=== PATIENT | male | born 1965 | race Caucasian/White ===

== ENCOUNTER → 2016-02-10 | Outpatient (CLI) | payer OTHER ==
[~2016-02-10] MED LIST: ACET1TAB84 PO; ADVIN50/60 INH; ALBI1INJ SQ; ALBI1INJ2 SQ; ALBINS/ INH; ALOS1TAB15 PO; ASPCH81X PO; ATOR-22 PO; BNT20 PO; CHOL200027 PO; CLB/200 PO; CLB100 PO; CLR10 PO; CYAN10004 PO; DIAZ-165 PO; DICY20TA35 PO; DOXY50CA26 PO; DPH/ PO; FLUT0.15; GABA1CAP5 PO; GLCSR/500 PO; IPRA1AER2 INH; LRS10 PO; MELO15TA3 PO; MELO15TA4 PO; METF1TAB53 PO; MONT1TAB3 PO; MTR600XX PO; MULTTAB58 PO; NVLGI7030 SC; OMEG10007 PO; ONDA4TAB10 SL; OXYC1TAB3 PO; PANT40TA PO; RISP2TAB22 PO; RISP4TAB7 PO; SOLI5TAB2 PO; TAMS0.4C38 PO; TRAZ100T29 PO; TRAZ1TAB52 PO; TRAZ50TA35 PO; VITACAP26 PO; VTMB12100 PO
--- NOTE | 2016-02-10 09:18 | DIAGNOSTIC IMAGING REPORT ---
CHEST 2 VIEWS ROUTINE CLINICAL HISTORY: J45.909 [id number] COMPARISON STUDY: 02/18/2015 FINDINGS: The heart is normal in size. There is mild superior mediastinal prominence, unchanged from the prior study likely secondary to fat deposition. There is no focal pulmonary consolidation. There is no failure. There are no pleural effusions.[ IMPRESSION: No active disease in the chest. Electronically signed by: Trace Price M.D. 02/10/2016 9:16 AM
== END | disposition home or self-care (01) ==
LOC: C.RAD1850 08:39
PROVIDERS: ATTEND Internal Medicine Pulmonary Disease
DX: J45.909 Unspecified asthma, uncomplicated (principal)

== ENCOUNTER → 2016-03-02 | Outpatient (CLI) | payer OTHER ==
[~2016-03-02] VITALS: Ht 180.3 cm; Wt 147.3 kg
[2016-03-02 15:30] VITALS: BP 128/78; PULSE 80; Ht 180.3 cm; Wt 147.3 kg
== END | disposition home or self-care (01) ==
LOC: C.NEUR 12:46
PROVIDERS: ATTEND Internal Medicine Pulmonary Disease
DX: G47.33 Obstructive sleep apnea (adult) (pediatric) (principal); J45.909 Unspecified asthma, uncomplicated

== ENCOUNTER → 2016-03-31 | Outpatient (CLI) | payer OTHER ==
[2016-03-31 09:38] LABS: BLOOD UREA NITROGEN 27 mg/dl (7-18); BUN/CREATININE RATIO 28.8 (10-20); CREATININE 0.93 mg/dl (0.60-1.40)
[2016-03-31 09:42] LABS: PROSTATE SPECIFIC ANTIGEN 0.134 ng/ml (0.000-4.000)
== END | disposition home or self-care (01) ==
LOC: C.LAB 06:29
PROVIDERS: ATTEND Urology
DX: R32 Unspecified urinary incontinence (principal)

== ENCOUNTER 2016-04-05 07:14 | Emergency (ER) | payer OTHER ==
[~2016-04-05] VITALS: Ht 180.3 cm; Wt 143.5 kg
[~2016-04-05 07:14] MED LIST changes: -ACET1TAB84 PO; -ALBI1INJ2 SQ; -ASPCH81X PO; -CLB/200 PO; -CLB100 PO; -DICY20TA35 PO; -DOXY50CA26 PO; -GLCSR/500 PO; -MELO15TA4 PO; -MONT1TAB3 PO; -ONDA4TAB10 SL; -OXYC1TAB3 PO; -TRAZ1TAB52 PO; -TRAZ50TA35 PO; -VITACAP26 PO; -VTMB12100 PO
[2016-04-05 07:20] VITALS: Ht 180.3 cm; Wt 143.5 kg
[2016-04-05] MEDS ORDERED: SODIUM CHLORIDE 0.9% 1000ML 1,000 ML IV STA (07:34)
[2016-04-05 07:58] LABS: BASO % 0.2 %; BASO ABS # 0.02 K/uL (0-0.2); COMPLETE YES; EOS % 0.5 %; HEMATOCRIT 44.4 % (42-52); IG% 0.4 %; LYMPH % 5.1 %; MEAN CELL VOLUME 89.5 fL (80-100); MEAN CORPUSCULAR HEMOGLOBIN 31.9 pg (25-34); MEAN CORPUSCULAR HGB CONC 35.6 g/dl (32-36); MEAN PLATELET VOLUME 9.2 fL (7.4-10.4); MONO % 10.7 %; NEUT % 83.1 %; PLATELET COUNT 213 K/uL (130-400); RED BLOOD COUNT 4.96 M/uL (4.7-6.1); WHITE BLOOD COUNT 9.77 K/uL (4.8-10.8)
[2016-04-05 08:15] LABS: BUN/CREATININE RATIO 28.8 (10-20); CALCIUM 8.4 mg/dl (8.5-10.1); POTASSIUM 3.7 mmol/L (3.5-5.1)
[2016-04-05 08:18] LABS: ALB/GLOB RATIO 0.8 (0.9-2)
[2016-04-05] MEDS ORDERED: VITACAP26 PO (08:19)
[2016-04-05] MEDS ORDERED: ONDA4TAB10 SL (08:19)
[2016-04-05] MEDS ORDERED: DOXY50CA26 PO (08:19)
[2016-04-05] MEDS ORDERED: TRAZ1TAB52 PO (08:19)
[2016-04-05] MEDS ORDERED: MELO15TA4 PO (08:19)
[2016-04-05] MEDS ORDERED: GLCSR/500 PO (08:19)
[2016-04-05] MEDS ORDERED: DICY20TA35 PO (08:19)
[2016-04-05] MEDS ORDERED: ACET1TAB84 PO (08:19)
[2016-04-05] MEDS ORDERED: IPRA1AER2 INH (08:19)
[2016-04-05] MEDS ORDERED: TRAZ50TA35 PO (08:19)
[2016-04-05] MEDS ORDERED: VTMB12100 PO (08:19)
[2016-04-05] MEDS ORDERED: MONT1TAB3 PO (08:19)
[2016-04-05 09:18] VITALS: BP 113/70; PULSE 91; TEMP 37; O2SAT 96
--- NOTE | 2016-04-05 17:23 | EMERGENCY ROOM VISIT NOTE ---
History First contact with patient: 07:23 Chief Complaint: DIARRHEA Stated Complaint: DIARRHEA,BODY ACHES Nursing Triage Summary: "I have body aches. I went to [employer] [facility] on wednesday they told me it was viral. I have diarrhea. I have been getting headaches" History of Present Illness The patient is a 50 year old white male who presents to the Emergency Room with complaints of diarrhea that has been present since . He states there is nausea but denies any vomiting. He denies eating anything unusual. He does have a history of IBS. He has been using Lomotil without improvement. States he did take 6 pills this morning. He admits to bodyaches. He went to [facility] on Wednesday and had a flu swab which was reportedly negative. He was told that his symptoms are likely viral. He is unsure if he is dehydrated. Complains of some mild headaches intermittently. No other treatment. He also states he has had fevers, chills, and sweats. No upper respiratory symptoms. Review of Systems REVIEW OF SYSTEM: HEENT: No dizziness, visual problems, hearing loss, or tinnitus. There is no difficulty swallowing and no oral lesions are present. LYMPH: No adenopathy. PULMONARY: No cough, shortness of breath, sputum production or hemoptysis. CARDIOVASCULAR: No chest pain, palpitations, shortness of breath or peripheral edema. GASTROINTESTINAL: Positive diarrhea, and nausea. No vomiting. GENITOURINARY: No dysuria, frequency, urgency or nocturia. NEUROLOGIC: No weakness, muscle tenderness, epilepsy or history of neurological problems. No history of chronic headaches. MUSCULOSKELETAL: No history of joint tenderness/swelling. No history of arthritis or arthralgias. SKIN: No rashes or lesions. PSYCHIATRIC: Positive history of bipolar disorder. ENDOCRINE: No history of thyroid disorder or abnormal hair growth. Past Medical/Surgical History Medical Problems: (1) Asthma (2) Bipolar disorder (3) BPH (benign prostatic hyperplasia) (4) Chronic back pain (5) Diabetes mellitus (6) Dyslipidemia (7) GERD (gastroesophageal reflux disease) (8) IBS (irritable bowel syndrome) (9) ZORAN treated with BiPAP Surgical Problems: (1) H/O rhinoplasty (2) H/O umbilical hernia repair Family History No pertinent family history Social History Smoking Status: Never Smoker Smokeless Tobacco Use: No Alcohol Use: none Drug Use: none Marital Status: single Housing Status: lives alone Occupation Status: disabled Current/Historical Medications Scheduled Acetaminophen (Tylenol Arthritis Ext Rel), 1,300 MG PO QID Albiglutide (Tanzeum), SQ weekly Albiglutide (Tanzeum), 30 MG SQ weekly Alosetron Hcl (Lotronex), 1 MG PO BID Atorvastatin (Lipitor), 20 MG PO DAILY Baclofen (Baclofen), 10 PO TID Cholecalciferol (Vitamin D-3), 2,000 INTER.UNIT PO DAILY Cyanocobalamin (Vitamin B-12 1000 Mcg), 1,000 MCG PO DAILY Cyanocobalamin (Vitamin B-12), 1 MG PO DAILY Diazepam (Valium), 5 MG PO HS Dicyclomine Hcl (Bentyl), 20 MG PO QID Diphenoxylate W/ Atropine (Lomotil), 2 TAB PO QID PRN Doxycycline (Monohydrate) (Doxycycline), 50 MG PO DAILY Fish Oil ([place]-3), 1,200 MG PO TID Fluticasone Prop/Salmeterol (Advair Diskus 500/50 60 Dose), 1 PUFF INH BID Fluticasone Propionate (Nasal) (Flonase Allergy Relief), 2 SPRAYS NA DAILY Gabapentin (Neurontin), 400 MG PO QID Insulin Aspart 70/30 (Novolog Mix 70/30), 55 UNITS SC BID Ipratropium-Albuterol (Combivent Respimat), 2 PUFFS INH AMPM Meloxicam (Mobic), 15 MG PO DAILY Metformin HCl (Metformin HCl ER), 1,000 MG PO BID Montelukast Sodium (Singulair), 10 MG PO DAILY Multiple Vitamin (Multivitamin), 1 TAB PO DAILY Pantoprazole (Protonix), 40 MG PO DAILY Risperidone (Risperdal), 1.5 TAB PO HS Solifenacin Succinate (Vesicare), 10 MG PO HS Tamsulosin Hcl (Flomax), 2 CAP PO HS Trazodone Hcl (Trazodone), 150 MG PO HS Vitamins C & E (Vitamin C), 1 CAP PO HS Scheduled PRN Albuterol Sulf (Proventil 0.083% 2.5MG/3ML), 2.5 MG INH QID PRN for SOB/Wheezing Ondasetron Odt (Zofran Odt), 4 MG SL Q6H PRN for Nausea or Vomiting Allergies Coded Allergies: Haloperidol (Verified Adverse Reaction, Mild, muscle cramps, eyes roll back in my head, 04/05/16) Physical Exam Vital Signs Date Time Temp Pulse Resp B/P Pulse Ox O2 Delivery O2 Flow Rate FiO2 04/05/16 09:18 37.0 91 20 113/70 96 04/05/16 07:20 36.9 99 18 134/69 93 Room Air Physical Exam Gen.: Well-developed, well-nourished, obese middle-aged white male, in no acute distress. Looks older than his stated age. Laying on a bed. Alert and oriented. Skin:Warm and dry with good turgor. No rashes or lesions. No ecchymosis or erythema. The patient is not diaphoretic. No abrasions. HEENT: Normocephalic atraumatic. Eyes PERRLA, EOMI. No conjunctiva or scleral injection. Ears TMs intact bilaterally with good light reflexes. No erythema or bulging. No hemotympanum. Canals are patent. Nares patent bilaterally without turbinate enlargement. No significant drainage. No epistaxis. Oropharynx without erythema or exudate. Uvula midline, oral mucosa mildly dry. No lesions present. Heart: Heart RRR. No MGR. Peripheral pulses are 2+. Lungs: Lungs are clear to auscultation. No crackles rhonchi or wheezing. Good air movement. The patient is able to take a deep breath. Abdomen: Abdomen was inspected, auscultated, and palpated. Obese. Bowel sounds present x 4. Hyperactive. Soft, diffuse mild tenderness to palpation. No hepato-splenomegaly. No masses noted. No rebound, negative Cali sign. No pain over McBurney's point. Neurologic: Gross sensation is intact across the upper and lower extremities by soft touch. Medical Decision & Procedures Laboratory Results 04/05/16 07:45 Red Blood Count 4.96, Mean Corpuscular Volume 89.5, Mean Corpuscular Hemoglobin 31.9, Mean Corpuscular Hemoglobin Concent 35.6, Mean Platelet Volume 9.2, Neutrophils (%) (Auto) 83.1, Lymphocytes (%) (Auto) 5.1, Monocytes (%) (Auto) 10.7, Eosinophils (%) (Auto) 0.5, Basophils (%) (Auto) 0.2, Neutrophils # (Auto ) 8.11, Lymphocytes # (Auto) 0.50, Monocytes # (Auto) 1.05, Eosinophils # (Auto ) 0.05, Basophils # (Auto) 0.02 04/05/16 07:45 Test 04/05/16 07:45 White Blood Count 9.77 K/uL (4.8-10.8) Red Blood Count 4.96 M/uL (4.7-6.1) Hemoglobin 15.8 g/dL (14.0-18.0) Hematocrit 44.4 % (42-52) Mean Corpuscular Volume 89.5 fL (80-100) Mean Corpuscular Hemoglobin 31.9 pg (25-34) Mean Corpuscular Hemoglobin Concent 35.6 g/dl (32-36) Platelet Count 213 K/uL (130-400) Mean Platelet Volume 9.2 fL (7.4-10.4) Neutrophils (%) (Auto) 83.1 % Lymphocytes (%) (Auto) 5.1 % Monocytes (%) (Auto) 10.7 % Eosinophils (%) (Auto) 0.5 % Basophils (%) (Auto) 0.2 % Neutrophils # (Auto) 8.11 K/uL (1.4-6.5) Lymphocytes # (Auto) 0.50 K/uL (1.2-3.4) Monocytes # (Auto) 1.05 K/uL (0.11-0.59) Eosinophils # (Auto) 0.05 K/uL (0-0.5) Basophils # (Auto) 0.02 K/uL (0-0.2) RDW Standard Deviation 44.7 fL (36.4-46.3) RDW Coefficient of Variation 13.6 % (11.5-14.5) Immature Granulocyte % (Auto) 0.4 % Immature Granulocyte # (Auto) 0.04 K/uL (0.00-0.02) Anion Gap 7.0 mmol/L (3-11) Est Creatinine Clear Calc Drug Dose 129.6 ml/min Estimated GFR () 102.0 Estimated GFR (Non- 88.0 BUN/Creatinine Ratio 28.8 (10-20) Calcium Level 8.4 mg/dl (8.5-10.1) Total Bilirubin 0.5 mg/dl (0.2-1) Aspartate Amino Transf (AST/SGOT) 31 U/L (15-37) Alanine Aminotransferase (ALT/SGPT) 43 U/L (12-78) Alkaline Phosphatase 80 U/L (45-117) Total Protein 7.3 gm/dl (6.4-8.2) Albumin 3.2 gm/dl (3.4-5.0) Globulin 4.1 gm/dl (2.5-4.0) Albumin/Globulin Ratio 0.8 (0.9-2) CBC and chem panel were obtained today. Stool culture and C. difficile toxin were also ordered with a sample of his stool. C. difficile was negative. CBC is unremarkable. Mild elevation in his BUN at 29. Glucose 177. Electrolytes are otherwise unremarkable. Medications Administered Medications (Trade) Dose Ordered Sig/Kari Route Start Time Stop Time Status Last Admin Dose Admin Sodium Chloride (Nss 1000ml) 1,000 ml @ 999 mls/hr Q1H1M STAT IV 04/05/16 07:34 04/05/16 08:34 DC 04/05/16 07:48 999 MLS/HR 1 L normal sterile saline IV bolus ED Course Patient was educated regarding today's findings. Conservative care measures were discussed. IV was established. Labs were obtained. He was hydrated with 1 L normal sterile saline IV bolus. Stool sample was obtained. It was negative for C. difficile. He was reassured that his labs show that he was mildly dry. He should maintain fluid intake. IV hydration here should help. Continue with his Lomotil one pill every 6 hours as needed for loose stool. Follow-up with his PCP. He will be called if the stool cultures show any growth. Return to the ED for any acute changes. He was cautioned against taking too many motility agents as this may create constipation or obstruction for him. Medical Decision Possibility of parasite, C. difficile infection, Shigella infection, obstruction , viral infection, or medication reaction was considered. Impression Primary Impression: Diarrhea in adult patient Departure Information Referrals Magda Dhillon D.O. (PCP) Patient Instructions My [facility]
[2016-07-02] MEDS ORDERED: CLB100 PO (08:10)
[2016-07-02] MEDS ORDERED: CLB/200 PO (08:10)
[2016-10-21] MEDS ORDERED: ASPCH81X PO (13:10)
[2016-10-21] MEDS ORDERED: CLR10 PO (13:10)
[2016-10-21] MEDS ORDERED: TRAZ1TAB52 PO (13:10)
== END 2016-04-05 09:19 | disposition home or self-care (01) ==
LOC: C.EDB 07:15 → C.EDA 09:19
DX: R19.7 Diarrhea, unspecified (principal); J45.909 Unspecified asthma, uncomplicated; F31.9 Bipolar disorder, unspecified; N40.0 Benign prostatic hyperplasia without lower urinary tract symptoms; E11.9 Type 2 diabetes mellitus without complications; E66.9 Obesity, unspecified; E78.5 Hyperlipidemia, unspecified; K21.9 Gastro-esophageal reflux disease without esophagitis; K58.9 Irritable bowel syndrome, unspecified; G47.33 Obstructive sleep apnea (adult) (pediatric); Z79.899 Other long term (current) drug therapy

== ENCOUNTER 2016-05-09 08:22 | Emergency (ER) | payer OTHER ==
[~2016-05-09] VITALS: Ht 180.3 cm; Wt 141.2 kg
[~2016-05-09 08:22] MED LIST changes: +ACET1TAB84 PO; +ALOS1TAB PO; -ALOS1TAB15 PO; -BNT20 PO; -CLR10 PO; +DICY20TA35 PO; +DOXY50CA26 PO; +GLCSR/500 PO; -MELO15TA3 PO; +MELO15TA4 PO; -METF1TAB53 PO; +MONT1TAB3 PO; -MTR600XX PO; +ONDA4TAB10 SL; -RISP2TAB22 PO; -TRAZ100T29 PO; +TRAZ50TA35 PO; +VITACAP26 PO; +VTMB12100 PO
[2016-05-09 08:29] VITALS: TEMP 36.6; Ht 180.3 cm; Wt 141.2 kg
--- NOTE | 2016-05-09 09:04 | EMERGENCY ROOM VISIT NOTE ---
History First contact with patient: 08:37 Chief Complaint: BACK PAIN Stated Complaint: PAIN W/BREATHING, TURNING, BACK PAIN History of Present Illness The patient is a 50 year old male who presents to the Emergency Room via private vehicle with complaints of "pain with breathing, turning, back pain". The patient states for the past month he has had pain in the right mid back. He states this occurred shortly after having an RFA with pain management. He states that it hurts to take a deep breath, and with walking. There is no known injury. He rates the pain as a 6-8/10. He points to the right CVA region into the right flank as the location of the pain. One week ago he was seen by Jorge Maldonado of pain management, prescribed a Medrol Dosepak with minimal relief. His also been taking acetaminophen meloxicam without relief. He is unsure if there is associated shortness of breath. He denies any chest pain, fevers, chills, history of blood clots, history of kidney stones personally, lower extremity weakness, bowel or bladder incontinence, numbness or tingling in the genital region. He denies any blood in the urine. He denies any melena or blood in the stool. He does feel that he is urinating more frequently. Review of Systems A complete 10-point Review of Systems was discussed with the patient, with pertinent positives and negatives listed in the History of Present Illness. All remaining Review of Systems questions can be considered negative unless otherwise specified. Past Medical/Surgical History Medical Problems: (1) Asthma (2) Bipolar disorder (3) BPH (benign prostatic hyperplasia) (4) Chronic back pain (5) Diabetes mellitus (6) Dyslipidemia (7) GERD (gastroesophageal reflux disease) (8) IBS (irritable bowel syndrome) (9) ZORAN treated with BiPAP Surgical Problems: (1) H/O rhinoplasty (2) H/O umbilical hernia repair Family History No pertinent family history Social History Smoking Status: Never Smoker Alcohol Use: none Drug Use: none Marital Status: single Housing Status: lives alone Occupation Status: disabled Current/Historical Medications Scheduled Acetaminophen (Tylenol Arthritis Ext Rel), 1,300 MG PO QID Albiglutide (Tanzeum), 1 DOSE SQ WK Alosetron Hcl (Lotronex), 1 MG PO BID Atorvastatin (Lipitor), 20 MG PO DAILY Baclofen (Baclofen), 10 PO TID Cholecalciferol (Vitamin D-3), 2,000 INTER.UNIT PO DAILY Cyanocobalamin (Vitamin B-12 1000 Mcg), 1,000 MCG PO DAILY Diazepam (Valium), 5 MG PO HS Dicyclomine Hcl (Bentyl), 20 MG PO QID Diphenoxylate W/ Atropine (Lomotil), 2 TAB PO QID PRN Doxycycline (Monohydrate) (Doxycycline), 50 MG PO DAILY Fish Oil ([place]-3), 1,200 MG PO TID Fluticasone Prop/Salmeterol (Advair Diskus 500/50 60 Dose), 1 PUFF INH BID Fluticasone Propionate (Nasal) (Flonase Allergy Relief), 2 SPRAYS NA DAILY Gabapentin (Neurontin), 400 MG PO QID Insulin Aspart 70/30 (Novolog Mix 70/30), 55 UNITS SC BID Ipratropium-Albuterol (Combivent Respimat), 2 PUFFS INH AMPM Meloxicam (Mobic), 15 MG PO DAILY Metformin HCl (Metformin HCl ER), 1,000 MG PO BID Montelukast Sodium (Singulair), 10 MG PO DAILY Multiple Vitamin (Multivitamin), 1 TAB PO DAILY Pantoprazole (Protonix), 40 MG PO DAILY Risperidone (Risperdal), 1 TAB PO HS Solifenacin Succinate (Vesicare), 10 MG PO HS Tamsulosin Hcl (Flomax), 2 CAP PO HS Trazodone Hcl (Trazodone), 150 MG PO HS Vitamins C & E (Vitamin C), 1 CAP PO HS Scheduled PRN Albuterol Sulf (Proventil 0.083% 2.5MG/3ML), 2.5 MG INH QID PRN for SOB/Wheezing Ondasetron Odt (Zofran Odt), 4 MG SL Q6H PRN for Nausea or Vomiting Oxycodone Ir (Roxicodone Ir), 1-2 TAB PO Q4H PRN for Pain Allergies Coded Allergies: Haloperidol (Verified Adverse Reaction, Mild, muscle cramps, eyes roll back in my head, 05/09/16) Physical Exam Vital Signs Date Time Temp Pulse Resp B/P Pulse Ox O2 Delivery O2 Flow Rate FiO2 05/09/16 11:38 72 18 118/78 94 05/09/16 10:42 70 05/09/16 10:19 71 22 118/78 95 Room Air 05/09/16 09:30 94 Room Air 05/09/16 08:29 36.6 68 22 138/71 97 Room Air Physical Exam VITAL SIGNS - Vital signs and nursing notes were reviewed. Afebrile, normotensive, non-tachycardic and is saturating well on room air at 97%. GENERAL -50-year-old male appearing his greater than his stated age who is in no acute distress. Communicates well with provider and answers questions appropriately. SKIN - Without rashes. HEAD - NC/AT. EYES - Sclera anicteric. Palpebral conjunctiva pink and moist with no injection noted. EARS - No deformities of external structures noted on gross examination bilaterally. NOSE - Midline and without cyanosis. No epistaxis or purulent drainage noted. MOUTH/OROPHARYNX - Without perioral cyanosis. NECK - Neck with FROM. LUNGS - Chest wall symmetric without accessory muscle use, intercostals retractions, or central cyanosis. Normal vesicular breath sounds CTA B/L. No wheezes, rales, or rhonchi appreciated. CARDIAC - RRR with S1/S2. No murmur, rubs, or gallops appreciated. ABDOMEN - Abdominal contour without pulsations or visible masses. BS normoactive all four quadrants.There is minimal tenderness in the lower quadrants. No palpable masses, hepatosplenomegaly, or ascites noted. +CVA tenderness on the right. EXTREMITIES - No clubbing or peripheral cyanosis. No pretibial edema present. + 5/5 strength noted in UE/LE bilaterally. NEUROLOGIC - Cranial nerves II through XII grossly intact. Sensory intact to light touch throughout. PSYCH - Pt is very pleasant and interacts well with examiner. Medical Decision & Procedures ER Provider Diagnostic Interpretation: CHEST ONE VIEW PORTABLE CLINICAL HISTORY: Back pain. COMPARISON STUDY: Chest CT February 18, 2015 and chest radiograph February 10, 2016. FINDINGS: Lung volumes are normal. There is no pneumothorax or pleural effusion. There is no evidence of pulmonary edema. The cardiomediastinal silhouette is stable. IMPRESSION: No acute cardiopulmonary findings. Electronically signed by: Delvis Jenkins M.D. 05/09/2016 9:06 AM Dictated Date/Time: 05/09/2016 9:[address] OF THE ABDOMEN AND PELVIS WITHOUT CONTRAST, STONE PROTOCOL CLINICAL HISTORY: Right CVA tenderness and pain COMPARISON STUDY: CT of the abdomen and pelvis July 22, 2011. TECHNIQUE: Helical axial images of the abdomen and pelvis were obtained without IV or oral contrast according to renal stone protocol. FINDINGS: Fatty infiltration of the liver is noted. Small left renal calculi measure up to 3 mm. There are a few punctate right renal calculi. There are no ureteral calculi and there is no hydronephrosis or hydroureter. Evaluation of the remainder of the abdomen and pelvis is suboptimal on this unenhanced exam. Unenhanced images of the spleen, adrenal glands and pancreas are normal. There is no evidence for a bowel obstruction. The appendix is normal. Colonic diverticulosis is noted without evidence for acute diverticulitis. No suspicious skeletal abnormalities are present. IMPRESSION: 1. Bilateral nephrolithiasis. No ureteral calculi or hydronephrosis. 2. Fatty liver. 3. Normal appendix. Electronically signed by: Delvis Jenkins M.D. 05/09/2016 9:43 AM Dictated Date/Time: 05/09/2016 9:39 AM Laboratory Results 05/09/16 09:00 Red Blood Count 4.61, Mean Corpuscular Volume 92.4, Mean Corpuscular Hemoglobin 32.1, Mean Corpuscular Hemoglobin Concent 34.7, Mean Platelet Volume 9.1, Neutrophils (%) (Auto) 69.1, Lymphocytes (%) (Auto) 19.7, Monocytes (%) (Auto) 7.9, Eosinophils (%) (Auto) 1.4, Basophils (%) (Auto) 0.4, Neutrophils # (Auto) 7.67, Lymphocytes # (Auto) 2.18, Monocytes # (Auto) 0.88, Eosinophils # (Auto) 0.15, Basophils # (Auto) 0.04 05/09/16 09:00 Test 05/09/16 09:00 05/09/16 09:13 05/09/16 10:17 White Blood Count 11.09 K/uL (4.8-10.8) Red Blood Count 4.61 M/uL (4.7-6.1) Hemoglobin 14.8 g/dL (14.0-18.0) Hematocrit 42.6 % (42-52) Mean Corpuscular Volume 92.4 fL (80-100) Mean Corpuscular Hemoglobin 32.1 pg (25-34) Mean Corpuscular Hemoglobin Concent 34.7 g/dl (32-36) Platelet Count 242 K/uL (130-400) Mean Platelet Volume 9.1 fL (7.4-10.4) Neutrophils (%) (Auto) 69.1 % Lymphocytes (%) (Auto) 19.7 % Monocytes (%) (Auto) 7.9 % Eosinophils (%) (Auto) 1.4 % Basophils (%) (Auto) 0.4 % Neutrophils # (Auto) 7.67 K/uL (1.4-6.5) Lymphocytes # (Auto) 2.18 K/uL (1.2-3.4) Monocytes # (Auto) 0.88 K/uL (0.11-0.59) Eosinophils # (Auto) 0.15 K/uL (0-0.5) Basophils # (Auto) 0.04 K/uL (0-0.2) RDW Standard Deviation 46.5 fL (36.4-46.3) RDW Coefficient of Variation 13.9 % (11.5-14.5) Immature Granulocyte % (Auto) 1.5 % Immature Granulocyte # (Auto) 0.17 K/uL (0.00-0.02) Anion Gap 7.0 mmol/L (3-11) Est Creatinine Clear Calc Drug Dose 144.3 ml/min Estimated GFR () 116.4 Estimated GFR (Non- 100.4 BUN/Creatinine Ratio 38.8 (10-20) Calcium Level 9.1 mg/dl (8.5-10.1) Total Bilirubin 0.3 mg/dl (0.2-1) Aspartate Amino Transf (AST/SGOT) 18 U/L (15-37) Alanine Aminotransferase (ALT/SGPT) 43 U/L (12-78) Alkaline Phosphatase 70 U/L (45-117) Total Protein 7.8 gm/dl (6.4-8.2) Albumin 3.9 gm/dl (3.4-5.0) Globulin 3.9 gm/dl (2.5-4.0) Albumin/Globulin Ratio 1.0 (0.9-2) Amylase Level 43 U/L (25-115) Lipase 124 U/L (73-393) Bedside D-Dimer 255 ng/mlFEU (0-450) Bedside Troponin I 0.000 ng/ml (0-0.045) Urine Color DK YELLOW Urine Appearance CLEAR (CLEAR) Urine pH 6.5 (4.5-7.5) Urine Specific Lewis 1.033 (1.000-1.030) Urine Protein NEG (NEG) Urine Glucose (UA) NEG (NEG) Urine Ketones NEG (NEG) Urine Occult Blood NEG (NEG) Urine Nitrite NEG (NEG) Urine Bilirubin NEG (NEG) Urine Urobilinogen NEG (NEG) Urine Leukocyte Esterase NEG (NEG) Medical Decision The patient was seen and evaluated as above. After obtaining a thorough history and physical examination the above workup was initiated. The patient presents with what is likely a strain of the mid superior lumbar and inferior thoracic spine. It is reproducible with palpation. Because the patient's underlying comorbidities additional imaging modalities and lab work was obtained. EKG reveals normal sinus rhythm, nonspecific T-wave abnormality which is in comparison to previous EKG, no significant change was found. No concern for recurrent ischemia. Patient states she's already had steroids with minimal relief. He also was concerned about potential kidney stone. CBC revealed slight leukocytosis which is likely secondary to recent Medrol Dosepak usage. Red blood cell count low at 4.61. D-dimer negative. Chloride elevated at 108, BUN at 35. Point care troponin negative 1, I do not believe that a second is repeated as his pain as been constant for one month. Amylase and lipase are within normal limits. Urine specific gravity elevated, otherwise negative. Imaging of the CT abdomen and pelvis reveals no acute process. Imaging of the chest unremarkable. Incidental findings discussed with patient. I believe he is likely experiencing a strain of the muscle. I was given Flexeril however he is already on baclofen. For acute management he'll be prescribed OxyIR. No red flags were identified any drug monitoring system. He was educated upon management, educated on worrisome symptoms which to return, educated upon the importance of follow-up, and was discharged home in good condition. Case was discussed with my attending. In the evaluation treatment this patient the following differential diagnoses were entertained: [place], PE, costochondritis, muscle strain, renal calculi, AAA, among others. [place] Drug Monitoring Program Search Results: patient reviewed within database, no issues identified Impression Primary Impression: Muscle strain of right upper back Additional Impressions: Elevated BUN Diverticulosis Fatty liver Departure Information Dispostion Home / Self-Care Condition GOOD Prescriptions Oxycodone Ir (Roxicodone Ir) 5 Mg Tab 1-2 TAB PO Q4H Y for Pain, #15 TAB For Initial Treatment Prov: Giovanny Coles PA-C 05/09/16 Referrals Magda Dhillon D.O. (PCP) Patient Instructions My [facility] Additional Instructions You have been treated in the Emergency Department for Back Pain. You have been prescribed Oxy IR to be used for pain control. This is a narcotic medication. You cannot drive or consume alcohol while on this medicine. This medicine should only be used for pain that cannot be controlled with over-the- counter pain medicines. Please continue your regular medications . For pain control, you can use the following [id number] medicines (if >12 yo): - Regular strength (325mg/tab) Tylenol (acetaminophen) 2 tabs every 4-6 hours as needed. Do not exceed 12 tablets in a 24 hour period. Avoid taking more than 3 grams (3000 mg) of Tylenol per day. This includes any other sources of acetaminophen you may take on a regular basis. - Regular strength (200 mg/tab) Advil (ibuprofen) 1-2 tabs every 4-6 hours as needed. Do not exceed a dose of 3200 mg per day. If this is an acute injury, ice can be applied to the area of pain for the first 3 days to help decrease pain and inflammation. After the first 3 days, a heating pad can be used over the area for continued soothing relief. You should schedule a follow-up appointment in 2-3 days with your Primary Care Provider for further evaluation and treatment of your back pain. Please discuss with your family doctor the findings of the CAT scan as we discussed as well as potentially having a repeat of your BUN. Your level here was 35. Return to the Emergency Department if your current symptoms worsen despite treatment course outlined above, or if you develop any of the following symptoms : intractable pain despite aforementioned treatment course, loss of control of your bowel or bladder, numbness or tingling in your groin, or development of a fever. Please return to emergency department with any new/concerning symptoms. Problem Qualifiers
--- NOTE | 2016-05-09 09:07 | DIAGNOSTIC IMAGING REPORT ---
CHEST ONE VIEW PORTABLE CLINICAL HISTORY: Back pain. COMPARISON STUDY: Chest CT February 18, 2015 and chest radiograph February 10, 2016. FINDINGS: Lung volumes are normal. There is no pneumothorax or pleural effusion. There is no evidence of pulmonary edema. The cardiomediastinal silhouette is stable. IMPRESSION: No acute cardiopulmonary findings. Electronically signed by: Delvis Jenkins M.D. 05/09/2016 9:06 AM Dictated Date/Time: 05/09/2016 9:05 AM
[2016-05-09 09:16] LABS: BASO % 0.4 %; BASO ABS # 0.04 K/uL (0-0.2); COMPLETE YES; EOS % 1.4 %; HEMATOCRIT 42.6 % (42-52); IG% 1.5 %; LYMPH % 19.7 %; LYMPH ABS # 2.18 K/uL (1.2-3.4); MEAN CELL VOLUME 92.4 fL (80-100); MEAN CORPUSCULAR HEMOGLOBIN 32.1 pg (25-34); MEAN CORPUSCULAR HGB CONC 34.7 g/dl (32-36); MEAN PLATELET VOLUME 9.1 fL (7.4-10.4); MONO % 7.9 %; NEUT % 69.1 %; PLATELET COUNT 242 K/uL (130-400); RED BLOOD COUNT 4.61 M/uL (4.7-6.1); WHITE BLOOD COUNT 11.09 K/uL (4.8-10.8)
[2016-05-09 09:30] VITALS: O2SAT 94
[2016-05-09 09:34] LABS: BUN/CREATININE RATIO 38.8 (10-20); CALCIUM 9.1 mg/dl (8.5-10.1); CREATININE 0.89 mg/dl (0.60-1.40); POTASSIUM 3.9 mmol/L (3.5-5.1)
--- NOTE | 2016-05-09 09:45 | DIAGNOSTIC IMAGING REPORT ---
CT OF THE ABDOMEN AND PELVIS WITHOUT CONTRAST, STONE PROTOCOL CLINICAL HISTORY: Right CVA tenderness and pain COMPARISON STUDY: CT of the abdomen and pelvis July 22, 2011. TECHNIQUE: Helical axial images of the abdomen and pelvis were obtained without IV or oral contrast according to renal stone protocol. FINDINGS: Fatty infiltration of the liver is noted. Small left renal calculi measure up to 3 mm. There are a few punctate right renal calculi. There are no ureteral calculi and there is no hydronephrosis or hydroureter. Evaluation of the remainder of the abdomen and pelvis is suboptimal on this unenhanced exam. Unenhanced images of the spleen, adrenal glands and pancreas are normal. There is no evidence for a bowel obstruction. The appendix is normal. Colonic diverticulosis is noted without evidence for acute diverticulitis. No suspicious skeletal abnormalities are present. IMPRESSION: 1. Bilateral nephrolithiasis. No ureteral calculi or hydronephrosis. 2. Fatty liver. 3. Normal appendix. Electronically signed by: eDlvis Jenkins M.D. 05/09/2016 9:43 AM Dictated Date/Time: 05/09/2016 9:39 AM
[2016-05-09] MEDS ORDERED: ALBI1INJ2 SQ (10:18)
[2016-05-09 10:26] LABS: URINE APPEARANCE CLEAR (CLEAR); URINE BILIRUBIN NEG (NEG); URINE COLOR DK YELLOW; URINE NITRITE NEG (NEG); URINE PH 6.5 (4.5-7.5); URINE SPECIFIC GRAVITY 1.033 (1.000-1.030); UROBILINOGEN NEG (NEG); ZZUR CULT IF INDIC CLEAN CATCH NO
[2016-05-09 10:33] LABS: MANUAL MICROSCOPIC REQUIRED? NO; REVIEW REQ? NO
[2016-05-09] MEDS ORDERED: OXYC1TAB3 PO (11:16)
[2016-05-09 11:38] VITALS: BP 118/78; PULSE 72; O2SAT 94
[2016-07-02] MEDS ORDERED: CLB/200 PO (08:10)
[2016-07-02] MEDS ORDERED: CLB100 PO (08:10)
[2016-10-21] MEDS ORDERED: TRAZ1TAB52 PO (13:10)
[2016-10-21] MEDS ORDERED: CLR10 PO (13:10)
[2016-10-21] MEDS ORDERED: ASPCH81X PO (13:10)
[2017-01-06] MEDS ORDERED: CLB/200 PO (10:22)
== END 2016-05-09 11:38 | disposition home or self-care (01) ==
LOC: C.EDB 08:24
DX: S39.012A Strain of muscle, fascia and tendon of lower back, initial encounter (principal); M54.9 Dorsalgia, unspecified; X58.XXXA Exposure to other specified factors, initial encounter; F31.9 Bipolar disorder, unspecified; K58.9 Irritable bowel syndrome, unspecified; G47.33 Obstructive sleep apnea (adult) (pediatric); E11.9 Type 2 diabetes mellitus without complications; Z79.4 Long term (current) use of insulin; Z79.899 Other long term (current) drug therapy; K76.0 Fatty (change of) liver, not elsewhere classified; N20.0 Calculus of kidney; K57.90 Diverticulosis of intestine, part unspecified, without perforation or abscess without bleeding

== ENCOUNTER → 2016-05-18 | Outpatient (CLI) | payer OTHER ==
[~2016-05-18] MED LIST changes: -ALBI1INJ SQ; +ALBI1INJ2 SQ; +ASPCH81X PO; +CLB/200 PO; +CLB100 PO; +CLR10 PO; +OXYC1TAB3 PO; +TRAZ1TAB52 PO; -VTMB12100 PO
--- NOTE | 2016-05-18 16:19 | DIAGNOSTIC IMAGING REPORT ---
THORACIC SPINE 3 VIEWS HISTORY: THORACIC BACK PAIN COMPARISON: Chest CTA 02/18/2015. FINDINGS: There is no fracture. No subluxation. No change in the mild degenerative disc disease within the thoracic spine. Large anterior osteophytes within the lower thoracic spine are also stable. IMPRESSION: No fracture or subluxation within the thoracic spine. Electronically signed by: Stephen Palacios M.D. 05/18/2016 4:17 PM Dictated Date/Time: 05/18/2016 4:16 PM
== END | disposition home or self-care (01) ==
LOC: C.RADBC 15:39
PROVIDERS: ATTEND Physician Assistant
DX: M54.6 Pain in thoracic spine (principal)

== ENCOUNTER → 2016-10-27 | Day surgery (SDC) | payer OTHER ==
[2016-10-21 13:11] VITALS: Ht 180.3 cm; Wt 135.4 kg
[~2016-10-27] VITALS: Ht 180.3 cm; Wt 135.4 kg
[~2016-10-27] MED LIST changes: -ACET1TAB84 PO; -ALOS1TAB PO; +ALOS1TAB15 PO; -CLB100 PO; +LIDOCAINE HCL 2% 2 ML VIAL (20MG/ML) ONE; -MELO15TA4 PO; -ONDA4TAB10 SL; -OXYC1TAB3 PO; +PROPOFOL IV EMULSION 10 MG/ML 20 ML VIAL IV ONE; +SODIUM CHLORIDE 0.9% 500ML 500 ML IV ONE; -TRAZ50TA35 PO; -VITACAP26 PO
[2016-10-27 08:45] VITALS: TEMP 36.5
--- NOTE | 2016-10-27 09:52 | Endo History and Physical ---
History & Physical Date of Service: Oct 27, 2016. Chief Complaint: Dysphagia Referring Physician: Dr. Magda Dhillon History of Present Illness Dysphagia Past Medical History Diabetes, Male Genitourinary Prob., Sleep Apnea, Depression Past Surgical History Hx Cardiac Surgery: No Hx Internal Defibrillator: No Hx Pacemaker: No Hx Abdominal Surgery: Yes (UMBILICAL HERNIA REPAIR) Hx of Implantable Prosthesis: No Hx Post-Op Nausea and Vomiting: No Hx Cancer Surgery: No Hx Thoracic Surgery: No Hx Orthopedic: Yes (RIGHT RCR) Hx Urinary Tract Surgery: No Family History None Social History Smoking Status: Never Smoker Hx Substance Use: No Hx Alcohol Use: No Allergies Coded Allergies: Haloperidol (Verified Adverse Reaction, Mild, muscle cramps, eyes roll back in my head, 10/21/16) Current Medications Reported Home Medications Medications Dose Route/Sig Max Daily Dose Days Date Category Dose Instructions Claritin (Loratadine) 10 Mg Tab 10 Mg PO QAM 10/21/16 Reported Aspirin Chewable (Aspirin) 81 Mg Chew 81 Mg PO QAM 10/21/16 Reported Desyrel (Trazodone Hcl) 150 Mg Tab 300 Mg PO HS 10/21/16 Reported CeleBREX (Celecoxib) 200 Mg Cap 200 Mg PO BID 07/02/16 Reported Tanzeum (Albiglutide) 50 Mg Inj 1 Dose SQ WK 05/09/16 Reported SUNDAYS AT 2000 Combivent Respimat (Ipratropium-Albuterol) 1 Aer Aer 2 Puffs INH AMPM 04/05/16 Reported Doxycycline (Doxycycline (Monohydrate)) 50 Mg Cap 50 Mg PO QAM 04/05/16 Reported Singulair (Montelukast Sodium) 10 Mg Tab 10 Mg PO QAM 04/05/16 Reported Metformin HCl ER (Metformin HCl) 500 Mg Tabcr 1,000 Mg PO BID 04/05/16 Reported Bentyl (Dicyclomine Hcl) 20 Mg Tab 20 Mg PO QID 04/05/16 Reported Flonase Allergy Relief (Fluticasone Propionate (Nasal)) 50 Mcg/Act Spr 2 Sprays NA DAILY 03/05/16 Reported Baclofen 10 Mg Tab 10 PO TID 05/17/15 Reported Proventil 0.083% 2.5MG/3ML (Albuterol Sulf) 2.5 Mg/3 Ml Nebu 2.5 Mg INH QID PRN 02/18/15 Reported Valium (Diazepam) 5 Mg Tab 5 Mg PO HS 02/18/15 Reported Flomax (Tamsulosin Hcl) 0.4 Mg Cap 2 Cap PO HS 30 02/18/15 Reported Lipitor (Atorvastatin Calcium) 20 Mg Tab 20 Mg PO HS 05/29/14 Reported Novolog Mix 70/30 (Insulin Aspart Prota 70%/Aspart 30%) Susp 55 Units SC BID 04/29/14 Reported pt has instruction to increase or decrease as per sliding scale per md. Vitamin D-3 (Cholecalciferol) 2,000 Unit Tab 2,000 Inter.unit PO QAM 11/09/12 Reported Advair Diskus 500/50 60 Dose (Fluticasone Prop/Salmeterol) 1 Ea Aerp 1 Puff INH BID 07/15/12 Reported Vitamin B-12 1000 Mcg (Cyanocobalamin) 1,000 Mcg Tab 1,000 Mcg PO QAM 04/26/12 Reported Lotronex (Alosetron Hcl) 1 Mg Tab 1 Mg PO BID 04/26/12 Reported Lomotil (Diphenoxylate W/ Atropine) 1 Tab Tab 2 Tab PO QID PRN 07/22/11 Reported PRN LOOSE STOOLS Multivitamin (Multiple Vitamin) 1 Tab Tab 1 Tab PO QAM 07/22/11 Reported Vesicare (Solifenacin Succinate) 5 Mg Tab 10 Mg PO HS 05/21/11 Reported Muscoda-3 (Fish Oil) 1 Ea Cap 1,200 Mg PO TID 01/21/11 Reported Protonix (Pantoprazole Sodium) 40 Mg Tab 40 Mg PO QAM 01/21/11 Reported Neurontin (Gabapentin) 400 Mg Cap 400 Mg PO QID 11/26/10 Reported Risperdal (Risperidone) 4 Mg Tab 1.5 Tab PO HS 04/12/09 Reported 2tab@1100 4tab HS Vital Signs Weight (Kilograms): 135.45 Height (Feet): 5 Height (Inches): 11 Date Time Temp Pulse Resp B/P (MAP) Pulse Ox O2 Delivery O2 Flow Rate FiO2 10/27/16 08:45 36.5 68 20 111/73 (86) 96 Room Air Physical Exam General Appearance: WD/WN, no apparent distress Respiratory/Chest: Auscultation: breath sounds normal, no wheezing Cardiovascular: Heart Auscultation: RRR, no murmurs Assessment and Plan Discharge.
--- NOTE | 2016-10-27 10:28 | GI REPORT ---
Procedure Date: 10/27/2016 9:03 AM Procedure: Upper GI endoscopy Indications: Dysphagia Medicines: Propofol per Anesthesia Complications: No immediate complications. Estimated blood loss: None. Estimated Blood Loss: Estimated blood loss: none. Procedure: Pre-Anesthesia Assessment: - Prior to the procedure, a History and Physical was performed, and patient medications, allergies and sensitivities were reviewed. The patient's tolerance of previous anesthesia was reviewed. - ASA Grade Assessment: III - A patient with severe systemic disease. After obtaining informed consent, the endoscope was passed under direct vision. Throughout the procedure, the patient's blood pressure, pulse, and oxygen saturations were monitored continuously. The scope was introduced through the mouth, and advanced to the third part of duodenum. The upper GI endoscopy was accomplished with ease. The patient tolerated the procedure well. Findings: No endoscopic abnormality was evident in the esophagus to explain the patient's complaint of dysphagia. It was decided, however, to proceed with dilation of the entire esophagus. A guidewire was placed and the scope was withdrawn. Dilation was performed with an Italian dilator with no resistance at 48 Fr and 54 Fr. The Z-line was irregular and was found 40 cm from the incisors. Biopsies were taken with a cold forceps for histology. A small sliding hiatus hernia was present. Diffuse moderate inflammation characterized by adherent blood and erythema was found in the entire examined stomach. Biopsies were taken with a cold forceps for Helicobacter pylori testing. The examined duodenum was normal. Verification of patient identification for the specimens was done by the physician and nurse using the patient's name, date and medical record number. Impression: - No endoscopic esophageal abnormality to explain patient's dysphagia. Esophagus dilated. Dilated. - Z-line irregular, 40 cm from the incisors. Biopsied. - Small sliding hiatus hernia. - Gastritis. Biopsied. - Normal examined duodenum. Recommendation: - No aspirin, ibuprofen, naproxen, or other non-steroidal anti-inflammatory drugs. - Discharge patient to home (with escort). Juan Diego Jung M.D. Juan Diego Jung MD 10/27/2016 10:27:28 AM This report has been signed electronically. Note Initiated On: 10/27/2016 9:03 AM I attest to the content of the Intraoperative Record and orders documented therein, exceptions below
--- NOTE | 2016-10-27 10:31 | Discharge Instructions ---
Endoscopy Patient Instructions Date / Procedure(s) Performed Oct 27, 2016. EGD Allergy Information Coded Allergies: Haloperidol (Verified Adverse Reaction, Mild, muscle cramps, eyes roll back in my head, 10/21/16) Discharge Date / Findings Oct 27, 2016. Dysphagia, dilation performed. Gastritis. Medication Instructions Stopped Medication(s): Patient was told to not take his insulin or his metformin. Restart Stopped Medication(s): Restart medications. Stop aspirin. Provider Instructions Activity Restrictions - No exercising or heavy lifting for 24 hours. - Do not drink alcohol the day of the procedure. - Do not drive a car or operate machinery until the day after the procedure. - Do not make any important decisions or sign important papers in 24 hours after the procedure. Following Day: - Return to full activity which may include returning to work/school. Diet Start your diet with liquids and light foods (jello, soup, juice, toast). Then eat your usual diet if not nauseated. Treatment For Common After Affects For mild abdominal pain, bloating, or excessive gas: - Rest - Eat lightly - Lie on right side Follow-Up Information Follow-up with Dr. Magda Dhillon as scheduled Anesthesia Information What You Should Know You have had a procedure that required some medicine to reduce anxiety and discomfort. This treatment is called moderate sedation. After receiving the treatment, you may be sleepy, but you will be able to breathe on your own. The effects of the treatment may last for several hours. Follow these instructions along with Activity/Diet recommendations noted above: * Do NOT do anything where dizziness or clumsiness would be dangerous. * Rest quietly at home today, then you can be up and about tomorrow. * Have a responsible person stay with you the rest of today. * You may have had an I.V. today. If so, you may take the dressing off later today. Recommendations Call your doctor if: * Trouble breathing * Continuous vomiting for more than 24 hours * Temperature above 101 degrees * Severe abdominal pain or bloating * Pain not relieved by pain medicine ordered * There is increased drainage or redness from any incision * A large amount of rectal bleeding greater than 2-3 tablespoons. (If you had a polyp/s removed or have hemorrhoids, a small amount of blood - from the rectum is to be expected.) * You have any unanswered questions or concerns. IN THE EVENT OF A SERIOUS EMERGENCY, GO TO THE NEAREST EMERGENCY ROOM Your discharge instructions were prepared by provider Juan Diego Jung. Patient Instructions Signature Page William Schofield Patient (or Guardian) Signature/Date: I have read and understand the instructions given to me by my caregivers. Caregiver/RN/Doctor Signature/Date: The above-named patient and/or guardian has received patient instructions on this date. + Original Patient Signature Page (only) stays with chart. Please make copy for patient.
--- NOTE | 2016-10-27 10:35 | Anesthesiology Progress Note ---
Anesthesia Post Op Note Date & Time Oct 27, 2016 at 10:35 Vital Signs Pain Intensity: 0 Vital Signs Past 12 Hours Date Time Temp Pulse Resp B/P (MAP) Pulse Ox O2 Delivery O2 Flow Rate FiO2 10/27/16 10:19 69 20 138/82 (100) 97 Room Air 10/27/16 08:45 36.5 68 20 111/73 (86) 96 Room Air Notes Mental Status: alert / awake / arousable, participated in evaluation Pt Amnestic to Procedure: Yes Nausea / Vomiting: adequately controlled Pain: adequately controlled Airway Patency, RR, SpO2: stable & adequate BP & HR: stable & adequate Hydration State: stable & adequate Anesthetic Complications: no major complications apparent
[2016-10-27 10:50] VITALS: BP 132/86; PULSE 68; O2SAT 95
== END | disposition home or self-care (01) ==
LOC: C.GI 08:19
PROVIDERS: ATTEND Internal Medicine Gastroenterology
DX: R13.10 Dysphagia, unspecified (principal); K29.50 Unspecified chronic gastritis without bleeding; K21.9 Gastro-esophageal reflux disease without esophagitis; E11.9 Type 2 diabetes mellitus without complications; J45.909 Unspecified asthma, uncomplicated; G47.33 Obstructive sleep apnea (adult) (pediatric); Z79.82 Long term (current) use of aspirin

== ENCOUNTER → 2017-02-15 | Day surgery (SDC) | payer OTHER ==
[2017-02-11 10:42] VITALS: BMI 40.0
[~2017-02-15] VITALS: Ht 180.3 cm; Wt 131.8 kg
[~2017-02-15] MED LIST changes: +ACET325T96 PO; +ALOS1TAB PO; -ALOS1TAB15 PO; -ASPCH81X PO
[2017-02-15 08:11] VITALS: Ht 180.3 cm; Wt 131.8 kg
--- NOTE | 2017-02-15 08:43 | Endo History and Physical ---
History & Physical Date of Service: Feb 15, 2017. Chief Complaint: DYSPHAGIA 3 MONTH FOLOW UP Referring Physician: FRITZ MONGE History of Present Illness History of esophagitis with atypical cells. Past Medical History Diabetes, Male Genitourinary Prob., Sleep Apnea, Depression Past Surgical History Hx Cardiac Surgery: No Hx Internal Defibrillator: No Hx Pacemaker: No Hx Abdominal Surgery: Yes (UMBILICAL HERNIA REPAIR) Hx of Implantable Prosthesis: No Hx Post-Op Nausea and Vomiting: No Hx Cancer Surgery: No Hx Thoracic Surgery: No Hx Orthopedic: Yes (RIGHT RCR) Hx Urinary Tract Surgery: No Family History Colon CA Social History Smoking Status: Never Smoker Hx Substance Use: No Hx Alcohol Use: No Allergies Coded Allergies: Haloperidol (Verified Adverse Reaction, Mild, muscle cramps, eyes roll back in my head, 02/15/17) Current Medications Reported Home Medications Medications Dose Route/Sig Max Daily Dose Days Date Category Dose Instructions Tylenol (Acetaminophen) 325 Mg Tab 650 Mg PO QID PRN 02/11/17 Reported CeleBREX (Celecoxib) 200 Mg Cap 200 Mg PO BID 01/06/17 Reported Claritin (Loratadine) 10 Mg Tab 10 Mg PO QAM 10/21/16 Reported Desyrel (Trazodone Hcl) 150 Mg Tab 300 Mg PO HS 10/21/16 Reported Tanzeum (Albiglutide) 50 Mg Inj 1 Dose SQ WK 05/09/16 Reported SUNDAYS AT 2000 Combivent Respimat (Ipratropium-Albuterol) 1 Aer Aer 2 Puffs INH AMPM 04/05/16 Reported Doxycycline (Doxycycline (Monohydrate)) 50 Mg Cap 50 Mg PO QAM 04/05/16 Reported Singulair (Montelukast Sodium) 10 Mg Tab 10 Mg PO QAM 04/05/16 Reported Metformin HCl ER (Metformin HCl) 500 Mg Tabcr 1,000 Mg PO QAM 04/05/16 Reported Bentyl (Dicyclomine Hcl) 20 Mg Tab 20 Mg PO QID 04/05/16 Reported Flonase Allergy Relief (Fluticasone Propionate (Nasal)) 50 Mcg/Act Spr 2 Sprays NA DAILY 03/05/16 Reported Baclofen 10 Mg Tab 10 PO TID 05/17/15 Reported Proventil 0.083% 2.5MG/3ML (Albuterol Sulf) 2.5 Mg/3 Ml Nebu 2.5 Mg INH QID PRN 02/18/15 Reported Valium (Diazepam) 5 Mg Tab 5 Mg PO HS 02/18/15 Reported Flomax (Tamsulosin Hcl) 0.4 Mg Cap 2 Cap PO HS 30 02/18/15 Reported Lipitor (Atorvastatin Calcium) 20 Mg Tab 20 Mg PO HS 05/29/14 Reported Novolog Mix 70/30 (Insulin Aspart Prota 70%/Aspart 30%) Susp 55 Units SC BID 04/29/14 Reported pt has instruction to increase or decrease as per sliding scale per md. Vitamin D-3 (Cholecalciferol) 2,000 Unit Tab 2,000 Inter.unit PO QAM 11/09/12 Reported Advair Diskus 500/50 60 Dose (Fluticasone Prop/Salmeterol) 1 Ea Aerp 1 Puff INH BID 07/15/12 Reported Vitamin B-12 1000 Mcg (Cyanocobalamin) 1,000 Mcg Tab 1,000 Mcg PO QAM 04/26/12 Reported Lotronex (Alosetron Hcl) 1 Mg Tab 1 Mg PO BID 04/26/12 Reported Lomotil (Diphenoxylate W/ Atropine) 1 Tab Tab 2 Tab PO QID PRN 07/22/11 Reported PRN LOOSE STOOLS Multivitamin (Multiple Vitamin) 1 Tab Tab 1 Tab PO QAM 07/22/11 Reported Vesicare (Solifenacin Succinate) 5 Mg Tab 10 Mg PO HS 05/21/11 Reported Gilbert-3 (Fish Oil) 1 Ea Cap 1,200 Mg PO TID 01/21/11 Reported Protonix (Pantoprazole Sodium) 40 Mg Tab 40 Mg PO QAM 01/21/11 Reported Neurontin (Gabapentin) 400 Mg Cap 400 Mg PO QID 11/26/10 Reported Risperdal (Risperidone) 4 Mg Tab 6 Mg PO HS 04/12/09 Reported Vital Signs Weight (Kilograms): 131.82 Height (Feet): 5 Height (Inches): 11 Date Time Temp Pulse Resp B/P (MAP) Pulse Ox O2 Delivery O2 Flow Rate FiO2 02/15/17 08:12 36.6 63 18 125/78 (94) 93 Room Air Physical Exam General Appearance: WD/WN, no apparent distress Respiratory/Chest: Auscultation: breath sounds normal, no wheezing Cardiovascular: Heart Auscultation: RRR, no murmurs Assessment and Plan Cleared for EGD.
--- NOTE | 2017-02-15 09:10 | Discharge Instructions ---
Endoscopy Patient Instructions Date / Procedure(s) Performed Feb 15, 2017. EGD Allergy Information Coded Allergies: Haloperidol (Verified Adverse Reaction, Mild, muscle cramps, eyes roll back in my head, 02/15/17) Discharge Date / Findings Feb 15, 2017. Candid esophagitis; dysphagia (dilated to 54 Fr) Medication Instructions Stopped Medication(s): Restart all medications today. Start 3 week course of diflucan. Provider Instructions Activity Restrictions - No exercising or heavy lifting for 24 hours. - Do not drink alcohol the day of the procedure. - Do not drive a car or operate machinery until the day after the procedure. - Do not make any important decisions or sign important papers in 24 hours after the procedure. Following Day: - Return to full activity which may include returning to work/school. Diet Start your diet with liquids and light foods (jello, soup, juice, toast). Then eat your usual diet if not nauseated. Treatment For Common After Affects For mild abdominal pain, bloating, or excessive gas: - Rest - Eat lightly - Lie on right side Follow-Up Information Follow-up with FRITZ MONGE as scheduled Anesthesia Information What You Should Know You have had a procedure that required some medicine to reduce anxiety and discomfort. This treatment is called moderate sedation. After receiving the treatment, you may be sleepy, but you will be able to breathe on your own. The effects of the treatment may last for several hours. Follow these instructions along with Activity/Diet recommendations noted above: * Do NOT do anything where dizziness or clumsiness would be dangerous. * Rest quietly at home today, then you can be up and about tomorrow. * Have a responsible person stay with you the rest of today. * You may have had an I.V. today. If so, you may take the dressing off later today. Recommendations Call your doctor if: * Trouble breathing * Continuous vomiting for more than 24 hours * Temperature above 101 degrees * Severe abdominal pain or bloating * Pain not relieved by pain medicine ordered * There is increased drainage or redness from any incision * A large amount of rectal bleeding greater than 2-3 tablespoons. (If you had a polyp/s removed or have hemorrhoids, a small amount of blood - from the rectum is to be expected.) * You have any unanswered questions or concerns. IN THE EVENT OF A SERIOUS EMERGENCY, GO TO THE NEAREST EMERGENCY ROOM Your discharge instructions were prepared by provider Juan Diego Jung. Patient Instructions Signature Page William Schofield Patient (or Guardian) Signature/Date: I have read and understand the instructions given to me by my caregivers. Caregiver/RN/Doctor Signature/Date: The above-named patient and/or guardian has received patient instructions on this date. + Original Patient Signature Page (only) stays with chart. Please make copy for patient.
--- NOTE | 2017-02-15 09:17 | GI REPORT ---
Procedure Date: 02/15/2017 8:53 AM Procedure: Upper GI endoscopy Indications: Dysphagia, Follow-up of reflux esophagitis Medicines: Monitored Anesthesia Care Complications: No immediate complications. Estimated blood loss: None. Estimated Blood Loss: Estimated blood loss: none. Procedure: Pre-Anesthesia Assessment: - Prior to the procedure, a History and Physical was performed, and patient medications, allergies and sensitivities were reviewed. The patient's tolerance of previous anesthesia was reviewed. - ASA Grade Assessment: III - A patient with severe systemic disease. After obtaining informed consent, the endoscope was passed under direct vision. Throughout the procedure, the patient's blood pressure, pulse, and oxygen saturations were monitored continuously. The Scope was introduced through the mouth, and advanced to the third part of duodenum. The upper GI endoscopy was accomplished with ease. The patient tolerated the procedure well. Findings: Localized candidiasis was found in the upper and middle third of the esophagus. Biopsies were taken with a cold forceps for histology. No endoscopic abnormality was evident in the esophagus to explain the patient's complaint of dysphagia. It was decided, however, to proceed with dilation of the entire esophagus. A guidewire was placed and the scope was withdrawn. Dilation was performed with a Savary dilator with no resistance at 16 mm and 18 mm. The Z-line was regular and was found 41 cm from the incisors. Biopsies were taken with a cold forceps for histology. A small amount of food (residue) was found in the gastric body. Normal mucosa was found in the entire examined stomach. Biopsies were taken with a cold forceps for Helicobacter pylori testing. The examined duodenum was normal. Verification of patient identification for the specimens was done by the physician and nurse using the patient's name, date and medical record number. Impression: - Monilial esophagitis. Biopsied. - No endoscopic esophageal abnormality to explain patient's dysphagia. Esophagus dilated. Dilated. - Z-line regular, 41 cm from the incisors. Biopsied. - A small amount of food (residue) in the stomach. - Normal mucosa was found in the entire stomach. Biopsied. - Normal examined duodenum. Recommendation: - Observe patient's clinical course. - Diflucan (fluconazole) 100 mg PO daily for 2 weeks. Juan Diego Jung M.D. Juan Diego Jung MD 02/15/2017 9:17:23 AM This report has been signed electronically. Note Initiated On: 02/15/2017 8:53 AM I attest to the content of the Intraoperative Record and orders documented therein, exceptions below
--- NOTE | 2017-02-15 09:32 | Anesthesiology Progress Note ---
Anesthesia Post Op Note Date & Time Feb 15, 2017 at 09:32 Vital Signs Pain Intensity: 0 Vital Signs Past 12 Hours Date Time Temp Pulse Resp B/P (MAP) Pulse Ox O2 Delivery O2 Flow Rate FiO2 02/15/17 08:12 36.6 63 18 125/78 (94) 93 Room Air Notes Mental Status: alert / awake / arousable, participated in evaluation Pt Amnestic to Procedure: Yes Nausea / Vomiting: adequately controlled Pain: adequately controlled Airway Patency, RR, SpO2: stable & adequate BP & HR: stable & adequate Hydration State: stable & adequate Anesthetic Complications: no major complications apparent
[2017-02-15 09:45] VITALS: BP 136/85; PULSE 68; O2SAT 95
== END | disposition home or self-care (01) ==
LOC: C.GI 07:42
PROVIDERS: ATTEND Internal Medicine Gastroenterology
DX: R13.10 Dysphagia, unspecified (principal); B37.81 Candidal esophagitis; J45.909 Unspecified asthma, uncomplicated; G47.33 Obstructive sleep apnea (adult) (pediatric); K21.9 Gastro-esophageal reflux disease without esophagitis; E11.9 Type 2 diabetes mellitus without complications; F32.9 Major depressive disorder, single episode, unspecified; Z80.0 Family history of malignant neoplasm of digestive organs

== ENCOUNTER → 2017-03-23 | Outpatient (CLI) | payer OTHER ==
[~2017-03-23] MED LIST changes: +ACET-1693 PO; -ACET325T96 PO; +GABA-1220 PO; -GABA1CAP5 PO; -LIDOCAINE HCL 2% 2 ML VIAL (20MG/ML) ONE; -PROPOFOL IV EMULSION 10 MG/ML 20 ML VIAL IV ONE; -SODIUM CHLORIDE 0.9% 500ML 500 ML IV ONE
[2017-03-23 09:45] LABS: BLOOD UREA NITROGEN 22 mg/dl (7-18); CREATININE 0.94 mg/dl (0.60-1.40)
== END | disposition home or self-care (01) ==
LOC: C.LAB 06:13
PROVIDERS: ATTEND Urology
DX: R32 Unspecified urinary incontinence (principal)

== ENCOUNTER 2020-01-20 14:58 | Inpatient (IN) ==
--- NOTE | 2020-01-20 15:49 | Emergency Department Note ---
History of Present Illness General Chief complaint: Shortness of Breath/Dyspnea Stated complaint: COVID +,SOB,BODY ACHES Time Seen by Provider: 01/20/20 15:27 Source: patient Mode of arrival: ambulatory Limitations: no limitations History of Present Illness Maximum Pain Intensity: 10 This patient comes in after being called today and told he had Covid. He said the test was done at [facility] on Wednesday or Wednesday. I asked when his symptoms starts and he is not sure because he says he is felt sick for quite some time he was hospitalized in [place] with a spinal infection since he has been home he is been feeling sick he has been here for spine pain about 2 weeks ago had negative CT of his chest he has been on Xarelto as well for history of DVT. He has had a cough and some shortness of breath he has back pain but no new numbness or weakness of his legs no change in bowel or bladder function. No trauma or injury. He has been having trouble sleeping. He denies suicidal or homicidal ideations. No dysuria or hematuria. Home Medications Medication Instructions Recorded Confirmed Type atorvastatin 20 mg tablet 20 mg PO QAM 11/22/17 01/03/20 History cholecalciferol (vitamin D3) 50 2,000 units PO DAILY 11/22/17 01/03/20 History mcg (2,000 unit) capsule cyanocobalamin (vitamin B-12) 1,000 mcg PO DAILY 11/22/17 01/03/20 History 1,000 mcg tablet,extended release dicyclomine 20 mg tablet 20 mg PO QID 11/22/17 01/03/20 History diphenoxylate-atropine 2.5 1 tab PO QID PRN tab 11/22/17 01/03/20 History mg-0.025 mg tablet fluticasone 500 mcg-salmeterol 50 1 inha INH BID 11/22/17 01/03/20 History mcg/dose blistr powdr for inhalation fluticasone propionate 50 2 sprays INTNAS HS 11/22/17 01/03/20 History mcg/actuation nasal spray,suspension gabapentin 400 mg capsule 400 mg PO QID 11/22/17 01/03/20 History ipratropium 20 mcg-albuterol 100 2 puffs INH BID 11/22/17 01/03/20 History mcg/actuation mist for inhalation montelukast 10 mg tablet 10 mg PO QAM 11/22/17 01/03/20 History multivitamin 1 tab PO QAM 11/22/17 01/03/20 History pantoprazole 40 mg tablet,delayed 40 mg PO QAM 11/22/17 01/03/20 History release [place] 3-6-9 1,200 cap PO TID 08/03/18 01/03/20 History levothyroxine 50 mcg PO DAILYBB 12/09/18 01/03/20 History tamsulosin 0.4 mg capsule 0.4 mg PO HS #90 cap 09/05/19 01/03/20 Rx baclofen 20 mg tablet 20 mg PO BID 09/19/19 01/03/20 History simethicone 80 mg PO Q6H PRN 10/03/19 01/03/20 History benzoyl peroxide 1 applic TOPICAL 2XWK 11/05/19 01/03/20 History trazodone 75 mg PO HS 11/05/19 01/03/20 History cephalexin 100 mg PO BID 12/26/19 01/03/20 History ciprofloxacin HCl [Cipro] 500 mg PO Q12H 12/26/19 01/03/20 History divalproex 750 mg PO BID 12/26/19 01/03/20 History haloperidol 10 mg PO BID 12/26/19 01/03/20 History insulin glargine [Lantus U-100 105 unit SUBCUT HS 12/26/19 01/03/20 History Insulin] lidocaine 1 patch TOPICAL DAILY 12/26/19 01/03/20 History loratadine [Claritin Liqui-Gel] 10 mg PO DAILY 12/26/19 01/03/20 History metronidazole 500 mg PO TID 12/26/19 01/03/20 History sulfamethoxazole-trimethoprim 1 tab PO BID 12/26/19 01/03/20 History ziprasidone HCl 40 mg PO QPM 12/26/19 01/03/20 History ziprasidone HCl 60 mg PO QAM 12/26/19 01/03/20 History albuterol sulfate 2 puff INHALATION Q4 PRN 12/29/19 01/03/20 History azelastine 1 spray INTRANASAL DAILY 12/29/19 01/03/20 History diclofenac sodium 2 g TOPICAL BID 12/29/19 01/03/20 History duloxetine 60 mg PO DAILY 12/29/19 01/03/20 History testosterone cypionate 200 mg/mL 200 mg IM .COMPLEX #1 ea 12/29/19 01/03/20 Rx intramuscular kit furosemide [Lasix] 20 mg PO DAILY PRN #10 tab 01/03/20 Rx Allergies Allergy/AdvReac Type Severity Reaction Status Date / Time haloperidol AdvReac Intermediate muscle Verified 01/03/20 06:06 cramps, eyes roll back in my head Past Med/Surg History Medical History (Updated 01/20/20 @ 18:21 by Manuel Reyes MD) Anxiety Asthma uses PRN inh BID on average Bipolar disorder BPH (benign prostatic hyperplasia) Chronic back pain Degenerative disc disease Depression Difficult airway for intubation "small airway" Diverticular disease DM type 2 (diabetes mellitus, type 2) IDDM Dyslipidemia Fatty liver GERD (gastroesophageal reflux disease) History of esophageal dilatation Hypogonadism in male Hypothyroidism IBS (irritable bowel syndrome) Lumbago Lumbar facet joint syndrome Lumbar spondylosis Obesity ZORAN treated with BiPAP Osteoarthritis Sacroiliitis Schizoaffective disorder Surgical History H/O rhinoplasty H/O umbilical hernia repair History of colonoscopy History of esophagogastroduodenoscopy (EGD) History of tonsillectomy and adenoidectomy S/P UPPP (uvulopalatopharyngoplasty) Status post rotator cuff repair Bilateral Family History Grandmother Colon cancer Diabetes Father Diabetes Other No family history of adverse response to anesthesia Social History Smoking Status: Never smoker Second Hand Exposure: Yes (mom and dad smoked); Hx Alcohol Use: No Hx Substance Use: No Preferred Language: Lao Communication Ability: Effective 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 Beliefs That Will Affect Care: None marital status: Single Current Living Situation: Alone current occupational status: unemployed Feels Safe at Home: Yes Assistive Devices: BiPap and Glasses Review of Systems A total of 10 systems reviewed and were otherwise negative Physical Exam Vital Signs Vital Signs - 24 hr 01/20/20 15:00 01/20/20 16:02 01/20/20 16:09 Temperature 36.5 C Temperature Source Oral Pulse Rate 74 74 69 Pulse Rate from SpO2 Sensor 70 Pulse Rhythm Regular Respiratory Rate 16 16 22 Respiratory Effort / Characteristics Blood Pressure 136/82 132/87 Blood Pressure Mean 100 93 Pulse Oximetry 98 98 96 Oxygen Delivery Method Room Air Sepsis Recent Fever Within 48 Hours Yes Sepsis New/Unexplained Change in Mental Status No Sepsis Action Taken by Nursing No Action Required 01/20/20 16:23 01/20/20 16:30 01/20/20 17:00 Temperature Temperature Source Pulse Rate 71 73 Pulse Rate from SpO2 Sensor 71 72 Pulse Rhythm Respiratory Rate 21 18 Respiratory Effort / Characteristics Non-Labored Spontaneous Blood Pressure 133/106 H 154/98 H Blood Pressure Mean 114 105 Pulse Oximetry 98 96 95 Oxygen Delivery Method Room Air Sepsis Recent Fever Within 48 Hours Sepsis New/Unexplained Change in Mental Status Sepsis Action Taken by Nursing General: Well developed well nourished not ill-appearing middle-age male who appears in no acute distress, breathing comfortably on room air. Normal speech HEENT: Normal cephalic atraumatic. Pupils are equal round and reactive to light. Sclera anicteric extraocular movements are intact. Oropharynx is pink with moist mucous membranes. No swelling of the mouth lips or tongue. Neck: Supple with a midline trachea. No meningeal signs or stiffness, no JVD or bruits. No Stridor. Chest: Clear to auscultation bilaterally. No wheezes or rhonchi. No increased work of breathing. Heart: Regular rate and rhythm without murmurs or gallops. Abdomen: Soft nontender, nondistended without rebound guarding or rigidity. Extremities: No cyanosis clubbing or edema. No calf tenderness or assymetry Spine/Back. Non tender to palpation. No CVA tenderness Skin: Good turgor without rashes. Neurologic exam: Cranial nerves two through 12 are intact. Motor and sensation are intact and symmetrical throughout. Course Administered Medications Discontinued Medications Ioversol (Optiray 320 125ml) 120 ml IV ONCE ONE Stop: 01/20/20 17:32 Last Admin: 01/20/20 17:32 Dose: 120 ml Documented by: [id number] Medical Decision Making Differential Diagnosis Covid, infection, electrolyte or metabolic abnormality, acute exacerbation chronic back pain, spinal infection, PE/DVT, cardiac disease, electrolyte or metabolic abnormality Medical Records Attestation: I reviewed the patient's medical records. Home Medications Current Medication List: was personally reviewed by me Laboratory Data Attestation: I reviewed the patient's lab results. Result diagrams: 01/20/20 16:23 01/20/20 16:23 Lab Results 01/20/20 01/20/20 01/20/20 Range/Units 16:23 16:23 16:23 WBC 4.22 L (4.8-10.8) K/uL RBC 4.30 L (4.7-6.1) M/uL Hgb 13.8 L (14.0-18.0) g/dL Hct 41.0 L (42-52) % MCV 95.3 (80-100) fL MCH 32.1 (25-34) pg MCHC 33.7 (32-36) g/dL RDW Std Deviation 50.9 H (36.4-46.3) fL RDW Coeff of Herbert 14.5 (11.5-14.5) % Plt Count 235 (130-400) K/uL MPV 9.0 (7.4-10.4) fL Immature Gran % (Auto) 4.3 % Neut % (Auto) 54.9 % Lymph % (Auto) 23.0 % Knox % (Auto) 16.4 % Eos % (Auto) 0.9 % Baso % (Auto) 0.5 % Neut # (Auto) 2.32 (1.4-6.5) K/uL Lymph # (Auto) 0.97 L (1.2-3.4) K/uL Knox # (Auto) 0.69 H (0.11-0.59) K/uL Eos # (Auto) 0.04 (0-0.5) K/uL Baso # (Auto) 0.02 (0-0.2) K/uL Immature Gran # (Auto) 0.18 H (0.00-0.02) K/uL ESR (0-14) mm/hr PT 11.1 (9.0-12.0) Seconds INR 1.1 (0.9-1.1) APTT 33.0 H (21.0-31.0) Seconds PTT Ratio 1.2 Sodium 142 (136-145) mmol/L Potassium 4.1 (3.5-5.1) mmol/L Chloride 107 (98-107) mmol/L Carbon Dioxide 30 (21-32) mmol/L Anion Gap 4.0 (3-11) BUN 20 H (7-18) mg/dl Creatinine 0.65 (0.6-1.4) mg/dl Est Cr Clr Drug Dosing 169.5 ml/min Est GFR ( Amer) 128.7 Est GFR (Non-Af Amer) 111.1 BUN/Creatinine Ratio 31.2 H (10-20) Glucose 99 (70-99) mg/dl Lactate (0.4-2.0) mmol/L Calcium 8.8 (8.5-10.1) mg/dl Total Bilirubin 0.4 (0.2-1) mg/dl AST 51 H (15-37) U/L ALT 57 (12-78) U/L Alkaline Phosphatase 85 (45-117) U/L Troponin I < 0.015 (0-0.045) ng/ml C-Reactive Protein 7.29 H (0-0.29) mg/dl Total Protein 7.8 (6.4-8.2) gm/dl Albumin 2.9 L (3.4-5.0) gm/dl Globulin 4.9 H (2.5-4.0) gm/dl Albumin/Globulin Ratio 0.6 L (0.9-2) Lipase 78 (73-393) U/L 01/20/20 01/20/20 Range/Units 16:23 16:23 WBC (4.8-10.8) K/uL RBC (4.7-6.1) M/uL Hgb (14.0-18.0) g/dL Hct (42-52) % MCV (80-100) fL MCH (25-34) pg MCHC (32-36) g/dL RDW Std Deviation (36.4-46.3) fL RDW Coeff of Herbert (11.5-14.5) % Plt Count (130-400) K/uL MPV (7.4-10.4) fL Immature Gran % (Auto) % Neut % (Auto) % Lymph % (Auto) % Knox % (Auto) % Eos % (Auto) % Baso % (Auto) % Neut # (Auto) (1.4-6.5) K/uL Lymph # (Auto) (1.2-3.4) K/uL Knox # (Auto) (0.11-0.59) K/uL Eos # (Auto) (0-0.5) K/uL Baso # (Auto) (0-0.2) K/uL Immature Gran # (Auto) (0.00-0.02) K/uL ESR 55 H (0-14) mm/hr PT (9.0-12.0) Seconds INR (0.9-1.1) APTT (21.0-31.0) Seconds PTT Ratio Sodium (136-145) mmol/L Potassium (3.5-5.1) mmol/L Chloride (98-107) mmol/L Carbon Dioxide (21-32) mmol/L Anion Gap (3-11) BUN (7-18) mg/dl Creatinine (0.6-1.4) mg/dl Est Cr Clr Drug Dosing ml/min Est GFR ( Amer) Est GFR (Non-Af Amer) BUN/Creatinine Ratio (10-20) Glucose (70-99) mg/dl Lactate 1.1 (0.4-2.0) mmol/L Calcium (8.5-10.1) mg/dl Total Bilirubin (0.2-1) mg/dl AST (15-37) U/L ALT (12-78) U/L Alkaline Phosphatase (45-117) U/L Troponin I (0-0.045) ng/ml C-Reactive Protein (0-0.29) mg/dl Total Protein (6.4-8.2) gm/dl Albumin (3.4-5.0) gm/dl Globulin (2.5-4.0) gm/dl Albumin/Globulin Ratio (0.9-2) Lipase (73-393) U/L Imaging Data Attestation: I personally reviewed and interpreted this imaging study as follows: Radiologist's Impression: SINGLE VIEW CHEST CLINICAL HISTORY: Atypical chest pain. Dyspnea. FINDINGS: An AP, portable, upright chest radiograph is compared to chest x-ray and chest CT dated 12/26/2019. The heart is enlarged. There is pulmonary vascular congestion. Hazy interstitial airspace opacities are seen bilaterally. No large pleural effusion or pneumothorax is seen. The bony thorax is grossly intact. IMPRESSION: 1. Cardiomegaly with pulmonary vascular congestion. 2. There are hazy bilateral interstitial airspace opacities. This could represent mild pulmonary edema versus and/or an infectious/inflammatory pneumonitis. Clinical correlation will be required. CT ANGIOGRAM OF THE CHEST; CT SCAN OF THE ABDOMEN AND PELVIS WITH IV CONTRAST CLINICAL HISTORY: Fever. Dyspnea. Possible hernia. COMPARISON STUDY: Chest CT scans dated 12/26/2019 and 02/18/2015. Abdominal CT dated 11/05/2019. MRI of the thoracic spine dated 11/05/2019. TECHNIQUE: Following the IV administration of 120 of Optiray 320, CT angiogram of the chest is performed from the upper abdomen to the thoracic inlet utilizing the pulmonary embolus protocol. Images are reviewed in the axial, sagittal, coronal planes. 3-D MIPS images are created and assessed. Subsequently, CT scan of the abdomen and pelvis was performed from the lung bases to the proximal femora. Images are reviewed in the axial, sagittal, and coronal planes. IV contrast was administered without complication. A dose lowering technique was utilized adhering to the principles of ALARA. CT DOSE: 1560.62 mGycm FINDINGS: CHEST: Thyroid: Imaged portions of the thyroid gland are normal in size and attenuation. Thoracic aorta: The thoracic aorta is normal in caliber and demonstrates standard 3-vessel arch anatomy. No dissection is seen. Pulmonary vasculature: The pulmonary trunk is normal in caliber. There are no filling defects identified in main, lobar, or proximal segmental pulmonary branches to suggest pulmonary embolus. Evaluation of the peripheral branches is degraded by motion artifact. Heart: The heart is top normal in size and without pericardial effusion. Lungs and pleural spaces: Evaluation of the lung parenchyma is modestly degraded by motion artifact. There is extensive groundglass consolidation seen throughout both lungs. No pleural effusion is identified. The trachea and central airways are clear. Mediastinum: Numerous subcentimeter mediastinal lymph nodes are likely on a monty ctive basis. Marilee: Clear. Axillae: There is no axillary lymphadenopathy. Skeletal structures: There is advanced sclerotic change seen involving T11, T12, and the partially visualized body of L1. There is loss of height at T11 with extensive endplate erosion at T11-T12. Milder endplate erosion is seen at T12- L1. Paravertebral edema is again seen at these levels. ABDOMEN AND PELVIS: Liver: The contrast-enhanced liver is enlarged, measuring 24 cm in length. The liver is otherwise normal in contour and attenuation. There is no intrahepatic or ductal dilatation. The hepatic veins and portal veins are patent. Gallbladder: Unremarkable. Spleen: The spleen is mildly enlarged measuring 14 cm in length. Pancreas: Unremarkable. Adrenal glands: Unremarkable. Kidneys: The contrast enhanced kidneys are normal in size and without hydronephrosis. Renal enhancement is slightly heterogeneous. There are least 2 nonobstructing left renal calculi which measure up to 8 mm. A punctate nonobstructing calculus is seen in the lower pole of the right kidney. A 1.4 cm cyst is noted in the upper pole of the left kidney. Additional subcentimeter cortical hypodensities also likely represent cysts but are too small for definitive characterization. Abdominal vasculature: The abdominal aorta is normal in course and caliber. Stomach and bowel: There is a small hiatal hernia. There is no bowel obstru ction. Mild fecal retention is noted in the colon. The appendix is well- visualized and normal. Peritoneum: There is no intraperitoneal free air or abdominal ascites. Lymphadenopathy: None. Pelvic viscera: The bladder is distended but otherwise normal in appearance. The prostate and seminal vesicles are normal as imaged. Skeletal structures: No lytic or blastic lesions are seen. IMPRESSION: 1. There is no evidence of pulmonary embolus in the main, lobar, or segmental pulmonary arteries. 2. Extensive groundglass consolidation is seen throughout both lungs and is typical for an infectious/inflammatory pneumonitis. Clinical correlation will be required. 3. No pleural effusion is identified. 4. Destructive endplate change is again seen at T11-T12 and T12-L1 with associated paravertebral edema. The appearance remains typical for discitis/osteomyelitis. Paravertebral edema has modestly improved from previously. 5. Bilateral nephrolithiasis. There is no ureteral stone or hydronephrosis. 6. Hepatosplenomegaly. 7. Renal enhancement is slightly heterogeneous bilaterally. Correlation with clinical findings and urinalysis will be required. 8. Additional findings as above. ECG Data Attestation: I personally reviewed and interpreted this ECG as follows: Indication: + SOB/dyspnea Rate (beats per minute): 69 Rhythm: + normal sinus ECG Intervals/blocks: + Normal QRS, + Normal QT and + Normal [place] ECG [place]: + Normal ECG ST segments: + Normal ST segments ECG Findings: no PACs and no PVCs Comparison ECG Date: from (12/29/19) Change: no significant change MDM Narrative This patient comes in as described above. He has a very complex medical history but was just diagnosed with Covid and has Covid-like symptoms. He is well- appearing and has no fever here. He is not hypoxemic and has stable vital signs. I reviewed his records he did have negative CT of his chest done on December 25. Given his recent infections, I did order blood work as well as EKG and chest x-ray for extensive work-up. Chest x-ray shows some mild increased interstitial markings which could be fluid or infectious given the fact that he is Covid positive is likely related to Covid. EKG was unremarkable and does not suggest acute coronary syndrome or arrhythmia. Troponin is negative. His white count is mildly low and he has no fever here to suggest infection. His se d rate and CRP are moderately elevated. He has nothing to suggest acute diabetic emergency electrolyte or metabolic abnormality. I did do a CTA of his chest as well as his abdomen/pelvis. He does have a history of a DVT that was diagnosed on December 19 and it was in his popliteal vein and one on the left posterior tibial veins. He has not been taking his Xarelto. It also sounds like he supposed to be on antibiotics although he tells me he is finished. I did review some records from [facility] and he did indeed have a positive Covid test that was from 01-16-20. I did also review his last note with Dr. Heard. This was dated from 01-13-2000. He says in his chart (ID seems to have signed o ff on his osteomyelitis but I am not convinced enough to send him to the chiropractor or for injections. Check MRI to see if this is truly "cleared". The patient does have schedule MRI of the thoracic and lumbar spine coming up. His imaging does not show any evidence of PE. He has some findings consistent with the osteomyelitis that look that the paravertebral swelling has modestly improved. He he does have ground glass appearance likely from Covid. I am concerned about him going home he is not been taking his blood thinner for his DVT, I am not sure he took his antibiotics correctly and he continues to have back pain to the point where his doctors or MRI he is worried about osteomyeli tis still. I do think he needs to be admitted/observed and may need MRI and further evaluation for possible ongoing osteomyelitis as well in the hospital and further treatment and evaluation. I have consulte the [facility] hospitalist to see him in the ED for these measures. Impression & Plan COVID-19, SOB (shortness of breath), Back pain, Diabetes mellitus, Bipolar disorder Discharge Plan Visit Data Chief Complaint: Shortness of Breath/Dyspnea Stated Complaint: COVID +,SOB,BODY ACHES ED Provider: Manuel Reyes Discharge Problem: COVID-19, SOB (shortness of breath), Back pain, Diabetes mellitus, Bipolar disorder Forms Stand Alone Forms: My [facility] Location Labs Prescriptions Prescriptions: No Action multivitamin tablet 1 tab PO QAM RF: 0 cyanocobalamin (vitamin B-12) [Vitamin B-12] 1,000 mcg tablet extended release 1,000 mcg PO DAILY RF: 0 atorvastatin [Lipitor] 20 mg tablet 20 mg PO QAM RF: 0 gabapentin 400 mg capsule 400 mg PO QID RF: 0 diphenoxylate-atropine [Lomotil] 2.5-0.025 mg tablet 1 tab PO QID PRN (Reason: Diarrhea) RF: 0 dicyclomine 20 mg tablet 20 mg PO QID RF: 0 pantoprazole [Protonix] 40 mg tablet,delayed release (DR/EC) 40 mg PO QAM RF: 0 fluticasone propion-salmeterol [Advair Diskus] 500-50 mcg/dose blister with device 1 inha INH BID RF: 0 montelukast [Singulair] 10 mg tablet 10 mg PO QAM RF: 0 fluticasone propionate 50 mcg/actuation spray,suspension 2 sprays INTNAS HS RF: 0 cholecalciferol (vitamin D3) 2,000 unit capsule 2,000 units PO DAILY RF: 0 ipratropium-albuterol [Combivent Respimat] 20-100 mcg/actuation mist 2 puffs INH BID RF: 0 baclofen 20 mg tablet 20 mg PO BID RF: 0 testosterone cypionate 200 mg/mL kit 200 mg IM .COMPLEX Qty: 1 RF: 1 tamsulosin [Flomax] 0.4 mg capsule 0.4 mg PO HS Qty: 90 RF: 3 [place] 3-6-9 1,200 mg Capsule 1,200 cap PO TID RF: 0 levothyroxine 50 mcg Tablet 50 mcg PO DAILYBB RF: 0 benzoyl peroxide 10 % Cleanser 1 applic TOPICAL 2XWK RF: 0 trazodone 150 mg Tablet 75 mg PO HS RF: 0 sulfamethoxazole-trimethoprim 800-160 mg tablet 1 tab PO BID RF: 0 cephalexin 500 mg capsule 100 mg PO BID RF: 0 ziprasidone HCl 40 mg capsule 40 mg PO QPM RF: 0 ziprasidone HCl 60 mg capsule 60 mg PO QAM RF: 0 Lantus U-100 Insulin 100 unit/mL Solution 105 unit SUBCUT HS RF: 0 lidocaine 4 % Adhesive Patch,Medicated 1 patch TOPICAL DAILY RF: 0 divalproex 250 mg Tablet,Delayed Release (Dr/Ec) 750 mg PO BID RF: 0 metronidazole 500 mg Tablet 500 mg PO TID RF: 0 haloperidol 10 mg Tablet 10 mg PO BID RF: 0 ciprofloxacin HCl [Cipro] 500 mg Tablet 500 mg PO Q12H RF: 0 loratadine [Claritin Liqui-Gel] 10 mg Capsule 10 mg PO DAILY RF: 0 azelastine 137 mcg (0.1 %) aerosol,spray 1 spray INTRANASAL DAILY RF: 0 albuterol sulfate 90 mcg/actuation HFA aerosol inhaler 2 puff INHALATION Q4 PRN (Reason: cough,sob,wheeze) RF: 0 duloxetine 60 mg capsule,delayed release(DR/EC) 60 mg PO DAILY RF: 0 diclofenac sodium 1 % gel 2 g TOPICAL BID RF: 0 simethicone 80 mg Tablet,Chewable 80 mg PO Q6H PRN (Reason: GAS/BLOATING) RF: 0 furosemide [Lasix] 20 mg tablet 20 mg PO DAILY PRN (Reason: edema) Qty: 10 RF: 0 Discharge Problem: Back pain Qualifiers: Back pain location: low back pain Chronicity: chronic Back pain laterality: midline Sciatica presence: without sciatica Qualified Code(s): M54.5 - Low back pain Diabetes mellitus Qualifiers: Diabetes mellitus type: type 2 Diabetes mellitus detention insulin use: 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
[2020-01-20 16:35] LABS: Basophils # (auto) 0.02 K/uL (0-0.2); Basophils % (auto) 0.5 %; Eosinophils # (auto) 0.04 K/uL (0-0.5); Eosinophils % (auto) 0.9 %; Hemoglobin 13.8 g/dL (14.0-18.0); Immature Granulocytes # (auto) 0.18 K/uL (0.00-0.02); Immature Granulocytes % (auto) 4.3 %; Lymphocytes # (auto) 0.97 K/uL (1.2-3.4); Mean Corpuscular Hemoglobin 32.1 pg (25-34); Mean Corpuscular Hgb Conc 33.7 g/dL (32-36); Mean Corpuscular Volume 95.3 fL (80-100); Monocytes # (auto) 0.69 K/uL (0.11-0.59); Monocytes % (auto) 16.4 %; Neutrophils # (auto) 2.32 K/uL (1.4-6.5); Neutrophils % (auto) 54.9 %; Platelet Count 235 K/uL (130-400); RDW Coefficient of Variation 14.5 % (11.5-14.5); RDW Standard Deviation 50.9 fL (36.4-46.3); White Blood Count 4.22 K/uL (4.8-10.8)
--- NOTE | 2020-01-20 16:43 | XRay Report ---
SINGLE VIEW CHEST CLINICAL HISTORY: Atypical chest pain. Dyspnea. FINDINGS: An AP, portable, upright chest radiograph is compared to chest x-ray and chest CT dated . The heart is enlarged. There is pulmonary vascular congestion. Hazy interstitial airspace op acities are seen bilaterally. No large pleural effusion or pneumothorax is seen. The bony thorax is g rossly intact. IMPRESSION: 1. Cardiomegaly with pulmonary vascular congestion. 2. There are hazy bilateral interstitial airspace opacities. This could represent mild pulmonary nikia a versus and/or an infectious/inflammatory pneumonitis. Clinical correlation will be required. ACT 112: Negative or not required by law. Electronically signed by: Tayo Carrasco M.D. 01/20/2020 4:42 PM
[2020-01-20 16:51] LABS: Alanine Aminotransferase 57 U/L (12-78); Albumin Level 2.9 gm/dl (3.4-5.0); Aspartate Aminotransferase 51 U/L (15-37); BUN Creatinine Ratio 31.2 (10-20); Blood Urea Nitrogen 20 mg/dl (7-18); C Reactive Protein 7.29 mg/dl (0-0.29); Calcium 8.8 mg/dl (8.5-10.1); Carbon Dioxide 30 mmol/L (21-32); Chloride 107 mmol/L (98-107); Creatinine Clr Calc Pharmacy 169.5 ml/min; Est GFR (African American) 128.7; Est GFR (Non-African American) 111.1; Glucose 99 mg/dl (70-99); Lipase 78 U/L (73-393); Potassium 4.1 mmol/L (3.5-5.1); Sodium 142 mmol/L (136-145)
[2020-01-20 16:52] LABS: INR 1.1 (0.9-1.1); Partial Thromboplastin Ratio 1.2; Prothrombin Time 11.1 Seconds (9.0-12.0)
[2020-01-20 16:56] LABS: Albumin Globulin Ratio 0.6 (0.9-2); Alkaline Phosphatase 85 U/L (45-117); Bilirubin,Total 0.4 mg/dl (0.2-1); Globulin 4.9 gm/dl (2.5-4.0); Total Protein 7.8 gm/dl (6.4-8.2); Troponin I < 0.015 ng/ml (0-0.045)
[2020-01-20] MEDS ORDERED: OPTIRAY 320 125ml IV ONE (17:31)
--- NOTE | 2020-01-20 17:55 | CT Scan Report ---
CT ANGIOGRAM OF THE CHEST; CT SCAN OF THE ABDOMEN AND PELVIS WITH IV CONTRAST CLINICAL HISTORY: Fever. Dyspnea. Possible hernia. COMPARISON STUDY: Chest CT scans dated 12/26/2019 and 02/18/2015. Abdominal CT dated 11/05/2019. MRI o f the thoracic spine dated 11/05/2019. TECHNIQUE: Following the IV administration of 120 of Optiray 320, CT angiogram of the chest is perfor med from the upper abdomen to the thoracic inlet utilizing the pulmonary embolus protocol. Images are reviewed in the axial, sagittal, coronal planes. 3-D MIPS images are created and assessed. Subsequen tly, CT scan of the abdomen and pelvis was performed from the lung bases to the proximal femora. Imag es are reviewed in the axial, sagittal, and coronal planes. IV contrast was administered without comp lication. A dose lowering technique was utilized adhering to the principles of ALARA. CT DOSE: 1560.62 mGycm FINDINGS: CHEST: Thyroid: Imaged portions of the thyroid gland are normal in size and attenuation. Thoracic aorta: The thoracic aorta is normal in caliber and demonstrates standard 3-vessel arch anato my. No dissection is seen. Pulmonary vasculature: The pulmonary trunk is normal in caliber. There are no filling defects identif ied in main, lobar, or proximal segmental pulmonary branches to suggest pulmonary embolus. Evaluation of the peripheral branches is degraded by motion artifact. Heart: The heart is top normal in size and without pericardial effusion. Lungs and pleural spaces: Evaluation of the lung parenchyma is modestly degraded by motion artifact. There is extensive groundglass consolidation seen throughout both lungs. No pleural effusion is ident ified. The trachea and central airways are clear. Mediastinum: Numerous subcentimeter mediastinal lymph nodes are likely on a reactive basis. Marilee: Clear. Axillae: There is no axillary lymphadenopathy. Skeletal structures: There is advanced sclerotic change seen involving T11, T12, and the partially vi sualized body of L1. There is loss of height at T11 with extensive endplate erosion at T11-T12. Milde r endplate erosion is seen at T12-L1. Paravertebral edema is again seen at these levels. ABDOMEN AND PELVIS: Liver: The contrast-enhanced liver is enlarged, measuring 24 cm in length. The liver is otherwise nor mal in contour and attenuation. There is no intrahepatic or ductal dilatation. The hepatic veins and portal veins are patent. Gallbladder: Unremarkable. Spleen: The spleen is mildly enlarged measuring 14 cm in length. Pancreas: Unremarkable. Adrenal glands: Unremarkable. Kidneys: The contrast enhanced kidneys are normal in size and without hydronephrosis. Renal enhanceme nt is slightly heterogeneous. There are least 2 nonobstructing left renal calculi which measure up to 8 mm. A punctate nonobstructing calculus is seen in the lower pole of the right kidney. A 1.4 cm cys t is noted in the upper pole of the left kidney. Additional subcentimeter cortical hypodensities also likely represent cysts but are too small for definitive characterization. Abdominal vasculature: The abdominal aorta is normal in course and caliber. Stomach and bowel: There is a small hiatal hernia. There is no bowel obstruction. Mild fecal retentio n is noted in the colon. The appendix is well-visualized and normal. Peritoneum: There is no intraperitoneal free air or abdominal ascites. Lymphadenopathy: None. Pelvic viscera: The bladder is distended but otherwise normal in appearance. The prostate and seminal vesicles are normal as imaged. Skeletal structures: No lytic or blastic lesions are seen. IMPRESSION: 1. There is no evidence of pulmonary embolus in the main, lobar, or segmental pulmonary arteries. 2. Extensive groundglass consolidation is seen throughout both lungs and is typical for an infectious /inflammatory pneumonitis. Clinical correlation will be required. 3. No pleural effusion is identified. 4. Destructive endplate change is again seen at T11-T12 and T12-L1 with associated paravertebral nikia a. The appearance remains typical for discitis/osteomyelitis. Paravertebral edema has modestly improv ed from previously. 5. Bilateral nephrolithiasis. There is no ureteral stone or hydronephrosis. 6. Hepatosplenomegaly. 7. Renal enhancement is slightly heterogeneous bilaterally. Correlation with clinical findings and ur inalysis will be required. 8. Additional findings as above. ACT 112: Negative or not required by law. Electronically signed by: Tayo Carrasco M.D. 01/20/2020 5:54 PM
[2020-01-20] MEDS ORDERED: DIPHENOXYLATE/ATROPINE 2.5/0.025MG TAB PO ONE (18:18)
--- NOTE | 2020-01-20 19:30 | History & Physical Report ---
Date of Service January 20, 2020 Assessment & Plan (1) COVID-19: (2) SOB (shortness of breath): (3) Back pain: (4) Diabetes mellitus: (5) Myofascial pain: (6) Enlarged prostate with lower urinary tract symptoms (LUTS): (7) Schizoaffective disorder: (8) Lumbar spondylosis: (9) Obesity: (10) Sacroiliitis: (11) Anxiety: (12) Depression: (13) Bipolar disorder: (14) Asthma: (15) GERD (gastroesophageal reflux disease): (16) ZORAN treated with BiPAP: (17) Dyslipidemia: (18) BPH (benign prostatic hyperplasia): (19) IBS (irritable bowel syndrome): (20) Chronic back pain: We will give oral dexamethasone, will reinitiate Xarelto, we will not give him SCDs, will order the MRI of his thoracic and lumbar spine, CTA of his chest showed extensive opacities and ground glass consistent with pneumonitis, will put him on oxygen, and avoid BiPAP secondary to Covid, sliding scale insulin, carb consistent diet. Pain control. History of Present Illness 54-year-old male with a past medical history of chronic back pain, diabetes, myofascial pain, urinary incontinence, urinary frequency, impotence, prostatic enlargement, schizoaffective disorder, hypogonadism, lumbar spondylosis, lumbago, obesity, sacral sacroiliitis, anxiety, depression, bipolar disorder, asthma, GERD, obstructive sleep apnea, dyslipidemia, BPH, IBS, chronic back pain, and osteomyelitis of the spine who presents today with Covid symptoms. He notes that he had a thoracic and lumbar osteomyelitis was in [place] for 3 months, never had surgery for his back. He is scheduled for MRIs on his back and is waiting for referrals from his primary. He has a blood clot in his left leg and he was on Xarelto but he has been taking it. Comes in today with Covid symptoms to include fevers, chills, mild diarrhea, headache, and his symptoms started about a week ago and he was tested on Wednesday or Wednesday at [facility] and was positive for Covid.. Primary Care Provider: Baltazar Little DO Allergies Allergy/AdvReac Type Severity Reaction Status Date / Time haloperidol AdvReac Intermediate muscle Verified 01/03/20 06:06 cramps, eyes roll back in my head Home Medications Medication Instructions Recorded Confirmed Type atorvastatin 20 mg tablet 20 mg PO QAM 11/22/17 01/03/20 History cholecalciferol (vitamin D3) 50 2,000 units PO DAILY 11/22/17 01/03/20 History mcg (2,000 unit) capsule cyanocobalamin (vitamin B-12) 1,000 mcg PO DAILY 11/22/17 01/03/20 History 1,000 mcg tablet,extended release dicyclomine 20 mg tablet 20 mg PO QID 11/22/17 01/03/20 History diphenoxylate-atropine 2.5 1 tab PO QID PRN tab 11/22/17 01/03/20 History mg-0.025 mg tablet fluticasone 500 mcg-salmeterol 50 1 inha INH BID 11/22/17 01/03/20 History mcg/dose blistr powdr for inhalation fluticasone propionate 50 2 sprays INTNAS HS 11/22/17 01/03/20 History mcg/actuation nasal spray,suspension gabapentin 400 mg capsule 400 mg PO QID 11/22/17 01/03/20 History ipratropium 20 mcg-albuterol 100 2 puffs INH BID 11/22/17 01/03/20 History mcg/actuation mist for inhalation montelukast 10 mg tablet 10 mg PO QAM 11/22/17 01/03/20 History multivitamin 1 tab PO QAM 11/22/17 01/03/20 History pantoprazole 40 mg tablet,delayed 40 mg PO QAM 11/22/17 01/03/20 History release [place] 3-6-9 1,200 cap PO TID 08/03/18 01/03/20 History levothyroxine 50 mcg PO DAILYBB 12/09/18 01/03/20 History tamsulosin 0.4 mg capsule 0.4 mg PO HS #90 cap 09/05/19 01/03/20 Rx baclofen 20 mg tablet 20 mg PO BID 09/19/19 01/03/20 History simethicone 80 mg PO Q6H PRN 10/03/19 01/03/20 History benzoyl peroxide 1 applic TOPICAL 2XWK 11/05/19 01/03/20 History trazodone 75 mg PO HS 11/05/19 01/03/20 History cephalexin 100 mg PO BID 12/26/19 01/03/20 History ciprofloxacin HCl [Cipro] 500 mg PO Q12H 12/26/19 01/03/20 History divalproex 750 mg PO BID 12/26/19 01/03/20 History haloperidol 10 mg PO BID 12/26/19 01/03/20 History insulin glargine [Lantus U-100 105 unit SUBCUT HS 12/26/19 01/03/20 History Insulin] lidocaine 1 patch TOPICAL DAILY 12/26/19 01/03/20 History loratadine [Claritin Liqui-Gel] 10 mg PO DAILY 12/26/19 01/03/20 History metronidazole 500 mg PO TID 12/26/19 01/03/20 History sulfamethoxazole-trimethoprim 1 tab PO BID 12/26/19 01/03/20 History ziprasidone HCl 40 mg PO QPM 12/26/19 01/03/20 History ziprasidone HCl 60 mg PO QAM 12/26/19 01/03/20 History albuterol sulfate 2 puff INHALATION Q4 PRN 12/29/19 01/03/20 History azelastine 1 spray INTRANASAL DAILY 12/29/19 01/03/20 History diclofenac sodium 2 g TOPICAL BID 12/29/19 01/03/20 History duloxetine 60 mg PO DAILY 12/29/19 01/03/20 History testosterone cypionate 200 mg/mL 200 mg IM .COMPLEX #1 ea 12/29/19 01/03/20 Rx intramuscular kit furosemide [Lasix] 20 mg PO DAILY PRN #10 tab 01/03/20 Rx Past Med/Surg History Medical History Anxiety Asthma uses PRN inh BID on average Bipolar disorder BPH (benign prostatic hyperplasia) Chronic back pain Degenerative disc disease Depression Difficult airway for intubation "small airway" Diverticular disease DM type 2 (diabetes mellitus, type 2) IDDM Dyslipidemia Fatty liver GERD (gastroesophageal reflux disease) History of esophageal dilatation Hypogonadism in male Hypothyroidism IBS (irritable bowel syndrome) Lumbago Lumbar facet joint syndrome Lumbar spondylosis Obesity ZORAN treated with BiPAP Osteoarthritis Sacroiliitis Schizoaffective disorder Surgical History H/O rhinoplasty H/O umbilical hernia repair History of colonoscopy History of esophagogastroduodenoscopy (EGD) History of tonsillectomy and adenoidectomy S/P UPPP (uvulopalatopharyngoplasty) Status post rotator cuff repair Bilateral Family History Grandmother Colon cancer Diabetes Father Diabetes Other No family history of adverse response to anesthesia Social History Smoking Status: Never smoker Second Hand Exposure: Yes (mom and dad smoked); Hx Alcohol Use: No Hx Substance Use: No Preferred Language: Singaporean Communication Ability: Effective Clinical Secretary Required: No Beliefs That Will Affect Care: None marital status: Single Current Living Situation: Alone current occupational status: unemployed Feels Safe at Home: Yes Assistive Devices: BiPap and Glasses Physical Exam Physical Exam: ROS-positive headache, No Visual Changes, positive nausea, No Vomiting, positive fever, positive chills, No Neck Pain or Stiffness, No Chest Pain, No Palpitations, positive SOB, positive FORTUNE, positive cough, No Sputum, No Wheezing, No Abdominal Pain, positive diarrhea, No Hematemesis, No Hemoptysis, No Unexpected Weight Loss, No Flank pain, No Melena, No Hematochezia, No Frequency, No Urgency, No Burning, No Hematuria, No Rashes, No Diaphoresis. Appetite is Normal, positive body aches Physical Exam Gen-AAO x 3, NAD, Afebrile, walking around the room without difficulty, obese Head-NCAT, EOMI, PERRLA, Anicteric Sclera, No Posterior Pharyngeal Erythema Neck-Supple, No JVD, No Thyromegaly, No Masses, No LAD, No Bruits Lungs-Clear to Auscultation Bilaterally, No Rales, No Rhonchi, No Wheezing, No Crepitus Chest-No S4, +S1, +S2, No S3, No Murmurs, No Rubs, No Gallops, No Ectopy Abdomen-Soft, Bowel Sounds Present, Non Tender, Non Distended, No Hepatomegaly, No Splenomegaly, No Palpable Masses, No Rebound, No Rigidity, No Guarding Musculoskeletal-Full Range of Motion Bilaterally, No CVAT Extremities-No Cyanosis, No Clubbing, No Edema Nuero-Cranial Nerves II-XII grossly intact, Motor WNL, DTRs WNL, Strength WNL, Non Focal Psych-odd affect Results & Data Results & Data ([facility]) Vital Signs (Past 12 Hours) Vital Signs Temp Pulse Resp BP Pulse Ox 01/20/20 17:00 73 18 154/98 H 95 01/20/20 16:30 71 21 133/106 H 96 01/20/20 16:23 98 01/20/20 16:09 69 22 132/87 96 01/20/20 16:02 74 16 98 01/20/20 15:00 36.5 C 74 16 136/82 98 Allergies haloperidol Adverse Reaction (Intermediate, Verified 01/03/20 06:06) muscle cramps, eyes roll back in my head Height/Weight/Isolation Height 5 ft 11 in Weight 115 kg Chemistry 01/20/20 16:23 Sodium 142 Potassium 4.1 Chloride 107 Carbon Dioxide 30 Anion Gap 4.0 BUN 20 H Creatinine 0.65 Glucose 99 (1) Back pain Back pain laterality: midline Back pain location: low back pain Chronicity: chronic Sciatica presence: without sciatica Qualified Code(s): M54.5 - Low back pain; G89.29 - Other chronic pain (2) Diabetes mellitus Diabetes mellitus complication status: without complication 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
[2020-01-20] MEDS ORDERED: BACLOFEN 20 MG TAB PO SCH (21:00)
[2020-01-20] MEDS ORDERED: GABAPENTIN 400 MG CAP PO SCH (21:00)
[2020-01-20] MEDS ORDERED: GLUCOSE 10 TABS/TUBE PO PRN (21:55)
[2020-01-20] MEDS ORDERED: GLUCAGON FOR INJ 1 MG VIAL SQ PRN (21:55)
[2020-01-20] MEDS ORDERED: MoRPHine SULFATE 4 MG/ML 1 ML CARP\\VIAL IV PRN (21:55)
[2020-01-20] MEDS ORDERED: ALBUT/IPRATROP 3MG/0.5MG NEB 3 ML VIAL NEB PRN (21:55)
[2020-01-20] MEDS ORDERED: GLUCOSE 40% GEL 15 GM TUBE PO PRN (21:55)
[2020-01-20] MEDS ORDERED: FLUTICASONE PROPIONATE NA SPR 16 GM BTL SCH (21:55)
[2020-01-20] MEDS ORDERED: INSULIN GLARGINE SOLOSTAR 100 UNITS/ML 3 ML PEN SQ SCH (21:55)
[2020-01-20] MEDS ORDERED: FUROSEMIDE 20 MG TAB PO PRN (21:55)
[2020-01-20] MEDS ORDERED: SIMETHICONE 80 MG CHEW PO PRN (21:55)
[2020-01-20] MEDS ORDERED: DEXTROSE 50% 50 ML SYRINGE IV PRN (21:55)
[2020-01-20] MEDS ORDERED: CARBOHYDRATES FOR HYPOGLYCEMIA PO PRN (21:55)
[2020-01-20] MEDS ORDERED: PHARMACY GLYCEMIC MGMT CONSULT PRN (22:16)
[2020-01-21] MEDS: OMEGA-3 (PURIFIED FISH OIL) 1 GM CAP PO SCH ×5 (00:05→17:36)
[2020-01-21] MEDS: GABAPENTIN 400 MG CAP PO SCH ×5 (00:05→21:10)
[2020-01-21] MEDS: traZODone HCL 50 MG TAB PO SCH ×2 (00:06→21:11)
[2020-01-21] MEDS: TAMSULOSIN HCL 0.4 MG CAP PO SCH ×2 (00:07→21:12)
[2020-01-21] MEDS: haloperidoL 5 MG TAB PO SCH ×3 (00:08→17:40)
[2020-01-21] MEDS: DIVALPROEX DELAY RELEASE 250 MG TABEC PO SCH ×3 (00:10→21:10)
[2020-01-21] MEDS: dexAMETHasone 4 MG TAB PO SCH ×2 (00:10→09:45)
[2020-01-21] MEDS: BACLOFEN 20 MG TAB PO SCH ×3 (00:11→21:10)
[2020-01-21] MEDS: DICYCLOMINE HCL 20 MG TAB PO SCH ×5 (00:11→21:12)
[2020-01-21] MEDS ORDERED: INSULIN GLARGINE SOLOSTAR 100 UNITS/ML 3 ML PEN SQ ONE (00:30)
[2020-01-21] MEDS: INSULIN ASPART 100 UNITS/ML 3 ML PEN SC SCH ×5 (00:39→21:16)
[2020-01-21] MEDS: RIVAROXABAN 15 MG TAB PO SCH ×3 (00:44→21:10)
[2020-01-21] MEDS: DICLOFENAC SOD 1% GEL 100 GM TUBE EXT SCH ×3 (00:44→21:12)
[2020-01-21] MEDS ORDERED: INSULIN ASPART 100 UNITS/ML 3 ML PEN SC SCH ×2 (02:00→04:00)
[2020-01-21] MEDS: LEVOTHYROXINE SODIUM 50 MCG TABLET PO SCH (06:20)
[2020-01-21 07:04] LABS: Hematocrit (blood only) 44.7 % (42-52); Hemoglobin 15.2 g/dL (14.0-18.0); Mean Corpuscular Volume 94.1 fL (80-100); Mean Platelet Volume 9.4 fL (7.4-10.4); Platelet Count 301 K/uL (130-400); RDW Coefficient of Variation 14.3 % (11.5-14.5); RDW Standard Deviation 49.4 fL (36.4-46.3); Red Blood Count 4.75 M/uL (4.7-6.1); White Blood Count 4.18 K/uL (4.8-10.8)
[2020-01-21 07:45] LABS: BUN Creatinine Ratio 16.7 (10-20); Calcium 9.6 mg/dl (8.5-10.1); Creatinine Clr Calc Pharmacy 144.8 ml/min; Est GFR (African American) 120.7; Est GFR (Non-African American) 104.2; Potassium 4.2 mmol/L (3.5-5.1)
[2020-01-21] MEDS: FLUTICASONE/VILANTEROL 200/25MCG 14 PUFFS/INHALER INH SCH (09:43)
[2020-01-21] MEDS: LORATADINE 10 MG TAB PO SCH (09:44)
[2020-01-21] MEDS: DULoxetine HCL 60 MG CAP PO SCH (09:45)
[2020-01-21] MEDS: LIDOCAINE 5% 1 PATCH TD SCH (09:47)
[2020-01-21] MEDS: ATORVASTATIN 20 MG TAB PO SCH (09:52)
[2020-01-21] MEDS: MULTIVITAMIN TAB PO SCH (09:52)
[2020-01-21] MEDS: PANTOprazole 40 MG TAB PO SCH (09:53)
[2020-01-21] MEDS: MONTELUKAST SODIUM 10 MG TABLET PO SCH (09:54)
[2020-01-21] MEDS: CHOLECALCIFEROL 1,000 UNITS 25 MCG TAB PO SCH (14:32)
[2020-01-21] MEDS: CYANOCOBALAMIN 500 MCG TABLET (VITAMIN B-12) PO SCH (14:32)
--- NOTE | 2020-01-21 15:21 | Pharmacy Report ---
Glycemic Control Consultation - Date of Service January 21, 2020 - Scope Scope: Glycemic Pharmacist consulted for glycemic control and to write orders per [facility] inpatient glycemic control protocol. - Objective Weight: 114.7 kg Accuchecks BSG (last 24hrs): 01/20/20 01/20/20 01/20/20 16:23 22:39 23:51 Glucose 99 POC Glucose 88 100 H 01/21/20 01/21/20 01/21/20 04:17 06:34 08:16 Glucose 132 H POC Glucose 105 H 124 H 01/21/20 12:02 Glucose POC Glucose 129 H Laboratory Data (last 24hrs): 01/20/20 01/21/20 16:23 06:34 Potassium 4.1 4.2 Carbon Dioxide 30 27 Anion Gap 4.0 5.0 Creatinine 0.65 0.76 Est Cr Clr Drug Dosing 169.5 144.8 - Recent Pertinent Medications Outpatient Anti-diabetic Regimen: * Novolog mix 70/30 40 units BID with meals. * Trulicity 0.75 mg SQ weekly * A1c = __ % ordered for 01/22/20 Risk Factors for Insulin Resistance: * Steroids: Dexamethasone 6 mg PO x 1 dose last night, then 6 mg PO QAM ongoing * Infection: no antibiotics * IVF: none * Diet: T2DM - Assessment & Plan Assessment & Plan: ASSESSMENT: * 54 y/o M with multiple co-morbidities currently admitted for Covid-19. Patient with history of Type 2 diabetes managed at home on Novolog 70/30 mix insulin and Trulicity SQ weekly. * Patient is being treated with oral Dexamethasone 6 mg QAM. He also received a dose last night on admission. He was therefore given a dose of Lantus based on wt and stress of 2 to off-set the effects of steroid induced hyperglycemia. * Fasting BSG today was 124 mg/dl. Lantus HS dose based on BSG scale ordered for tonight. * Pre-lunch BSG was also at goal. Will continue current Novolog parameters. PLAN FOR INPATIENT GLYCEMIC CONTROL: * Basal insulin * Lantus between 5-15 units SQ HS based on BSG scale. * Bolus insulin: continued * NovoLog per scale ACHS or Q6hrs while NPO * Goal Range: Low 110 mg/dL - High 140 mg/dL * Correction Factor: 25 mg/dL/unit * Nutritional / Prandial insulin per carb ratio of 1 unit per 8 grams CHO consumed * Please note that the plan above was derived based on current level of insulin resistance and hospital stress. These recommendations are appropriate for inpatient admission only. Plan of care upon discharge will need to be reassessed to avoid potential outpatient hypo/hyperglycemia. Thank you.
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
[2020-01-21] MEDS ORDERED: GADOBUTROL 65ML VIAL IV ONE (16:14)
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
--- NOTE | 2020-01-21 16:47 | Magnetic Resonance Report ---
THORACIC SPINE MRI WITH AND WITHOUT CONTRAST, LUMBAR SPINE MRI WITH AND WITHOUT CONTRAST HISTORY: back pain TECHNIQUE: Multiplanar multisequence MRI of the thoracic and lumbar spine was performed both before a nd after the intravenous administration of contrast. COMPARISON: Thoracic spine MRI 11/05/2019. Lumbar spine MRI 08/28/2019. FINDINGS: Paraspinal edema and enhancement from the T10-L1 levels has progressed. There is also mild epidural e nhancement posterior to the vertebral bodies at these levels. This is similar to the prior study. No definite epidural abscess identified. Paravertebral soft tissue tissue thickening/phlegmon centered a t the T11-T12 disc space level with small paraspinal abscesses suspected at this location. There is p rogressive endplate destructive change and a moderate anterior wedge-shaped compression deformity at T11 consistent with a subacute compression fracture. This is new from the prior study. No associated retropulsion. Endplate enhancement and disc edema at T12-L1 has progressed and is consistent with an additional site of discitis/osteomyelitis. Overall, the discitis/osteomyelitis at the T10-11, T11-T12 and T12-L1 levels have progressed. Persistent broad-based posterior disc bulge at T12-L1 resulting i n moderate central canal narrowing. This remains unchanged. The upper to mid thoracic spine appears i ntact. No evidence for discitis/osteomyelitis within the mid to distal lumbar spine. Mild disc space narrowing at L3-L4 and L4-L5. L5 is demonstrated to be a transitional vertebra. The conus terminates at the L1 level. Small left paracentral focal disc protrusion at L2-L3 without significant central ca nal narrowing. There is mild central canal narrowing at L3-L4 due to a small broad-based posterior di sc bulge. IMPRESSION: 1. Progressive discitis/osteomyelitis at the T10-11, T11-T12, T12-L1 levels as described above. There is mild epidural enhancement posterior to the vertebral bodies at this level. No definite epidural a bscess. 2. Soft tissue thickening/phlegmon at these levels with probable small paraspinal abscesses centered at the T11-T12 level. 3. Interval development of a moderate anterior wedge-shaped compression deformity at T11 consistent w ith a subacute compression fracture. 4. Additional findings as described above. ACT 112: Negative or not required by law. Electronically signed by: Stephen Palacios M.D. 01/21/2020 4:46 PM
[2020-01-21] MEDS ORDERED: Nursing to Pharmacy Communication SCH (19:15)
--- NOTE | 2020-01-21 19:17 | Communication Note ---
Date of Service: January 21, 2020 MRI of thoracic spine : IMPRESSION: 1. Progressive discitis/osteomyelitis at the T10-11, T11-T12, T12-L1 levels as described above. There is mild epidural enhancement posterior to the vertebral bodies at this level. No definite epidural abscess. 2. Soft tissue thickening/phlegmon at these levels with probable small paraspinal abscesses centered at the T11-T12 level. 3. Interval development of a moderate anterior wedge-shaped compression deformity at T11 consistent with a subacute compression fracture. ordered PO Keflex and Bactrim for paraspinal abscess at thoracic spine [facility] consult requested will hold spinal ortho eval /orthotics eval -to limit infection /COVID 19 positive , pt mentions he already has a brace at home -does not use it -as it is too constricting . cont pain management , PT/OT Ruth Forrest MD
[2020-01-21] MEDS ORDERED: INSULIN GLARGINE SOLOSTAR 100 UNITS/ML 3 ML PEN SQ SCH (21:00)
[2020-01-21] MEDS: SULFAMETHOXAZOLE/TRIMETHOPRIM DS 800/160MG TAB PO SCH (21:10)
[2020-01-21] MEDS: cephALEXin 500 MG CAP PO SCH (21:10)
[2020-01-21] MEDS: FLUTICASONE PROPIONATE NA SPR 16 GM BTL SCH (21:12)
[2020-01-22] MEDS: LEVOTHYROXINE SODIUM 50 MCG TABLET PO SCH (05:22)
--- NOTE | 2020-01-22 06:30 | Electrocardiogram Report ---
Test Reason : Blood Pressure : / mmHG Vent. Rate : 069 BPM Atrial Rate : 069 BPM P-R Int : 198 ms QRS Dur : 098 ms QT Int : 410 ms P-R-T Axes : 033 007 035 degrees QTc Int : 439 ms Normal sinus rhythm Cannot rule out Anterior infarct (cited on or before 26-DEC-2019) Abnormal ECG When compared with ECG of 29-DEC-2019 05:59, No significant change was found Confirmed by Brandan Mendoza ([id number]) on 01/22/2020 6:30:32 AM Referred By: REFERRED SELF Confirmed By:Brandan Mendoza
[2020-01-22 08:10] LABS: Estimated Average Glucose 111 mg/dl; Hemoglobin A1C 5.5 % (4.5-5.6)
[2020-01-22] MEDS: INSULIN ASPART 100 UNITS/ML 3 ML PEN SC SCH ×4 (08:42→21:31)
[2020-01-22] MEDS: PANTOprazole 40 MG TAB PO SCH (08:43)
[2020-01-22] MEDS: OMEGA-3 (PURIFIED FISH OIL) 1 GM CAP PO SCH ×3 (08:44→17:58)
[2020-01-22] MEDS: CYANOCOBALAMIN 500 MCG TABLET (VITAMIN B-12) PO SCH (08:44)
[2020-01-22] MEDS: LORATADINE 10 MG TAB PO SCH (08:45)
[2020-01-22] MEDS: MULTIVITAMIN TAB PO SCH (08:55)
[2020-01-22] MEDS: dexAMETHasone 4 MG TAB PO SCH (08:56)
[2020-01-22] MEDS: MONTELUKAST SODIUM 10 MG TABLET PO SCH (08:56)
[2020-01-22] MEDS: haloperidoL 5 MG TAB PO SCH (08:57)
[2020-01-22] MEDS: BACLOFEN 20 MG TAB PO SCH ×2 (08:58→21:27)
[2020-01-22] MEDS: DICYCLOMINE HCL 20 MG TAB PO SCH ×4 (08:58→21:30)
[2020-01-22] MEDS: DIVALPROEX DELAY RELEASE 250 MG TABEC PO SCH (08:58)
[2020-01-22] MEDS: CHOLECALCIFEROL 1,000 UNITS 25 MCG TAB PO SCH (08:59)
[2020-01-22] MEDS: GABAPENTIN 400 MG CAP PO SCH ×4 (08:59→21:27)
[2020-01-22] MEDS: ATORVASTATIN 20 MG TAB PO SCH (09:00)
[2020-01-22] MEDS ORDERED: INSULIN GLARGINE SOLOSTAR 100 UNITS/ML 3 ML PEN SQ SCH (09:00)
[2020-01-22] MEDS ORDERED: diazePAM 5 MG TABLET PO SCH (09:00)
[2020-01-22] MEDS: DULoxetine HCL 60 MG CAP PO SCH (09:01)
[2020-01-22] MEDS: SULFAMETHOXAZOLE/TRIMETHOPRIM DS 800/160MG TAB PO SCH ×2 (09:02→21:26)
[2020-01-22] MEDS: cephALEXin 500 MG CAP PO SCH ×2 (09:03→21:26)
[2020-01-22] MEDS: FLUTICASONE PROPIONATE NA SPR 16 GM BTL SCH ×2 (09:03→21:27)
[2020-01-22] MEDS: FLUTICASONE/VILANTEROL 200/25MCG 14 PUFFS/INHALER INH SCH (09:04)
[2020-01-22] MEDS: RIVAROXABAN 15 MG TAB PO SCH ×2 (09:05→21:25)
[2020-01-22] MEDS: DICLOFENAC SOD 1% GEL 100 GM TUBE EXT SCH ×2 (09:06→21:29)
[2020-01-22] MEDS: HYDROCODONE/ACETAMOPHEN 5/325MG TAB PO PRN ×3 (09:20→21:41)
--- NOTE | 2020-01-22 09:35 | Pharmacy Report ---
Pharmacy Glycemic Short Note 2 - Date of Service January 22, 2020 - Glycemic Short BSG Results (Last 24 hours): 01/21/20 01/21/20 01/21/20 12:02 17:06 20:54 POC Glucose 129 H 138 H 122 H 01/22/20 08:36 POC Glucose 119 H OUTPATIENT ANTIDIABETIC REGIMEN: * Novolog mix 70/30 40 units BID with meals * Per nurses educator note, patient often deviates from this based on BSG * Patient would prefer to be transitioned to Lantus upon discharge * Trulicity 0.75 mg SQ weekly * HbA1c: 5.5% (01/22/20) ASSESSMENT: 01/21: * BSGs very well controlled yesterday, 124, 129, 138, and 122 mg/dL * Patient received 38 units of insulin (25 units of basal and 13 units of prandial/correctional) * Fasting BSG this morning of 119 mg/dL with pre-lunch BSG of 94 mg/dL * Continues on dexamethasone 6 mg PO daily - continue Lantus 20 units to be given with dexamethasone * Insulin needs significantly lower while inpatient - will follow closely 01/20: * 54 y/o M with multiple co-morbidities currently admitted for Covid-19. Patient with history of Type 2 diabetes managed at home on Novolog 70/30 mix insulin and Trulicity SQ weekly. * Patient is being treated with oral Dexamethasone 6 mg QAM. He also received a dose last night on admission. He was therefore given a dose of Lantus based on wt and stress of 2 to off-set the effects of steroid induced hyperglycemia. * Fasting BSG today was 124 mg/dl. Lantus HS dose based on BSG scale ordered for tonight. * Pre-lunch BSG was also at goal. Will continue current Novolog parameters. PLAN FOR INPATIENT GLYCEMIC CONTROL: * Hold outpatient oral diabetes medications * Basal insulin * Lantus 20 units SQ qAM with dexamethasone * Bolus insulin - continue * NovoLog per scale ACHS or Q6hrs while NPO * Goal Range: Low 110 mg/dL - High 140 mg/dL * Correction Factor: 25 mg/dL/unit * Nutritional / Prandial insulin per carb ratio of 1 unit per 8 grams CHO consumed PLAN FOR DISCHARGE: * Per nurses educator note, patient reports trouble managing BSGs with current regimen and endorses recent increased frequency of hypoglycemia * This is not surprising given significant difference in inpatient/outpatient insulin needs thus far * Patient also reports desire to be switched from his current Novolog 70/30 to Lantus upon discharge * Will follow inpatient insulin needs while inpatient and make recommendations accordingly * At this point it seems reasonable that patient could be discharged with once daily Lantus and Trulicity
--- NOTE | 2020-01-22 09:46 | Pain Management Consultation ---
Date of Consultation January 22, 2020 Assessment & Plan (1) COVID-19: (2) Discitis of thoracolumbar region: 1. I agree with hospitalist plans for [facility] consult given MRI findings. Would defer antibiotic regimen to infectious disease/hospitalist. 2. In regards to pain management, recommend continuation of gabapentin 400 mg p.o. 4 times daily, baclofen 20 mg p.o. twice daily and addition of [place] 5/325 mg 1 p.o. every 4 as needed pain. Orders are written for [place]. Patient was advised on the risk, benefits, side effects and acknowledges that he will need to ask for the medication as it is not scheduled. 3. No interventional pain management is planned at this time. 4. Thank you for this consultation. Please call should you have any questions. (3) Schizoaffective disorder: (4) Diabetes mellitus: Diabetes mellitus complication status: without complication Diabetes mellitus oysterman insulin use: with oysterman use Diabetes mellitus type: type 2 Qualified Code(s): E11.9 - Type 2 diabetes mellitus without compli cations; Z79.4 - assisted (current) use of insulin (5) Lumbar facet joint syndrome: (6) Lumbago: (7) Bipolar disorder: Active/Remission status: remission status unspecified Qualified Code(s): F31.9 - Bipolar disorder, unspecified (8) Depression: (9) Anxiety: (10) Obesity: (11) Sacroiliitis: History of Present Illness Attending Physician: Ruth Forrest MD History of Present Illness Visit performed via telehealth today due to COVID-19 positive status. 54-year-old male well-known to the [facility] pain management office with a history of lumbar facet syndrome and sacroiliitis who had previously done well with radiofrequency ablation of these sites. He had been c anceled multiple times in the past due to folliculitis over his thoracolumbar spine. He had utilized focal steroid injections, antibiotics and Hibiclens to minimize infection with his folliculitis under the care of dermatology. His most recent radiofrequency ablations were in August 2019. He states that in approximately October he started having increasing thoracolumbar spine pain and sought a second opinion at the [facility] pain management office. He states that they told him weight loss reduction would minimize his pain and had nothing additional to offer. He states that he was admitted at [facility] for treatment of T11-T12 osteomyelitis and discitis as well as on the psychiatry unit for med titration. He reports being discharged home and admits to intermittent compliance with medication regimen. He states that he is now ready to " do a better job taking care of himself" and has a desire to get back to work and do something to help others. He reports that his predominant back pain is over approximately T10-12 with low back pain being his typical chronic previous pain. Pain ranges between 6-8 out of 10 focal deep achy intermittently sharp. He denies any difficulty with ambulation, bowel or bladder incontinence, motor weakness, footdrop, falls. He denies any distal radicular pain. Pain Assessment Full Body Front + Back: 1. 2. Allergies Allergy/AdvReac Type Severity Reaction Status Date / Time haloperidol AdvReac Intermediate muscle Verified 01/03/20 06:06 cramps, eyes roll back in my head Home Medications Medication Instructions Recorded Confirmed Type atorvastatin 20 mg tablet 20 mg PO QAM 11/22/17 01/20/20 History cyanocobalamin (vitamin B-12) 1,000 mcg PO DAILY 11/22/17 01/20/20 History 1,000 mcg tablet,extended release dicyclomine 20 mg tablet 20 mg PO QID 11/22/17 01/20/20 History diphenoxylate-atropine 2.5 1 tab PO QID PRN tab 11/22/17 01/20/20 History mg-0.025 mg tablet fluticasone 500 mcg-salmeterol 50 1 inha INH BID 11/22/17 01/20/20 History mcg/dose blistr powdr for inhalation gabapentin 400 mg capsule 400 mg PO QID 11/22/17 01/20/20 History montelukast 10 mg tablet 10 mg PO QAM 11/22/17 01/20/20 History multivitamin 1 tab PO QAM 11/22/17 01/20/20 History pantoprazole 40 mg tablet,delayed 40 mg PO QAM 11/22/17 01/20/20 History release Morley 3-6-9 1,200 cap PO TID 08/03/18 01/20/20 History levothyroxine 50 mcg PO DAILYBB 12/09/18 01/20/20 History tamsulosin 0.4 mg capsule 0.4 mg PO HS #90 cap 09/05/19 01/20/20 Rx baclofen 20 mg tablet 20 mg PO BID 09/19/19 01/20/20 History simethicone 80 mg PO Q6H PRN 10/03/19 01/20/20 History benzoyl peroxide 1 applic TOPICAL 2XWK 11/05/19 01/20/20 History trazodone 75 mg PO HS 11/05/19 01/20/20 History divalproex 750 mg PO BID 12/26/19 01/20/20 History lidocaine 1 patch TOPICAL DAILY 12/26/19 01/20/20 History loratadine [Claritin Liqui-Gel] 10 mg PO DAILY 12/26/19 01/20/20 History ziprasidone HCl 40 mg PO QPM 12/26/19 01/20/20 History ziprasidone HCl 60 mg PO QAM 12/26/19 01/20/20 History albuterol sulfate 2 puff INHALATION Q4 PRN 12/29/19 01/20/20 History azelastine 1 spray INTRANASAL DAILY 12/29/19 01/20/20 History diclofenac sodium 2 g TOPICAL BID 12/29/19 01/20/20 History duloxetine 60 mg PO DAILY 12/29/19 01/20/20 History testosterone cypionate 200 mg/mL 200 mg IM .COMPLEX #1 ea 12/29/19 01/20/20 Rx intramuscular kit furosemide [Lasix] 20 mg PO DAILY PRN #10 tab 01/03/20 01/20/20 Rx alosetron 1 mg PO BID 01/20/20 01/20/20 History diazepam 5 mg PO DAILY 01/20/20 01/20/20 History fluticasone propionate 1 spray INTRANASAL BID 01/20/20 01/20/20 History ipratropium-albuterol [Combivent 2 puff INHALATION BID 01/20/20 01/20/20 History Respimat] nabumetone 500 mg PO QID 01/20/20 01/20/20 History rivaroxaban [Xarelto] 15 mg PO BID 01/20/20 01/20/20 History Patient History Medical History (Updated 01/22/20 @ 09:49 by Ignacia High DO) Anxiety Asthma uses PRN inh BID on average Bipolar disorder BPH (benign prostatic hyperplasia) Chronic back pain Degenerative disc disease Depression Difficult airway for intubation "small airway" Discitis of thoracolumbar region Diverticular disease DM type 2 (diabetes mellitus, type 2) IDDM Dyslipidemia Fatty liver GERD (gastroesophageal reflux disease) History of esophageal dilatation Hypogonadism in male Hypothyroidism IBS (irritable bowel syndrome) Lumbago Lumbar facet joint syndrome Lumbar spondylosis Obesity ZORAN treated with BiPAP Osteoarthritis Sacroiliitis Schizoaffective disorder Surgical History (Updated 01/22/20 @ 09:48 by Ignacia High DO) H/O rhinoplasty H/O umbilical hernia repair History of colonoscopy History of esophagogastroduodenoscopy (EGD) History of tonsillectomy and adenoidectomy S/P UPPP (uvulopalatopharyngoplasty) Status post rotator cuff repair Bilateral Family History Grandmother Colon cancer Diabetes Father Diabetes Other No family history of adverse response to anesthesia Social History Smoking Status: Never smoker Second Hand Exposure: Yes (mom and dad smoked); Do You Dip or Chew Tobacco: No; Hx Alcohol Use: No Hx Substance Use: No Preferred Language: Bengali Communication Ability: Effective Clinical Manager Required: No Beliefs That Will Affect Care: None marital status: Single Current Living Situation: Alone current occupational status: unemployed Feels Safe at Home: Yes Assistive Devices: None Physical Exam Physical Exam: No physical exam was performed secondary to telehealth visit due to COVID-19 positive status. Patient appears awake alert and oriented x3 on telephone exam. He has short- term memory recall within normal limits is able to communicate effectively. Results (Pain Clinic) Diagnostic Review MRI: enhanced, non enhanced, reports reviewed, images reviewed and findings discussed with patient MRI Findings: 01/20/20 THORACIC SPINE MRI WITH AND WITHOUT CONTRAST, LUMBAR SPINE MRI WITH AND WITHOUT CONTRAST HISTORY: back pain TECHNIQUE: Multiplanar multisequence MRI of the thoracic and lumbar spine was performed both before and after the intravenous administration of contrast. COMPARISON: Thoracic spine MRI 11/05/2019. Lumbar spine MRI 08/28/2019. FINDINGS: Paraspinal edema and enhancement from the T10-L1 levels has progressed. There is also mild epidural enhancement posterior to the vertebral bodies at these levels. This is similar to the prior study. No definite epidural abscess identified. Paravertebral soft tissue tissue thickening/phlegmon centered at the T11-T12 disc space level with small paraspinal abscesses suspected at this loc ation. There is progressive endplate destructive change and a moderate anterior wedge-shaped compression deformity at T11 consistent with a subacute compression fracture. This is new from the prior study. No associated retropulsion. Endplate enhancement and disc edema at T12-L1 has progressed and is consistent with an additional site of discitis/osteomyelitis. Overall, the discitis/osteomyelitis at the T10-11, T11-T12 and T12-L1 levels have progressed. Persistent broad-based posterior disc bulge at T12-L1 resulting in moderate central canal narrowing. This remains unchanged. The upper to mid thoracic spine appears intact. No evidence for discitis/osteomyelitis within the mid to distal lumbar spine. Mild disc space narrowing at L3-L4 and L4-L5. L5 is demonstrated to be a transitional vertebra. The conus terminates at the L1 level. Small left paracentral focal disc protrusion at L2-L3 without significant central canal narrowing. There is mild central canal narrowing at L3-L4 due to a small broad- based posterior disc bulge. IMPRESSION: 1. Progressive discitis/osteomyelitis at the T10-11, T11-T12, T12-L1 levels as described above. There is mild epidural enhancement posterior to the vertebral bodies at this level. No definite epidural abscess. 2. Soft tissue thickening/phlegmon at these levels with probable small paraspinal abscesses centered at the T11-T12 level. 3. Interval development of a moderate anterior wedge-shaped compression deformity at T11 consistent with a subacute compression fracture. 4. Additional findings as described above.
[2020-01-22] MEDS: LIDOCAINE 5% 1 PATCH TD SCH (11:17)
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
[2020-01-22] MEDS ORDERED: LOPERAMIDE HCL 2 MG CAP PO PRN (15:42)
[2020-01-22] MEDS ORDERED: hydrOXYzine HCl 10 MG TAB PO PRN (15:44)
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
[2020-01-22] MEDS: LACTOBACILLUS ACIDOPHILUS 1 GM PACK PO SCH (17:59)
[2020-01-22] MEDS ORDERED: traZODone HCL 100 MG TAB PO SCH (21:00)
[2020-01-22] MEDS ORDERED: DIVALPROEX EXTENDED RELEASE 500 MG TAB PO SCH (21:00)
[2020-01-22] MEDS ORDERED: carBAMazepine 200 MG TABLET PO SCH (21:00)
[2020-01-22] MEDS: TAMSULOSIN HCL 0.4 MG CAP PO SCH (21:25)
[2020-01-23] MEDS: LEVOTHYROXINE SODIUM 50 MCG TABLET PO SCH (05:38)
[2020-01-23] MEDS: LORATADINE 10 MG TAB PO SCH (08:40)
[2020-01-23] MEDS: CYANOCOBALAMIN 500 MCG TABLET (VITAMIN B-12) PO SCH (08:40)
[2020-01-23] MEDS: MONTELUKAST SODIUM 10 MG TABLET PO SCH (08:40)
[2020-01-23] MEDS: OMEGA-3 (PURIFIED FISH OIL) 1 GM CAP PO SCH ×2 (08:41→13:01)
[2020-01-23] MEDS: MULTIVITAMIN TAB PO SCH (08:42)
[2020-01-23] MEDS: PANTOprazole 40 MG TAB PO SCH (08:42)
[2020-01-23] MEDS: CHOLECALCIFEROL 1,000 UNITS 25 MCG TAB PO SCH (08:42)
[2020-01-23] MEDS: ATORVASTATIN 20 MG TAB PO SCH (08:43)
[2020-01-23] MEDS: DULoxetine HCL 60 MG CAP PO SCH (08:44)
[2020-01-23] MEDS: GABAPENTIN 400 MG CAP PO SCH ×2 (08:44→13:01)
[2020-01-23] MEDS: dexAMETHasone 4 MG TAB PO SCH (08:45)
[2020-01-23] MEDS: DICYCLOMINE HCL 20 MG TAB PO SCH ×2 (08:45→13:02)
[2020-01-23] MEDS: BACLOFEN 20 MG TAB PO SCH (08:48)
[2020-01-23] MEDS: LACTOBACILLUS ACIDOPHILUS 1 GM PACK PO SCH ×2 (08:49→13:02)
[2020-01-23] MEDS: SULFAMETHOXAZOLE/TRIMETHOPRIM DS 800/160MG TAB PO SCH (08:51)
[2020-01-23] MEDS: cephALEXin 500 MG CAP PO SCH (08:51)
[2020-01-23] MEDS: FLUTICASONE PROPIONATE NA SPR 16 GM BTL SCH (08:51)
[2020-01-23] MEDS: FLUTICASONE/VILANTEROL 200/25MCG 14 PUFFS/INHALER INH SCH (08:52)
[2020-01-23] MEDS: DICLOFENAC SOD 1% GEL 100 GM TUBE EXT SCH (08:53)
[2020-01-23] MEDS: RIVAROXABAN 15 MG TAB PO SCH (08:55)
[2020-01-23] MEDS: INSULIN ASPART 100 UNITS/ML 3 ML PEN SC SCH ×2 (08:58→13:04)
[2020-01-23] MEDS ORDERED: INSULIN GLARGINE SOLOSTAR 100 UNITS/ML 3 ML PEN SQ SCH (09:00)
[2020-01-23] MEDS ORDERED: risperiDONE 2 MG TABLET PO SCH (09:00)
[2020-01-23] MEDS: LIDOCAINE 5% 1 PATCH TD SCH (09:40)
--- NOTE | 2020-01-23 14:43 | Discharge Summary ---
Date of Service January 23, 2020 Admission HPI Per Admitting Provider History of Present Illness 54-year-old male with a past medical history of chronic back pain, diabetes, myofascial pain, urinary incontinence, urinary frequency, impotence, prostatic enlargement, schizoaffective disorder, hypogonadism, lumbar spondylosis, lumbago, obesity, sacral sacroiliitis, anxiety, depression, bipolar disorder, asthma, GERD, obstructive sleep apnea, dyslipidemia, BPH, IBS, chronic back pain, and osteomyelitis of the spine who presents today with Covid symptoms. He notes that he had a thoracic and lumbar osteomyelitis was in [place] for 3 months, never had surgery for his back. He is scheduled for MRIs on his back and is waiting for referrals from his primary. He has a blood clot in his left leg and he was on Xarelto but he has been taking it. Comes in today with Covid symptoms to include fevers, chills, mild diarrhea, headache, and his symptoms started about a week ago and he was tested on Wednesday or Wednesday at [facility] and was positive for Covid.. Primary Care Provider: Baltazar Little DO Principal Diagnosis COVID 19 PNEUMONITIS CHRONIC BACK PAIN THORACIC SPINE OSTEOMYELITIS Discharge Exam Constitutional WD/WN, vitals as above Eyes PERRL, conjunctivae normal, anicteric sclerae ENMT external ear and nose normal, oropharynx normal Neck trachea midline, no thyromegaly Respiratory no respiratory distress Auscultation: no crackles and no wheezes Cardiovascular RRR, no murmur, no edema Gastrointestinal (Abdomen) normal bowel sounds, soft, nontender, no hepatosplenomegaly Musculoskeletal no cyanosis or clubbing, extremities motor strength 5/5 Skin no rashes, warm and dry Neurologic PERRL, EOMI, accommodation nl, no face palsy, no dysarthria Psychiatric Orientation: alert Speech: + pressured speech Thought Process: + tangential thought process Thought Content: + preoccupation and + paranoid Discharge Data Allergies Allergy/AdvReac Type Severity Reaction Status Date / Time haloperidol AdvReac Intermediate muscle Verified 01/03/20 06:06 cramps, eyes roll back in my head Consultations 01/20/20 18:24 ED Decision to Admit Stat 01/21/20 11:48 Consult Pain Management Routine 01/21/20 16:21 Consult Psychiatry Routine Ordered Studies 01/20/20 17:06 CT abd pelvis IV con only Stat CT angio chest PE protocol Stat 01/20/20 21:55 MR lumbar spine wo/w con Routine MR thoracic spine wo/w con Routine Hospital Course (1) COVID-19: admitted with COVID 19 + ve SOB , no hypoxia , has non productive cough Cxray shows bilateral interstitial airspace opacities mild pulm vascular congestion in room air , no hypoxia respiratory status , vitals stable on Dexamethasone, does not meet criteria for Remdesivir will be discharged home with 7 more days of PO Dexamethasone to complete the course CHRONIC BACK PAIN /LUMBER /THORACIC SPINE OSTEOMYELITIS : no fever , no leukocytosis MRI of lumber and thoracic spine : IMPRESSION: 1. Progressive discitis/osteomyelitis at the T10-11, T11-T12, T12-L1 levels as described above. There is mild epidural enhancement posterior to the vertebral bodies at this level. No definite epidural abscess. 2. Soft tissue thickening/phlegmon at these levels with probable small paraspinal abscesses centered at the T11-T12 level. 3. Interval development of a moderate anterior wedge-shaped compression deformity at T11 consistent with a subacute compression fracture. pt completed 6 weeks of IV ABx followed by PO Abx during [place] [facility] follow up with family physician and out patient ID referral . Chronic back pain : due to above follows with Pain management Dr Flores pt requesting multiple pain medications and nutritional supplements pain management team consulted -appreciate input Hx of Bipolar disorder /Schizoaffective disorder : appears to have very tangential thought with rapid change of topics pressured speech follows with Psychiatrist , does not recall his name medication lists includes : Depakote, Geodon , Gabapentin , Haldol , Trazodone -says he has stopped taking few of his meds as it made his tongue heavy and he could not speak Psych eval requested -appreciate input pt will continue to follow up with psychiatry as out patient FULL CODE DISPOSITION : pt remains medically stable with no respiratory distress /no hypoxia or SOB pt is discharged home today with PO steroid will need repeat CT chest in few weeks to assess resolution of bilateral infiltrate infectious disease follow up out pt (2) Schizoaffective disorder: Total Time Total Time Spent Total Time Spent (In Minutes): 30 mins Total Time Includes: Discharge Planning and Medication Reconciliation Discharge Plan Discharge Items Patient Disposition: Home - Self-Care Reason For Visit: COVID, BACK PAIN Discharge Diagnosis: COVID 19 PNEUMONITIS CHRONIC BACK PAIN THORACIC SPINE OSTEOMYELITIS Activity: As commented below Activity Comment: TOLERATED Non-emergency contact: Primary Care Provider Call non-emergency contact if: you have any medication questions Follow-up/Referrals: Baltazar Little DO [Primary Care Provider] - 01/29/20 11:00 am (Date & Time 01/29/2020 11:00 AM Provider Baltazar Little DO [facility] PLEASE NOTE THAT THIS IS A TELEVIDEO APPOINTMENT. PLEASE FOLLOW THE INSTRUCTIONS PROVIDED IN AN EMAIL YOU WILL RECEIVE. IF YOU HAVE ANY QUESTIONS, PLEASE CALL .) Diet: Heart Healthy Addtl Attending Provider Instructions: Home Isolation COVID-19 Instructions The following information about Home Isolation is from the CDC Website: https://www.cdc.gov/coronavirus/2019-ncov/hcp/lthfajoz-wopityo-mamnez.html Stay home except to get medical care People who are mildly ill with COVID-19 are able to isolate at home during their illness. You should restrict activities outside your home, except for getting medical care. Do not go to work, school, or public areas. Avoid using public transportation, ride-sharing, or taxis. Separate yourself from other people and animals in your home People: As much as possible, you should stay in a specific room and away from other people in your home. Also, you should use a separate bathroom, if available. Animals: You should restrict contact with pets and other animals while you are sick with COVID-19, just like you would around other people. Although there have not been reports of pets or other animals becoming sick with COVID-19, it is still recommended that people sick with COVID-19 limit contact with animals until more information is known about the virus. When possible, have another member of your household care for your animals while you are sick. If you are sick with COVID-19, avoid contact with your pet, including petting, snuggling, being kissed or licked, and sharing food. If you must care for your pet or be around animals while you are sick, wash your hands before and after you interact with pets and wear a face mask. Call ahead before visiting your doctor If you have a medical appointment, call the healthcare provider and tell them that you have or may have COVID-19. This will help the healthcare providers office take steps to keep other people from getting infected or exposed. Wear a face mask You should wear a face mask when you are around other people (e.g., sharing a room or vehicle) or pets and before you enter a healthcare providers office. If you are not able to wear a face mask (for example, because it causes trouble breathing), then people who live with you should not stay in the same room with you, or they should wear a face mask if they enter your room. Cover your coughs and sneezes Cover your mouth and nose with a tissue when you cough or sneeze. Throw used tissues in a lined trash can. Immediately wash your hands with soap and water for at least 20 seconds or, if soap and water are not available, clean your hands with an alcohol-based hand cable tool driller that contains at least 60% alcohol. Clean your hands often Wash your hands often with soap and water for at least 20 seconds, especially after blowing your nose, coughing, or sneezing; going to the bathroom; and before eating or preparing food. If soap and water are not readily available, use an alcohol-based hand cable tool driller with at least 60% alcohol, covering all surfaces of your hands and rubbing them together until they feel dry. Soap and water are the best option if hands are visibly dirty. Avoid touching your eyes, nose, and mouth with unwashed hands. Avoid sharing personal household items You should not share dishes, drinking glasses, cups, eating utensils, towels, or bedding with other people or pets in your home. After using these items, they should be washed thoroughly with soap and water. Clean all high-touch surfaces everyday High touch surfaces include counters, tabletops, doorknobs, bathroom fixtures, toilets, phones, keyboards, tablets, and bedside tables. Also, clean any surfaces that may have blood, stool, or body fluids on them. Use a household cleaning spray or wipe, according to the label instructions. Labels contain instructions for safe and effective use of the cleaning product including precautions you should take when applying the product, such as wearing gloves and making sure you have good ventilation during use of the product. Monitor your symptoms Seek prompt medical attention if your illness is worsening (e.g., difficulty breathing).Beforeseeking care, call your healthcare provider and tell them that you have, or are being evaluated for, COVID-19. Put on a face mask before you enter the facility. These steps will help the healthcare providers office to keep other people in the office or waiting room from getting infected or exposed. Ask your healthcare provider to call the local or [facility] health department. Persons who are placed under active monitoring or facilitated self- monitoring should follow instructions provided by their local health department or occupational health professionals, as appropriate. When working with your local health department check their available hours. If you have a medical emergency and need to call 911, notify the dispatch personnel that you have, or are being evaluated for COVID-19. If possible, put on a face mask before emergency medical services arrive. Discontinuing home isolation Discontinue home isolation /quarantine 10 days after onset of symptoms Pending Studies at Discharge: Yes Studies:: repeat CT chest in 4-6 weeks to assess resolution of bilateral infiltrate Stand-Alone Forms: My [facility], Smoking Cessation Medications and DC Order Prescriptions: New dexamethasone 6 mg tablet 6 mg PO DAILY 7 Days Qty: 7 RF: 0 Continued multivitamin tablet 1 tab PO QAM RF: 0 cyanocobalamin (vitamin B-12) [Vitamin B-12] 1,000 mcg tablet extended release 1,000 mcg PO DAILY RF: 0 atorvastatin [Lipitor] 20 mg tablet 20 mg PO QAM RF: 0 gabapentin 400 mg capsule 400 mg PO QID RF: 0 diphenoxylate-atropine [Lomotil] 2.5-0.025 mg tablet 1 tab PO QID PRN (Reason: Diarrhea) RF: 0 dicyclomine 20 mg tablet 20 mg PO QID RF: 0 pantoprazole [Protonix] 40 mg tablet,delayed release (DR/EC) 40 mg PO QAM RF: 0 fluticasone propion-salmeterol [Advair Diskus] 500-50 mcg/dose blister with device 1 inha INH BID RF: 0 montelukast [Singulair] 10 mg tablet 10 mg PO QAM RF: 0 baclofen 20 mg tablet 20 mg PO BID RF: 0 testosterone cypionate 200 mg/mL kit 200 mg IM .COMPLEX Qty: 1 RF: 1 tamsulosin [Flomax] 0.4 mg capsule 0.4 mg PO HS Qty: 90 RF: 3 Rudyard 3-6-9 1,200 mg Capsule 1,200 cap PO TID RF: 0 levothyroxine 50 mcg Tablet 50 mcg PO DAILYBB RF: 0 benzoyl peroxide 10 % Cleanser 1 applic TOPICAL DAILY RF: 0 trazodone 150 mg Tablet 300 mg PO HS RF: 0 lidocaine 4 % Adhesive Patch,Medicated 1 patch TOPICAL DAILY RF: 0 divalproex 250 mg Tablet,Delayed Release (Dr/Ec) 750 mg PO BID RF: 0 loratadine [Claritin Liqui-Gel] 10 mg Capsule 10 mg PO DAILY RF: 0 azelastine 137 mcg (0.1 %) aerosol,spray 1 spray INTRANASAL DAILY RF: 0 albuterol sulfate 90 mcg/actuation HFA aerosol inhaler 2 puff INHALATION Q4 PRN (Reason: cough,sob,wheeze) RF: 0 duloxetine 60 mg capsule,delayed release(DR/EC) 60 mg PO DAILY RF: 0 diclofenac sodium 1 % gel 2 g TOPICAL BID RF: 0 simethicone 80 mg Tablet,Chewable 80 mg PO Q6H PRN (Reason: GAS/BLOATING) RF: 0 furosemide [Lasix] 20 mg tablet 20 mg PO DAILY PRN (Reason: edema) Qty: 10 RF: 0 Xarelto 15 mg tablet 15 mg PO BID RF: 0 Combivent Respimat 20-100 mcg/actuation mist 1 puff INHALATION QID RF: 0 diazepam 5 mg tablet 5 mg PO HS RF: 0 alosetron 1 mg tablet 1 mg PO BID RF: 0 fluticasone propionate 50 mcg/actuation spray,suspension 1 spray INTRANASAL HS RF: 0 nabumetone 500 mg tablet 500 mg PO QID RF: 0 risperidone 2 mg Tablet 2 mg PO HS RF: 0 ziprasidone HCl 80 mg Capsule 100 mg PO 1700 RF: 0 magnesium oxide 400 mg magnesium Tablet 400 mg PO BID RF: 0 dulaglutide 0.75 mg/0.5 mL Pen Injector SUBCUT WK RF: 0 melatonin 10 mg Tablet 10 mg PO HS RF: 0 carbamazepine 200 mg Tablet 250 mg PO BID RF: 0 insulin asp prt-insulin aspart [Novolog Mix 70-30 U-100 Insuln] 100 unit/mL (70-30) Solution 40 unit SUBCUT BID RF: 0 clindamycin phosphate 1 % Solution 1 applic TOPICAL DAILY PRN (Reason: Pimples) RF: 0 Discharge Orders: Discharge Order (Routine); Ordered 01/23/20 Ordered By: Ruth Forrest Admission Data Admit Date/Time: 01/20/20 19:45 Attending Provider: Ruth Forrest Admit Provider: Beto Allen Primary Care Provider: Baltazar Little Other Providers: Beto Allen ; Malcom Flores ; Taylor Lopez Other Interventions: PSY Interdisciplinary Discharge Planning Last Done: 01/23/20 14:42
[2020-01-23] MEDS: HYDROCODONE/ACETAMOPHEN 5/325MG TAB PO PRN (16:41)
[2020-01-23] MEDS ORDERED: diazePAM 5 MG TABLET PO SCH (21:00)
== END 2020-01-23 17:02 | disposition home or self-care (01) | DRG 177 ==
LOC: ED 14:58 → SUATTDRO 19:45 → 3E 19:45

== ENCOUNTER 2020-02-22 18:53 | Inpatient (IN) ==
[2020-02-22 19:40] LABS: Appearance Urine Clear (Clear); Bilirubin Urine Negative (Negative); Blood Urine Negative (Negative); Color Urine Yellow; Glucose Urine UA Negative (Negative); Ketones Urine Negative (Negative); Leukocyte Esterase Urine Negative (Negative); Nitrite Urine Negative (Negative); Protein Urine Negative (Negative); Specific Gravity Urine 1.012 (1.000-1.030); Urobilinogen Urine Negative (Negative); pH Urine 7.5 (4.5-7.5)
[2020-02-22 19:59] LABS: Amphetamines+Metham, Urine Neg (Neg); Barbiturates, Urine Neg (Neg); Benzodiazepine, Urine Neg (Neg); Cocaine, Urine Neg (Neg); MDMA (Ecstacy), Urine Neg (Neg); Methadone, Urine Neg (Neg); Opiate, Urine Neg (Neg); Phencyclidine, Urine Neg (Neg)
--- NOTE | 2020-02-22 20:18 | Emergency Department Note ---
Impression & Plan Bipolar disorder ED Provider Note NAME: MANDI BOSS AGE: 54 SEX: M ARRIVES VIA: Ambulance INFORMANT: Patient, ED PROVIDER(S): David Tatum MD CHIEF COMPLAINT: Kylee PLAN: Disposition: Inpatient psychiatric placement pending MEDICAL DECISION MAKING: The patient is a 54-year-old gentleman with a past medical history of bipolar disorder who presents emergency department referred [facility] for worsening kylee, disorganization and psychosis after he attempted to go there voluntarily for admission. Of note, this occurs in setting of recent ED visits for similar concerns for worsening bipolar disorder but he did not exactly meet criteria for emergent admission and despite attempts to place involuntarily on his last visit was not accepted due to lack of acuity. He was however counseled and instructed to not drive due to concern for safety and a form was filed to the [employer]. However the patient has been driving and did so today in an unsafe manner per his manager of case's report and does appear to be worsening in terms of his kylee and ability to self-care and demonstrates risk of harm to others given his lack of insight. He still remains interested in voluntary admission as he acknowledges that he is not doing well. He denies any recent illness, fevers, chills, cough congestion, nausea, vomit, diarrhea, urinary symptoms. He reports he did fall again but does not know the details and hit his head he has a small scratch. His laceration of his right eyebrow is well healed following removal of sutures which was an injury suffered during his last ED visit due to performing "calisthenics" in his room. Of note over the course of approximately 30 minutes from 1 the patient had been initially evaluated where he was somewhat coherent and redirectable patient became more manic and incoherent continue with pressured speech, flight of ideas I was incoherent and perseverations where he did require chemical sedation with IM Zyprexa and Ativan. Given the patient clearly has worsening kylee and psychosis and unsafe behaviors where he is continued to drive despite being clearly told that this was not allowed and now with complete loss of insight and ability to function reasonable to proceed with 302 at this time. WBC and platelets within normal limits. H/H 13.6/40, similar to prior values. Chemistry without metabolic acidosis. AST and ALT 56 and 90, respectively similar to prior values. TSH within normal limits. UA without evidence of infection. Drug screen was unremarkable. Rapid Covid antigen test was negative. He had negative for acute process. Medical evaluation was otherwise unremarkable and the patient was medically cleared. At the time of signout the patient was awaiting clinical sobriety following his chemical sedation to read him his rights for his 302 and to begin bed search. Patient signed out to Dr. Garcia at change of shift. Triage Nursing notes reviewed and agree them. Additional history obtained from patient's mental health manager of case and the [facility] petitioning statement. Prior medical records reviewed Vital Signs: reviewed and remarkable for no significant abnormalities Differential diagnosis: Mood disorder, infection, hypoglycemia, electrolyte abnormalities, cardiac sources, intracerebral event, toxicologic, trauma, neurologic, as well as other pathologies. ER treatment provided: See below. Laboratory studies: See below Imaging studies: CT OF THE HEAD WITHOUT CONTRAST CLINICAL HISTORY: fall, headstrike COMPARISON STUDY: Head CT February 16, 2020. CT DOSE: 884.08 mGy.cm TECHNIQUE: Helical axial images of the head were obtained without IV contrast. Automated exposure control was utilized for the study. A dose lowering technique was utilized adhering to the principles of ALARA. FINDINGS: No acute intracranial hemorrhage, midline shift or mass effect is present. The ventricular system is unremarkable. The basal cisterns are patent. No extra-axial collections are present. There are no findings to suggest acute dural sinus thrombosis or acute territorial infarct. No significant calvarial abnormalities are present. Minimal ethmoid sinus mucosal thickening is present.. Suspected postoperative findings within the sinuses are noted. IMPRESSION: 1. No acute intracranial findings. 2. No calvarial fracture. HPI: The patient is a 54-year-old gentleman with a past medical history of bipolar disorder who presents emergency department referred [facility] for worsening kylee, disorganization and psychosis after he attempted to go there voluntarily for admission. Of note, this occurs in setting of recent ED visits for similar concerns for worsening bipolar disorder but he did not exactly meet criteria for emergent admission and despite attempts to place involuntarily on his last visit was not accepted due to lack of acuity. He was however counseled and instructed to not drive due to concern for safety and a form was filed to the DM[employer]. However the patient has been driving and did so today in an unsafe manner per his manager of case's report and does appear to be worsening in terms of his kylee and ability to self-care and demonstrates risk of harm to others given his lack of insight. He still remains interested in voluntary admission as he acknowledges that he is not doing well. He denies any recent illness, fevers, chills, cough congestion, nausea, vomit, diarrhea, urinary symptoms. He reports he did fall again but does not know the details and hit his head he has a small scratch. His laceration of his right eyebrow is well healed following removal of sutures which was an injury suffered during his last ED visit due to performing "calisthenics" in his room. ROS: See above HPI for pertinent positives & negatives. A total of 10 systems reviewed and were otherwise negative. PAST MEDICAL HISTORY:See Below PAST SURGICAL HISTORY:See Below FAMILY HISTORY:See Below SOCIAL HISTORY:See Below HOME MEDICATIONS:See Below ALLERGIES:See Below VITALS:See Below PHYSICAL EXAMINATION: GENERAL: Awake, alert, well-appearing, in no distress HENT: Normocephalic. Skin linear abrasion to the forehead without laceration. Resolving contusion of the right eyebrow/eyelid with well-healed laceration.. Oropharynx unremarkable. EYES: Normal conjunctiva. Sclera non-icteric. NECK: Supple. No nuchal rigidity. FROM. No JVD. RESPIRATORY: Clear to auscultation. CARDIAC: Regular rate, normal rhythm. Extremities warm and well perfused. Pulses equal. ABDOMEN: Soft, non-distended. No tenderness to palpation. No rebound or guarding. No masses. RECTAL: Deferred. MUSCULOSKELETAL: Chest examination reveals no tenderness. The back is symmetrical on inspection without obvious abnormality. There is no CVA tenderness to palpation. No joint edema. LOWER EXTREMITIES: Calves are equal size bilaterally and non-tender. No edema. No discoloration. NEURO: Normal sensorium. No sensory or motor deficits noted. SKIN: No rash or jaundice noted. PSYCH: Flight of ideas, pressured speech, difficult to redirect. Admits to auditory hallucinations but denies any command loose Nations. Denies SI/HI. D oes admit he is too disorganized to function. On reevaluation patient has complete loss of insight unable to be redirected with worsening flight of ideas, pressured speech, and perseverations. David Tatum MD Past Med/Surg History Medical History Anxiety Asthma uses PRN inh BID on average Bipolar disorder BPH (benign prostatic hyperplasia) Chronic back pain Degenerative disc disease Depression Difficult airway for intubation "small airway" Discitis of thoracolumbar region Diverticular disease DM type 2 (diabetes mellitus, type 2) IDDM Dyslipidemia Fatty liver GERD (gastroesophageal reflux disease) History of esophageal dilatation Hypogonadism in male Hypothyroidism IBS (irritable bowel syndrome) Lumbago Lumbar facet joint syndrome Lumbar spondylosis Obesity ZORAN treated with BiPAP Osteoarthritis Sacroiliitis Schizoaffective disorder Surgical History H/O rhinoplasty H/O umbilical hernia repair History of colonoscopy History of esophagogastroduodenoscopy (EGD) History of tonsillectomy and adenoidectomy S/P UPPP (uvulopalatopharyngoplasty) Status post rotator cuff repair Bilateral Family History Grandmother Colon cancer Diabetes Father Diabetes Other No family history of adverse response to anesthesia Social History Smoking Status: Unknown if ever smoked Second Hand Exposure: Yes (mom and dad smoked); Hx Alcohol Use: No Hx Substance Use: No Preferred Language: Bahamian Communication Ability: Effective Childcare Center Director Required: No Beliefs That Will Affect Care: None marital status: Single Current Living Situation: Alone current occupational status: unemployed Feels Safe at Home: Yes Assistive Devices: None Allergies Allergies Allergy/AdvReac Type Severity Reaction Status Date / Time haloperidol AdvReac Intermediate muscle Verified 01/03/20 06:06 cramps, eyes roll back in my head Home Meds Home Medications Medication Instructions Recorded Confirmed atorvastatin 20 mg tablet 20 mg PO QAM 11/22/17 02/22/20 cyanocobalamin (vitamin B-12) 1,000 mcg PO DAILY 11/22/17 02/22/20 1,000 mcg tablet,extended release gabapentin 400 mg capsule 400 mg PO QID 11/22/17 02/22/20 montelukast 10 mg tablet 10 mg PO QAM 11/22/17 02/22/20 multivitamin 1 tab PO QAM 11/22/17 02/22/20 [place] 3-6-9 1,200 cap PO TID 08/03/18 02/22/20 levothyroxine 50 mcg PO DAILYBB 12/09/18 02/22/20 baclofen 20 mg tablet 20 mg PO BID 09/19/19 02/22/20 trazodone 300 mg PO HS 11/05/19 02/22/20 loratadine [Claritin Liqui-Gel] 10 mg PO DAILY 12/26/19 02/22/20 diclofenac sodium 2 g TOPICAL BID 12/29/19 02/22/20 duloxetine 60 mg PO DAILY 12/29/19 02/22/20 diazepam 5 mg PO HS 01/20/20 02/22/20 nabumetone 500 mg PO QID 01/20/20 02/22/20 clindamycin phosphate 1 applic TOPICAL DAILY PRN 01/22/20 02/22/20 dulaglutide 0.75 mg SUBCUT WK 01/22/20 02/22/20 insulin asp prt-insulin aspart 40 unit SUBCUT BID 01/22/20 02/22/20 [Novolog Mix 70-30 U-100 Insuln] magnesium oxide 400 mg PO BID 01/22/20 02/22/20 risperidone 2 mg PO HS 01/22/20 02/22/20 Previous Rx's Medication Instructions Recorded furosemide [Lasix] 20 mg PO DAILY PRN #10 tab 01/03/20 Results & Data (ED) Vital Signs Vital Signs - 24 hr 02/22/20 19:02 02/23/20 00:52 Temperature 36.9 C Temperature Source Oral Pulse Rate 97 H Pulse Rate [Left Finger] 87 Pulse Rhythm [Left Finger] Regular Pulse Strength [Left Finger] Normal Respiratory Rate 17 14 Respiratory Effort / Characteristics Non-Labored Spontaneous Respiratory Depth Normal Respiratory Pattern Regular Blood Pressure 178/118 H Blood Pressure [Left Arm] 133/87 Blood Pressure Mean 138 Blood Pressure Mean [Left Arm] 102 Blood Pressure Position [Left Arm] Sitting Pulse Oximetry 98 99 Oxygen Delivery Method Room Air Room Air Sepsis Recent Fever Within 48 Hours No Sepsis New/Unexplained Change in Mental Status N/A Sepsis Action Taken by Nursing No Action Required Laboratory Data Attestation: I reviewed the patient's lab results. Result diagrams: 02/22/20 19:46 02/22/20 19:45 Lab Results 02/22/20 02/22/20 02/22/20 Range/Units 18:55 18:55 19:45 WBC (4.8-10.8) K/uL RBC (4.7-6.1) M/uL Hgb (14.0-18.0) g/dL Hct (42-52) % MCV (80-100) fL MCH (25-34) pg MCHC (32-36) g/dL RDW Std Deviation (36.4-46.3) fL RDW Coeff of Herbert (11.5-14.5) % Plt Count (130-400) K/uL MPV (7.4-10.4) fL Immature Gran % (Auto) % Neut % (Auto) % Lymph % (Auto) % [place] % (Auto) % Eos % (Auto) % Baso % (Auto) % Neut # (Auto) (1.4-6.5) K/uL Lymph # (Auto) (1.2-3.4) K/uL [place] # (Auto) (0.11-0.59) K/uL Eos # (Auto) (0-0.5) K/uL Baso # (Auto) (0-0.2) K/uL Immature Gran # (Auto) (0.00-0.02) K/uL Sodium 142 (136-145) mmol/L Potassium 3.8 (3.5-5.1) mmol/L Chloride 105 (98-107) mmol/L Carbon Dioxide 31 (21-32) mmol/L Anion Gap 6.0 (3-11) BUN 16 (7-18) mg/dl Creatinine 0.74 (0.6-1.4) mg/dl Est Cr Clr Drug Dosing 145.2 ml/min Est GFR ( Amer) 122.1 Est GFR (Non-Af Amer) 105.3 BUN/Creatinine Ratio 22.2 H (10-20) Glucose 91 (70-99) mg/dl POC Glucose (70-99) mg/dl Calcium 9.8 (8.5-10.1) mg/dl Total Bilirubin 0.4 (0.2-1) mg/dl AST 56 H (15-37) U/L ALT 90 H (12-78) U/L Alkaline Phosphatase 75 (45-117) U/L Total Protein 7.4 (6.4-8.2) gm/dl Albumin 3.6 (3.4-5.0) gm/dl Globulin 3.8 (2.5-4.0) gm/dl Albumin/Globulin Ratio 1.0 (0.9-2) TSH 1.670 (0.300-4.500) uIu/ml Urine Color Yellow Urine Appearance Clear (Clear) Urine pH 7.5 (4.5-7.5) Ur Specific [place] 1.012 (1.000-1.030) Urine Protein Negative (Negative) Urine Glucose (UA) Negative (Negative) Urine Ketones Negative (Negative) Urine Blood Negative (Negative) Urine Nitrite Negative (Negative) Urine Bilirubin Negative (Negative) Urine Urobilinogen Negative (Negative) Ur Leukocyte Esterase Negative (Negative) Salicylates (2.8-20) mg/dl Urine Opiates Screen Neg (Neg) Ur Methadone, Qual Neg (Neg) Acetaminophen (10-30) ug/ml Urine Barbiturates Neg (Neg) Ur Phencyclidine (PCP) Neg (Neg) U Amphetamin/Meth Scrn Neg (Neg) MDMA (Ecstasy) Screen Neg (Neg) U Benzodiazepines Scrn Neg (Neg) Ur Cocaine Metabolite Neg (Neg) U Marijuana (THC) Screen Neg (Neg) Ethyl Alcohol mg/dL (0-3) mg/dl SARS-CoV-2 Ag (Rapid) (Negative) 02/22/20 02/22/20 02/22/20 Range/Units 19:45 19:46 19:46 WBC 6.56 (4.8-10.8) K/uL RBC 4.20 L (4.7-6.1) M/uL Hgb 13.6 L (14.0-18.0) g/dL Hct 40.1 L (42-52) % MCV 95.5 (80-100) fL MCH 32.4 (25-34) pg MCHC 33.9 (32-36) g/dL RDW Std Deviation 50.8 H (36.4-46.3) fL RDW Coeff of Herbert 14.6 H (11.5-14.5) % Plt Count 277 (130-400) K/uL MPV 9.2 (7.4-10.4) fL Immature Gran % (Auto) 0.3 % Neut % (Auto) 59.6 % Lymph % (Auto) 26.1 % [place] % (Auto) 11.0 % Eos % (Auto) 2.4 % Baso % (Auto) 0.6 % Neut # (Auto) 3.91 (1.4-6.5) K/uL Lymph # (Auto) 1.71 (1.2-3.4) K/uL [place] # (Auto) 0.72 H (0.11-0.59) K/uL Eos # (Auto) 0.16 (0-0.5) K/uL Baso # (Auto) 0.04 (0-0.2) K/uL Immature Gran # (Auto) 0.02 (0.00-0.02) K/uL Sodium (136-145) mmol/L Potassium (3.5-5.1) mmol/L Chloride (98-107) mmol/L Carbon Dioxide (21-32) mmol/L Anion Gap (3-11) BUN (7-18) mg/dl Creatinine (0.6-1.4) mg/dl Est Cr Clr Drug Dosing ml/min Est GFR ( Amer) Est GFR (Non-Af Amer) BUN/Creatinine Ratio (10-20) Glucose (70-99) mg/dl POC Glucose (70-99) mg/dl Calcium (8.5-10.1) mg/dl Total Bilirubin (0.2-1) mg/dl AST (15-37) U/L ALT (12-78) U/L Alkaline Phosphatase (45-117) U/L Total Protein (6.4-8.2) gm/dl Albumin (3.4-5.0) gm/dl Globulin (2.5-4.0) gm/dl Albumin/Globulin Ratio (0.9-2) TSH (0.300-4.500) uIu/ml Urine Color Urine Appearance (Clear) Urine pH (4.5-7.5) Ur Specific [place] (1.000-1.030) Urine Protein (Negative) Urine Glucose (UA) (Negative) Urine Ketones (Negative) Urine Blood (Negative) Urine Nitrite (Negative) Urine Bilirubin (Negative) Urine Urobilinogen (Negative) Ur Leukocyte Esterase (Negative) Salicylates < 1.7 L (2.8-20) mg/dl Urine Opiates Screen (Neg) Ur Methadone, Qual (Neg) Acetaminophen < 2 L (10-30) ug/ml Urine Barbiturates (Neg) Ur Phencyclidine (PCP) (Neg) U Amphetamin/Meth Scrn (Neg) MDMA (Ecstasy) Screen (Neg) U Benzodiazepines Scrn (Neg) Ur Cocaine Metabolite (Neg) U Marijuana (THC) Screen (Neg) Ethyl Alcohol mg/dL < 3.0 (0-3) mg/dl SARS-CoV-2 Ag (Rapid) (Negative) 02/22/20 02/23/20 Range/Units 23:27 00:48 WBC (4.8-10.8) K/uL RBC (4.7-6.1) M/uL Hgb (14.0-18.0) g/dL Hct (42-52) % MCV (80-100) fL MCH (25-34) pg MCHC (32-36) g/dL RDW Std Deviation (36.4-46.3) fL RDW Coeff of Herbert (11.5-14.5) % Plt Count (130-400) K/uL MPV (7.4-10.4) fL Immature Gran % (Auto) % Neut % (Auto) % Lymph % (Auto) % [place] % (Auto) % Eos % (Auto) % Baso % (Auto) % Neut # (Auto) (1.4-6.5) K/uL Lymph # (Auto) (1.2-3.4) K/uL [place] # (Auto) (0.11-0.59) K/uL Eos # (Auto) (0-0.5) K/uL Baso # (Auto) (0-0.2) K/uL Immature Gran # (Auto) (0.00-0.02) K/uL Sodium (136-145) mmol/L Potassium (3.5-5.1) mmol/L Chloride (98-107) mmol/L Carbon Dioxide (21-32) mmol/L Anion Gap (3-11) BUN (7-18) mg/dl Creatinine (0.6-1.4) mg/dl Est Cr Clr Drug Dosing ml/min Est GFR ( Amer) Est GFR (Non-Af Amer) BUN/Creatinine Ratio (10-20) Glucose (70-99) mg/dl POC Glucose 99 (70-99) mg/dl Calcium (8.5-10.1) mg/dl Total Bilirubin (0.2-1) mg/dl AST (15-37) U/L ALT (12-78) U/L Alkaline Phosphatase (45-117) U/L Total Protein (6.4-8.2) gm/dl Albumin (3.4-5.0) gm/dl Globulin (2.5-4.0) gm/dl Albumin/Globulin Ratio (0.9-2) TSH (0.300-4.500) uIu/ml Urine Color Urine Appearance (Clear) Urine pH (4.5-7.5) Ur Specific [place] (1.000-1.030) Urine Protein (Negative) Urine Glucose (UA) (Negative) Urine Ketones (Negative) Urine Blood (Negative) Urine Nitrite (Negative) Urine Bilirubin (Negative) Urine Urobilinogen (Negative) Ur Leukocyte Esterase (Negative) Salicylates (2.8-20) mg/dl Urine Opiates Screen (Neg) Ur Methadone, Qual (Neg) Acetaminophen (10-30) ug/ml Urine Barbiturates (Neg) Ur Phencyclidine (PCP) (Neg) U Amphetamin/Meth Scrn (Neg) MDMA (Ecstasy) Screen (Neg) U Benzodiazepines Scrn (Neg) Ur Cocaine Metabolite (Neg) U Marijuana (THC) Screen (Neg) Ethyl Alcohol mg/dL (0-3) mg/dl SARS-CoV-2 Ag (Rapid) Negative (Negative) Administered Medications Discontinued Medications Lorazepam (Lorazepam 2 Mg/Ml Vial (Im Use)) 2 mg IM NOW STA Stop: 02/22/20 20:53 Last Admin: 02/22/20 21:02 Dose: 2 mg Documented by: [id number] Lorazepam (Lorazepam 2 Mg/Ml Vial (Im Use)) Confirm Administered Dose 2 mg .ROUTE .STK-MED ONE Stop: 02/23/20 04:12 Last Admin: 02/23/20 04:19 Dose: Not Given Documented by: [id number] Lorazepam (Lorazepam 2 Mg/Ml Vial (Im Use)) 2 mg IM NOW STA Stop: 02/23/20 04:14 Last Admin: 02/23/20 04:19 Dose: 2 mg Documented by: [id number] Olanzapine (Olanzapine 10 Mg/2.1 Ml Sdv) 10 mg IM NOW STA Stop: 02/22/20 20:53 Last Admin: 02/22/20 21:03 Dose: 10 mg Documented by: [id number] Olanzapine (Olanzapine 10 Mg/2.1 Ml Sdv) Confirm Administered Dose 10 mg IM .STK-MED ONE Stop: 02/23/20 04:13 Last Admin: 02/23/20 04:20 Dose: Not Given Documented by: [id number] Olanzapine (Olanzapine 10 Mg/2.1 Ml Sdv) 10 mg IM NOW STA Stop: 02/23/20 04:14 Last Admin: 02/23/20 04:19 Dose: 10 mg Documented by: [id number] Discharge Plan Visit Data Chief Complaint: Mental Health Evaluation Stated Complaint: [facility] ED Provider: Faustina Garcia Discharge Problem: Bipolar disorder Forms Stand Alone Forms: [facility], Suicide Prevention Resources Prescriptions Prescriptions: No Action multivitamin tablet 1 tab PO QAM RF: 0 cyanocobalamin (vitamin B-12) [Vitamin B-12] 1,000 mcg tablet extended release 1,000 mcg PO DAILY RF: 0 atorvastatin [Lipitor] 20 mg tablet 20 mg PO QAM RF: 0 gabapentin 400 mg capsule 400 mg PO QID RF: 0 montelukast [Singulair] 10 mg tablet 10 mg PO QAM RF: 0 baclofen 20 mg tablet 20 mg PO BID RF: 0 [place] 3-6-9 1,200 mg Capsule 1,200 cap PO TID RF: 0 levothyroxine 50 mcg Tablet 50 mcg PO DAILYBB RF: 0 trazodone 150 mg Tablet 300 mg PO HS RF: 0 loratadine [Claritin Liqui-Gel] 10 mg Capsule 10 mg PO DAILY RF: 0 duloxetine 60 mg capsule,delayed release(DR/EC) 60 mg PO DAILY RF: 0 diclofenac sodium 1 % gel 2 g TOPICAL BID RF: 0 furosemide [Lasix] 20 mg tablet 20 mg PO DAILY PRN (Reason: edema) Qty: 10 RF: 0 diazepam 5 mg tablet 5 mg PO HS RF: 0 nabumetone 500 mg tablet 500 mg PO QID RF: 0 risperidone 2 mg Tablet 2 mg PO HS RF: 0 magnesium oxide 400 mg magnesium Tablet 400 mg PO BID RF: 0 dulaglutide 0.75 mg/0.5 mL Pen Injector 0.75 mg SUBCUT WK RF: 0 insulin asp prt-insulin aspart [Novolog Mix 70-30 U-100 Insuln] 100 unit/mL (70-30) Solution 40 unit SUBCUT BID RF: 0 clindamycin phosphate 1 % Solution 1 applic TOPICAL DAILY PRN (Reason: Pimples) RF: 0 Discharge Problem: Bipolar disorder Qualifiers: Active/Remission status: currently active Current bipolar episode type: manic Current episode severity: severe Psychotic features: with psychotic features Qualified Code(s): F31.2 - Bipolar disorder, current episode manic severe with psychotic features
--- NOTE | 2020-02-22 20:38 | CT Scan Report ---
CT OF THE HEAD WITHOUT CONTRAST CLINICAL HISTORY: fall, headstrike COMPARISON STUDY: Head CT February 16, 2020. CT DOSE: 884.08 mGy.cm TECHNIQUE: Helical axial images of the head were obtained without IV contrast. Automated exposure con trol was utilized for the study. A dose lowering technique was utilized adhering to the principles o f ALARA. FINDINGS: No acute intracranial hemorrhage, midline shift or mass effect is present. The ventricular system is unremarkable. The basal cisterns are patent. No extra-axial collections are present. There are no findings to suggest acute dural sinus thrombosis or acute territorial infarct. No significant calvarial abnormalities are present. Minimal ethmoid sinus mucosal thickening is present.. Suspected postoperative findings within the sinuses are noted. IMPRESSION: 1. No acute intracranial findings. 2. No calvarial fracture. ACT 112: Negative or not required by law. Electronically signed by: Delvis Jenkins M.D. 02/22/2020 8:36 PM
[2020-02-22] MEDS ORDERED: LORazepam 2 MG/ML VIAL (IM USE) IM STA (20:52)
[2020-02-22] MEDS ORDERED: OLANZapine 10 MG/2.1 ML SDV IM STA (20:52)
[2020-02-22 21:09] LABS: Basophils # (auto) 0.04 K/uL (0-0.2); Basophils % (auto) 0.6 %; Eosinophils # (auto) 0.16 K/uL (0-0.5); Eosinophils % (auto) 2.4 %; Hematocrit (blood only) 40.1 % (42-52); Hemoglobin 13.6 g/dL (14.0-18.0); Immature Granulocytes # (auto) 0.02 K/uL (0.00-0.02); Immature Granulocytes % (auto) 0.3 %; Lymphocytes # (auto) 1.71 K/uL (1.2-3.4); Lymphocytes % (auto) 26.1 %; Mean Corpuscular Hemoglobin 32.4 pg (25-34); Mean Corpuscular Hgb Conc 33.9 g/dL (32-36); Mean Corpuscular Volume 95.5 fL (80-100); Mean Platelet Volume 9.2 fL (7.4-10.4); Monocytes # (auto) 0.72 K/uL (0.11-0.59); Neutrophils # (auto) 3.91 K/uL (1.4-6.5); Neutrophils % (auto) 59.6 %; Platelet Count 277 K/uL (130-400); RDW Coefficient of Variation 14.6 % (11.5-14.5); RDW Standard Deviation 50.8 fL (36.4-46.3); White Blood Count 6.56 K/uL (4.8-10.8)
[2020-02-22 21:26] LABS: Acetaminophen < 2 ug/ml (10-30); Albumin Level 3.6 gm/dl (3.4-5.0); BUN Creatinine Ratio 22.2 (10-20); Calcium 9.8 mg/dl (8.5-10.1); Creatinine Clr Calc Pharmacy 145.2 ml/min; Est GFR (African American) 122.1; Est GFR (Non-African American) 105.3; Potassium 3.8 mmol/L (3.5-5.1); Salicylate < 1.7 mg/dl (2.8-20)
[2020-02-22 21:37] LABS: Bilirubin,Total 0.4 mg/dl (0.2-1); Globulin 3.8 gm/dl (2.5-4.0); Thyroid Stimulating Hormone 1.67 uIu/ml (0.300-4.500); Total Protein 7.4 gm/dl (6.4-8.2)
[2020-02-23] MEDS ORDERED: FUROSEMIDE 20 MG TAB PO PRN (00:29)
[2020-02-23] MEDS ORDERED: CLINDAMYCIN PHOSPHATE 1% TOP PRN (00:29)
[2020-02-23] MEDS ORDERED: DULAGLUTIDE 0.75 MG/0.5 ML SQ SCH (00:30)
[2020-02-23] MEDS ORDERED: DEXTROSE 50% 50 ML SYRINGE IV PRN (01:00)
[2020-02-23] MEDS ORDERED: CARBOHYDRATES FOR HYPOGLYCEMIA PO PRN (01:00)
[2020-02-23] MEDS ORDERED: GLUCOSE 10 TABS/TUBE PO PRN (01:00)
[2020-02-23] MEDS ORDERED: GLUCAGON FOR INJ 1 MG VIAL IM PRN (01:00)
[2020-02-23] MEDS ORDERED: GLUCOSE 40% GEL 15 GM TUBE PO PRN (01:00)
--- NOTE | 2020-02-23 02:10 | Emergency Department Note ---
ED Visit Note This case was signed out to me at change of shift awaiting bed placement. 0215: The patient remains asleep and hemodynamically stable at this time. 0340: The patient is finally awake and has had something to eat and drink. The ED psychiatric telehealth case manager attempted to read the patient his rights and secure his belongings but the patient was unable to comprehend this. 0405: The patient is becoming more agitated. Nursing staff asked me to evaluate the patient. As I attempted to talk to the patient, he was mumbling walking around the room. He lunged towards me. Security staff was standing next to me and grabbed the patient and sat him on the bed. The patient will be medicated with Zyprexa and Ativan as the bed search continues. 0555: Patient is resting more comfortably at this time. The case will be signed out to Dr. Tripathi at change of shift. . : Bipolar disorder Qualifiers: Active/Remission status: currently active Current bipolar episode type: manic Current episode severity: severe Psychotic features: with psychotic features Qualified Code(s): F31.2 - Bipolar disorder, current episode manic severe with psychotic features
[2020-02-23] MEDS ORDERED: LORazepam 2 MG/ML VIAL (IM USE) ONE (04:11)
[2020-02-23] MEDS ORDERED: OLANZapine 10 MG/2.1 ML SDV IM ONE (04:12)
[2020-02-23] MEDS ORDERED: OLANZapine 10 MG/2.1 ML SDV IM STA ×2 (04:13→11:52)
[2020-02-23] MEDS ORDERED: LORazepam 2 MG/ML VIAL (IM USE) IM STA ×2 (04:13→11:52)
[2020-02-23] MEDS: LEVOTHYROXINE SODIUM 50 MCG TABLET PO SCH (06:29)
--- NOTE | 2020-02-23 07:56 | Emergency Department Note ---
ED Visit Note I received this patient at change of shift signout from Dr. Garcia. Please see her note for overnight care. The patient presented to the emergency department yesterday for mental health evaluation. The patient was a 302 evaluation which was upheld in the emergency department after medical clearance. The patient has been receiving all outpatient medications as well. The patient was evaluated by the mental health pillowcase sewer. At this time bed search is underway. During the patient's time with me in the emergency department he did have some episodes of kylee. I was asked to evaluate the patient and reviewed the patient's previous medications. He was treated with Zyprexa and Ativan in the emergency department. He was much more calm and was cooperative with the nursing staff. The patient was signed out to Dr. Yu at change of shift. Please see his note for continuation of care and further disposition. . : Bipolar disorder Qualifiers: Active/Remission status: currently active Current bipolar episode type: manic Current episode severity: severe Psychotic features: with psychotic features Qualified Code(s): F31.2 - Bipolar disorder, current episode manic severe with psychotic features
[2020-02-23] MEDS ORDERED: LORATADINE 10 MG PO SCH (09:00)
[2020-02-23] MEDS ORDERED: NON-FORMULARY MEDICATION (Magnesium Oxide 400 mg magnesium Tablet) PO SCH (09:00)
[2020-02-23] MEDS ORDERED: NON-FORMULARY MEDICATION (Fish,Bora,Flax Oils-Om3,6,9no1 [Omega 3-6-9] 1,200 mg Capsule) PO SCH (09:00)
[2020-02-23] MEDS: LORATADINE 10 MG TAB PO SCH (09:17)
[2020-02-23] MEDS: DULoxetine HCL 60 MG CAP PO SCH (09:18)
[2020-02-23] MEDS: BACLOFEN 20 MG TAB PO SCH ×2 (09:18→18:53)
[2020-02-23] MEDS: ATORVASTATIN 20 MG TAB PO SCH (09:19)
[2020-02-23] MEDS: MULTIVITAMIN TAB PO SCH (09:20)
[2020-02-23] MEDS: GABAPENTIN 400 MG CAP PO SCH ×4 (09:20→18:48)
[2020-02-23] MEDS: MAGNESIUM OXIDE 400 MG TAB PO SCH ×2 (09:20→18:48)
[2020-02-23] MEDS: NABUMETONE 500 MG TABLET PO SCH ×4 (09:21→18:34)
[2020-02-23] MEDS: MONTELUKAST SODIUM 10 MG TABLET PO SCH (09:21)
[2020-02-23] MEDS: CYANOCOBALAMIN 500 MCG TABLET (VITAMIN B-12) PO SCH (09:22)
[2020-02-23] MEDS: DICLOFENAC SOD 1% GEL 100 GM TUBE EXT SCH ×2 (09:23→21:50)
[2020-02-23] MEDS: INSULIN 70% ASPART PROTAMINE/30% ASPART SQ SCH ×2 (09:37→21:50)
--- NOTE | 2020-02-23 15:22 | Emergency Department Note ---
ED Visit Note Received patient in signout. History and physical verified by me. This is a 54-year-old male who became agitated. Because of the agitation I will note we have hit the max dose of Zyprexa for this patient in 24 hours. For this reason I am going to give him Haldol p.o. Will note he appears to have a dystonic reaction with Haldol therefore he was also given Cogentin as well as Ativan along with it. Because of the dosing of Haldol the patient had a repeat EKG performed at 1901. This shows a normal sinus rhythm incomplete right bundle branch block old anterior infarct. EKG is compared to January 20, 2020 and does not show any significant change. QTC is 426. QT [address] Elam at change of shift. . : Bipolar disorder Qualifiers: Active/Remission status: currently active Current bipolar episode type: manic Current episode severity: severe Psychotic features: with psychotic features Qualified Code(s): F31.2 - Bipolar disorder, current episode manic severe with psychotic features
[2020-02-23] MEDS ORDERED: LORazepam 1 MG TAB SL STA (18:11)
[2020-02-23] MEDS ORDERED: haloperidoL 5 MG TAB PO STA ×2 (18:26→18:34)
[2020-02-23] MEDS ORDERED: BENZTROPINE MESYLATE 1 MG TAB PO STA ×2 (18:26→18:34)
[2020-02-23] MEDS: diazePAM 5 MG TABLET PO SCH (19:11)
[2020-02-23] MEDS: risperiDONE 2 MG TABLET PO SCH (19:11)
[2020-02-23] MEDS ORDERED: traZODone HCL 50 MG TAB PO SCH (21:00)
--- NOTE | 2020-02-23 23:53 | Emergency Department Note ---
ED Visit Note I received this patient in signout at the change of shift from Dr. Yu pending a mental health bed search. The bed search was suspended. Patient slept after a recent dose of Haldol, Cogentin and Ativan prior to signout. Patient is currently awake and singing/pacing with security outside of the room. Dr. Collado of psychiatry has been consulted for further recommendation as the patient has currently been here for 37 hours. The case has been signed out to Dr. Zavala at the change of shift please see her notes for final disposition. . : Bipolar disorder Qualifiers: Active/Remission status: currently active Current bipolar episode type: manic Current episode severity: severe Psychotic features: with psychotic features Qualified Code(s): F31.2 - Bipolar disorder, current episode manic severe with psychotic features
[2020-02-24] MEDS: LEVOTHYROXINE SODIUM 50 MCG TABLET PO SCH (06:28)
[2020-02-24] MEDS: ATORVASTATIN 20 MG TAB PO SCH (08:40)
[2020-02-24] MEDS: DULoxetine HCL 60 MG CAP PO SCH (08:40)
[2020-02-24] MEDS: BACLOFEN 20 MG TAB PO SCH ×2 (08:40→19:59)
[2020-02-24] MEDS: INSULIN 70% ASPART PROTAMINE/30% ASPART SQ SCH ×2 (08:41→23:39)
[2020-02-24] MEDS: MULTIVITAMIN TAB PO SCH (08:41)
[2020-02-24] MEDS: NABUMETONE 500 MG TABLET PO SCH ×4 (08:41→20:00)
[2020-02-24] MEDS: GABAPENTIN 400 MG CAP PO SCH ×4 (08:41→20:00)
[2020-02-24] MEDS: DICLOFENAC SOD 1% GEL 100 GM TUBE EXT SCH ×2 (08:42→19:36)
[2020-02-24] MEDS: LORATADINE 10 MG TAB PO SCH (08:48)
[2020-02-24] MEDS: MONTELUKAST SODIUM 10 MG TABLET PO SCH (08:48)
[2020-02-24] MEDS: MAGNESIUM OXIDE 400 MG TAB PO SCH ×2 (08:48→23:58)
[2020-02-24] MEDS: CYANOCOBALAMIN 500 MCG TABLET (VITAMIN B-12) PO SCH (08:53)
[2020-02-24] MEDS ORDERED: carBAMazepine 100 MG CHEW TAB PO ONE (10:30)
--- NOTE | 2020-02-24 10:35 | Psychiatric Consultation ---
Date of Consultation February 24, 2020 Impression / Recommendations Impression 54 yo male with extended ED stay on 302 pending bed search. He is clearly in a manic phase and exhibiting disorganized behavior. Plan: maintain safety in ED, as far as prns, preference would be for Zyprexa IM as less EPS than Haldol. If requires Haldol please give with Juwan. He is willing to take standing PO Zyprexa at this time, will add for now as generally more sedating than additional Risperdal. liaison coordinated care with Dr Zavala, Case and pharmacist. As patient is being switched to lovenox for conversion to Coumadin may restart Tegretol 250 mg BID today, patient is agreeable. need to hold Cymbalta and probably trazadone as both have antidepressant effects. Insomnia will be difficult to treat given kylee and already taking benzo, failing trazodone 300 mg, other sedating meds. I'd avoid Ambien use during the day. Antipsychotics (Like Zyprexa) tend to be more helpful than sleep aides for manic patients. Risk Factors Assessment Do You Have Access To A Gun?: No Protective Factors Assessment Employed: No Psych History Identifying Data 54 yo male with long history of schizoaff, hx of forensics placements, known to me from consult service 01/21 when hospitalized COVID+. Chief Complaint ongoing insomnia and manic behavior, in ED >36 hrs on 302 commitment History of Present Illness Patient has had a difficult Fall with rx at [facility] for abscess, agitated behavior at that time and signficant DVTs. He was referred to ED for manic concerns--not sleeping and inappropriate behaviors like driving around and taking pictures in people's windows. There were hopes he could be safety planned home but he became disinhibited, singing and dancing in his feces and since has had several doses of Aldol, Ativan, Zyprexa for restlessness. Historically he has done well on Tegretol but it was switched to Depakote last stay due to drug drug interactions with Eloquis, he refused Depakote. He does not tolerate Haldol very well for long, hx of significant dystonia and "doesn't like my tongue feeling thick". Past Psychiatric History Previous Psych History: see 01/21 consult, multiple inpatient stays. Outpatient Services: [facility] and [facility] Do You Have Access To A Gun?: No Describe Attempts in the Past: Unknown Past Medication Trials: extensive--current plus Vaibhavdon, likely others. Allergies Allergy/AdvReac Type Severity Reaction Status Date / Time haloperidol AdvReac Intermediate muscle Verified 01/03/20 06:06 cramps, eyes roll back in my head Home Medications Medication Instructions Recorded Confirmed Type atorvastatin 20 mg tablet 20 mg PO QAM 11/22/17 02/22/20 History cyanocobalamin (vitamin B-12) 1,000 mcg PO DAILY 11/22/17 02/22/20 History 1,000 mcg tablet,extended release gabapentin 400 mg capsule 400 mg PO QID 11/22/17 02/22/20 History montelukast 10 mg tablet 10 mg PO QAM 11/22/17 02/22/20 History multivitamin 1 tab PO QAM 11/22/17 02/22/20 History Harris 3-6-9 1,200 cap PO TID 08/03/18 02/22/20 History levothyroxine 50 mcg PO DAILYBB 12/09/18 02/22/20 History baclofen 20 mg tablet 20 mg PO BID 09/19/19 02/22/20 History trazodone 300 mg PO HS 11/05/19 02/22/20 History loratadine [Claritin Liqui-Gel] 10 mg PO DAILY 12/26/19 02/22/20 History diclofenac sodium 2 g TOPICAL BID 12/29/19 02/22/20 History duloxetine 60 mg PO DAILY 12/29/19 02/22/20 History furosemide [Lasix] 20 mg PO DAILY PRN #10 tab 01/03/20 02/22/20 Rx diazepam 5 mg PO HS 01/20/20 02/22/20 History nabumetone 500 mg PO QID 01/20/20 02/22/20 History clindamycin phosphate 1 applic TOPICAL DAILY PRN 01/22/20 02/22/20 History dulaglutide 0.75 mg SUBCUT WK 01/22/20 02/22/20 History insulin asp prt-insulin aspart 40 unit SUBCUT BID 01/22/20 02/22/20 History [Novolog Mix 70-30 U-100 Insuln] magnesium oxide 400 mg PO BID 01/22/20 02/22/20 History risperidone 2 mg PO HS 01/22/20 02/22/20 History Family History see 01/21 consult Substance Abuse History no current Personal History Living Arrangements: Apartment Born In: [address] Employment Status: Disabled Beliefs That Will Affect Care: None Patient History Medical History Anxiety Asthma uses PRN inh BID on average Bipolar disorder BPH (benign prostatic hyperplasia) Chronic back pain Degenerative disc disease Depression Difficult airway for intubation "small airway" Discitis of thoracolumbar region Diverticular disease DM type 2 (diabetes mellitus, type 2) IDDM Dyslipidemia Fatty liver GERD (gastroesophageal reflux disease) History of esophageal dilatation Hypogonadism in male Hypothyroidism IBS (irritable bowel syndrome) Lumbago Lumbar facet joint syndrome Lumbar spondylosis Obesity ZORAN treated with BiPAP Osteoarthritis Sacroiliitis Schizoaffective disorder Surgical History H/O rhinoplasty H/O umbilical hernia repair History of colonoscopy History of esophagogastroduodenoscopy (EGD) History of tonsillectomy and adenoidectomy S/P UPPP (uvulopalatopharyngoplasty) Status post rotator cuff repair Bilateral Family History Grandmother Colon cancer Diabetes Father Diabetes Other No family history of adverse response to anesthesia Social History Smoking Status: Unknown if ever smoked Second Hand Exposure: Yes (mom and dad smoked); Hx Alcohol Use: No Hx Substance Use: No Preferred Language: Bulgarian Communication Ability: Effective Commercial Pest Control Technician Required: No Beliefs That Will Affect Care: None marital status: Single Current Living Situation: Alone current occupational status: unemployed Feels Safe at Home: Yes Assistive Devices: None Physical Exam Mental Examination: per liaison--patient laughing and signing on floor doing ab exercises. lacks insight. Denies SI. Vital Signs (Past 24 Hours): Last Vital Signs Temp 36.9 C 02/22/20 19:02 Pulse 76 02/24/20 03:10 Resp 18 02/24/20 03:10 BP 122/66 02/24/20 03:10 Pulse Ox 96 02/24/20 03:10 Review of Systems Unobtainable due to cognitive status Results & Data (PSY) Medications Administered Atorvastatin Calcium (Atorvastatin 20 Mg Tab) 20 mg PO QAM TOSIN Stop: 03/24/20 08:59 Last Admin: 02/24/20 08:40 Dose: 20 mg Documented by: [id number] Admin: 02/23/20 09:19 Dose: 20 mg Documented by: [id number] Baclofen (Baclofen 20 Mg Tab) 20 mg PO BID TOSIN Stop: 03/24/20 08:59 Last Admin: 02/24/20 08:40 Dose: 20 mg Documented by: [id number] Admin: 02/23/20 18:53 Dose: 20 mg Documented by: [id number] Admin: 02/23/20 09:18 Dose: 20 mg Documented by: [id number] Cyanocobalamin (Cyanocobalamin 500 Mcg Tablet (Vitamin B-12)) 1,000 mcg PO DAILY TOSIN Stop: 03/24/20 08:59 Last Admin: 02/24/20 08:53 Dose: 1,000 mcg Documented by: [id number] Admin: 02/23/20 09:22 Dose: 1,000 mcg Documented by: [id number] Diazepam (Diazepam 5 Mg Tablet) 5 mg PO HS TOSIN Stop: 03/24/20 20:59 Last Admin: 02/23/20 19:11 Dose: Not Given Documented by: [id number] Diclofenac Sodium (Diclofenac Sod 1% Gel 100 Gm Tube) 2 gm EXT BID TOSIN Stop: 03/24/20 08:59 Last Admin: 02/24/20 08:42 Dose: 2 gm Documented by: [id number] Admin: 02/23/20 21:50 Dose: Not Given Documented by: [id number] Admin: 02/23/20 09:23 Dose: 2 gm Documented by: [id number] Furosemide (Furosemide 20 Mg Tab) 20 mg PO DAILY PRN PRN Reason: edema Stop: 03/24/20 00:28 Last Admin: 02/23/20 09:23 Dose: 20 mg Documented by: [id number] Gabapentin (Gabapentin 400 Mg Cap) 400 mg PO QID TOSIN Stop: 03/24/20 08:59 Last Admin: 02/24/20 08:41 Dose: 400 mg Documented by: [id number] Admin: 02/23/20 18:48 Dose: 400 mg Documented by: [id number] Admin: 02/23/20 17:36 Dose: 400 mg Documented by: [id number] Admin: 02/23/20 15:59 Dose: Not Given Documented by: [id number] Admin: 02/23/20 09:20 Dose: 400 mg Documented by: [id number] Insulin Aspart (Insulin 70% Aspart Protamine/30% Aspart) 40 units SQ BID [facility] Stop: 03/24/20 08:59 Last Admin: 02/24/20 08:41 Dose: Not Given Documented by: [id number] Admin: 02/23/20 21:50 Dose: Not Given Documented by: [id number] Admin: 02/23/20 09:37 Dose: 20 units Documented by: [id number] Cosigned by: [id number] Levothyroxine Sodium (Levothyroxine Sodium 50 Mcg Tablet) 50 mcg PO DAILYBB [facility] Stop: 03/24/20 06:29 Last Admin: 02/24/20 06:28 Dose: 50 mcg Documented by: [id number] Admin: 02/23/20 06:29 Dose: 50 mcg Documented by: [id number] Loratadine (Loratadine 10 Mg Tab) 10 mg PO DAILY TOSIN Stop: 03/24/20 08:59 Last Admin: 02/24/20 08:48 Dose: 10 mg Documented by: [id number] Admin: 02/23/20 09:17 Dose: 10 mg Documented by: [id number] Magnesium Oxide (Magnesium Oxide 400 Mg Tab) 400 mg PO BID [facility] Stop: 03/24/20 08:59 Last Admin: 02/24/20 08:48 Dose: 400 mg Documented by: [id number] Admin: 02/23/20 18:48 Dose: 400 mg Documented by: [id number] Admin: 02/23/20 09:20 Dose: 400 mg Documented by: [id number] Montelukast Sodium (Montelukast Sodium 10 Mg Tablet) 10 mg PO QAM [facility] Stop: 03/24/20 08:59 Last Admin: 02/24/20 08:48 Dose: 10 mg Documented by: [id number] Admin: 02/23/20 09:21 Dose: 10 mg Documented by: [id number] Multivitamins (Multivitamin Tab) 1 tab PO QAM [facility] Stop: 03/24/20 08:59 Last Admin: 02/24/20 08:41 Dose: 1 tab Documented by: [id number] Admin: 02/23/20 09:20 Dose: 1 tab Documented by: [id number] Nabumetone (Nabumetone 500 Mg Tablet) 500 mg PO QID [facility] Stop: 03/24/20 08:59 Last Admin: 02/24/20 08:41 Dose: 500 mg Documented by: [id number] Admin: 02/23/20 18:34 Dose: 500 mg Documented by: [id number] Admin: 02/23/20 17:36 Dose: 500 mg Documented by: [id number] Admin: 02/23/20 15:59 Dose: Not Given Documented by: [id number] Admin: 02/23/20 09:21 Dose: 500 mg Documented by: [id number] Risperidone (Risperidone 2 Mg Tablet) 2 mg PO HS TOSIN Stop: 03/24/20 20:59 Last Admin: 02/23/20 19:11 Dose: Not Given Documented by: [id number] Trazodone HCl (Trazodone Hcl 50 Mg Tab) 300 mg PO HS TOSIN Stop: 03/24/20 20:59 Last Admin: 02/23/20 18:50 Dose: 300 mg Documented by: [id number] Coding Level of Care Code 67563 U Intl Hosp Care Lvl 2
[2020-02-24] MEDS ORDERED: ENOXAPARIN 1.5 MG/KG SC SCH (12:45)
--- NOTE | 2020-02-24 13:18 | Emergency Department Note ---
ED Visit Note Patient signed out to me at change of shift from Dr. Elam. Patient is here as a 302. Patient has already been here greater than 36 hours. At the time of signout, the plan was for Dr. Collado to see the patient in the morning to make additional recommendations as there has been no bed availability for disposition and placement. Dr. Collado did see the patient and made additional recommendations. There was some discussion regarding the patient's need for anticoagulation as he had stopped taking his oral anticoagulation recently and other psychiatric medications had been discontinued due to concern for interaction with the blood thinner. Patient was transitioned to Lovenox injections with the plan for conversion to Coumadin use. I did order the first dose of Lovenox here. Patient did have a DVT found in December and should complete a full 3 months of anticoagulation. Patient signed out to Dr. Yu. Bed search still underway. . : Bipolar disorder Qualifiers: Active/Remission status: currently active Current bipolar episode type: manic Current episode severity: severe Psychotic features: with psychotic features Qualified Code(s): F31.2 - Bipolar disorder, current episode manic severe with psychotic features
[2020-02-24] MEDS: ENOXAPARIN 150 MG/ML SYR SQ SCH (14:13)
--- NOTE | 2020-02-24 15:57 | Emergency Department Note ---
ED Visit Note Received patient in signout. History and physical verified by me. Patient is going to be started on Coumadin this evening as well as Cogentin due to the Haldol he received yesterday. Patient will be signed out to Dr. Elam change of shift. . : Bipolar disorder Qualifiers: Active/Remission status: currently active Current bipolar episode type: manic Current episode severity: severe Psychotic features: with psychotic features Qualified Code(s): F31.2 - Bipolar disorder, current episode manic severe with psychotic features
[2020-02-24] MEDS ORDERED: WARFARIN SOD 5 MG TAB PO ONE (17:45)
[2020-02-24] MEDS ORDERED: BENZTROPINE MESYLATE 1 MG TAB PO ONE (17:45)
[2020-02-24] MEDS: risperiDONE 2 MG TABLET PO SCH (20:00)
[2020-02-24] MEDS: diazePAM 5 MG TABLET PO SCH (20:01)
[2020-02-24] MEDS: carBAMazepine 100 MG CHEW TAB PO SCH (20:03)
--- NOTE | 2020-02-24 21:38 | Electrocardiogram Report ---
Test Reason : Blood Pressure : / mmHG Vent. Rate : 062 BPM Atrial Rate : 062 BPM P-R Int : 188 ms QRS Dur : 104 ms QT Int : 420 ms P-R-T Axes : 026 010 016 degrees QTc Int : 426 ms Normal sinus rhythm Incomplete right bundle branch block Possible Anterior infarct (cited on or before 26-DEC-2019) Abnormal ECG When compared with ECG of 20-JAN-2020 16:02, No significant change was found Confirmed by Gregory Marr ([id number]) on 02/24/2020 9:38:26 PM Referred By: REFERRED SELF Confirmed By:Gregory Marr
[2020-02-24] MEDS ORDERED: traZODone HCL 100 MG TAB PO STA (23:49)
--- NOTE | 2020-02-25 00:50 | Emergency Department Note ---
ED Visit Note I received this patient in signout at the change of shift from Dr. Tan Yu, pending [facility] bed search. Patient was given his second dose of magnesium and trazodone 300 mg. 2 hours later the patient became much more agitated and began pacing in circles around the room. He defecated in the middle of his room for the second time during his stay in the emergency department. He became quite agitated and required sedation. Patient was given Zyprexa mg and Ativan 2 mg IM. He remained awake but calmer. He was able to rest in the bed. He did request Tylenol for back pain and was given 1000 mg p.o. After reviewing previous documentation, psychiatry has advised to stop his Cymbalta and trazodone, therefore no further doses should be administered. Case has been signed out to Dr. Tara Zavala at the change of shift awaiting final disposition. . : Bipolar disorder Qualifiers: Active/Remission status: currently active Current bipolar episode type: manic Current episode severity: severe Psychotic features: with psychotic features Qualified Code(s): F31.2 - Bipolar disorder, current episode manic severe with psychotic features
[2020-02-25] MEDS ORDERED: LORazepam 2 MG/ML VIAL (IM USE) IM STA (01:33)
[2020-02-25] MEDS ORDERED: OLANZapine 10 MG/2.1 ML SDV IM STA (01:33)
[2020-02-25] MEDS ORDERED: ACETAMINOPHEN 500 MG TAB PO STA ×2 (05:18→23:43)
[2020-02-25] MEDS: LEVOTHYROXINE SODIUM 50 MCG TABLET PO SCH (06:00)
--- NOTE | 2020-02-25 08:00 | Emergency Department Note ---
ED Visit Note Patient signed out to me at change of shift from Dr. Elam. Patient here with psychosis, schizoaffective disorder, is a 302. Patient was seen by psychiatry in the department yesterday. Bed search suspended again overnight. Patient signed out to Dr. Yu. . : Bipolar disorder Qualifiers: Active/Remission status: currently active Current bipolar episode type: manic Current episode severity: severe Psychotic features: with psychotic features Qualified Code(s): F31.2 - Bipolar disorder, current episode manic severe with psychotic features
[2020-02-25] MEDS: NABUMETONE 500 MG TABLET PO SCH ×4 (08:18→20:35)
[2020-02-25] MEDS: GABAPENTIN 400 MG CAP PO SCH ×4 (08:20→20:35)
[2020-02-25] MEDS: MULTIVITAMIN TAB PO SCH (08:21)
[2020-02-25] MEDS: ATORVASTATIN 20 MG TAB PO SCH (08:21)
[2020-02-25] MEDS: CYANOCOBALAMIN 500 MCG TABLET (VITAMIN B-12) PO SCH (08:22)
[2020-02-25] MEDS: BACLOFEN 20 MG TAB PO SCH ×2 (08:22→20:34)
[2020-02-25] MEDS: carBAMazepine 100 MG CHEW TAB PO SCH ×2 (08:24→20:36)
[2020-02-25] MEDS: MAGNESIUM OXIDE 400 MG TAB PO SCH ×2 (08:27→20:34)
[2020-02-25] MEDS: LORATADINE 10 MG TAB PO SCH (08:27)
[2020-02-25] MEDS: MONTELUKAST SODIUM 10 MG TABLET PO SCH (08:28)
[2020-02-25] MEDS: DICLOFENAC SOD 1% GEL 100 GM TUBE EXT SCH ×2 (08:30→20:37)
[2020-02-25] MEDS: INSULIN 70% ASPART PROTAMINE/30% ASPART SQ SCH (09:42)
[2020-02-25] MEDS ORDERED: ACETAMINOPHEN 325 MG TAB PO STA (09:54)
--- NOTE | 2020-02-25 12:51 | Psychiatric Progress Note ---
Date of Service February 25, 2020 Impression / Recommendations Impression 54 yo male with extended ED stay on 302 pending bed search. He has paranoid delusions and some disorganized behaviors at baseline but has been exhibiting manic behavior (more restlessness and insomnis). Plan: 02/25--continue current med plan (holding antidepressants, Zyprexa BID & IM on top of Risperdal, restarted Tegretol yesterday), bed search is ongoing, will need to make a decision tomorrow re: petitioning for 303. Dr. Lopez would ultimately provide testimony/serve as second opinion. 02/24--maintain safety in ED, as far as prns, preference would be for Zyprexa IM as less EPS than Haldol. If requires Haldol please give with Juwan. He is willing to take standing PO Zyprexa at this time, will add for now as generally more sedating than additional Risperdal. liaison coordinated care with Dr Zavala, Case and pharmacist. As patient is being switched to lovenox for conversion to Coumadin may restart Tegretol 250 mg BID today, patient is agreeable. need to hold Cymbalta and probably trazadone as both have antidepressant effects. Insomnia will be difficult to treat given kylee and already taking benzo, failing trazodone 300 mg, other sedating meds. I'd avoid Ambien use during the day. Antipsychotics (Like Zyprexa) tend to be more helpful than sleep aides for manic patients. Risk Factors Assessment Do You Have Access To A Gun?: No Protective Factors Assessment Employed: No Interval History Chief Complaint "I have a place to live, I hate being locked in here. I know they are messing with my thermostat at home". Review of Systems Notes unable to obtain due to mental status. Subjective Subjective Patient was seen & assessed and interval progress reviewed with ED team and liaison. William had a period of restless overnight where he seemed to have a paradoxical reaction to trazodone (discontinued) but also defecated on the floor--his brief and shorts are very ill-fitting. Given hx of forensic unit/distrust of institutions at baseline it is possible much of this is deliberate acting out with some disinhibition from kylee. Zyprexa IM and Ativan prns do not seem to cause sleep for very long but certainly have a calming effect. He threw his fruit on his tray. Speech is poorly articulated at times. Physical Exam Psychiatric sedated Apperance: + disheveled Eye Contact: + poor eye contact Motor Behavior: + tremor Speech: + loud speech Affect: + irritable affect Mood: + irritable mood Thought Process: + tangential thought process Thought Content: + delusions (paranoid) Suicidal Thoughts: denies suicidal thoughts Homicidal Thoughts: denies homicidal thoughts (other than if he new who was "taking my stuff I'd show them a thing or two") Hallucinations: no auditory hallucinations and no visual hallucinations Cognition: + attention not intact Insight: + poor insight Judgement: + poor judgement Vital Signs (Past 24 Hours) Last Vital Signs Temp 36.9 C 02/22/20 19:02 Pulse 109 H 02/25/20 01:18 Resp 16 02/25/20 01:18 BP 121/69 02/25/20 01:18 Pulse Ox 96 02/25/20 01:18 Results & Data ([facility]) Laboratory Results Laboratory Results - last 24 hr 02/24/20 02/24/20 02/25/20 14:55 23:25 07:47 POC Glucose 82 97 96 02/25/20 09:36 POC Glucose 104 H Current Inpatient Medications Current Inpatient Medications: Current Inpatient Medications Atorvastatin Calcium (Atorvastatin 20 Mg Tab) 20 mg PO QAM TOSIN Stop: 03/24/20 08:59 Last Admin: 02/25/20 08:21 Dose: 20 mg Documented by: Baclofen (Baclofen 20 Mg Tab) 20 mg PO BID [facility]OS[facility] Stop: 03/24/20 08:59 Last Admin: 02/25/20 08:22 Dose: 20 mg Documented by: Carbamazepine (Carbamazepine 100 Mg Chew Tab) 250 mg PO BID TOSIN Stop: 03/25/20 20:59 Last Admin: 02/25/20 08:24 Dose: 250 mg Documented by: Cyanocobalamin (Cyanocobalamin 500 Mcg Tablet (Vitamin B-12)) 1,000 mcg PO DAILY TOSIN Stop: 03/24/20 08:59 Last Admin: 02/25/20 08:22 Dose: 1,000 mcg Documented by: Dextrose (Dextrose 50% 50 Ml Syringe) 25 - 50 ml IV UD PRN; Protocol PRN Reason: Hypoglycemia Protocol Stop: 03/24/20 00:59 Diazepam (Diazepam 5 Mg Tablet) 5 mg PO HS [facility] Stop: 03/24/20 20:59 Last Admin: 02/24/20 20:01 Dose: 5 mg Documented by: Diclofenac Sodium (Diclofenac Sod 1% Gel 100 Gm Tube) 2 gm EXT BID [facility] Stop: 03/24/20 08:59 Last Admin: 02/25/20 08:30 Dose: 2 gm Documented by: Enoxaparin Sodium (Enoxaparin 150 Mg/Ml Syr) 150 mg SQ Q24H [facility] Stop: 03/25/20 12:44 Last Admin: 02/24/20 14:13 Dose: 150 mg Documented by: Furosemide (Furosemide 20 Mg Tab) 20 mg PO DAILY PRN PRN Reason: edema Stop: 03/24/20 00:28 Last Admin: 02/23/20 09:23 Dose: 20 mg Documented by: Gabapentin (Gabapentin 400 Mg Cap) 400 mg PO QID [facility] Stop: 03/24/20 08:59 Last Admin: 02/25/20 08:20 Dose: 400 mg Documented by: Glucagon (Glucagon For Inj 1 Mg Vial) 1 mg IM UD PRN; Protocol PRN Reason: Hypoglycemia Protocol Stop: 03/24/20 00:59 Glucose (Glucose 40% Gel 15 Gm Tube) 15 - 30 gm PO UD PRN; Protocol PRN Reason: Hypoglycemia Protocol Stop: 03/24/20 00:59 Glucose (Glucose 10 Tabs/Tube) 4 - 8 tabs PO UD PRN; Protocol PRN Reason: Hypoglycemia Protocol Stop: 03/24/20 00:59 Insulin Aspart (Insulin 70% Aspart Protamine/30% Aspart) 40 units SQ BIDM [facility] Stop: 03/25/20 16:59 Last Admin: 02/25/20 09:42 Dose: Not Given Documented by: Levothyroxine Sodium (Levothyroxine Sodium 50 Mcg Tablet) 50 mcg PO DAILYBB [facility] Stop: 03/24/20 06:29 Last Admin: 02/25/20 06:00 Dose: 50 mcg Documented by: Loratadine (Loratadine 10 Mg Tab) 10 mg PO DAILY [facility] Stop: 03/24/20 08:59 Last Admin: 02/25/20 08:27 Dose: 10 mg Documented by: Magnesium Oxide (Magnesium Oxide 400 Mg Tab) 400 mg PO BID [facility] Stop: 03/24/20 08:59 Last Admin: 02/25/20 08:27 Dose: 400 mg Documented by: Miscellaneous (Carbohydrates For Hypoglycemia ) 15 - 30 gm PO UD PRN PRN Reason: Hypoglycemia Treatment Stop: 03/24/20 00:59 Montelukast Sodium (Montelukast Sodium 10 Mg Tablet) 10 mg PO QAM [facility] Stop: 03/24/20 08:59 Last Admin: 02/25/20 08:28 Dose: 10 mg Documented by: Multivitamins (Multivitamin Tab) 1 tab PO QAM [facility] Stop: 03/24/20 08:59 Last Admin: 02/25/20 08:21 Dose: 1 tab Documented by: Nabumetone (Nabumetone 500 Mg Tablet) 500 mg PO QID [facility] Stop: 03/24/20 08:59 Last Admin: 02/25/20 08:18 Dose: 500 mg Documented by: Olanzapine (Olanzapine Zydis 10 Mg Orally Dis. Tab) 10 mg PO BID [facility] Stop: 03/25/20 20:59 Last Admin: 02/25/20 08:19 Dose: 10 mg Documented by: Risperidone (Risperidone 2 Mg Tablet) 2 mg PO HS [facility] Stop: 03/24/20 20:59 Last Admin: 02/24/20 20:00 Dose: 2 mg Documented by: Mental Health & Subst Abuse Tx Therapist Name of Therapist: None Transport Analyst Name of Transport Analyst: KAVITHA Oscar
--- NOTE | 2020-02-25 14:27 | Emergency Department Note ---
ED Visit Note Received patient in signout. History and physical verified by me. Ensured that patient will continue to receive Coumadin nightly. Patient has not had a coagulation panel drawn therefore I will added to his a.m. labs in the morning. We will repeat a renal profile as well as a CBC as the patient has been here 72 hours tomorrow morning. Pt signed out to DR Guthrie at change of shift . : Bipolar disorder Qualifiers: Active/Remission status: currently active Current bipolar episode type: manic Current episode severity: severe Psychotic features: with psychotic features Qualified Code(s): F31.2 - Bipolar disorder, current episode manic severe with psychotic features
[2020-02-25] MEDS: ENOXAPARIN 150 MG/ML SYR SQ SCH (17:10)
[2020-02-25] MEDS: risperiDONE 2 MG TABLET PO SCH (20:35)
[2020-02-25] MEDS: diazePAM 5 MG TABLET PO SCH (20:36)
[2020-02-25] MEDS ORDERED: WARFARIN SOD 5 MG TAB PO SCH (21:00)
--- NOTE | 2020-02-25 22:37 | Emergency Department Note ---
ED Visit Note ED Physician Sign Out Note: 54 yr old male with history of mental health issues along with extensive past medical history arrived 72+ hours ago as 302. Acute psychosis, non-compliance with schizoaffective disorder requiring multiple rounds of sedation while here. He has been seen by Psychiatry (Dr Collado) in ED who feels he continues to require inpatient management. Patient signed out to me by Dr Gardner at 10:30pm on 02/25/20. Patient was walking around the halls around 12:15am at which time 2 mg PO Ativan ordered. This helped calm him down some but still periodically walking around the halls. Signed out to Dr Garcia pending further attempts at placement. Keegan Guthrie MD : Bipolar disorder Qualifiers: Active/Remission status: currently active Current bipolar episode type: manic Current episode severity: severe Psychotic features: with psychotic features Qualified Code(s): F31.2 - Bipolar disorder, current episode manic severe with psychotic features
[2020-02-26] MEDS ORDERED: LORazepam 1 MG TAB PO STA (00:14)
[2020-02-26 05:39] LABS: Basophils # (auto) 0.03 K/uL (0-0.2); Basophils % (auto) 0.5 %; Eosinophils # (auto) 0.14 K/uL (0-0.5); Eosinophils % (auto) 2.5 %; Hematocrit (blood only) 39.3 % (42-52); Hemoglobin 13.7 g/dL (14.0-18.0); Immature Granulocytes # (auto) 0.02 K/uL (0.00-0.02); Immature Granulocytes % (auto) 0.4 %; Lymphocytes # (auto) 1.55 K/uL (1.2-3.4); Lymphocytes % (auto) 27.9 %; Mean Corpuscular Hemoglobin 32.7 pg (25-34); Mean Corpuscular Hgb Conc 34.9 g/dL (32-36); Mean Corpuscular Volume 93.8 fL (80-100); Mean Platelet Volume 8.8 fL (7.4-10.4); Monocytes % (auto) 12.6 %; Neutrophils # (auto) 3.11 K/uL (1.4-6.5); Neutrophils % (auto) 56.1 %; Platelet Count 270 K/uL (130-400); RDW Coefficient of Variation 14.1 % (11.5-14.5); RDW Standard Deviation 48.2 fL (36.4-46.3); Red Blood Count 4.19 M/uL (4.7-6.1); White Blood Count 5.55 K/uL (4.8-10.8)
[2020-02-26 05:50] LABS: INR 1.1 (0.9-1.1); Partial Thromboplastin Ratio 1.1; Partial Thromboplastin Time 31.9 Seconds (21.0-31.0); Prothrombin Time 11.5 Seconds (9.0-12.0)
[2020-02-26 05:53] LABS: Potassium 4.2 mmol/L (3.5-5.1)
[2020-02-26 06:10] LABS: BUN Creatinine Ratio 20.8 (10-20); Calcium 9.1 mg/dl (8.5-10.1); Est GFR (African American) 111.1; Est GFR (Non-African American) 95.9
--- NOTE | 2020-02-26 07:38 | Emergency Department Note ---
ED Visit Note 1936: Signout from Dr. Guthrie. 34-year-old male with past medical history of schizoaffective disorder who is noncompliant. Patient is 302. Psychiatry Dr. Potter has been following the patient states he needs to be admitted. Patient has been agitated has needed multiple sedations over the weekend. Follow-up psychiatric placement. 1212: Patient admitted to 3 S. . : Bipolar disorder Qualifiers: Active/Remission status: currently active Current bipolar episode type: manic Current episode severity: severe Psychotic features: with psychotic features Qualified Code(s): F31.2 - Bipolar disorder, current episode manic severe with psychotic features
[2020-02-26] MEDS: LEVOTHYROXINE SODIUM 50 MCG TABLET PO SCH (08:33)
[2020-02-26] MEDS: LORATADINE 10 MG TAB PO SCH (09:09)
[2020-02-26] MEDS: MULTIVITAMIN TAB PO SCH (09:10)
[2020-02-26] MEDS: NABUMETONE 500 MG TABLET PO SCH ×5 (09:10→21:22)
[2020-02-26] MEDS: GABAPENTIN 400 MG CAP PO SCH ×5 (09:10→21:22)
[2020-02-26] MEDS: ATORVASTATIN 20 MG TAB PO SCH (09:10)
[2020-02-26] MEDS: BACLOFEN 20 MG TAB PO SCH ×2 (09:10→21:23)
[2020-02-26] MEDS: MAGNESIUM OXIDE 400 MG TAB PO SCH ×2 (09:10→21:22)
[2020-02-26] MEDS: MONTELUKAST SODIUM 10 MG TABLET PO SCH (09:11)
[2020-02-26] MEDS: carBAMazepine 100 MG CHEW TAB PO SCH ×3 (09:11→23:15)
[2020-02-26] MEDS: CYANOCOBALAMIN 500 MCG TABLET (VITAMIN B-12) PO SCH (09:11)
[2020-02-26] MEDS: DICLOFENAC SOD 1% GEL 100 GM TUBE EXT SCH ×2 (09:11→21:29)
[2020-02-26] MEDS ORDERED: SODIUM CHLORIDE 0.65% NA SOLN 45 ML (OCEAN) PRN (12:02)
[2020-02-26] MEDS ORDERED: MAGNESIUM HYDROXIDE SUSP 30 ML UDC PO PRN (12:02)
[2020-02-26] MEDS ORDERED: BISMUTH SUBSALICYLATE LIQD 236 ML PO PRN (12:02)
[2020-02-26] MEDS ORDERED: ALUMINUM/MAGNESIUM SUSP 30 ML UDC PO PRN (12:02)
[2020-02-26] MEDS: ENOXAPARIN 150 MG/ML SYR SQ SCH (12:05)
[2020-02-26] MEDS ORDERED: ZOLPIDEM TARTRATE 10 MG TAB PO PRN (12:19)
[2020-02-26] MEDS ORDERED: ENOXAPARIN 150 MG/ML SYR SQ SCH (12:30)
[2020-02-26] MEDS ORDERED: OLANZapine 10 MG/2.1 ML SDV IM PRN (12:40)
[2020-02-26] MEDS ORDERED: PHARMACY GLYCEMIC MGMT CONSULT PRN (13:04)
[2020-02-26] MEDS: ACETAMINOPHEN 325 MG TAB PO PRN (13:05)
[2020-02-26] MEDS ORDERED: INSULIN GLARGINE SOLOSTAR 100 UNITS/ML 3 ML PEN SC ONE (13:30)
--- NOTE | 2020-02-26 13:41 | History & Physical ---
Date of Service February 26, 2020 Impression / Recommendations Impression 54 yo male with extended ED stay on 302. He has paranoid delusions and some disorganized behaviors at baseline but has been exhibiting manic behavior (more restlessness and insomnia). Zyprexa was used judiciously in the ED for management of agitation and appears improved today yet still not able to care for basic needs outside of the hospital. (1) Schizoaffective disorder: The patient was admitted to the [facility] ([facility]) on q15 min checks (behavioral with suicide precautions) for safety. The patient will participate in group, recreational, and milieu therapies and will be offered additional individual and family sessions as clinically appropriate. He clearly meets criteria for extended involuntary commitment and a 303 was filed, Dr. Lopez updated as will be testifying psychiatrist. Regarding meds, trazodone and Cymbalta were held in ED due to paradoxical reaction and kylee. Zyprexa was given standing order there, as calmer will change to prn here. His Tegretol was also restarted there at low dose as longstanding previously effective med. May impact his anticoagulation. Schizoaffective disorder type: unspecified Qualified Code(s): F25.9 - Schizoaffective disorder, unspecified (2) Deep venous thrombosis: Patient non-compliant with Eloquis and was transitioned to Coumadin in the ED with Lovenox bridge. The combo should be continued for at least 2 more days and an INR >2. Pharmacist recommends daily PT/INR if he'll allow (every other acceptable if issue) and taking 10 mg Coumadin for the next 2 nights. 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 It should be noted that he initially presented on 02/21 and has been in the ED awaiting bed placement for >3 days. Chief Complaint "I don't understand why I'm still here, I have a place.". History of Present Illness Patient has had a difficult Fall with rx at [facility] for abscess, agitated behavior at that time requiring multiple prns and was ultimately found to have signficant DVTs. He was referred to ED a few times for decompensation but did not seem to meet full inpatient criteria. This visit he was clearly more manic and likely not taking care of his diabetes and anticoagulation--not sleeping and there was some report that he continued to drive and taking pictures in people's windows. There were hopes he could be safety planned home on 02/21/19 but he became disinhibited, singing and dancing in his feces and 302 was completed. Early in the course of his ED stay had several doses of Haldol, Ativan, Zyprexa for restlessness. Historically he has done well on Tegretol but it was switched to Depakote last inpatient medical stay due to drug-drug interactions with Eloquis,he refused Depakote. He does not tolerate Haldol very well for long, hx of significant dystonia and "doesn't like my tongue feeling thick". Haldol was d/c in favor of standing Zyprexa, Zyprexa as preferred IM. He continued to not sleep well and had a second episode of incontience, yelling, swearing. He also reported to me delusional beliefs about people breaking into his apartment and stealing his things and messing with the thermostat and "I'm going to mess them up". He has become a bit more cooperative with medications in ED but is not yet at baseline or able to care for himself outside of the hospital. Past Psychiatric History Current Psychiatric Diagnosis: schizoaffective disorder Outpatient Services: [facility] Previous Psych Admissions: multiple--last ?2006 [facility] and prior to that placements at [facility]. Do You Have Access To A Gun?: No Describe Attempts in the Past: Unknown Past Medication Trials: Demian maria last inpatient medical stay. dystonia to Haldol. See [facility] MAR dated 01/27. Allergies Allergy/AdvReac Type Severity Reaction Status Date / Time haloperidol AdvReac Intermediate muscle Verified 01/03/20 06:06 cramps, eyes roll back in my head Home Medications Medication Instructions Recorded Confirmed Type atorvastatin 20 mg tablet 20 mg PO QAM 11/22/17 02/22/20 History cyanocobalamin (vitamin B-12) 1,000 mcg PO DAILY 11/22/17 02/22/20 History 1,000 mcg tablet,extended release gabapentin 400 mg capsule 400 mg PO QID 11/22/17 02/22/20 History montelukast 10 mg tablet 10 mg PO QAM 11/22/17 02/22/20 History multivitamin 1 tab PO QAM 11/22/17 02/22/20 History [place] 3-6-9 1,200 cap PO TID 08/03/18 02/22/20 History levothyroxine 50 mcg PO DAILYBB 12/09/18 02/22/20 History baclofen 20 mg tablet 20 mg PO BID 09/19/19 02/22/20 History trazodone 300 mg PO HS 11/05/19 02/22/20 History loratadine [Claritin Liqui-Gel] 10 mg PO DAILY 12/26/19 02/22/20 History diclofenac sodium 2 g TOPICAL BID 12/29/19 02/22/20 History duloxetine 60 mg PO DAILY 12/29/19 02/22/20 History furosemide [Lasix] 20 mg PO DAILY PRN #10 tab 01/03/20 02/22/20 Rx diazepam 5 mg PO HS 01/20/20 02/22/20 History nabumetone 500 mg PO QID 01/20/20 02/22/20 History clindamycin phosphate 1 applic TOPICAL DAILY PRN 01/22/20 02/22/20 History dulaglutide 0.75 mg SUBCUT WK 01/22/20 02/22/20 History insulin asp prt-insulin aspart 40 unit SUBCUT BID 01/22/20 02/22/20 History [Novolog Mix 70-30 U-100 Insuln] magnesium oxide 400 mg PO BID 01/22/20 02/22/20 History risperidone 2 mg PO HS 01/22/20 02/22/20 History Family History Family History of: Other-List under Comment Family Mental Health History Comment: unknown Alcohol History Hx of Alcohol Use Over the Past 12 Months: No Smoking Use Smoking Status: Unknown if ever smoked Substance History Hx of Prescription Med Misuse Over the Past 12 Months: No Hx of Over the Counter Med Misuse Over the Past 12 Months: No Hx of Inhalent Misuse Over the Past 12 Months: No Hx of Organic Substance Use Over the Past 12 Months: No Hx of Illegal Substances/Street Drug Use Over Past 12 Months: No Problems as a Result of Past Substance Use: None Identified Personal History Living Arrangements: Apartment Born In: [place] Employment Status: Disabled Beliefs That Will Affect Care: None Patient History Medical History Anxiety Asthma uses PRN inh BID on average Bipolar disorder BPH (benign prostatic hyperplasia) Chronic back pain Degenerative disc disease Depression Difficult airway for intubation "small airway" Discitis of thoracolumbar region Diverticular disease DM type 2 (diabetes mellitus, type 2) IDDM Dyslipidemia Fatty liver GERD (gastroesophageal reflux disease) History of esophageal dilatation Hypogonadism in male Hypothyroidism IBS (irritable bowel syndrome) Lumbago Lumbar facet joint syndrome Lumbar spondylosis Obesity ZORAN treated with BiPAP Osteoarthritis Sacroiliitis Schizoaffective disorder Surgical History H/O rhinoplasty H/O umbilical hernia repair History of colonoscopy History of esophagogastroduodenoscopy (EGD) History of tonsillectomy and adenoidectomy S/P UPPP (uvulopalatopharyngoplasty) Status post rotator cuff repair Bilateral Family History Grandmother Colon cancer Diabetes Father Diabetes Other No family history of adverse response to anesthesia Social History Smoking Status: Unknown if ever smoked Second Hand Exposure: Yes (mom and dad smoked); Hx Alcohol Use: No Hx Substance Use: No Preferred Language: Swedish Communication Ability: Effective Down Filler Required: No Beliefs That Will Affect Care: None marital status: Single Current Living Situation: Alone current occupational status: unemployed Feels Safe at Home: Yes Assistive Devices: None Review of Systems Review of Systems: All systems reviewed & are unremarkable except as noted in HPI & below Physical Exam Psychiatric: Apperance: + disheveled Eye Contact: + poor eye contact Motor Behavior: + tremor Speech: + loud speech Affect: + irritable affect Mood: + irritable mood Thought Process: + tangential thought process Thought Content: + delusions (paranoid) Suicidal Thoughts: denies suicidal thoughts Homicidal Thoughts: denies homicidal thoughts (other than if he new who was "taking my stuff I'd show them a thing or two") Hallucinations: no auditory hallucinations and no visual hallucinations Cognition: + attention not intact Insight: + poor insight Judgement: + poor judgement Vital Signs (Past 24 Hours): Last Vital Signs Temp 36.5 C 02/26/20 05:50 Pulse 79 02/26/20 12:12 Resp 19 02/26/20 12:12 BP 129/85 02/26/20 12:12 Pulse Ox 98 02/26/20 12:12 Exam Statement: A physical exam was performed in the ED by Dr. Tatum on 02/22/20 for the purposes of medical clearance. I accept that physical as correct and adequate for the purposes of the inpatient physical exam as Dr. Garcia also confirmed patient remains medically cleared. Patient was examined by me on 2 occasions in ED prior to accepting to the unit. Results & Data ([facility]) Laboratory Results Laboratory Results - last 24 hr 02/26/20 02/26/20 02/26/20 05:31 05:31 05:31 WBC 5.55 RBC 4.19 L Hgb 13.7 L Hct 39.3 L MCV 93.8 MCH 32.7 MCHC 34.9 RDW Std Deviation 48.2 H RDW Coeff of Herbert 14.1 Plt Count 270 MPV 8.8 Immature Gran % (Auto) 0.4 Neut % (Auto) 56.1 Lymph % (Auto) 27.9 [place] % (Auto) 12.6 Eos % (Auto) 2.5 Baso % (Auto) 0.5 Neut # (Auto) 3.11 Lymph # (Auto) 1.55 [place] # (Auto) 0.70 H Eos # (Auto) 0.14 Baso # (Auto) 0.03 Immature Gran # (Auto) 0.02 PT 11.5 INR 1.1 APTT 31.9 H PTT Ratio 1.1 Sodium 143 Potassium 4.2 Chloride 106 Carbon Dioxide 31 Anion Gap 5.0 BUN 19 H Creatinine 0.91 Est Cr Clr Drug Dosing 118.0 Est GFR ( Amer) 111.1 Est GFR (Non-Af Amer) 95.9 BUN/Creatinine Ratio 20.8 H Glucose 126 H Calcium 9.1 Current Inpatient Medications Current Inpatient Medications: Current Inpatient Medications Acetaminophen (Acetaminophen 325 Mg Tab) 650 mg PO Q4H PRN PRN Reason: Headache or Minor Fever Stop: 03/27/20 12:01 Al Hydrox/Mg Hydrox/Simethicone (Aluminum/Magnesium Susp 30 Ml Udc) 30 ml PO Q4H PRN PRN Reason: GI Upset Stop: 03/27/20 12:01 Atorvastatin Calcium (Atorvastatin 20 Mg Tab) 20 mg PO QAM TOSIN Stop: 03/28/20 08:59 Baclofen (Baclofen 20 Mg Tab) 20 mg PO BID TOSIN Stop: 03/27/20 20:59 Bismuth Subsalicylate (Bismuth Subsalicylate Liqd 236 Ml) 15 ml PO PRN PRN PRN Reason: Loose Stool Stop: 03/27/20 12:01 Carbamazepine (Carbamazepine 100 Mg Chew Tab) 250 mg PO BID TOSIN Stop: 03/25/20 20:59 Last Admin: 02/26/20 09:11 Dose: 250 mg Documented by: Cyanocobalamin (Cyanocobalamin 500 Mcg Tablet (Vitamin B-12)) 1,000 mcg PO DAILY TOSIN Stop: 03/24/20 08:59 Last Admin: 02/26/20 09:11 Dose: 1,000 mcg Documented by: Dextrose (Dextrose 50% 50 Ml Syringe) 25 - 50 ml IV UD PRN; Protocol PRN Reason: Hypoglycemia Protocol Stop: 03/24/20 00:59 Diazepam (Diazepam 5 Mg Tablet) 5 mg PO HS TOSIN Stop: 03/27/20 20:59 Diclofenac Sodium (Diclofenac Sod 1% Gel 100 Gm Tube) 2 gm EXT BID TOSIN Stop: 03/27/20 20:59 Enoxaparin Sodium (Enoxaparin 150 Mg/Ml Syr) 150 mg SQ Q24H TOSIN Stop: 03/25/20 12:44 Last Admin: 02/26/20 12:05 Dose: 150 mg Documented by: Furosemide (Furosemide 20 Mg Tab) 20 mg PO QAM PRN PRN Reason: swelling Stop: 03/28/20 08:59 Gabapentin (Gabapentin 400 Mg Cap) 400 mg PO QID TOSIN Stop: 03/27/20 12:59 Glucagon (Glucagon For Inj 1 Mg Vial) 1 mg IM UD PRN; Protocol PRN Reason: Hypoglycemia Protocol Stop: 03/24/20 00:59 Glucose (Glucose 40% Gel 15 Gm Tube) 15 - 30 gm PO UD PRN; Protocol PRN Reason: Hypoglycemia Protocol Stop: 03/24/20 00:59 Glucose (Glucose 10 Tabs/Tube) 4 - 8 tabs PO UD PRN; Protocol PRN Reason: Hypoglycemia Protocol Stop: 03/24/20 00:59 Insulin Aspart (Insulin Aspart 100 Units/Ml 3 Ml Pen) 0 units SC ACHS [facility]; Protocol Stop: 03/27/20 17:14 Insulin Glargine (Insulin Glargine Solostar 100 Units/Ml 3 Ml Pen) 10 units SC ONE ONE; Protocol Stop: 02/26/20 13:31 Levothyroxine Sodium (Levothyroxine Sodium 50 Mcg Tablet) 50 mcg PO DAILYBB [facility] Stop: 03/28/20 06:29 Loratadine (Loratadine 10 Mg Tab) 10 mg PO QAM [facility] Stop: 03/28/20 08:59 Lorazepam (Lorazepam 2 Mg/Ml Vial (Im Use)) 2 mg IM Q6 PRN PRN Reason: Agitation Stop: 03/27/20 12:39 Magnesium Hydroxide (Magnesium Hydroxide Susp 30 Ml Udc) 30 ml PO DAILY PRN PRN Reason: Constipation Stop: 03/27/20 12:01 Magnesium Oxide (Magnesium Oxide 400 Mg Tab) 400 mg PO BID [facility] Stop: 03/27/20 20:59 Miscellaneous (Carbohydrates For Hypoglycemia ) 15 - 30 gm PO UD PRN PRN Reason: Hypoglycemia Treatment Stop: 03/24/20 00:59 Miscellaneous Information (Pharmacy Glycemic Mgmt Consult) 1 ea N/A UD PRN PRN Reason: Consult Stop: 03/27/20 13:03 Montelukast Sodium (Montelukast Sodium 10 Mg Tablet) 10 mg PO DAILY [facility] Stop: 03/28/20 08:59 Multivitamins (Multivitamin Tab) 1 tab PO QAM [facility] Stop: 03/24/20 08:59 Last Admin: 02/26/20 09:10 Dose: 1 tab Documented by: Nabumetone (Nabumetone 500 Mg Tablet) 500 mg PO QID [facility] Stop: 03/27/20 12:59 Olanzapine (Olanzapine Zydis 10 Mg Orally Dis. Tab) 10 mg PO BID [facility] Stop: 03/25/20 20:59 Last Admin: 02/26/20 09:12 Dose: 10 mg Documented by: Olanzapine (Olanzapine Zydis 10 Mg Orally Dis. Tab) 10 mg PO BID PRN PRN Reason: Anxiety/Agitation Stop: 03/27/20 20:59 Olanzapine (Olanzapine 10 Mg Tab) 10 mg PO HS TOSIN Stop: 03/27/20 21:59 Olanzapine (Olanzapine 10 Mg/2.1 Ml Sdv) 10 mg IM Q6 PRN PRN Reason: Agitation Stop: 03/27/20 12:39 Risperidone (Risperidone 2 Mg Tablet) 2 mg PO HS TOSIN Stop: 03/27/20 20:59 Sodium Chloride (Sodium Chloride 0.65% Na Soln 45 Ml (Trigg)) 1 - 2 sprays NA PRN PRN PRN Reason: Nasal Dryness/Congestion Stop: 03/27/20 12:01 Warfarin Sodium (Warfarin Sod 5 Mg Tab) 5 mg PO HS TOSIN Stop: 03/26/20 20:59 Last Admin: 02/25/20 20:34 Dose: 5 mg Documented by: Zolpidem Tartrate (Zolpidem Tartrate 10 Mg Tab) 10 mg PO HS PRN PRN Reason: Sleep Stop: 03/27/20 12:18
--- NOTE | 2020-02-26 14:22 | Pharmacy Report ---
Pharmacy Glycemic Short Note 2 - Date of Service February 26, 2020 - Glycemic Short BSG Results (Last 24 hours): 02/26/20 02/26/20 05:31 13:54 Glucose 126 H POC Glucose 104 H OUTPATIENT ANTIDIABETIC REGIMEN: * Novolog 70/30 insulin - 40 units SC BIDM * Trulicity 0.75 mg SC weekly * A1c = 5.5% (01/22/2020) ASSESSMENT: * 54 yo M who has been in the emergency department since 02/22/20. He does have a history of insulin-dependent T2DM. However, patient last received 20 units of Novolog 70/30 insulin on the morning of 02/23/20. Per medication reconciliation, patient has not taken any of his medications in several weeks. Given compliance issues, will order a HbA1c for tomorrow AM. * His fasting BSG was 126 mg/dL this AM. * Given patient's history of non-compliance and most recent A1c, I am suspicious as to whether this patient really requires any insulin at all. * He was previously admitted in January with COVID-19 and required ~ 45 units of insulin per day, but he was on IV dexamethasone at that time. * It is unclear to me how much he has been eating since coming to the ED. * Plan to be very conservative with patient. Will give him a one time Lantus dose of 10 units now (wgt/stress 1) as well as start Novolog based on a wgt/stress of 1-2. PLAN FOR INPATIENT GLYCEMIC CONTROL: * Basal insulin * Lantus 10 units SQ x 1 * Bolus insulin * NovoLog per scale ACHS or Q6hrs while NPO * Goal Range: Low 110 mg/dL - High 140 mg/dL * Correction Factor: 25 mg/dL/unit * Nutritional / Prandial insulin per carb ratio of 1 unit per 8 grams CHO consumed PLAN FOR DISCHARGE: * Most recent HbA1c = 5.5%. This demonstrates excellent outpatient control of T2DM as patient's goal HbA1c would be < 7% based on his age and comorbidities. There is some concern regarding compliance as an outpatient so I will repeat a HbA1c tomorrow AM. * More recommendations to follow when HbA1c results.
[2020-02-26] MEDS: INSULIN ASPART 100 UNITS/ML 3 ML PEN SC SCH ×2 (18:14→21:21)
[2020-02-26] MEDS ORDERED: carBAMazepine 200 MG TABLET PO SCH (21:00)
[2020-02-26] MEDS: risperiDONE 2 MG TABLET PO SCH ×2 (21:23→22:32)
[2020-02-26] MEDS: diazePAM 5 MG TABLET PO SCH ×2 (21:27→22:32)
[2020-02-26] MEDS: OLANZapine 10 MG TAB PO SCH ×2 (21:39→23:16)
[2020-02-26] MEDS: WARFARIN SOD 10 MG TAB PO SCH ×2 (21:41→23:15)
[2020-02-27] MEDS: ACETAMINOPHEN 325 MG TAB PO PRN ×2 (02:57→19:18)
[2020-02-27] MEDS: LEVOTHYROXINE SODIUM 50 MCG TABLET PO SCH ×2 (06:37→08:04)
[2020-02-27 07:59] LABS: INR 1.2 (0.9-1.1); Prothrombin Time 12.7 Seconds (9.0-12.0)
[2020-02-27 08:13] LABS: Estimated Average Glucose 111 mg/dl; Hemoglobin A1C 5.5 % (4.5-5.6)
--- NOTE | 2020-02-27 08:39 | Psychiatric Progress Note ---
Date of Service February 27, 2020 Impression / Recommendations Impression 54 yo male with extended ED stay on 302; on a 303 as of 02/27/2020. Chronic and persistent mental illness, diagnosed with schizoaffective disorder bipolar type, presented with manic and psychotic symptoms in the context of medication noncompliance. He was agitated and uncooperative in the ED, remains poorly compliant and unable to care for basic needs outside of the hospital. (1) Schizoaffective disorder: 02/25 - The patient was admitted to the [facility]) on q15 min checks (behavioral with suicide precautions) for safety. The patient will participate in group, recreational, and milieu therapies and will be offered additional individual and family sessions as clinically appropriate. He clearly meets criteria for extended involuntary commitment and a 303 was filed, Dr. Lopez updated as will be testifying psychiatrist. Regarding meds, trazodone and Cymbalta were held in ED due to paradoxical reaction and kylee. Zyprexa was given standing order there, as calmer will change to prn here. His Tegretol was also restarted there at low dose as longstanding previously effective med. May impact his anticoagulation. 02/26 -303 hearing held and commitment granted. Contact Su MORATAYA at [place] to coordinate care - left message. -Continue olanzapine 10 mg at bedtime, risperidone 2 mg at bedtime (contact outpatient clinician regarding previous response to these medications and preferred plan moving forward), carbamazepine 250 mg twice daily, and diazepam 5 mg at bedtime. Zolpidem 10 mg at bedtime as needed has been added, and although he received a dose last night, he still slept only 1 hour. Consider trial of atypical antipsychotic with sedating properties, such as chlorpromazine, in place of one of his atypicals if sleep does not improve. -Monitoring on an atypical antipsychotic: Hgb A1C 5.5%, est ave glucose 111 on 02/27/20, FLP ordered for tomorrow. -Per records, patient has assault charges. Attempt to clarify with his outpatient pillowcase turner. (2) Deep venous thrombosis: 02/25 - Patient non-compliant with Eliquis and was transitioned to Coumadin in the ED with Lovenox bridge. The combo should be continued for at least 2 more days and an INR >2. Pharmacist recommends daily PT/INR if he'll allow (every other acceptable if issue) and taking 10 mg Coumadin for the next 2 nights. 02/26 -INR 1.2 today. Continue Lovenox until Coumadin is therapeutic, with daily INR. (3) Diabetes mellitus: 02/25 - diabetic pharmacy consult 02/26 -patient getting insulin here, glucose well controlled. Risk Factors Assessment Male: Yes : Yes Do You Have Access To A Gun?: No Health Problems: Yes Mental Health Diagnoses: Yes Substance Use Disorders: No Family History of Suicide: Yes Previous Psychiatric Hospitalization: Yes Protective Factors Assessment : No Responsible for Young Children: No Employed: No Stable Relationships: No Interval History Identifying Information MANDI BOSS is a 54-year-old M who currently lives in alone in [place], has a history of schizoaffective disorder, and was admitted on 02/26/20 12:02 on a 302 involuntary commitment for disorganized psychosis. It should be noted that he initially presented on 02/21 and has been in the ED awaiting bed placement for >3 days. Chief Complaint "Terrible, I'm forgettin' things, slurrin' my speech". Review of Systems Sleep Information Total Hours of Sleep: 1 Meal Information Percent Meal Consumed - Dinner: 100 Subjective Subjective Patient was seen & assessed and interval progress reviewed with nursing and social work. Staff report he was agitated and inappropriate yesterday on the unit, taking his pants off, throwing things, and security had to be called. He refused his medication, but later took it, and required frequent redirection from staff. He is religiously focused, and thinks a female peer is Mother Natali. He slept only one hour overnight. On my assessment, he reports he cannot focus or concentrate, which he attributes to "medicine, something to do with my medicine, gotta figure that out." He admits he has not been sleeping, then says he feels "rested and relaxed." He cannot say if he is experiencing racing thoughts, "maybe." He says he has multiple stressors, including a recent move within his building and [place], stating he does not like living there, does not like the town, and wants to live in the country. He is upset because people have been coming in his apartment, stealing things, "messing with my stuff," including "messing with" his medications. He says that because of this, he stopped taking his medications, flushed his insulin and Lovenox down the toilet, and took the rest of his medications back to the pharmacy. He says he does not need to be here, knows what medications he needs to take, and wants to attend his 303 hearing so he can tell everyone this. He says he "makes my own decisions, last time I was in the hospital was 2005, [facility], I do not need to be here.". He then starts talking about medical marijuana, "I got the wrong stuff, "and his PCP getting "thyroid results, and I need testosterone to." He denies SI and HI. He answers with unrelated information when asked about hallucinations. He says that he initially came to the hospital with his BCM after [facility], sent him in for admission, and that he went to [place] initially, but then got upset because "I don't like being jacked around, this sucks, this whole thing, make 1 move and be done with it, get , have kids, cest la vie." Attempted to review the medication changes that have been made in his INR as of today, but he responded with unrelated information, and does not appear able to process this. Although he said he wanted to testify at his commitment hearing, when given a chance, he declined to say anything. Physical Exam Psychiatric Orientation: alert and cooperative (Partially, often answers with unrelated information) Apperance: appropriately dressed; + did not appear stated age Overweight white male appearing older than his stated age, balding, white flynn, wearing glasses. Dressed in scrub pants and a longsleeved T-shirt. Adequate hygiene and grooming. Eye Contact: + poor eye contact Motor Behavior: steady gait and station and + psychomotor agitation (Restless) Hyperverbal, pressured, slurred and mumbling, very difficult to understand. Affect: + irritable affect and + constricted affect "Terrible." Thought Process: + tangential thought process, + looseness of associations and + incoherent thought process Thought Content: + paranoid, + delusions and + persecution Suicidal Thoughts: denies suicidal thoughts Homicidal Thoughts: denies homicidal thoughts Answers with unrelated information Cognition: + recent memory not intact, + attention not intact and + language not intact Insight: + impaired insight Judgement: + impaired judgement Vital Signs (Past 24 Hours) Last Vital Signs Temp 36.3 C L 02/27/20 06:35 Pulse 82 02/27/20 06:35 Resp 16 02/27/20 06:35 BP 126/75 02/27/20 06:35 Pulse Ox 98 02/26/20 12:12 Results & Data ([facility]) Laboratory Results Laboratory Results - last 24 hr 02/26/20 02/26/20 02/26/20 13:54 17:26 21:18 PT INR POC Glucose 104 H 81 97 Estimat Average Glucose Hemoglobin A1c 02/27/20 02/27/20 02/27/20 07:23 07:23 07:53 PT 12.7 H INR 1.2 H POC Glucose 96 Estimat Average Glucose 111 Hemoglobin A1c 5.5 Current Inpatient Medications Current Inpatient Medications: Current Inpatient Medications Acetaminophen (Acetaminophen 325 Mg Tab) 650 mg PO Q4H PRN PRN Reason: Headache or Minor Fever Stop: 03/27/20 12:01 Last Admin: 02/27/20 02:57 Dose: 650 mg Documented by: Al Hydrox/Mg Hydrox/Simethicone (Aluminum/Magnesium Susp 30 Ml Udc) 30 ml PO Q4H PRN PRN Reason: GI Upset Stop: 03/27/20 12:01 Atorvastatin Calcium (Atorvastatin 20 Mg Tab) 20 mg PO QAM [facility] Stop: 03/28/20 08:59 Baclofen (Baclofen 20 Mg Tab) 20 mg PO BID [facility] Stop: 03/27/20 20:59 Last Admin: 02/26/20 21:23 Dose: 20 mg Documented by: Bismuth Subsalicylate (Bismuth Subsalicylate Liqd 236 Ml) 15 ml PO PRN PRN PRN Reason: Loose Stool Stop: 03/27/20 12:01 Carbamazepine (Carbamazepine 100 Mg Chew Tab) 250 mg PO BID [facility] Stop: 03/25/20 20:59 Last Admin: 02/26/20 23:15 Dose: 250 mg Documented by: Cyanocobalamin (Cyanocobalamin 500 Mcg Tablet (Vitamin B-12)) 1,000 mcg PO DAILY [facility] Stop: 03/24/20 08:59 Last Admin: 02/26/20 09:11 Dose: 1,000 mcg Documented by: Dextrose (Dextrose 50% 50 Ml Syringe) 25 - 50 ml IV UD PRN; Protocol PRN Reason: Hypoglycemia Protocol Stop: 03/24/20 00:59 Diazepam (Diazepam 5 Mg Tablet) 5 mg PO HS [facility] Stop: 03/27/20 20:59 Last Admin: 02/26/20 22:32 Dose: Not Given Documented by: Diclofenac Sodium (Diclofenac Sod 1% Gel 100 Gm Tube) 2 gm EXT BID [facility] Stop: 03/27/20 20:59 Last Admin: 02/26/20 21:29 Dose: 2 gm Documented by: Enoxaparin Sodium (Enoxaparin 150 Mg/Ml Syr) 150 mg SQ Q24H [facility] Stop: 03/25/20 12:44 Last Admin: 02/26/20 12:05 Dose: 150 mg Documented by: Furosemide (Furosemide 20 Mg Tab) 20 mg PO QAM PRN PRN Reason: swelling Stop: 03/28/20 08:59 Gabapentin (Gabapentin 400 Mg Cap) 400 mg PO QID [facility] Stop: 03/27/20 12:59 Last Admin: 02/26/20 21:22 Dose: 400 mg Documented by: Glucagon (Glucagon For Inj 1 Mg Vial) 1 mg IM UD PRN; Protocol PRN Reason: Hypoglycemia Protocol Stop: 03/24/20 00:59 Glucose (Glucose 40% Gel 15 Gm Tube) 15 - 30 gm PO UD PRN; Protocol PRN Reason: Hypoglycemia Protocol Stop: 03/24/20 00:59 Glucose (Glucose 10 Tabs/Tube) 4 - 8 tabs PO UD PRN; Protocol PRN Reason: Hypoglycemia Protocol Stop: 03/24/20 00:59 Insulin Aspart (Insulin Aspart 100 Units/Ml 3 Ml Pen) 0 units SC [facility]; Protocol Stop: 03/27/20 17:14 Last Admin: 02/26/20 21:21 Dose: Not Given Documented by: Levothyroxine Sodium (Levothyroxine Sodium 50 Mcg Tablet) 50 mcg PO DAILYBB [facility] Stop: 03/28/20 06:29 Last Admin: 02/27/20 08:04 Dose: Not Given Documented by: Loratadine (Loratadine 10 Mg Tab) 10 mg PO QAM [facility] Stop: 03/28/20 08:59 Lorazepam (Lorazepam 2 Mg/Ml Vial (Im Use)) 2 mg IM Q6 PRN PRN Reason: Agitation Stop: 03/27/20 12:39 Magnesium Hydroxide (Magnesium Hydroxide Susp 30 Ml Udc) 30 ml PO DAILY PRN PRN Reason: Constipation Stop: 03/27/20 12:01 Magnesium Oxide (Magnesium Oxide 400 Mg Tab) 400 mg PO BID [facility] Stop: 03/27/20 20:59 Last Admin: 02/26/20 21:22 Dose: 400 mg Documented by: Miscellaneous (Carbohydrates For Hypoglycemia ) 15 - 30 gm PO UD PRN PRN Reason: Hypoglycemia Treatment Stop: 03/24/20 00:59 Miscellaneous Information (Pharmacy Glycemic Mgmt Consult) 1 ea N/A UD PRN PRN Reason: Consult Stop: 03/27/20 13:03 Montelukast Sodium (Montelukast Sodium 10 Mg Tablet) 10 mg PO DAILY [facility] Stop: 03/28/20 08:59 Multivitamins (Multivitamin Tab) 1 tab PO QAM [facility] Stop: 03/24/20 08:59 Last Admin: 02/26/20 09:10 Dose: 1 tab Documented by: Nabumetone (Nabumetone 500 Mg Tablet) 500 mg PO QID [facility] Stop: 03/27/20 12:59 Last Admin: 02/26/20 21:22 Dose: 500 mg Documented by: Olanzapine (Olanzapine Zydis 10 Mg Orally Dis. Tab) 10 mg PO BID PRN PRN Reason: Anxiety/Agitation Stop: 03/27/20 20:59 Olanzapine (Olanzapine 10 Mg Tab) 10 mg PO HS [facility]OS[facility] Stop: 03/27/20 21:59 Last Admin: 02/26/20 23:16 Dose: Not Given Documented by: Olanzapine (Olanzapine 10 Mg/2.1 Ml Sdv) 10 mg IM Q6 PRN PRN Reason: Agitation Stop: 03/27/20 12:39 Risperidone (Risperidone 2 Mg Tablet) 2 mg PO HS TSOIN Stop: 03/27/20 20:59 Last Admin: 02/26/20 22:32 Dose: Not Given Documented by: Sodium Chloride (Sodium Chloride 0.65% Na Soln 45 Ml ([place])) 1 - 2 sprays NA PRN PRN PRN Reason: Nasal Dryness/Congestion Stop: 03/27/20 12:01 Warfarin Sodium (Warfarin Sod 10 Mg Tab) 10 mg PO HS TOSIN Stop: 03/27/20 21:59 Last Admin: 02/26/20 23:15 Dose: 10 mg Documented by: Zolpidem Tartrate (Zolpidem Tartrate 10 Mg Tab) 10 mg PO HS PRN PRN Reason: Sleep Stop: 03/27/20 12:18 Last Admin: 02/26/20 23:00 Dose: 10 mg Documented by: Mental Health & Subst Abuse Tx Therapist Name of Therapist: Luis Fernando eli/Norman Rn Teacher Name of Rn Teacher: Mack Post Discharge Appointments Primary Care Physician Name Of Family Doctor: Dr. Baltazar Little (1) Diabetes mellitus Diabetes mellitus complication status: without complication Diabetes mellitus exterminator helper insulin use: with exterminator helper use Diabetes mellitus type: type 2 Qualified Code(s): E11.9 - Type 2 diabetes mellitus without complications; Z79.4 - intermediate (current) use of insulin (2) Schizoaffective disorder Schizoaffective disorder type: bipolar Qualified Code(s): F25.0 - Schizoaffective disorder, bipolar type
[2020-02-27] MEDS: LORATADINE 10 MG TAB PO SCH (08:42)
[2020-02-27] MEDS: ATORVASTATIN 20 MG TAB PO SCH (08:42)
[2020-02-27] MEDS: BACLOFEN 20 MG TAB PO SCH ×2 (08:42→20:02)
[2020-02-27] MEDS: MULTIVITAMIN TAB PO SCH (08:43)
[2020-02-27] MEDS: NABUMETONE 500 MG TABLET PO SCH ×4 (08:43→20:02)
[2020-02-27] MEDS: MAGNESIUM OXIDE 400 MG TAB PO SCH ×2 (08:43→20:02)
[2020-02-27] MEDS: GABAPENTIN 400 MG CAP PO SCH ×4 (08:43→20:02)
[2020-02-27] MEDS: MONTELUKAST SODIUM 10 MG TABLET PO SCH (08:43)
[2020-02-27] MEDS: carBAMazepine 100 MG CHEW TAB PO SCH ×2 (08:44→20:02)
[2020-02-27] MEDS: DICLOFENAC SOD 1% GEL 100 GM TUBE EXT SCH ×2 (08:45→21:13)
[2020-02-27] MEDS: CYANOCOBALAMIN 500 MCG TABLET (VITAMIN B-12) PO SCH (08:45)
[2020-02-27] MEDS: INSULIN ASPART 100 UNITS/ML 3 ML PEN SC SCH ×4 (08:55→21:29)
[2020-02-27] MEDS ORDERED: PHARMACY GLYCEMIC MGMT CONSULT STA (10:23)
[2020-02-27] MEDS ORDERED: TRULICITY 0.75 MG SQ SCH (11:45)
[2020-02-27] MEDS: ENOXAPARIN 150 MG/ML SYR SQ SCH (12:58)
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
[2020-02-27] MEDS: diazePAM 5 MG TABLET PO SCH (20:03)
[2020-02-27] MEDS: OLANZapine 10 MG TAB PO SCH (20:03)
[2020-02-27] MEDS: risperiDONE 2 MG TABLET PO SCH (20:03)
[2020-02-27] MEDS: WARFARIN SOD 10 MG TAB PO SCH (20:04)
[2020-02-27] MEDS ORDERED: ACETAMINOPHEN 500 MG TAB PO ONE (23:21)
[2020-02-28 07:05] LABS: Chol HDL Ratio 3; Cholesterol 140 mg/dl (0-200); HDL Cholesterol 43 mg/dl; LDL Cholesterol Calculated 56 mg/dl; Triglycerides 205 mg/dl (0-150); VLDL Cholesterol 41 mg/dl
[2020-02-28] MEDS: LEVOTHYROXINE SODIUM 50 MCG TABLET PO SCH (08:08)
--- NOTE | 2020-02-28 08:33 | Pharmacy Report ---
Pharmacy Glycemic Sign Off Nt - Date of Service February 28, 2020 - Assessment & Plan ASSESSMENT: * Pharmacy was consulted by Dr. Collado on 02/25 for glycemic control and to write orders per [facility] inpatient glycemic control protocol. * Major changes made by pharmacy to antidiabetic regimen include: * Starting Novolog insulin as patient previously was not receiving any insulin while in the emergency department * Patient has been receiving/requiring 16 units of insulin per day (all basal) for adequate glycemic control * BSGs ranging 88 - 111 mg/dl * Regimen has only required minor adjustments over the past 48hrs to achieve this level of control * Do not anticipate further changes in patient status that would quickly deteriorate glycemic control (i.e. patient to be NPO for upcoming procedure, steroids tapering, starting tube feedings, etc). * Please see recommendations for outpatient antidiabetic regimen below. PLAN FOR INPATIENT GLYCEMIC CONTROL: No changes needed to current regimen. * No basal insulin required * Continue NovoLog per scale ACHS/Q6hrs while NPO * Goal range = 110 - 140 mg/dl * CF = 30 mg/dl/unit * CR = 1 unit for ever 10 g CHO consumed * Pharmacy is signing off of glycemic consult and will no longer be making adjustments to inpatient regimen. Please feel free to re-consult if needed. Thank you. DISCHARGE RECOMMENDATIONS: * A1c 5.5% on 02/27/20 * This demonstrates excellent control of T2DM as an outpatient. * Patient reports not taking insulin for several weeks prior to admission. In the emergency department patient received 20 units of Novolog 70/30 on 02/22 and blood sugars remained in goal ranged throughout stay. * Given patient's current HbA1c and lack of insulin use inpatient, I recommend discontinuing Novolog 70/30 insulin altogether. Patient may remain on Trulicity as an outpatient, but I also believe that his T2DM could be controlled by diet alone.
[2020-02-28] MEDS: PANTOprazole 40 MG TAB PO SCH (08:41)
[2020-02-28] MEDS: BACLOFEN 20 MG TAB PO SCH ×2 (08:41→20:55)
[2020-02-28] MEDS: LORATADINE 10 MG TAB PO SCH (08:41)
[2020-02-28] MEDS: GABAPENTIN 400 MG CAP PO SCH ×4 (08:41→21:00)
[2020-02-28] MEDS: NABUMETONE 500 MG TABLET PO SCH ×4 (08:41→21:01)
[2020-02-28] MEDS: ATORVASTATIN 20 MG TAB PO SCH (08:41)
[2020-02-28] MEDS: MAGNESIUM OXIDE 400 MG TAB PO SCH ×2 (08:41→20:55)
[2020-02-28] MEDS: CALCIUM 600MG + VIT D 400 IU TAB PO SCH (08:41)
[2020-02-28] MEDS: carBAMazepine 100 MG CHEW TAB PO SCH ×2 (08:42→21:00)
[2020-02-28] MEDS: DICLOFENAC SOD 1% GEL 100 GM TUBE EXT SCH ×2 (08:43→21:17)
[2020-02-28] MEDS: MONTELUKAST SODIUM 10 MG TABLET PO SCH (08:43)
[2020-02-28] MEDS: INSULIN ASPART 100 UNITS/ML 3 ML PEN SC SCH ×4 (09:04→21:26)
--- NOTE | 2020-02-28 09:56 | Psychiatric Progress Note ---
Date of Service February 28, 2020 Impression / Recommendations Impression 54 yo male with extended ED stay on 302; on a 303 as of 02/27/2020. Chronic and persistent mental illness, diagnosed with schizoaffective disorder bipolar type, presented with manic and psychotic symptoms in the context of medication noncompliance. He was agitated and uncooperative in the ED, remains poorly compliant and unable to care for basic needs outside of the hospital. (1) Schizoaffective disorder: 02/25 - The patient was admitted to the [facility] ([facility]) on q15 min checks (behavioral with suicide precautions) for safety. The patient will participate in group, recreational, and milieu therapies and will be offered additional individual and family sessions as clinically appropriate. He clearly meets criteria for extended involuntary commitment and a 303 was filed, Dr. Lopez updated as will be testifying psychiatrist. Regarding meds, trazodone and Cymbalta were held in ED due to paradoxical reaction and kylee. Zyprexa was given standing order there, as calmer will change to prn here. His Tegretol was also restarted there at low dose as longstanding previously effective med. May impact his anticoagulation. 02/26 -303 hearing held and commitment granted. Contact Su MORATAYA at [facility] to coordinate care - left message. -Continue olanzapine 10 mg at bedtime, risperidone 2 mg at bedtime (contact outpatient clinician regarding previous response to these medications and preferred plan moving forward), carbamazepine 250 mg twice daily, and diazepam 5 mg at bedtime. Zolpidem 10 mg at bedtime as needed has been added, and although he received a dose last night, he still slept only 1 hour. Consider trial of atypical antipsychotic with sedating properties, such as chlorpromazine, in place of one of his atypicals if sleep does not improve. -Monitoring on an atypical antipsychotic: Hgb A1C 5.5%, est ave glucose 111 on 02/27/20, FLP ordered for tomorrow. -Per records, patient has assault charges. Attempt to clarify with his outpatient caseworker protective services. 02/27 - Medication adjustments suggested this morning after treatment team and review of collateral obtained from patient's outpatient psychiatric prescriber. - Titrating risperidone to 1mg qAM and 2mg qHS - further titration as tolerated (previous dosing of 8mg daily total). - Diazepam titrated to 10mg qHS to promote sleep, as this continues to be a problem. Scheduled HS olanzapine was discontinued, but remains a prn option for sleep/agitation if necessary. - Consider chlorpromazine for mood stabilization/sleep if sleep continues to be an issue. (2) Deep venous thrombosis: 02/25 - Patient non-compliant with Eliquis and was transitioned to Coumadin in the ED with Lovenox bridge. The combo should be continued for at least 2 more days and an INR >2. Pharmacist recommends daily PT/INR if he'll allow (every other acceptable if issue) and taking 10 mg Coumadin for the next 2 nights. 02/26 -INR 1.2 today. Continue Lovenox until Coumadin is therapeutic, with daily INR. 02/27 - INR 2.0 today - will discontinue Lovenox - patient thus far has been compliant with daily PT/INR. (3) Diabetes mellitus: 02/25 - diabetic pharmacy consult 02/26 -patient getting insulin here, glucose well controlled. Risk Factors Assessment Male: Yes : Yes Do You Have Access To A Gun?: No Health Problems: Yes Mental Health Diagnoses: Yes Substance Use Disorders: No Family History of Suicide: Yes Previous Psychiatric Hospitalization: Yes Protective Factors Assessment : No Responsible for Young Children: No Employed: No Stable Relationships: No Interval History Identifying Information MANDI BOSS is a 54-year-old M who currently lives in alone in [place], has a history of schizoaffective disorder, and was admitted on 02/26/20 12:02 on a 302 involuntary commitment for disorganized psychosis. It should be noted that he initially presented on 02/21 and has been in the ED awaiting bed placement for >3 days. Chief Complaint "I already talked to someone today. What do I need to talk to you for?" Review of Systems Notes Limited participation in interview due to irritability and disorganized thoughts. Pt does report back pain, but otherwise does not verbalize any physical complaints. Sleep Information Total Hours of Sleep: 0.5 Sleep Comments: pt on q-15 minute checks Meal Information Percent Meal Consumed - Breakfast: 100 Percent Meal Consumed - Lunch: 100 Percent Meal Consumed - Dinner: 100 Subjective Subjective Patient was seen & assessed and interval progress reviewed with treatment team. Staff report the patient had continued to be rather irritable yesterday. He had several anger outbursts throughout the day yesterday, primarily related to his cell phone being locked and him being unable to get assistance through service provider customer support. Pt did take his medications last evening, but with much encouragement. Pt reportedly only appeared to be sleeping for half an hour last evening. Pt was seen today to assess progress since admission. The patient stated "I already talked to someone today. What do I need to talk to you for?" This provider introduced herself and explained desire to touch base about medications and patient's perceived progress. Pt mumbled consistently throughout visit, but repeatedly stated "I don't need to talk to you." This provider attempted to review medication recommendations, however, patient consistently interrupted. He continues to be tangential and responding with either unintelligible or off-topic remarks. Pt perceives himself to be "perfectly organized". This provider also expressed concern about the patient's lack of sleep. Pt requested "if I had Vicodin for my back, it would all be fine." He then proceeded to this this provider that "I don't want to get hooked on nothing" when informed that we were recommending diazepam to help with sleep. Pt was informed about plan to discontinue Lovenox injections, and he states "good, cause I'm not taking an injectables anyway. There are meds out there that don't kill you, but not what you're putting me on." This provider attempted again to review with the patient that recommended medications are familiar to him from past treatment. He was unable/unwilling to participate in much deeper conversation. He was encouraged to reach out to staff with any additional questions or concerns. Physical Exam Psychiatric Orientation: alert and + guarded (irritable, uncooperative ) Apperance: appropriately dressed, appropriately groomed and appeared stated age Eye Contact: + poor eye contact (avoiding direct eye contact, pacing around room) Motor Behavior: steady gait and station and + psychomotor agitation (pacing room, restless) Speech: + abnormal rate/rhythm/volume of speech (speech is often unintelligible, mumbling ) Affect: + irritable affect and + constricted affect Mood: + angry mood (but reports "I'm fine") Thought Process: + tangential thought process and + looseness of associations Thought Content: + paranoid, + delusions and + persecution Cognition: + recent memory not intact, + attention not intact and + language not intact Insight: + severely impaired insight Judgement: + severely impaired judgement Vital Signs (Past 24 Hours) Last Vital Signs Temp 36.7 C 02/28/20 06:32 Pulse 98 H 02/28/20 06:33 Resp 16 02/28/20 06:32 BP 104/70 02/28/20 06:33 Pulse Ox 98 02/26/20 12:12 Results & Data ([facility]) Laboratory Results Laboratory Results - last 24 hr 02/27/20 02/27/20 02/27/20 12:21 17:08 21:18 PT INR POC Glucose 88 88 111 H Triglycerides Cholesterol LDL Cholesterol, Calc VLDL Cholesterol, Calc HDL Cholesterol Cholesterol/HDL Ratio 02/28/20 02/28/20 02/28/20 06:30 06:30 08:06 PT 20.0 H INR 2.0 H POC Glucose 111 H Triglycerides 205 H Cholesterol 140 LDL Cholesterol, Calc 56 VLDL Cholesterol, Calc 41 HDL Cholesterol 43 Cholesterol/HDL Ratio 3 Current Inpatient Medications Current Inpatient Medications: Current Inpatient Medications Acetaminophen (Acetaminophen 325 Mg Tab) 650 mg PO Q4H PRN PRN Reason: Headache or Minor Fever Stop: 03/27/20 12:01 Last Admin: 02/27/20 19:18 Dose: 650 mg Documented by: Al Hydrox/Mg Hydrox/Simethicone (Aluminum/Magnesium Susp 30 Ml Udc) 30 ml PO Q4H PRN PRN Reason: GI Upset Stop: 03/27/20 12:01 Atorvastatin Calcium (Atorvastatin 20 Mg Tab) 20 mg PO QAM [facility] Stop: 03/28/20 08:59 Last Admin: 02/28/20 08:41 Dose: 20 mg Documented by: Baclofen (Baclofen 20 Mg Tab) 20 mg PO BID [facility] Stop: 03/27/20 20:59 Last Admin: 02/28/20 08:41 Dose: 20 mg Documented by: Bismuth Subsalicylate (Bismuth Subsalicylate Liqd 236 Ml) 15 ml PO PRN PRN PRN Reason: Loose Stool Stop: 03/27/20 12:01 Carbamazepine (Carbamazepine 100 Mg Chew Tab) 250 mg PO BID [facility] Stop: 03/25/20 20:59 Last Admin: 02/28/20 08:42 Dose: 250 mg Documented by: Diazepam (Diazepam 5 Mg Tablet) 10 mg PO HS [facility] Stop: 03/29/20 21:59 Diclofenac Sodium (Diclofenac Sod 1% Gel 100 Gm Tube) 2 gm EXT BID [facility] Stop: 03/27/20 20:59 Last Admin: 02/28/20 08:43 Dose: 2 gm Documented by: Enoxaparin Sodium (Enoxaparin 150 Mg/Ml Syr) 150 mg SQ Q24H TOSIN Stop: 03/25/20 12:44 Last Admin: 02/27/20 12:58 Dose: 150 mg Documented by: Furosemide (Furosemide 20 Mg Tab) 20 mg PO QAM PRN PRN Reason: swelling Stop: 03/28/20 08:59 Gabapentin (Gabapentin 400 Mg Cap) 400 mg PO QID [facility] Stop: 03/27/20 12:59 Last Admin: 02/28/20 08:41 Dose: 400 mg Documented by: Insulin Aspart (Insulin Aspart 100 Units/Ml 3 Ml Pen) 0 units SC [facility]; Protocol Stop: 03/27/20 17:14 Last Admin: 02/28/20 09:04 Dose: 7 units Documented by: Levothyroxine Sodium (Levothyroxine Sodium 50 Mcg Tablet) 50 mcg PO DAILYBB [facility] Stop: 03/28/20 06:29 Last Admin: 02/28/20 08:08 Dose: 50 mcg Documented by: Loratadine (Loratadine 10 Mg Tab) 10 mg PO QAM [facility] Stop: 03/28/20 08:59 Last Admin: 02/28/20 08:41 Dose: 10 mg Documented by: Lorazepam (Lorazepam 2 Mg/Ml Vial (Im Use)) 2 mg IM Q6 PRN PRN Reason: Agitation Stop: 03/27/20 12:39 Magnesium Hydroxide (Magnesium Hydroxide Susp 30 Ml Udc) 30 ml PO DAILY PRN PRN Reason: Constipation Stop: 03/27/20 12:01 Magnesium Oxide (Magnesium Oxide 400 Mg Tab) 400 mg PO BID [facility] Stop: 03/27/20 20:59 Last Admin: 02/28/20 08:41 Dose: 400 mg Documented by: Montelukast Sodium (Montelukast Sodium 10 Mg Tablet) 10 mg PO DAILY [facility] Stop: 03/28/20 08:59 Last Admin: 02/28/20 08:43 Dose: 10 mg Documented by: Multivitamins/Minerals (Calcium 600mg + Vit D 400 Iu Tab) 1 tab PO DAILY TOSIN Stop: 03/29/20 08:59 Last Admin: 02/28/20 08:41 Dose: 1 tab Documented by: Nabumetone (Nabumetone 500 Mg Tablet) 500 mg PO QID TOSIN Stop: 03/27/20 12:59 Last Admin: 02/28/20 08:41 Dose: 500 mg Documented by: Olanzapine (Olanzapine Zydis 10 Mg Orally Dis. Tab) 10 mg PO BID PRN PRN Reason: Anxiety/Agitation Stop: 03/27/20 20:59 Last Admin: 02/27/20 12:18 Dose: 10 mg Documented by: Olanzapine (Olanzapine 10 Mg/2.1 Ml Sdv) 10 mg IM Q6 PRN PRN Reason: Agitation Stop: 03/27/20 12:39 Pantoprazole Sodium (Pantoprazole 40 Mg Tab) 40 mg PO DAILY TOSIN Stop: 03/29/20 08:59 Last Admin: 02/28/20 08:41 Dose: 40 mg Documented by: Risperidone (Risperidone 2 Mg Tablet) 2 mg PO HS TOSIN Stop: 03/27/20 20:59 Last Admin: 02/27/20 20:03 Dose: 2 mg Documented by: Risperidone (Risperidone 1 Mg Tablet) 1 mg PO QAM TOSIN Stop: 03/29/20 08:59 Sodium Chloride (Sodium Chloride 0.65% Na Soln 45 Ml ([place])) 1 - 2 sprays NA PRN PRN PRN Reason: Nasal Dryness/Congestion Stop: 03/27/20 12:01 Warfarin Sodium (Warfarin Sod 10 Mg Tab) 10 mg PO HS TOSIN Stop: 03/27/20 21:59 Last Admin: 02/27/20 20:04 Dose: 10 mg Documented by: Mental Health & Subst Abuse Tx Psychiatrist [facility] Date of Appointment with Psychiatrist: 03/18/20 Time of Appointment with Psychiatrist: 1:15pm Therapist Name of Therapist: Luis Fernando eli/Norman Tour Escort Name of Tour Escort: Kvng Phone Number for Tour Escort: [phone] Post Discharge Appointments Primary Care Physician Name Of Family Doctor: Dr. Baltazar Little [facility] Contact Information Discharge Discharge Address: [address] [place] [address], [address] [facility], [place] [address] (1) Diabetes mellitus Diabetes mellitus complication status: without complication Diabetes mellitus chcf insulin use: with extermination inspector use Diabetes mellitus type: type 2 Qualified Code(s): E11.9 - Type 2 diabetes mellitus without complications; Z79.4 - roasterman (current) use of insulin (2) Schizoaffective disorder Schizoaffective disorder type: bipolar Qualified Code(s): F25.0 - Schizoaffective disorder, bipolar type
[2020-02-28] MEDS: risperiDONE 1 MG TABLET PO SCH ×2 (10:26→21:02)
[2020-02-28] MEDS: ACETAMINOPHEN 325 MG TAB PO PRN (11:41)
[2020-02-28] MEDS: FUROSEMIDE 20 MG TAB PO PRN (14:17)
[2020-02-28] MEDS: WARFARIN SOD 10 MG TAB PO SCH (20:58)
[2020-02-28] MEDS: risperiDONE 2 MG TABLET PO SCH (21:01)
[2020-02-28] MEDS: diazePAM 5 MG TABLET PO SCH (21:03)
[2020-02-29] MEDS: ACETAMINOPHEN 325 MG TAB PO PRN (03:14)
[2020-02-29] MEDS: CALCIUM 600MG + VIT D 400 IU TAB PO SCH (08:22)
[2020-02-29] MEDS: LEVOTHYROXINE SODIUM 50 MCG TABLET PO SCH (08:22)
[2020-02-29] MEDS: LORATADINE 10 MG TAB PO SCH (08:22)
[2020-02-29] MEDS: BACLOFEN 20 MG TAB PO SCH ×2 (08:24→20:57)
[2020-02-29] MEDS: ATORVASTATIN 20 MG TAB PO SCH (08:25)
[2020-02-29] MEDS: MAGNESIUM OXIDE 400 MG TAB PO SCH ×2 (08:25→20:57)
[2020-02-29] MEDS: NABUMETONE 500 MG TABLET PO SCH ×4 (08:26→20:57)
[2020-02-29] MEDS: carBAMazepine 100 MG CHEW TAB PO SCH ×2 (08:26→20:58)
[2020-02-29] MEDS: GABAPENTIN 400 MG CAP PO SCH ×4 (08:26→20:57)
[2020-02-29] MEDS: risperiDONE 1 MG TABLET PO SCH ×3 (08:26→21:00)
[2020-02-29] MEDS: PANTOprazole 40 MG TAB PO SCH (08:26)
[2020-02-29] MEDS: MONTELUKAST SODIUM 10 MG TABLET PO SCH (08:26)
[2020-02-29 08:27] LABS: Prothrombin Time 20.8 Seconds (9.0-12.0)
[2020-02-29] MEDS: DICLOFENAC SOD 1% GEL 100 GM TUBE EXT SCH ×2 (08:27→21:09)
[2020-02-29] MEDS: INSULIN ASPART 100 UNITS/ML 3 ML PEN SC SCH ×4 (09:02→21:06)
--- NOTE | 2020-02-29 09:45 | Psychiatric Progress Note ---
Date of Service February 29, 2020 Impression / Recommendations Impression 54 yo male with extended ED stay on 302; on a 303 as of 02/27/2020. Chronic and persistent mental illness, diagnosed with schizoaffective disorder bipolar type, presented with manic and psychotic symptoms in the context of medication noncompliance. He was agitated and uncooperative in the ED, remains poorly compliant and unable to care for basic needs outside of the hospital. Symptoms of kylee are persisting including very poor sleep, hyperverbal language, and tangential/disorganized thought process. He also continues to have episodes of significant irritability, and continues to be at acute risk of harm to self or others if discharged prematurely. (1) Schizoaffective disorder: 02/25 - The patient was admitted to the [facility]) on q15 min checks (behavioral with suicide precautions) for safety. The patient will participate in group, recreational, and milieu therapies and will be offered additional individual and family sessions as clinically appropriate. He clearly meets criteria for extended involuntary commitment and a 303 was filed, Dr. Lopez updated as will be testifying psychiatrist. Regarding meds, trazodone and Cymbalta were held in ED due to paradoxical reaction and kylee. Zyprexa was given standing order there, as calmer will change to prn here. His Tegretol was also restarted there at low dose as lo ngstanding previously effective med. May impact his anticoagulation. 02/26 -303 hearing held and commitment granted. Contact Su MORATAYA at [place] to coordinate care - left message. -Continue olanzapine 10 mg at bedtime, risperidone 2 mg at bedtime (contact outpatient clinician regarding previous response to these medications and preferred plan moving forward), carbamazepine 250 mg twice daily, and diazepam 5 mg at bedtime. Zolpidem 10 mg at bedtime as needed has been added, and although he received a dose last night, he still slept only 1 hour. Consider trial of atypical antipsychotic with sedating properties, such as chlorpromazine, in place of one of his atypicals if sleep does not improve. -Monitoring on an atypical antipsychotic: Hgb A1C 5.5%, est ave glucose 111 on 02/27/20, FLP ordered for tomorrow. -Per records, patient has assault charges. Attempt to clarify with his outpatient dependency case manager. 02/27 - Medication adjustments suggested this morning after treatment team and review of collateral obtained from patient's outpatient psychiatric prescriber. - Titrating risperidone to 1mg qAM and 2mg qHS - further titration as tolerated (previous dosing of 8mg daily total). - Diazepam titrated to 10mg qHS to promote sleep, as this continues to be a problem. Scheduled HS olanzapine was discontinued, but remains a prn option for sleep/agitation if necessary. - Consider chlorpromazine for mood stabilization/sleep if sleep continues to be an issue. 02/28 - Continue medication adjustments as previously discussed - pt received 3mg total of risperidone yesterday, scheduled to receive 4mg total today. Continue titration as tolerated - Pt continues to sleep poorly, though has been taking brief and intermittent naps during the day which is a small improvement. Continue diazepam at this time. (2) Deep venous thrombosis: 02/25 - Patient non-compliant with Eliquis and was transitioned to Coumadin in the ED with Lovenox bridge. The combo should be continued for at least 2 more days and an INR >2. Pharmacist recommends daily PT/INR if he'll allow (every other acceptable if issue) and taking 10 mg Coumadin for the next 2 nights. 02/26 -INR 1.2 today. Continue Lovenox until Coumadin is therapeutic, with daily INR. 02/27 - INR 2.0 today - will discontinue Lovenox - patient thus far has been compliant with daily PT/INR. 02/28 - INR continues to be at 2.0 today with discontinuation of Lovenox (3) Diabetes mellitus: 02/25 - diabetic pharmacy consult 02/26 -patient getting insulin here, glucose well controlled. Risk Factors Assessment Male: Yes : Yes Do You Have Access To A Gun?: No Health Problems: Yes Mental Health Diagnoses: Yes Substance Use Disorders: No Family History of Suicide: Yes Previous Psychiatric Hospitalization: Yes Protective Factors Assessment : No Responsible for Young Children: No Employed: No Stable Relationships: No Interval History Identifying Information MANDI BOSS is a 54-year-old M who currently lives in alone in [place], has a history of schizoaffective disorder, and was admitted on 02/26/20 12:02 on a 302 involuntary commitment for disorganized psychosis. It should be noted that he initially presented on 02/21 and has been in the ED awaiting bed placement for >3 days. Chief Complaint "Um, I'm doing fine. What's up today?" Review of Systems Notes Constitutional: admits to limited sleep, but states he is not fatigued Cardiovascular: denied Respiratory: denied Gastrointestinal: denied Neurological: denied Psychiatric: denies symptoms other than stated above Total of at least 10 systems reviewed, pertinent positives as above and in HPI. Sleep Information Total Hours of Sleep: 0.75 Sleep Comments: pt on q-15 minute checks Meal Information Percent Meal Consumed - Breakfast: 100 Percent Meal Consumed - Lunch: 100 Percent Meal Consumed - Dinner: 100 Subjective Subjective Patient was seen & assessed and interval progress reviewed with nursing and social work. Staff report the patient continues to be somewhat labile. He is irritable at times, and last evening it was reported patient required security presence on the unit due to him barging into the nurses' station and threatening staff. Pt sleep for only 3/4 hours last night. Pt was seen today to assess progress since admission. The patient continues to be tangential and disorganized, but was more pleasant during our conversation today. He reports "I'm doing fine. What's up today?" The patient denied any physical concerns at this time. 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 He states "cause I'd like to get a girlfriend, but I need to make sure I'm not related to them first. I think I'll start with a girlfriend, then get engaged, then get - I think that's how most people are doing it these days. Pt does state that he had been calling the school crossing guard supervisor of his dependency case manager, a female whom he had previously demonstrated poor boundaries with. Pt states he only did this because he could not get in contact with his dependency case manager, but he is aware he was told to not call this female anymore. Pt was reminded that it is still early in the morning, and encouraged to try his assigned dependency case manager later in the day if desire. Pt states he was thinking about "alphabetizing the book case, but I can't do that by myself." When asked why he wished to take on this task, he stated "eh, just seemed like a good project." Pt continued with a somewhat disorganized conversation about the various medical specialists he sees and needing follow-up appointments with podiatry for toenail clipping, orthopedics for "knee injections for cushion", and his urologist. Pt then make an off-color comment about prostate exams, followed by a laugh. Medications recommendations were outlined during our conversation, and patient admitted to willingness to continue with them. He does admit he feels "like I'm walking around drunk." Pt states this has been "since they switched around my medications back at [place]." Pt denied other needs at this time. Physical Exam Psychiatric Orientation: alert and + guarded (superficially cooperative today) Apperance: appropriately dressed, appropriately groomed and appeared stated age Eye Contact: + fair eye contact (pacing room) Motor Behavior: steady gait and station and + psychomotor agitation (pacing, restless) Speech: + abnormal rate/rhythm/volume of speech pt continues to primarily mumble, he is hyperverbal and occasionally incoherent Affect: + constricted affect Thought Process: + tangential thought process (disorganized), + flight of ideas and + looseness of associations Thought Content: + paranoid, + delusions and + persecution Cognition: + recent memory not intact and + attention not intact Insight: + impaired insight Judgement: + impaired judgement Vital Signs (Past 24 Hours) Last Vital Signs Temp 36.3 C L 02/29/20 06:35 Pulse 78 02/29/20 06:36 Resp 16 02/29/20 06:35 BP 131/73 02/29/20 06:36 Pulse Ox 98 02/26/20 12:12 Results & Data ([facility]) Laboratory Results Laboratory Results - last 24 hr 02/28/20 02/28/20 02/29/20 12:43 17:09 07:36 PT 20.8 H INR 2.0 H POC Glucose 98 93 02/29/20 07:55 PT INR POC Glucose 104 H Current Inpatient Medications Current Inpatient Medications: Current Inpatient Medications Acetaminophen (Acetaminophen 325 Mg Tab) 650 mg PO Q4H PRN PRN Reason: Headache or Minor Fever Stop: 03/27/20 12:01 Last Admin: 02/29/20 03:14 Dose: 650 mg Documented by: Al Hydrox/Mg Hydrox/Simethicone (Aluminum/Magnesium Susp 30 Ml Udc) 30 ml PO Q4H PRN PRN Reason: GI Upset Stop: 03/27/20 12:01 Atorvastatin Calcium (Atorvastatin 20 Mg Tab) 20 mg PO QAM [facility] Stop: 03/28/20 08:59 Last Admin: 02/29/20 08:25 Dose: 20 mg Documented by: Baclofen (Baclofen 20 Mg Tab) 20 mg PO BID [facility] Stop: 03/27/20 20:59 Last Admin: 02/29/20 08:24 Dose: 20 mg Documented by: Bismuth Subsalicylate (Bismuth Subsalicylate Liqd 236 Ml) 15 ml PO PRN PRN PRN Reason: Loose Stool Stop: 03/27/20 12:01 Carbamazepine (Carbamazepine 100 Mg Chew Tab) 250 mg PO BID [facility] Stop: 03/25/20 20:59 Last Admin: 02/29/20 08:26 Dose: 250 mg Documented by: Diazepam (Diazepam 5 Mg Tablet) 10 mg PO HS [facility] Stop: 03/29/20 21:59 Last Admin: 02/28/20 21:03 Dose: 10 mg Documented by: Diclofenac Sodium (Diclofenac Sod 1% Gel 100 Gm Tube) 2 gm EXT BID [facility] Stop: 03/27/20 20:59 Last Admin: 02/29/20 08:27 Dose: 2 gm Documented by: Furosemide (Furosemide 20 Mg Tab) 20 mg PO QAM PRN PRN Reason: swelling Stop: 03/28/20 08:59 Last Admin: 02/28/20 14:17 Dose: 20 mg Documented by: Gabapentin (Gabapentin 400 Mg Cap) 400 mg PO QID [facility] Stop: 03/27/20 12:59 Last Admin: 02/29/20 08:26 Dose: 400 mg Documented by: Insulin Aspart (Insulin Aspart 100 Units/Ml 3 Ml Pen) 0 units SC [facility]; Protocol Stop: 03/27/20 17:14 Last Admin: 02/29/20 09:02 Dose: 8 units Documented by: Levothyroxine Sodium (Levothyroxine Sodium 50 Mcg Tablet) 50 mcg PO DAILYBB [facility] Stop: 03/28/20 06:29 Last Admin: 02/29/20 08:22 Dose: 50 mcg Documented by: Loratadine (Loratadine 10 Mg Tab) 10 mg PO QAM [facility] Stop: 03/28/20 08:59 Last Admin: 02/29/20 08:22 Dose: 10 mg Documented by: Lorazepam (Lorazepam 2 Mg/Ml Vial (Im Use)) 2 mg IM Q6 PRN PRN Reason: Agitation Stop: 03/27/20 12:39 Magnesium Hydroxide (Magnesium Hydroxide Susp 30 Ml Udc) 30 ml PO DAILY PRN PRN Reason: Constipation Stop: 03/27/20 12:01 Magnesium Oxide (Magnesium Oxide 400 Mg Tab) 400 mg PO BID [facility] Stop: 03/27/20 20:59 Last Admin: 02/29/20 08:25 Dose: 400 mg Documented by: Montelukast Sodium (Montelukast Sodium 10 Mg Tablet) 10 mg PO DAILY [facility] Stop: 03/28/20 08:59 Last Admin: 02/29/20 08:26 Dose: 10 mg Documented by: Multivitamins/Minerals (Calcium 600mg + Vit D 400 Iu Tab) 1 tab PO DAILY [facility] Stop: 03/29/20 08:59 Last Admin: 02/29/20 08:22 Dose: 1 tab Documented by: Nabumetone (Nabumetone 500 Mg Tablet) 500 mg PO QID [facility] Stop: 03/27/20 12:59 Last Admin: 02/29/20 08:26 Dose: 500 mg Documented by: Olanzapine (Olanzapine Zydis 10 Mg Orally Dis. Tab) 10 mg PO BID PRN PRN Reason: Anxiety/Agitation Stop: 03/27/20 20:59 Last Admin: 02/27/20 12:18 Dose: 10 mg Documented by: Olanzapine (Olanzapine 10 Mg/2.1 Ml Sdv) 10 mg IM Q6 PRN PRN Reason: Agitation Stop: 03/27/20 12:39 Pantoprazole Sodium (Pantoprazole 40 Mg Tab) 40 mg PO DAILY [facility]OSIN Stop: 03/29/20 08:59 Last Admin: 02/29/20 08:26 Dose: 40 mg Documented by: Risperidone (Risperidone 2 Mg Tablet) 2 mg PO HS [facility] Stop: 03/27/20 20:59 Last Admin: 02/28/20 21:01 Dose: 2 mg Documented by: Risperidone (Risperidone 1 Mg Tablet) 1 mg PO QAM [facility] Stop: 02/19/21 08:59 Last Admin: 02/29/20 08:26 Dose: 1 mg Documented by: Risperidone (Risperidone 1 Mg Tablet) 1 mg PO HS [facility] Stop: 03/29/20 21:59 Last Admin: 02/28/20 21:02 Dose: 1 mg Documented by: Sodium Chloride (Sodium Chloride 0.65% Na Soln 45 Ml ([place])) 1 - 2 sprays NA PRN PRN PRN Reason: Nasal Dryness/Congestion Stop: 03/27/20 12:01 Warfarin Sodium (Warfarin Sod 10 Mg Tab) 10 mg PO HS [facility] Stop: 03/27/20 21:59 Last Admin: 02/28/20 20:58 Dose: 10 mg Documented by: Mental Health & Subst Abuse Tx Psychiatrist [facility] Date of Appointment with Psychiatrist: 03/18/20 Time of Appointment with Psychiatrist: 1:15pm Therapist Name of Therapist: Luis Fernando eli/[place] Utility Technician Name of Utility Technician: Kvng Phone Number for Utility Technician: [phone] Post Discharge Appointments Primary Care Physician Name Of Family Doctor: Dr. Baltazar [facility] Contact Information Discharge Discharge [address] [address] [place] [address], [address] [address] (1) Diabetes mellitus Diabetes mellitus complication status: without complication Diabetes mellitus intermediate manager insulin use: with intermediate manager use Diabetes mellitus type: type 2 Qualified Code(s): E11.9 - Type 2 diabetes mellitus without complications; Z79.4 - salvage determiner (current) use of insulin (2) Schizoaffective disorder Schizoaffective disorder type: bipolar Qualified Code(s): F25.0 - Schizoaffective disorder, bipolar type
[2020-02-29] MEDS: WARFARIN SOD 10 MG TAB PO SCH (20:59)
[2020-02-29] MEDS: risperiDONE 2 MG TABLET PO SCH (21:00)
[2020-02-29] MEDS: diazePAM 5 MG TABLET PO SCH (21:01)
[2020-03-01 07:45] LABS: INR 2.1 (0.9-1.1); Prothrombin Time 21.6 Seconds (9.0-12.0)
[2020-03-01] MEDS: DICLOFENAC SOD 1% GEL 100 GM TUBE EXT SCH ×2 (08:58→21:20)
[2020-03-01] MEDS: LEVOTHYROXINE SODIUM 50 MCG TABLET PO SCH ×2 (08:59→11:49)
[2020-03-01] MEDS: CALCIUM 600MG + VIT D 400 IU TAB PO SCH (08:59)
[2020-03-01] MEDS: LORATADINE 10 MG TAB PO SCH (08:59)
[2020-03-01] MEDS: BACLOFEN 20 MG TAB PO SCH ×2 (09:00→21:18)
[2020-03-01] MEDS: MAGNESIUM OXIDE 400 MG TAB PO SCH ×2 (09:00→21:18)
[2020-03-01] MEDS: ATORVASTATIN 20 MG TAB PO SCH (09:00)
[2020-03-01] MEDS: NABUMETONE 500 MG TABLET PO SCH ×4 (09:01→21:18)
[2020-03-01] MEDS: PANTOprazole 40 MG TAB PO SCH (09:01)
[2020-03-01] MEDS: MONTELUKAST SODIUM 10 MG TABLET PO SCH ×2 (09:01→10:04)
[2020-03-01] MEDS: GABAPENTIN 400 MG CAP PO SCH ×4 (09:01→21:18)
[2020-03-01] MEDS: carBAMazepine 100 MG CHEW TAB PO SCH ×2 (09:02→21:19)
[2020-03-01] MEDS: INSULIN ASPART 100 UNITS/ML 3 ML PEN SC SCH ×4 (09:04→21:23)
[2020-03-01] MEDS: risperiDONE 1 MG TABLET PO SCH (09:24)
--- NOTE | 2020-03-01 09:40 | Psychiatric Progress Note ---
Date of Service March 01, 2020 Impression / Recommendations Impression 54 yo male with extended ED stay on 302; on a 303 as of 02/27/2020. Chronic and persistent mental illness, diagnosed with schizoaffective disorder bipolar type, presented with manic and psychotic symptoms in the context of medication noncompliance. He was agitated and uncooperative in the ED, remains poorly compliant and unable to care for basic needs outside of the hospital. Symptoms of kylee are persisting including very poor sleep, hyperverbal language, and tangential/disorganized thought process. He also continues to have episodes of significant irritability, and continues to be at acute risk of harm to self or others if discharged prematurely. (1) Schizoaffective disorder: 02/25 - The patient was [facility] to [facility] on q15 min checks (behavioral with suicide precautions) for safety. The patient will participate in group, recreational, and milieu therapies and will be offered additional individual and family sessions as clinically appropriate. He clearly meets criteria for extended involuntary commitment and a 303 was filed, Dr. Lopez updated as will be testifying psychiatrist. Regarding meds, trazodone and Cymbalta were held in ED due to paradoxical reaction and kylee. Zyprexa was given standing order there, as calmer will change to prn here. His Tegretol was also restarted there at low dose as lo ngstanding previously effective med. May impact his anticoagulation. 02/26 -303 hearing held and commitment granted. Contact Su MORATAYA at [facility] to coordinate care - left message. -Continue olanzapine 10 mg at bedtime, risperidone 2 mg at bedtime (contact outpatient clinician regarding previous response to these medications and preferred plan moving forward), carbamazepine 250 mg twice daily, and diazepam 5 mg at bedtime. Zolpidem 10 mg at bedtime as needed has been added, and although he received a dose last night, he still slept only 1 hour. Consider trial of atypical antipsychotic with sedating properties, such as chlorpromazine, in place of one of his atypicals if sleep does not improve. -Monitoring on an atypical antipsychotic: Hgb A1C 5.5%, est ave glucose 111 on 02/27/20, FLP ordered for tomorrow. -Per records, patient has assault charges. Attempt to clarify with his outpatient case fitter. 02/27 - Medication adjustments suggested this morning after treatment team and review of collateral obtained from patient's outpatient psychiatric prescriber. - Titrating risperidone to 1mg qAM and 2mg qHS - further titration as tolerated (previous dosing of 8mg daily total). - Diazepam titrated to 10mg qHS to promote sleep, as this continues to be a problem. Scheduled HS olanzapine was discontinued, but remains a prn option for sleep/agitation if necessary. - Consider chlorpromazine for mood stabilization/sleep if sleep continues to be an issue. 02/28 - Continue medication adjustments as previously discussed - pt received 3mg total of risperidone yesterday, scheduled to receive 4mg total today. Continue titration as tolerated - Pt continues to sleep poorly, though has been taking brief and intermittent naps during the day which is a small improvement. Continue diazepam at this time. 03/01 - Risperidone being titrated to 4mg this evening (total of 5mg today), and AM dose being titrated to 2mg tomorrow (will get total of 6mg). Continue risperidone titration as indicated/tolerated. - Pt was counseled on the fact that medications used to stabilize his symptoms can eventually be cross-tapered to medications that may be more ideal for long- term use. Pt has continued to take risperidone as scheduled, but does verbalize concerns about long-term side effects he has experienced in the past. He did seem to understand that risperidone is being used for acute stabilization, but that other options can be explored on an outpatient basis once his symptoms are improved. - Pt did have improved sleep last evening - continue to monitor, adjust medication regimen as needed to target sleep (2) Deep venous thrombosis: 02/25 - Patient non-compliant with Eliquis and was transitioned to Coumadin in the ED with Lovenox bridge. The combo should be continued for at least 2 more days and an INR >2. Pharmacist recommends daily PT/INR if he'll allow (every other acceptable if issue) and taking 10 mg Coumadin for the next 2 nights. 02/26 -INR 1.2 today. Continue Lovenox until Coumadin is therapeutic, with daily INR. 02/27 - INR 2.0 today - will discontinue Lovenox - patient thus far has been compliant with daily PT/INR. 02/28 - INR continues to be at 2.0 today with discontinuation of Lovenox 03/01--INR = 2.1 (3) Diabetes mellitus: 02/25 - diabetic pharmacy consult 02/26 -patient getting insulin here, glucose well controlled. Risk Factors Assessment Male: Yes : Yes Do You Have Access To A Gun?: No Health Problems: Yes Mental Health Diagnoses: Yes Substance Use Disorders: No Family History of Suicide: Yes Previous Psychiatric Hospitalization: Yes Protective Factors Assessment : No Responsible for Young Children: No Employed: No Stable Relationships: No Interval History Identifying Information MANDI BOSS is a 54-year-old M who currently lives in alone in [place], has a history of schizoaffective disorder, and was admitted on 02/26/20 12:02 on a 302 involuntary commitment for disorganized psychosis. It should be noted that he initially presented on 02/21 and has been in the ED awaiting bed placement for >3 days. Chief Complaint "Oh, I'm doing fine. I think I need to get the cable in my apartment fixed. This table is nice, I found a few nice pieces at the [facility]." Review of Systems Notes Constitutional: reports improved sleep last evening Cardiovascular: denied Respiratory: denied Gastrointestinal: denied Neurological: reports improvement in previous reports of "walking around like I'm drunk" Musculoskeletal: report chronic back pain Psychiatric: denies symptoms other than stated above Total of at least 10 systems reviewed, pertinent positives as above and in HPI. Sleep Information Total Hours of Sleep: 4 Sleep Comments: pt on q-15 minute checks Meal Information Percent Meal Consumed - Breakfast: 90 Percent Meal Consumed - Lunch: 100 Percent Meal Consumed - Dinner: 100 Subjective Subjective Patient was seen & assessed and interval progress reviewed with treatment team. Staff report the patient has been in better behavioral control, but thoughts continue to be disorganized. Last evening, he was reported to be very fixated on marriage and the idea of finding a . Pt did sleep better last evening, reportedly getting 4 hours. Pt was seen today to assess progress since admission. Pt was pleasant for duration of conversation, but continues to be very tangential and hyperverbal. 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 Attempts were often made to redirect the conversation back to patient's treatment goals, but these topics were not sustained for long. Pt did at least acknowledge understanding of this provider's explanation of the use of risperidone. He continues to report concern for development of "man boobs" and weight gain. We discussed that there are two stages to his treatment, the medications being used for acute stabilization, and the medications that can be discussed for long-term maintenance of his symptoms. Pt did seem to understand this idea and he is agreeable to risperidone in the short term. Reviewed plans to continue titration. He indicated that he is hoping to be discharged soon as he has many things to do. 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 Pt was encouraged to take his treatment one step at a time for now. He denied any physical concerns today. He denied other needs at this time. Physical Exam Psychiatric Orientation: alert and cooperative (superficially) Apperance: appropriately dressed, appropriately groomed and appeared stated age Eye Contact: + fair eye contact Motor Behavior: + psychomotor agitation (restless, often pacing or walking laps) Speech: + abnormal rate/rhythm/volume of speech hyperverbal, soft tone - often mumbling, making speech incoherent at times Affect: + blunted affect and + constricted affect Mood: no depressed mood Thought Process: + tangential thought process, + flight of ideas and + looseness of associations Thought Content: + delusions; no hopelessness and no worthlessness Suicidal Thoughts: denies suicidal thoughts Homicidal Thoughts: denies homicidal thoughts Cognition: + recent memory not intact and + attention not intact Insight: + impaired insight Judgement: + impaired judgement Vital Signs (Past 24 Hours) Last Vital Signs Temp 36.4 C L 03/01/20 06:37 Pulse 76 03/01/20 06:37 Resp 16 03/01/20 06:37 BP 128/84 03/01/20 06:38 Pulse Ox 98 02/26/20 12:12 Results & Data ([facility]) Laboratory Results Laboratory Results - last 24 hr 02/29/20 02/29/20 02/29/20 12:30 17:12 20:33 PT INR POC Glucose 121 H 109 H 112 H 03/01/20 07:17 PT 21.6 H INR 2.1 H POC Glucose Current Inpatient Medications Current Inpatient Medications: Current Inpatient Medications Acetaminophen (Acetaminophen 325 Mg Tab) 650 mg PO Q4H PRN PRN Reason: Headache or Minor Fever Stop: 03/27/20 12:01 Last Admin: 02/29/20 03:14 Dose: 650 mg Documented by: Al Hydrox/Mg Hydrox/Simethicone (Aluminum/Magnesium Susp 30 Ml Udc) 30 ml PO Q4H PRN PRN Reason: GI Upset Stop: 03/27/20 12:01 Atorvastatin Calcium (Atorvastatin 20 Mg Tab) 20 mg PO QAM TOSIN Stop: 03/28/20 08:59 Last Admin: 03/01/20 09:00 Dose: 20 mg Documented by: Baclofen (Baclofen 20 Mg Tab) 20 mg PO BID TOSIN Stop: 03/27/20 20:59 Last Admin: 03/01/20 09:00 Dose: 20 mg Documented by: Bismuth Subsalicylate (Bismuth Subsalicylate Liqd 236 Ml) 15 ml PO PRN PRN PRN Reason: Loose Stool Stop: 03/27/20 12:01 Carbamazepine (Carbamazepine 100 Mg Chew Tab) 250 mg PO BID [facility] Stop: 03/25/20 20:59 Last Admin: 03/01/20 09:02 Dose: 250 mg Documented by: Diazepam (Diazepam 5 Mg Tablet) 10 mg PO HS [facility] Stop: 03/29/20 21:59 Last Admin: 02/29/20 21:01 Dose: 10 mg Documented by: Diclofenac Sodium (Diclofenac Sod 1% Gel 100 Gm Tube) 2 gm EXT BID [facility] Stop: 03/27/20 20:59 Last Admin: 03/01/20 08:58 Dose: 2 gm Documented by: Furosemide (Furosemide 20 Mg Tab) 20 mg PO QAM PRN PRN Reason: swelling Stop: 03/28/20 08:59 Last Admin: 02/28/20 14:17 Dose: 20 mg Documented by: Gabapentin (Gabapentin 400 Mg Cap) 400 mg PO QID [facility] Stop: 03/27/20 12:59 Last Admin: 03/01/20 09:01 Dose: 400 mg Documented by: Insulin Aspart (Insulin Aspart 100 Units/Ml 3 Ml Pen) 0 units SC ACHS [facility] Stop: 03/27/20 17:14 Last Admin: 03/01/20 09:04 Dose: 5 units Documented by: Levothyroxine Sodium (Levothyroxine Sodium 50 Mcg Tablet) 50 mcg PO DAILYBB [facility] Stop: 03/28/20 06:29 Last Admin: 03/01/20 08:59 Dose: 50 mcg Documented by: Loratadine (Loratadine 10 Mg Tab) 10 mg PO QAM [facility] Stop: 03/28/20 08:59 Last Admin: 03/01/20 08:59 Dose: 10 mg Documented by: Lorazepam (Lorazepam 2 Mg/Ml Vial (Im Use)) 2 mg IM Q6 PRN PRN Reason: Agitation Stop: 03/27/20 12:39 Magnesium Hydroxide (Magnesium Hydroxide Susp 30 Ml Udc) 30 ml PO DAILY PRN PRN Reason: Constipation Stop: 03/27/20 12:01 Magnesium Oxide (Magnesium Oxide 400 Mg Tab) 400 mg PO BID [facility] Stop: 03/27/20 20:59 Last Admin: 03/01/20 09:00 Dose: 400 mg Documented by: Montelukast Sodium (Montelukast Sodium 10 Mg Tablet) 10 mg PO DAILY [facility] Stop: 03/28/20 08:59 Last Admin: 02/29/20 08:26 Dose: 10 mg Documented by: Multivitamins/Minerals (Calcium 600mg + Vit D 400 Iu Tab) 1 tab PO DAILY [facility] Stop: 03/29/20 08:59 Last Admin: 03/01/20 08:59 Dose: 1 tab Documented by: Nabumetone (Nabumetone 500 Mg Tablet) 500 mg PO QID [facility] Stop: 03/27/20 12:59 Last Admin: 03/01/20 09:01 Dose: 500 mg Documented by: Trulicity 0.75 Mg- Non-Formulary Patient's Own Med 1 ea AK Garcia@0800 [facility] Stop: 04/02/20 07:59 Olanzapine (Olanzapine Zydis 10 Mg Orally Dis. Tab) 10 mg PO BID PRN PRN Reason: Anxiety/Agitation Stop: 03/27/20 20:59 Last Admin: 02/27/20 12:18 Dose: 10 mg Documented by: Olanzapine (Olanzapine 10 Mg/2.1 Ml Sdv) 10 mg IM Q6 PRN PRN Reason: Agitation Stop: 03/27/20 12:39 Pantoprazole Sodium (Pantoprazole 40 Mg Tab) 40 mg PO DAILY [facility] Stop: 03/29/20 08:59 Last Admin: 03/01/20 09:01 Dose: 40 mg Documented by: Risperidone (Risperidone 2 Mg Tablet) 2 mg PO HS [facility] Stop: 03/27/20 20:59 Last Admin: 02/29/20 21:00 Dose: 2 mg Documented by: Risperidone (Risperidone 1 Mg Tablet) 1 mg PO QAM TOSIN Stop: 03/29/20 08:59 Last Admin: 03/01/20 09:24 Dose: 1 mg Documented by: Risperidone (Risperidone 1 Mg Tablet) 1 mg PO HS TOSIN Stop: 03/29/20 21:59 Last Admin: 02/29/20 21:00 Dose: 1 mg Documented by: Sodium Chloride (Sodium Chloride 0.65% Na Soln 45 Ml ([place])) 1 - 2 sprays NA PRN PRN PRN Reason: Nasal Dryness/Congestion Stop: 03/27/20 12:01 Warfarin Sodium (Warfarin Sod 10 Mg Tab) 10 mg PO HS TOSIN Stop: 03/27/20 21:59 Last Admin: 02/29/20 20:59 Dose: 10 mg Documented by: Mental Health & Subst Abuse Tx Psychiatrist Name of Psychiatrist: Eric Osuna [facility] Psychiatrist's Date of Appointment with Psychiatrist: 03/18/20 Time of Appointment with Psychiatrist: 1:15pm Therapist Name of Therapist: Luis Fernando eli/[employer] Name of [employer]: [employer] Phone Number for [employer]: [phone] Post Discharge Appointments Primary Care Physician Name Of Family Doctor: Dr. Baltazar [facility] Contact Information Discharge Discharge Address: [address] [place] [address], [place] [address] (1) Diabetes mellitus Diabetes mellitus complication status: without complication Diabetes mellitus care home insulin use: with termite treater helper use Diabetes mellitus type: type 2 Qualified Code(s): E11.9 - Type 2 diabetes mellitus without complications; Z79.4 - USP (current) use of insulin (2) Schizoaffective disorder Schizoaffective disorder type: bipolar Qualified Code(s): F25.0 - Schizoaffective disorder, bipolar type
[2020-03-01] MEDS: WARFARIN SOD 10 MG TAB PO SCH (21:21)
[2020-03-01] MEDS: risperiDONE 2 MG TABLET PO SCH (21:22)
[2020-03-01] MEDS: diazePAM 5 MG TABLET PO SCH (21:28)
[2020-03-01] MEDS: ACETAMINOPHEN 325 MG TAB PO PRN (22:41)
[2020-03-02] MEDS: LEVOTHYROXINE SODIUM 50 MCG TABLET PO SCH (05:22)
[2020-03-02 06:56] LABS: INR 1.9 (0.9-1.1); Prothrombin Time 19.5 Seconds (9.0-12.0)
[2020-03-02] MEDS: CALCIUM 600MG + VIT D 400 IU TAB PO SCH (08:21)
[2020-03-02] MEDS: LORATADINE 10 MG TAB PO SCH (08:21)
[2020-03-02] MEDS: BACLOFEN 20 MG TAB PO SCH ×2 (08:21→21:15)
[2020-03-02] MEDS: GABAPENTIN 400 MG CAP PO SCH ×4 (08:22→21:16)
[2020-03-02] MEDS: MAGNESIUM OXIDE 400 MG TAB PO SCH ×2 (08:22→21:16)
[2020-03-02] MEDS: ATORVASTATIN 20 MG TAB PO SCH (08:22)
[2020-03-02] MEDS: PANTOprazole 40 MG TAB PO SCH (08:22)
[2020-03-02] MEDS: NABUMETONE 500 MG TABLET PO SCH ×4 (08:22→21:16)
[2020-03-02] MEDS: MONTELUKAST SODIUM 10 MG TABLET PO SCH (08:23)
[2020-03-02] MEDS: carBAMazepine 100 MG CHEW TAB PO SCH ×2 (08:23→21:17)
[2020-03-02] MEDS: INSULIN ASPART 100 UNITS/ML 3 ML PEN SC SCH ×4 (08:56→21:44)
[2020-03-02] MEDS ORDERED: risperiDONE 2 MG TABLET PO SCH (09:00)
[2020-03-02] MEDS: DICLOFENAC SOD 1% GEL 100 GM TUBE EXT SCH ×2 (09:28→21:19)
--- NOTE | 2020-03-02 11:18 | Psychiatric Progress Note ---
Date of Service March 02, 2020 Impression / Recommendations Impression 54 yo male with extended ED stay on 302; on a 303 as of 02/27/2020. Chronic and persistent mental illness, diagnosed with schizoaffective disorder bipolar type, presented with manic and psychotic symptoms in the context of medication noncompliance. He was agitated and uncooperative in the ED, remains poorly compliant and unable to care for basic needs outside of the hospital. Symptoms of kylee are persisting including very poor sleep, hyperverbal language, and tangential/disorganized thought process. He also continues to have episodes of significant irritability, and continues to be at acute risk of harm to self or others if discharged prematurely. (1) Schizoaffective disorder: 02/25 - The patient was admitted to the [facility] ([facility] mental [facility] unit) on q15 min checks (behavioral with suicide precautions) for safety. The patient will participate in group, recreational, and milieu therapies and will be offered additional individual and family sessions as clinically appropriate. He clearly meets criteria for extended involuntary commitment and a 303 was filed, Dr. Lopez updated as will be testifying psychiatrist. Regarding meds, trazodone and Cymbalta were held in ED due to paradoxical reaction and kylee. Zyprexa was given standing order there, as calmer will change to prn here. His Tegretol was also restarted there at low dose as lo ngstanding previously effective med. May impact his anticoagulation. 02/26 -303 hearing held and commitment granted. Contact Su MORATAYA at [facility] to coordinate care - left message. -Continue olanzapine 10 mg at bedtime, risperidone 2 mg at bedtime (contact outpatient clinician regarding previous response to these medications and preferred plan moving forward), carbamazepine 250 mg twice daily, and diazepam 5 mg at bedtime. Zolpidem 10 mg at bedtime as needed has been added, and although he received a dose last night, he still slept only 1 hour. Consider trial of atypical antipsychotic with sedating properties, such as chlorpromazine, in place of one of his atypicals if sleep does not improve. -Monitoring on an atypical antipsychotic: Hgb A1C 5.5%, est ave glucose 111 on 02/27/20, FLP ordered for tomorrow. -Per records, patient has assault charges. Attempt to clarify with his outpatient rn case manager hospice. 02/27 - Medication adjustments suggested this morning after treatment team and review of collateral obtained from patient's outpatient psychiatric prescriber. - Titrating risperidone to 1mg qAM and 2mg qHS - further titration as tolerated (previous dosing of 8mg daily total). - Diazepam titrated to 10mg qHS to promote sleep, as this continues to be a problem. Scheduled HS olanzapine was discontinued, but remains a prn option for sleep/agitation if necessary. - Consider chlorpromazine for mood stabilization/sleep if sleep continues to be an issue. 02/28 - Continue medication adjustments as previously discussed - pt received 3mg total of risperidone yesterday, scheduled to receive 4mg total today. Continue titration as tolerated - Pt continues to sleep poorly, though has been taking brief and intermittent naps during the day which is a small improvement. Continue diazepam at this time. 03/01 - Risperidone being titrated to 4mg this evening (total of 5mg today), and AM dose being titrated to 2mg tomorrow (will get total of 6mg). Continue risperidone titration as indicated/tolerated. - Pt was counseled on the fact that medications used to stabilize his symptoms can eventually be cross-tapered to medications that may be more ideal for long- term use. Pt has continued to take risperidone as scheduled, but does verbalize concerns about long-term side effects he has experienced in the past. He did seem to understand that risperidone is being used for acute stabilization, but that other options can be explored on an outpatient basis once his symptoms are improved. - Pt did have improved sleep last evening - continue to monitor, adjust medication regimen as needed to target sleep 03/02 total of 6mg rispderal today (2mgAM and 4mg at hs), wlll move to 7mg tomorrow 03/03 with goal for 8mg on Saturday 03/04 if tolerated; for now monitor the "drunken feeling" as I beleive that is the cumulative poor sleep and increasing risperdal culminating on patinet, but could be a SE of tegretol. He is not showing s/sx of fall risk or dysequilibrium (2) Deep venous thrombosis: 02/25 - Patient non-compliant with Eliquis and was transitioned to Coumadin in the ED with Lovenox bridge. The combo should be continued for at least 2 more days and an INR >2. Pharmacist recommends daily PT/INR if he'll allow (every other acceptable if issue) and taking 10 mg Coumadin for the next 2 nights. 02/26 -INR 1.2 today. Continue Lovenox until Coumadin is therapeutic, with daily INR. 02/27 - INR 2.0 today - will discontinue Lovenox - patient thus far has been compliant with daily PT/INR. 02/28 - INR continues to be at 2.0 today with discontinuation of Lovenox 03/01--INR = 2.1 03/02 - INR 1.9 which is slightly below goal will continue 10mg with daily PT/INR. Request pharmacy input (3) Diabetes mellitus: 02/25 - diabetic pharmacy consult 02/26 -patient getting insulin here, glucose well controlled. Risk Factors Assessment Male: Yes : Yes Do You Have Access To A Gun?: No Health Problems: Yes Mental Health Diagnoses: Yes Substance Use Disorders: No Family History of Suicide: Yes Previous Psychiatric Hospitalization: Yes Protective Factors Assessment : No Responsible for Young Children: No Employed: No Stable Relationships: No Interval History Identifying Information MANDI BOSS is a 54-year-old M who currently lives in alone in [place], has a history of schizoaffective disorder, and was admitted on 02/26/20 12:02 on a 302 involuntary commitment for disorganized psychosis. It should be noted that he initially presented on 02/21 and has been in the ED awaiting bed placement for >3 days. Chief Complaint "There are a lot of things I need to take care of". Review of Systems Sleep Information Total Hours of Sleep: 1.5 Sleep Comments: pt on q-15 minute checks Meal Information Percent Meal Consumed - Breakfast: 100 Percent Meal Consumed - Lunch: 100 Percent Meal Consumed - Dinner: 100 Nutrition Comment: per meal record Subjective Subjective Patient was seen & assessed and interval progress reviewed wit nursing and social work. Per staff franny remains hyperverbal and not sleeping slept 4 hours overnight 02/28, and only 1 hour last night. As of 03/01 he received 5mg risperdal divided and is expected to get total of 6mg today. He is less agitated than when he came in but still at times has needed show of force/security and staff when escalating this past week. Met with patient today, he is pleasant but hyperverbal talks nearly non-stop in a low monotone. He states he has many things to take care of getting back on his omega 's, his probiotic getting his shoulder and hip back in place, wondering if his hernia in his belly button is returning, needs diabetic foot care, wondering about his thyroid results, and needing compression stockings. He has the lattermost at home and states he does have a friend whom he may be able to get the leslie to to bring them. He also reports he had a bipap that he threw away because it dried his mouth out, required a lot of cleaning, and he had to take it off to have some water and did not want to deal with it. He states this happened a month ago. He feels "a little tired when I get n the warmth" He notes "like a drunk feeling, but then I feel fine when I am in the cooler spots." DIscussed how this tiredness may be combination of prolonged kylee and not sleeping, untreated ZORAN and medications. He is now on tegretol since admission but denies feeling dizzy or cloudy. He states he is eating fine, and bowels are moving regularly, pain in his hip and shoulder but not otherwise.Asks for medication for his anxiety "that football pill, it worked really well and instantly." He is feeling "a little tired with the medications" but o/w denies current SE, he does comment "I don't want man boobs but I guess if I exercise I can prevent that." Physical Exam Psychiatric Orientation: alert and oriented x 3 Apperance: appropriately dressed Eye Contact: good eye contact Motor Behavior: steady gait and station; no psychomotor retardation, n EPS and n akathisia Speech: + pressured speech (low continious tone, will answer provider's qustions inserted) Affect: + blunted affect "coming down from a schiz, from a kylee" stating "I feel good" Thought Process: + tangential thought process moving between tangential to goal directed at various points in the interview today, can be goal directed answering quesitons but quickly returns to tangential stream Thought Content: + preoccupation (with physical aspects of his care) Suicidal Thoughts: denies suicidal thoughts Homicidal Thoughts: denies homicidal thoughts Hallucinations: no auditory hallucinations and no visual hallucinations limited recall to what he was taking prior to admission regarding medications, with focus on supplements rather than medications Estimated Intelligence: average estimated intelligence Insight: + impaired insight Judgement: + impaired judgement Vital Signs (Past 24 Hours) Last Vital Signs Temp 36.6 C 03/02/20 06:37 Pulse 90 03/02/20 06:37 Resp 17 03/02/20 06:37 BP 140/96 03/02/20 06:37 Pulse Ox 98 02/26/20 12:12 Results & Data ([facility]) Laboratory Results Laboratory Results - last 24 hr 03/02/20 06:16 PT 19.5 H INR 1.9 H Current Inpatient Medications Current Inpatient Medications: Current Inpatient Medications Acetaminophen (Acetaminophen 325 Mg Tab) 650 mg PO Q4H PRN PRN Reason: Headache or Minor Fever Stop: 03/27/20 12:01 Last Admin: 03/01/20 22:41 Dose: 650 mg Documented by: Al Hydrox/Mg Hydrox/Simethicone (Aluminum/Magnesium Susp 30 Ml Udc) 30 ml PO Q4H PRN PRN Reason: GI Upset Stop: 03/27/20 12:01 Atorvastatin Calcium (Atorvastatin 20 Mg Tab) 20 mg PO QAM TOSIN Stop: 03/28/20 08:59 Last Admin: 03/02/20 08:22 Dose: 20 mg Documented by: Baclofen (Baclofen 20 Mg Tab) 20 mg PO BID TOSIN Stop: 03/27/20 20:59 Last Admin: 03/02/20 08:21 Dose: 20 mg Documented by: Bismuth Subsalicylate (Bismuth Subsalicylate Liqd 236 Ml) 15 ml PO PRN PRN PRN Reason: Loose Stool Stop: 03/27/20 12:01 Carbamazepine (Carbamazepine 100 Mg Chew Tab) 250 mg PO BID TOSIN Stop: 03/25/20 20:59 Last Admin: 03/02/20 08:23 Dose: 250 mg Documented by: Diazepam (Diazepam 5 Mg Tablet) 10 mg PO HS TOSIN Stop: 03/29/20 21:59 Last Admin: 03/01/20 21:28 Dose: 10 mg Documented by: Diclofenac Sodium (Diclofenac Sod 1% Gel 100 Gm Tube) 2 gm EXT BID TOSIN Stop: 03/27/20 20:59 Last Admin: 03/02/20 09:28 Dose: 2 gm Documented by: Furosemide (Furosemide 20 Mg Tab) 20 mg PO QAM PRN PRN Reason: swelling Stop: 03/28/20 08:59 Last Admin: 02/28/20 14:17 Dose: 20 mg Documented by: Gabapentin (Gabapentin 400 Mg Cap) 400 mg PO QID [facility] Stop: 03/27/20 12:59 Last Admin: 03/02/20 08:22 Dose: 400 mg Documented by: Insulin Aspart (Insulin Aspart 100 Units/Ml 3 Ml Pen) 0 units SC ACHS [facility] Stop: 03/27/20 17:14 Last Admin: 03/02/20 08:56 Dose: 8 units Documented by: Levothyroxine Sodium (Levothyroxine Sodium 50 Mcg Tablet) 50 mcg PO 0700 [facility] Stop: 04/01/20 06:59 Last Admin: 03/02/20 05:22 Dose: 50 mcg Documented by: Loratadine (Loratadine 10 Mg Tab) 10 mg PO QAM [facility] Stop: 03/28/20 08:59 Last Admin: 03/02/20 08:21 Dose: 10 mg Documented by: Lorazepam (Lorazepam 2 Mg/Ml Vial (Im Use)) 2 mg IM Q6 PRN PRN Reason: Agitation Stop: 03/27/20 12:39 Magnesium Hydroxide (Magnesium Hydroxide Susp 30 Ml Udc) 30 ml PO DAILY PRN PRN Reason: Constipation Stop: 03/27/20 12:01 Magnesium Oxide (Magnesium Oxide 400 Mg Tab) 400 mg PO BID [facility] Stop: 03/27/20 20:59 Last Admin: 03/02/20 08:22 Dose: 400 mg Documented by: Montelukast Sodium (Montelukast Sodium 10 Mg Tablet) 10 mg PO DAILY [facility] Stop: 03/28/20 08:59 Last Admin: 03/02/20 08:23 Dose: 10 mg Documented by: Multivitamins/Minerals (Calcium 600mg + Vit D 400 Iu Tab) 1 tab PO DAILY [facility] Stop: 03/29/20 08:59 Last Admin: 03/02/20 08:21 Dose: 1 tab Documented by: Nabumetone (Nabumetone 500 Mg Tablet) 500 mg PO QID [facility] Stop: 03/27/20 12:59 Last Admin: 03/02/20 08:22 Dose: 500 mg Documented by: Trulicity 0.75 Mg- Non-Formulary Patient's Own Med 1 ea SC Garcia@[email or web address] [facility] Stop: 04/02/20 07:59 Olanzapine (Olanzapine Zydis 10 Mg Orally Dis. Tab) 10 mg PO BID PRN PRN Reason: Anxiety/Agitation Stop: 03/27/20 20:59 Last Admin: 03/01/20 22:45 Dose: 10 mg Documented by: Olanzapine (Olanzapine 10 Mg/2.1 Ml Sdv) 10 mg IM Q6 PRN PRN Reason: Agitation Stop: 03/27/20 12:39 Pantoprazole Sodium (Pantoprazole 40 Mg Tab) 40 mg PO DAILY TOSIN Stop: 03/29/20 08:59 Last Admin: 03/02/20 08:22 Dose: 40 mg Documented by: Risperidone (Risperidone 2 Mg Tablet) 4 mg PO HS TOSIN Stop: 03/31/20 21:59 Last Admin: 03/01/20 21:22 Dose: 4 mg Documented by: Risperidone (Risperidone 2 Mg Tablet) 2 mg PO QAM TOSIN Stop: 04/01/20 08:59 Last Admin: 03/02/20 08:23 Dose: 2 mg Documented by: Sodium Chloride (Sodium Chloride 0.65% Na Soln 45 Ml ([place])) 1 - 2 sprays NA PRN PRN PRN Reason: Nasal Dryness/Congestion Stop: 03/27/20 12:01 Warfarin Sodium (Warfarin Sod 10 Mg Tab) 10 mg PO HS TOSIN Stop: 03/27/20 21:59 Last Admin: 03/01/20 21:21 Dose: 10 mg Documented by: Mental Health & Subst Abuse Tx Psychiatrist [facility] Date of Appointment with Psychiatrist: 03/18/20 Time of Appointment with Psychiatrist: 1:15pm Therapist Name of Therapist: Luis Fernando eli/[place] Hip Hop Dance Instructor Name of Hip Hop Dance Instructor: Kvng Phone Number for Hip Hop Dance Instructor: [phone] Post Discharge Appointments Primary Care Physician Name Of Family Doctor: Dr. Baltazar [facility] Contact Information Discharge Discharge [address] [address] [place] [address], [address] [address] (1) Schizoaffective disorder Schizoaffective disorder type: bipolar Qualified Code(s): F25.0 - Schizoaffective disorder, bipolar type (2) Diabetes mellitus Diabetes mellitus complication status: without complication Diabetes mellitus intermediate insulin use: with roasterman use Diabetes mellitus type: type 2 Qualified Code(s): E11.9 - Type 2 diabetes mellitus without complications; Z79.4 - detention (current) use of insulin
[2020-03-02] MEDS ORDERED: risperiDONE ODT 0.5 MG SOLTAB PO PRN (11:19)
[2020-03-02] MEDS: FUROSEMIDE 20 MG TAB PO PRN (13:05)
[2020-03-02] MEDS: ACETAMINOPHEN 325 MG TAB PO PRN (15:29)
[2020-03-02] MEDS: risperiDONE 2 MG TABLET PO SCH (21:18)
[2020-03-02] MEDS: WARFARIN SOD 10 MG TAB PO SCH (21:18)
[2020-03-02] MEDS: diazePAM 5 MG TABLET PO SCH (21:20)
[2020-03-03] MEDS: ACETAMINOPHEN 325 MG TAB PO PRN (00:14)
[2020-03-03] MEDS: LEVOTHYROXINE SODIUM 50 MCG TABLET PO SCH (05:00)
[2020-03-03] MEDS: TRULICITY 0.75 MG SC SCH (07:57)
[2020-03-03] MEDS: CALCIUM 600MG + VIT D 400 IU TAB PO SCH (07:59)
[2020-03-03] MEDS: LORATADINE 10 MG TAB PO SCH (07:59)
[2020-03-03] MEDS: GABAPENTIN 400 MG CAP PO SCH ×4 (07:59→21:18)
[2020-03-03] MEDS: MAGNESIUM OXIDE 400 MG TAB PO SCH ×2 (07:59→21:18)
[2020-03-03] MEDS: BACLOFEN 20 MG TAB PO SCH ×2 (07:59→21:18)
[2020-03-03] MEDS: ATORVASTATIN 20 MG TAB PO SCH (07:59)
[2020-03-03] MEDS ORDERED: Nursing to Pharmacy Communication SCH (08:00)
[2020-03-03] MEDS: PANTOprazole 40 MG TAB PO SCH (08:00)
[2020-03-03] MEDS: NABUMETONE 500 MG TABLET PO SCH ×4 (08:00→21:19)
[2020-03-03] MEDS: MONTELUKAST SODIUM 10 MG TABLET PO SCH (08:01)
[2020-03-03] MEDS: carBAMazepine 100 MG CHEW TAB PO SCH (08:01)
[2020-03-03] MEDS: FUROSEMIDE 20 MG TAB PO PRN (08:04)
[2020-03-03] MEDS ORDERED: risperiDONE 3 MG TABLET PO SCH (09:00)
[2020-03-03] MEDS: INSULIN ASPART 100 UNITS/ML 3 ML PEN SC SCH ×4 (09:03→21:31)
[2020-03-03] MEDS: DICLOFENAC SOD 1% GEL 100 GM TUBE EXT SCH ×2 (09:06→21:19)
--- NOTE | 2020-03-03 10:26 | Psychiatric Progress Note ---
Date of Service March 03, 2020 Impression / Recommendations Impression 54 yo male with extended ED stay on 302; on a 303 as of 02/27/2020. Chronic and persistent mental illness, diagnosed with schizoaffective disorder bipolar type, presented with manic and psychotic symptoms in the context of medication noncompliance. He was agitated and uncooperative in the ED, remains poorly compliant and unable to care for basic needs outside of the hospital. Symptoms of kylee are persisting including very poor sleep, hyperverbal language, and tangential/disorganized thought process. He also continues to have episodes of significant irritability, and continues to be at acute risk of harm to self or others if discharged prematurely. (1) Schizoaffective disorder: 02/25 - The patient was admitted to the [facility] on q15 min checks (behavioral with suicide precautions) for safety. The patient will participate in group, recreational, and milieu therapies and will be offered additional individual and family sessions as clinically appropriate. He clearly meets criteria for extended involuntary commitment and a 303 was filed, Dr. Lopez updated as will be testifying psychiatrist. Regarding meds, trazodone and Cymbalta were held in ED due to paradoxical reaction and kylee. Zyprexa was given standing order there, as calmer will change to prn here. His Tegretol was also restarted there at low dose as lo ngstanding previously effective med. May impact his anticoagulation. 02/26 -303 hearing held and commitment granted. Contact Su MORATAYA at [facility] to coordinate care - left message. -Continue olanzapine 10 mg at bedtime, risperidone 2 mg at bedtime (contact outpatient clinician regarding previous response to these medications and preferred plan moving forward), carbamazepine 250 mg twice daily, and diazepam 5 mg at bedtime. Zolpidem 10 mg at bedtime as needed has been added, and although he received a dose last night, he still slept only 1 hour. Consider trial of atypical antipsychotic with sedating properties, such as chlorpromazine, in place of one of his atypicals if sleep does not improve. -Monitoring on an atypical antipsychotic: Hgb A1C 5.5%, est ave glucose 111 on 02/27/20, FLP ordered for tomorrow. -Per records, patient has assault charges. Attempt to clarify with his outpatient human services case manager. 02/27 - Medication adjustments suggested this morning after treatment team and review of collateral obtained from patient's outpatient psychiatric prescriber. - Titrating risperidone to 1mg qAM and 2mg qHS - further titration as tolerated (previous dosing of 8mg daily total). - Diazepam titrated to 10mg qHS to promote sleep, as this continues to be a problem. Scheduled HS olanzapine was discontinued, but remains a prn option for sleep/agitation if necessary. - Consider chlorpromazine for mood stabilization/sleep if sleep continues to be an issue. 02/28 - Continue medication adjustments as previously discussed - pt received 3mg total of risperidone yesterday, scheduled to receive 4mg total today. Continue titration as tolerated - Pt continues to sleep poorly, though has been taking brief and intermittent naps during the day which is a small improvement. Continue diazepam at this time. 03/01 - Risperidone being titrated to 4mg this evening (total of 5mg today), and AM dose being titrated to 2mg tomorrow (will get total of 6mg). Continue risperidone titration as indicated/tolerated. - Pt was counseled on the fact that medications used to stabilize his symptoms can eventually be cross-tapered to medications that may be more ideal for long- term use. Pt has continued to take risperidone as scheduled, but does verbalize concerns about long-term side effects he has experienced in the past. He did seem to understand that risperidone is being used for acute stabilization, but that other options can be explored on an outpatient basis once his symptoms are improved. - Pt did have improved sleep last evening - continue to monitor, adjust medication regimen as needed to target sleep 03/02 total of 6mg rispderal today (2mgAM and 4mg at hs), wlll move to 7mg tomorrow 03/03 with goal for 8mg on Saturday 03/04 if tolerated; for now monitor the "drunken feeling" as I beleive that is the cumulative poor sleep and increasing risperdal culminating on patinet, but could be a SE of tegretol. He is not showing s/sx of fall risk or dysequilibrium 03/03 - I am concerned that tegretol may be causing the "drunken feeling" as patient notes this is new. He is still manic with poor sleep and hyperverbal, more likely to be intrusive/inappropriate/irritable at night. Will stop the tegretol and continue to advance the risperdal 03/03 will get 7mg, and 03/04 8mg divided 4mg bid (he would like to consider 8mg/hs once up to full dosing as that is how he took it outpatient). He declines change from valium to klonpin [facility] provider contemplating increased dose to facilitate sleep. TO increase valium I marquesve could risk daytime somnolence and impairment in cognition and coordination given how long acting it is. ALthough provocative I will return patient to his trazodone 150mg/hs tonight watching for orthostasis alongside of risperdal and 300mg 03/04/20. Pt agrees to slow positional changes but will ask staff to monitor for instability given he is at risk for bleeding on blood thinners if he falls. With goal to show collaboration will inquire about nail clipping and compression stockings for aptient as these are reasonable requests as staffing /supplies are available. (2) Deep venous thrombosis: 02/25 - Patient non-compliant with Eliquis and was transitioned to Coumadin in the ED with Lovenox bridge. The combo should be continued for at least 2 more days and an INR >2. Pharmacist recommends daily PT/INR if he'll allow (every other acceptable if issue) and taking 10 mg Coumadin for the next 2 nights. 02/26 -INR 1.2 today. Continue Lovenox until Coumadin is therapeutic, with daily INR. 02/27 - INR 2.0 today - will discontinue Lovenox - patient thus far has been compliant with daily PT/INR. 02/28 - INR continues to be at 2.0 today with discontinuation of Lovenox 03/01--INR = 2.1 03/02 and 03/03 - 03/02 INR 1.9 which is slightly below goal will continue 10mg with daily PT/INR. Request pharmacy input with next PT/INR on 03/04/20 if that remains <2 (3) Diabetes mellitus: 02/25 - diabetic pharmacy consult 02/26 -patient getting insulin here, glucose well controlled. Risk Factors Assessment Male: Yes : Yes Do You Have Access To A Gun?: No Health Problems: Yes Mental Health Diagnoses: Yes Substance Use Disorders: No Family History of Suicide: Yes Previous Psychiatric Hospitalization: Yes Protective Factors Assessment : No Responsible for Young Children: No Employed: No Stable Relationships: No Interval History Identifying Information MANDI BOSS is a 54-year-old M who currently lives in alone in [place], has a history of schizoaffective disorder, and was admitted on 02/26/20 12:02 on a 302 involuntary commitment for disorganized psychosis. It should be noted that he initially presented on 02/21 and has been in the ED awaiting bed placement for >3 days. Chief Complaint "I need my relafan, my lasix, my magnesium, my compression stockings, my feet are cold, I don't want to take blood thinners anymore....". Review of Systems Sleep Information Total Hours of Sleep: 1 Sleep Comments: pt on q-15 minute checks Meal Information Percent Meal Consumed - Breakfast: 90 Percent Meal Consumed - Lunch: 100 Percent Meal Consumed - Dinner: 100 Nutrition Comment: per meal record Subjective Subjective Patient was seen & assessed and interval progress reviewed with nursing and social work. Patient slept <1 hour overnight and minimal rest in the day yesterday. He continues to be hyperverbal and last evening was intrusive going to the [facility] area to check on another patient inappropriately, going into a different patient's room, making in apporpriate sexual comments to staff yesterday and again making comments about the [employer] Shelley (has delusion that he is going to her and live with she and her children). Apparently social work Wednesday contacted Shelley to alert her of this delusional fixation and Shelley is aware. Patient this AM showed paranoia about his synthroid wanting to check the packaging noting "you never know they could put anything in there." He is on risperdal total of 6mg yesterday (2mg/AM and 4mg/hs) and today will get total of 7mg (3mg/AM and 4mg/hs) Met with franny he continues to report a drunken feeling that he had not previously had on his medications. He refuses to take tegretol any more, "I think it is causing that problem...and the blood thinners make my hands and feet cold, I don't want to take those anymore" He then goes into a flight of ideas about his lasix, magnesium, compression stockings, relafan noting how he takes them at home and how they should be given here. He is not irritable but he is intent of communicating his point. Provider does have to talk over him at times and set more firm boundaries on what I am able and willing to do. He declines change from valium to klonpin, and declines "no more antipsychotics" other than risperdal. He is adamant "put me back on my prior medications....I need trazodone that helps me sleep." He wants diabetic foot care to include clipping of his toe nails. He states he feels tired when he is near heat. FOcal exam of feet and hands reveals toe nails are long, no blue spots, no cyanosis, pink skin with brisk cap refill no lesions. Legs have 2+ pitting nikia a on left leg to mid- calf, and 1 + edema on right leg also to mid-calf, non- tender, one small pencil eraser size scabbed wound with pink border on left gorman o/w no gross deformity or lesions, skin is warm, dry and supple o/w, no pallor and feet and legs are appropriately warm and not cool to touch. Physical Exam Psychiatric Orientation: alert and oriented x 3 Apperance: appropriately dressed Eye Contact: good eye contact Motor Behavior: steady gait and station and no abnormal motor movements Speech: + pressured speech (talks in a low continuious manner today focussed on medications ) he is even and not irritable or labile with this provider, staff notes he was intrusive, persistant and irritable overnight "I guess I am still coming out of my schiz episode, still manic" Thought Process: + tangential thought process and + flight of ideas there are threads of coherent information strung together in a tangential and at times flight of ideas manner, he is not loose today but his thought content is not always accurate, e.g. he wants his relafin 4 times a day and it is prescribed as such Suicidal Thoughts: denies suicidal thoughts Homicidal Thoughts: denies homicidal thoughts denies IOR, AVH, but clearly has grandiosity of seeing his role to direct his treatment and demand what he needs, but is redirectable to compromise has impaired memory, attention is limited as his thoughts seem to carry him forward having a hard time staying on one topic Estimated Intelligence: average estimated intelligence Insight: + poor insight Judgement: + poor judgement Vital Signs (Past 24 Hours) Last Vital Signs Temp 36.6 C 03/03/20 06:32 Pulse 87 03/03/20 06:32 Resp 18 03/03/20 06:32 BP 132/82 03/03/20 06:32 Pulse Ox 98 02/26/20 12:12 Results & Data ([facility]) Current Inpatient Medications Current Inpatient Medications: Current Inpatient Medications Acetaminophen (Acetaminophen 325 Mg Tab) 650 mg PO Q4H PRN PRN Reason: Headache or Minor Fever Stop: 03/27/20 12:01 Last Admin: 03/03/20 00:14 Dose: 650 mg Documented by: Al Hydrox/Mg Hydrox/Simethicone (Aluminum/Magnesium Susp 30 Ml Udc) 30 ml PO Q4H PRN PRN Reason: GI Upset Stop: 03/27/20 12:01 Atorvastatin Calcium (Atorvastatin 20 Mg Tab) 20 mg PO QAM REPLACED BY [facility] Stop: 03/28/20 08:59 Last Admin: 03/03/20 07:59 Dose: 20 mg Documented by: Baclofen (Baclofen 20 Mg Tab) 20 mg PO BID TOSIN Stop: 03/27/20 20:59 Last Admin: 03/03/20 07:59 Dose: 20 mg Documented by: Bismuth Subsalicylate (Bismuth Subsalicylate Liqd 236 Ml) 15 ml PO PRN PRN PRN Reason: Loose Stool Stop: 03/27/20 12:01 Diazepam (Diazepam 5 Mg Tablet) 10 mg PO HS REPLACED BY [facility] Stop: 03/29/20 21:59 Last Admin: 03/02/20 21:20 Dose: 10 mg Documented by: Diclofenac Sodium (Diclofenac Sod 1% Gel 100 Gm Tube) 2 gm EXT BID REPLACED BY [facility] Stop: 03/27/20 20:59 Last Admin: 03/03/20 09:06 Dose: 2 gm Documented by: Furosemide (Furosemide 20 Mg Tab) 20 mg PO QAM PRN PRN Reason: swelling Stop: 03/28/20 08:59 Last Admin: 03/03/20 08:04 Dose: 20 mg Documented by: Gabapentin (Gabapentin 400 Mg Cap) 400 mg PO QID REPLACED BY [facility] Stop: 03/27/20 12:59 Last Admin: 03/03/20 07:59 Dose: 400 mg Documented by: Insulin Aspart (Insulin Aspart 100 Units/Ml 3 Ml Pen) 0 units SC ACHS REPLACED BY [facility] Stop: 03/27/20 17:14 Last Admin: 03/03/20 09:03 Dose: 7 units Documented by: Levothyroxine Sodium (Levothyroxine Sodium 50 Mcg Tablet) 50 mcg PO 0700 TOSIN Stop: 04/01/20 06:59 Last Admin: 03/03/20 05:00 Dose: 50 mcg Documented by: Loratadine (Loratadine 10 Mg Tab) 10 mg PO QAM TOSIN Stop: 03/28/20 08:59 Last Admin: 03/03/20 07:59 Dose: 10 mg Documented by: Lorazepam (Lorazepam 2 Mg/Ml Vial (Im Use)) 2 mg IM Q6 PRN PRN Reason: Agitation Stop: 03/27/20 12:39 Magnesium Hydroxide (Magnesium Hydroxide Susp 30 Ml Udc) 30 ml PO DAILY PRN PRN Reason: Constipation Stop: 03/27/20 12:01 Magnesium Oxide (Magnesium Oxide 400 Mg Tab) 400 mg PO BID REPLACED BY [facility] Stop: 03/27/20 20:59 Last Admin: 03/03/20 07:59 Dose: 400 mg Documented by: Montelukast Sodium (Montelukast Sodium 10 Mg Tablet) 10 mg PO DAILY REPLACED BY [facility] Stop: 03/28/20 08:59 Last Admin: 03/03/20 08:01 Dose: 10 mg Documented by: Multivitamins/Minerals (Calcium 600mg + Vit D 400 Iu Tab) 1 tab PO DAILY REPLACED BY [facility] Stop: 03/29/20 08:59 Last Admin: 03/03/20 07:59 Dose: 1 tab Documented by: Nabumetone (Nabumetone 500 Mg Tablet) 500 mg PO QID REPLACED BY [facility] Stop: 03/27/20 12:59 Last Admin: 03/03/20 08:00 Dose: 500 mg Documented by: Trulicity 0.75 Mg- Non-Formulary Patient's Own Med 1 ea SC Garcia@0800 REPLACED BY [facility] Stop: 04/02/20 07:59 Last Admin: 03/03/20 07:57 Dose: 1 ea Documented by: Pantoprazole Sodium (Pantoprazole 40 Mg Tab) 40 mg PO DAILY REPLACED BY [facility] Stop: 03/29/20 08:59 Last Admin: 03/03/20 08:00 Dose: 40 mg Documented by: Risperidone (Risperidone 2 Mg Tablet) 4 mg PO HS REPLACED BY [facility] Stop: 03/31/20 21:59 Last Admin: 03/02/20 21:18 Dose: 4 mg Documented by: Risperidone (Risperidone Odt 0.5 Mg Soltab) 0.5 mg PO BID PRN PRN Reason: Agitation Stop: 04/01/20 11:18 Risperidone (Risperidone 2 Mg Tablet) 4 mg PO QAM TOSIN Stop: 04/03/20 08:59 Sodium Chloride (Sodium Chloride 0.65% Na Soln 45 Ml ([place])) 1 - 2 sprays NA PRN PRN PRN Reason: Nasal Dryness/Congestion Stop: 03/27/20 12:01 Trazodone HCl (Trazodone Hcl 100 Mg Tab) 0 mg PO HS TOSIN; Taper Stop: 04/02/20 21:59 Warfarin Sodium (Warfarin Sod 10 Mg Tab) 10 mg PO HS TOSIN Stop: 03/27/20 21:59 Last Admin: 03/02/20 21:18 Dose: 10 mg Documented by: Mental Health & Subst Abuse Tx Psychiatrist [facility] Date of Appointment with Psychiatrist: 03/18/20 Time of Appointment with Psychiatrist: 1:15pm Therapist Name of Therapist: Luis Fernando eli/[facility] Removal[facility]ing Name of Snow Removal/Plowing: Kvng Phone Number for Snow Removal/Plowing: [phone] Post Discharge Appointments Primary Care Physician Name Of Family Doctor: Dr. Baltazar [facility] Contact Information Discharge Discharge Address: [address] [place] [address], [place] [address] (1) Schizoaffective disorder Schizoaffective disorder type: bipolar Qualified Code(s): F25.0 - Schizoaffective disorder, bipolar type (2) Diabetes mellitus Diabetes mellitus complication status: without complication Diabetes mellitus longterm insulin use: with longterm use Diabetes mellitus type: type 2 Qualified Code(s): E11.9 - Type 2 diabetes mellitus without complications; Z79.4 - intermodal customer service (current) use of insulin
[2020-03-03] MEDS: WARFARIN SOD 10 MG TAB PO SCH (21:19)
[2020-03-03] MEDS: risperiDONE 2 MG TABLET PO SCH (21:21)
[2020-03-03] MEDS: traZODone HCL 100 MG TAB PO SCH (21:22)
[2020-03-03] MEDS: diazePAM 5 MG TABLET PO SCH (21:25)
[2020-03-04] MEDS: LEVOTHYROXINE SODIUM 50 MCG TABLET PO SCH (06:19)
[2020-03-04] MEDS: FUROSEMIDE 20 MG TAB PO PRN (06:31)
[2020-03-04 07:47] LABS: Prothrombin Time 20.6 Seconds (9.0-12.0)
[2020-03-04] MEDS: CALCIUM 600MG + VIT D 400 IU TAB PO SCH (08:29)
[2020-03-04] MEDS: LORATADINE 10 MG TAB PO SCH (08:30)
[2020-03-04] MEDS: MONTELUKAST SODIUM 10 MG TABLET PO SCH (08:30)
[2020-03-04] MEDS: BACLOFEN 20 MG TAB PO SCH ×2 (08:30→21:51)
[2020-03-04] MEDS: ATORVASTATIN 20 MG TAB PO SCH (08:30)
[2020-03-04] MEDS: GABAPENTIN 400 MG CAP PO SCH ×4 (08:30→21:51)
[2020-03-04] MEDS: risperiDONE 2 MG TABLET PO SCH ×2 (08:30→21:52)
[2020-03-04] MEDS: MAGNESIUM OXIDE 400 MG TAB PO SCH ×2 (08:30→21:52)
[2020-03-04] MEDS: PANTOprazole 40 MG TAB PO SCH (08:30)
[2020-03-04] MEDS: NABUMETONE 500 MG TABLET PO SCH ×4 (08:30→21:51)
[2020-03-04] MEDS: DICLOFENAC SOD 1% GEL 100 GM TUBE EXT SCH ×2 (08:31→21:53)
[2020-03-04] MEDS: INSULIN ASPART 100 UNITS/ML 3 ML PEN SC SCH ×4 (08:59→21:16)
--- NOTE | 2020-03-04 08:59 | Psychiatric Progress Note ---
Date of Service March 04, 2020 Impression / Recommendations Impression 54 yo male with extended ED stay on 302; on a 303 as of 02/27/2020. Chronic and persistent mental illness, diagnosed with schizoaffective disorder bipolar type, presented with manic and psychotic symptoms in the context of medication noncompliance. He was agitated and uncooperative in the ED, remains poorly compliant and unable to care for basic needs outside of the hospital. Symptoms of kylee are persisting including very poor sleep, hyperverbal language, and tangential/disorganized thought process. He also continues to have episodes of significant irritability, and continues to be at acute risk of harm to self or others if discharged prematurely. (1) Schizoaffective disorder: 02/25 - The patient was admitted to the [facility] ([facility] mental health unit) on q15 min checks (behavioral with suicide precautions) for safety. The patient will participate in group, recreational, and milieu therapies and will be offered additional individual and family sessions as clinically appropriate. He clearly meets criteria for extended involuntary commitment and a 303 was filed, Dr. Lopez updated as will be testifying psychiatrist. Regarding meds, trazodone and Cymbalta were held in ED due to paradoxical reaction and kylee. Zyprexa was given standing order there, as calmer will change to prn here. His Tegretol was also restarted there at low dose as lo ngstanding previously effective med. May impact his anticoagulation. 02/26 -303 hearing held and commitment granted. Contact Su MORATAYA at [place] to coordinate care - left message. -Continue olanzapine 10 mg at bedtime, risperidone 2 mg at bedtime (contact outpatient clinician regarding previous response to these medications and preferred plan moving forward), carbamazepine 250 mg twice daily, and diazepam 5 mg at bedtime. Zolpidem 10 mg at bedtime as needed has been added, and although he received a dose last night, he still slept only 1 hour. Consider trial of atypical antipsychotic with sedating properties, such as chlorpromazine, in place of one of his atypicals if sleep does not improve. -Monitoring on an atypical antipsychotic: Hgb A1C 5.5%, est ave glucose 111 on 02/27/20, FLP ordered for tomorrow. -Per records, patient has assault charges. Attempt to clarify with his outpatient case investigator. 02/27 - Medication adjustments suggested this morning after treatment team and review of collateral obtained from patient's outpatient psychiatric prescriber. - Titrating risperidone to 1mg qAM and 2mg qHS - further titration as tolerated (previous dosing of 8mg daily total). - Diazepam titrated to 10mg qHS to promote sleep, as this continues to be a problem. Scheduled HS olanzapine was discontinued, but remains a prn option for sleep/agitation if necessary. - Consider chlorpromazine for mood stabilization/sleep if sleep continues to be an issue. 02/28 - Continue medication adjustments as previously discussed - pt received 3mg total of risperidone yesterday, scheduled to receive 4mg total today. Continue titration as tolerated - Pt continues to sleep poorly, though has been taking brief and intermittent naps during the day which is a small improvement. Continue diazepam at this time. 03/01 - Risperidone being titrated to 4mg this evening (total of 5mg today), and AM dose being titrated to 2mg tomorrow (will get total of 6mg). Continue risperidone titration as indicated/tolerated. - Pt was counseled on the fact that medications used to stabilize his symptoms can eventually be cross-tapered to medications that may be more ideal for long- term use. Pt has continued to take risperidone as scheduled, but does verbalize concerns about long-term side effects he has experienced in the past. He did seem to understand that risperidone is being used for acute stabilization, but that other options can be explored on an outpatient basis once his symptoms are improved. - Pt did have improved sleep last evening - continue to monitor, adjust medication regimen as needed to target sleep 03/02 total of 6mg rispderal today (2mgAM and 4mg at hs), wlll move to 7mg tomorrow 03/03 with goal for 8mg on Saturday 03/04 if tolerated; for now monitor the "drunken feeling" as I beleive that is the cumulative poor sleep and increasing risperdal culminating on patinet, but could be a SE of tegretol. He is not showing s/sx of fall risk or dysequilibrium 03/03 - I am concerned that tegretol may be causing the "drunken feeling" as patient notes this is new. He is still manic with poor sleep and hyperverbal, more likely to be intrusive/inappropriate/irritable at night. Will stop the tegretol and continue to advance the risperdal 03/03 will get 7mg, and 03/04 8mg divided 4mg bid (he would like to consider 8mg/hs once up to full dosing as that is how he took it outpatient). He declines change from valium to [facility] provider contemplating increased dose to facilitate sleep. TO increase valium I gabyeive could risk daytime somnolence and impairment in cognition and coordination given how long acting it is. ALthough provocative I will return patient to his trazodone 150mg/hs tonight watching for orthostasis alongside of risperdal and 300mg 03/04/20. Pt agrees to slow positional changes but will ask staff to monitor for instability given he is at risk for bleeding on blood thinners if he falls. With goal to show collaboration will inquire about nail clipping and compression stockings for aptient as these are reasonable requests as staffing /supplies are available. 03/04 - Continue current medication regimen - patient continues to be manic with tangential thoughts and flight of idea. He remains inappropriately fixated on a peripheral member of his outpatient treatment team. - Pt continues to refuse valproic acid due to concern for weight gain - attem pted to discuss alternative agents, however, patient's ability to participate in this conversation remains limited - Trazodone will increase to 300mg tonight per ordered titration - continue to monitor sleep. - Will defer toe nail clipping at this time, as patient is an insulin-dependent diabetic who follows with a ssis developer on an outpatient basis for routine diabetic foot care. Toenails inspected today and are long, but not debilitating. If indicated, will consider podiatry consultation to address. (2) Deep venous thrombosis: 02/25 - Patient non-compliant with Eliquis and was transitioned to Coumadin in the ED with Lovenox bridge. The combo should be continued for at least 2 more days and an INR >2. Pharmacist recommends daily PT/INR if he'll allow (every other acceptable if issue) and taking 10 mg Coumadin for the next 2 nights. 02/26 -INR 1.2 today. Continue Lovenox until Coumadin is therapeutic, with daily INR. 02/27 - INR 2.0 today - will discontinue Lovenox - patient thus far has been compliant with daily PT/INR. 02/28 - INR continues to be at 2.0 today with discontinuation of Lovenox 03/01--INR = 2.1 03/02 and 03/03 - 03/02 INR 1.9 which is slightly below goal will continue 10mg with daily PT/INR. Request pharmacy input with next PT/INR on 03/04/20 if that remains <2 03/04- INR returned to 2.0 today - continue serial PT/INR - physical examination of upper and lower extremities. Fingers are a bit cold to the touch, no obvious discoloration, sensation intact in all digits. Lower extremities visualized, no discoloration, warm to touch, no overt pitting edema so far this morning. No ulcers/wounds observed on feet, though skin is dry and calloused in places. Pedal pulses 3+ bilaterally, sensation intact in all digit s. Pt reports "tingling" from toes to metatarsal area bilaterally. (3) Diabetes mellitus: 02/25 - diabetic pharmacy consult 02/26 -patient getting insulin here, glucose well controlled. Risk Factors Assessment Male: Yes : Yes Do You Have Access To A Gun?: No Health Problems: Yes Mental Health Diagnoses: Yes Substance Use Disorders: No Family History of Suicide: Yes Previous Psychiatric Hospitalization: Yes Protective Factors Assessment : No Responsible for Young Children: No Employed: No Stable Relationships: No Interval History Identifying Information MANDI BOSS is a 54-year-old M who currently lives in alone in [place], has a history of schizoaffective disorder, and was admitted on 02/26/20 12:02 on a 302 involuntary commitment for disorganized psychosis. It should be noted that he initially presented on 02/21 and has been in the ED awaiting bed placement for >3 days. Chief Complaint "How am I? I'm great, I'm getting ." Review of Systems Notes Constitutional: admits to poor sleep Cardiovascular: denied Respiratory: denied Gastrointestinal: denied Neurological: tingling in toes bilaterally Musculoskeletal: reports chronic back and shoulder pain Psychiatric: denies symptoms other than stated above Total of at least 10 systems reviewed, pertinent positives as above and in HPI. Sleep Information Total Hours of Sleep: 3.25 Sleep Comments: pt on q-15 minute checks Meal Information Percent Meal Consumed - Breakfast: 90 Percent Meal Consumed - Lunch: 100 Percent Meal Consumed - Dinner: 100 Nutrition Comment: per meal record Subjective Subjective Patient was seen & assessed and interval progress reviewed with treatment team. Staff report the patient has continued to be hyperverbal, tangential, and continues to have poor sleep. Pt is attending group, though thoughts continue to be disorganized at times. Pt was seen today to assess progress since admission. This morning, as this provider arrived on the unit, the patient had stated "you're not welcome here. You don't have red hair, you gotta get out of here." He then continued to sing and whistle while walking laps in the hallway. By mid-morning, patient was singing Cristian Jose impressions rather loudly. 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 I'm great, I'm getting ." This provider asked for additional details. Pt seems to believe that he is marrying the female he has been preoccupied with since admission. During this conversation, the patient suddenly became irritable and states "I'm not liking this conversation anymore. You do seem to match my enthusiasm." This provider did explain that she was concerned about these thoughts, as they do show poor boundaries. Pt is convinced that their arrangement is true and they have professed their love to one another. The patient continues to make inappropriate statements such as "She has red hair and I have red hair. We'll make beautiful red hair children, don't you think." He stated he has already picked out 4 pieces of jewelry for this individual at a local jewelry store. Several attempts were made to redirect conversation back to the patient's treatment, but most were unsuccessful. This provider ended our conversation by asking if the patient had any additional needs. Pt inquired that I reach out to this female to see if she needed any help with wedding dress shopping and fitting. Physical Exam Psychiatric Orientation: alert Apperance: appropriately dressed, appropriately groomed and appeared stated age Eye Contact: + fair eye contact Motor Behavior: no abnormal motor movements and + psychomotor agitation (pacing, restless) Speech: + abnormal rate/rhythm/volume of speech Hyperverbal, mumbling, often speaking at a low volume Affect: + constricted affect affect continues to be somewhat labile, episodes of irritability contrasted with expansive or elated affect. Mood: no depressed mood ("I'm great, I'm getting ") Thought Process: + tangential thought process, + flight of ideas and + perseveration Thought Content: + preoccupation and + delusions Cognition: + attention not intact Insight: + impaired insight Judgement: + impaired judgement Vital Signs (Past 24 Hours) Last Vital Signs Temp 36.4 C L 03/04/20 06:34 Pulse 89 03/04/20 06:35 Resp 16 03/04/20 06:34 BP 127/82 03/04/20 06:35 Pulse Ox 98 02/26/20 12:12 Results & Data ([facility]) Laboratory Results Laboratory Results - last 24 hr 03/04/20 06:57 PT 20.6 H INR 2.0 H Current Inpatient Medications Current Inpatient Medications: Current Inpatient Medications Acetaminophen (Acetaminophen 325 Mg Tab) 650 mg PO Q4H PRN PRN Reason: Headache or Minor Fever Stop: 03/27/20 12:01 Last Admin: 03/03/20 00:14 Dose: 650 mg Documented by: Al Hydrox/Mg Hydrox/Simethicone (Aluminum/Magnesium Susp 30 Ml Udc) 30 ml PO Q4H PRN PRN Reason: GI Upset Stop: 03/27/20 12:01 Atorvastatin Calcium (Atorvastatin 20 Mg Tab) 20 mg PO QAM [facility] Stop: 03/28/20 08:59 Last Admin: 03/04/20 08:30 Dose: 20 mg Documented by: Baclofen (Baclofen 20 Mg Tab) 20 mg PO BID TOSIN Stop: 03/27/20 20:59 Last Admin: 03/04/20 08:30 Dose: 20 mg Documented by: Bismuth Subsalicylate (Bismuth Subsalicylate Liqd 236 Ml) 15 ml PO PRN PRN PRN Reason: Loose Stool Stop: 03/27/20 12:01 Diazepam (Diazepam 5 Mg Tablet) 10 mg PO HS [facility] Stop: 03/29/20 21:59 Last Admin: 03/03/20 21:25 Dose: 10 mg Documented by: Diclofenac Sodium (Diclofenac Sod 1% Gel 100 Gm Tube) 2 gm EXT BID TOSIN Stop: 03/27/20 20:59 Last Admin: 03/04/20 08:31 Dose: 2 gm Documented by: Furosemide (Furosemide 20 Mg Tab) 20 mg PO QAM PRN PRN Reason: swelling Stop: 03/28/20 08:59 Last Admin: 03/04/20 06:31 Dose: 20 mg Documented by: Gabapentin (Gabapentin 400 Mg Cap) 400 mg PO QID [facility] Stop: 03/27/20 12:59 Last Admin: 03/04/20 08:30 Dose: 400 mg Documented by: Insulin Aspart (Insulin Aspart 100 Units/Ml 3 Ml Pen) 0 units SC ACHS [facility] Stop: 03/27/20 17:14 Last Admin: 03/03/20 21:31 Dose: Not Given Documented by: Levothyroxine Sodium (Levothyroxine Sodium 50 Mcg Tablet) 50 mcg PO 0700 [facility] Stop: 04/01/20 06:59 Last Admin: 03/04/20 06:19 Dose: 50 mcg Documented by: Loratadine (Loratadine 10 Mg Tab) 10 mg PO QAM [facility] Stop: 03/28/20 08:59 Last Admin: 03/04/20 08:30 Dose: 10 mg Documented by: Lorazepam (Lorazepam 2 Mg/Ml Vial (Im Use)) 2 mg IM Q6 PRN PRN Reason: Agitation Stop: 03/27/20 12:39 Magnesium Hydroxide (Magnesium Hydroxide Susp 30 Ml Udc) 30 ml PO DAILY PRN PRN Reason: Constipation Stop: 03/27/20 12:01 Magnesium Oxide (Magnesium Oxide 400 Mg Tab) 400 mg PO BID [facility] Stop: 03/27/20 20:59 Last Admin: 03/04/20 08:30 Dose: 400 mg Documented by: Montelukast Sodium (Montelukast Sodium 10 Mg Tablet) 10 mg PO DAILY [facility] Stop: 03/28/20 08:59 Last Admin: 03/04/20 08:30 Dose: 10 mg Documented by: Multivitamins/Minerals (Calcium 600mg + Vit D 400 Iu Tab) 1 tab PO DAILY [facility] Stop: 03/29/20 08:59 Last Admin: 03/04/20 08:29 Dose: 1 tab Documented by: Nabumetone (Nabumetone 500 Mg Tablet) 500 mg PO QID [facility] Stop: 03/27/20 12:59 Last Admin: 03/04/20 08:30 Dose: 500 mg Documented by: Trulicity 0.75 Mg- Non-Formulary Patient's Own Med 1 ea ND Garcia@0800 TOSIN Stop: 04/02/20 07:59 Last Admin: 03/03/20 07:57 Dose: 1 ea Documented by: Pantoprazole Sodium (Pantoprazole 40 Mg Tab) 40 mg PO DAILY TOSIN Stop: 03/29/20 08:59 Last Admin: 03/04/20 08:30 Dose: 40 mg Documented by: Risperidone (Risperidone 2 Mg Tablet) 4 mg PO HS TOSIN Stop: 03/31/20 21:59 Last Admin: 03/03/20 21:21 Dose: 4 mg Documented by: Risperidone (Risperidone Odt 0.5 Mg Soltab) 0.5 mg PO BID PRN PRN Reason: Agitation Stop: 04/01/20 11:18 Risperidone (Risperidone 2 Mg Tablet) 4 mg PO QAM TOSIN Stop: 04/03/20 08:59 Last Admin: 03/04/20 08:30 Dose: 4 mg Documented by: Sodium Chloride (Sodium Chloride 0.65% Na Soln 45 Ml ([place])) 1 - 2 sprays NA PRN PRN PRN Reason: Nasal Dryness/Congestion Stop: 03/27/20 12:01 Trazodone HCl (Trazodone Hcl 100 Mg Tab) 150 mg PO HS TOSIN; Taper Stop: 04/02/20 21:59 Last Admin: 03/03/20 21:22 Dose: 150 mg Documented by: Warfarin Sodium (Warfarin Sod 10 Mg Tab) 10 mg PO HS TOSIN Stop: 03/27/20 21:59 Last Admin: 03/03/20 21:19 Dose: 10 mg Documented by: Mental Health & Subst Abuse Tx Psychiatrist [facility] Date of Appointment with Psychiatrist: 03/18/20 Time of Appointment with Psychiatrist: 1:15pm Therapist Name of Therapist: Luis Fernando eli/[facility] [employer] Exchange Repairer Name of Private Branch Exchange Repairer: Kvng Phone Number for Private Branch Exchange Repairer: [phone] Post Discharge Appointments Primary Care Physician Name Of Family Doctor: Dr. Baltazar [facility] Contact Information Discharge Discharge Address: [address] [place] [address], [place] [address] (1) Diabetes mellitus Diabetes mellitus complication status: without complication Diabetes mellitus correction insulin use: with buttermaker use Diabetes mellitus type: type 2 Qualified Code(s): E11.9 - Type 2 diabetes mellitus without complications; Z79.4 - buttermaker (current) use of insulin (2) Schizoaffective disorder Schizoaffective disorder type: bipolar Qualified Code(s): F25.0 - Schizoaffective disorder, bipolar type
[2020-03-04 15:18] LABS: BUN Creatinine Ratio 13.9 (10-20); Calcium 9.5 mg/dl (8.5-10.1); Creatinine Clr Calc Pharmacy 114.3 ml/min; Est GFR (African American) 106.9; Est GFR (Non-African American) 92.2; Potassium 4.3 mmol/L (3.5-5.1)
[2020-03-04] MEDS: traZODone HCL 100 MG TAB PO SCH (21:51)
[2020-03-04] MEDS: diazePAM 5 MG TABLET PO SCH (21:51)
[2020-03-04] MEDS: WARFARIN SOD 10 MG TAB PO SCH (21:52)
[2020-03-05] MEDS: ACETAMINOPHEN 325 MG TAB PO PRN ×3 (00:51→15:35)
[2020-03-05] MEDS: LEVOTHYROXINE SODIUM 50 MCG TABLET PO SCH (06:55)
[2020-03-05] MEDS: FUROSEMIDE 20 MG TAB PO PRN (06:55)
--- NOTE | 2020-03-05 08:36 | Psychiatric Progress Note ---
Date of Service March 05, 2020 Impression / Recommendations Impression 54 y/o male with extended ED stay on 302; on a 303 as of 02/27/2020. Chronic and persistent mental illness, diagnosed with schizoaffective disorder bipolar type, presented with manic and psychotic symptoms in the context of medication noncompliance. He was agitated and uncooperative in the ED, remains poorly compliant and unable to care for basic needs outside of the hospital. Symptoms of kylee are persisting including very poor sleep, hyperverbal language, mood lability, grandiosity, and tangential/disorganized thought process. He also continues to have episodes of significant irritability and agitation, has threatened to physically harm staff and a female patient, and continues to present and acute risk of harm to him self and to others if discharged prematurely. (1) Schizoaffective disorder: 02/25 - The patient was admitted to the [facility] ([facility] mental health unit) on q15 min checks (behavioral with suicide precautions) for safety. The patient will participate in group, recreational, and milieu therapies and will be offered additional individual and family sessions as clinically appropriate. He clearly meets criteria for extended involuntary commitment and a 303 was filed, Dr. Lopez updated as will be testifying psychiatrist. Regarding meds, trazodone and Cymbalta were held in ED due to paradoxical reaction and kylee. Zyprexa was given standing order there, as calmer will change to prn here. His Tegretol was also restarted there at low dose as longstanding previously effective med. May impact his anticoagulation. 02/26 -303 hearing held and commitment granted. Contact Su MORATAYA at [facility] to coordinate care - left message. -Continue olanzapine 10 mg at bedtime, risperidone 2 mg at bedtime (contact outpatient clinician regarding previous response to these medications and preferred plan moving forward), carbamazepine 250 mg twice daily, and diazepam 5 mg at bedtime. Zolpidem 10 mg at bedtime as needed has been added, and although he received a dose last night, he still slept only 1 hour. Consider trial of atypical antipsychotic with sedating properties, such as chlorpromazine, in place of one of his atypicals if sleep does not improve. -Monitoring on an atypical antipsychotic: Hgb A1C 5.5%, est ave glucose 111 on 02/27/20, FLP ordered for tomorrow. -Per records, patient has assault charges. Attempt to clarify with his outpatient supervisor case loading. 02/27 - Medication adjustments suggested this morning after treatment team and review of collateral obtained from patient's outpatient psychiatric prescriber. - Titrating risperidone to 1mg qAM and 2mg qHS - further titration as tolerated (previous dosing of 8mg daily total). - Diazepam titrated to 10mg qHS to promote sleep, as this continues to be a problem. Scheduled HS olanzapine was discontinued, but remains a prn option for sleep/agitation if necessary. - Consider chlorpromazine for mood stabilization/sleep if sleep continues to be an issue. 02/28 - Continue medication adjustments as previously discussed - pt received 3mg total of risperidone yesterday, scheduled to receive 4mg total today. Continue titration as tolerated - Pt continues to sleep poorly, though has been taking brief and intermittent naps during the day which is a small improvement. Continue diazepam at this time. 03/01 - Risperidone being titrated to 4mg this evening (total of 5mg today), and AM dose being titrated to 2mg tomorrow (will get total of 6mg). Continue risperidone titration as indicated/tolerated. - Pt was counseled on the fact that medications used to stabilize his symptoms can eventually be cross-tapered to medications that may be more ideal for long- term use. Pt has continued to take risperidone as scheduled, but does verbalize concerns about long-term side effects he has experienced in the past. He did seem to understand that risperidone is being used for acute stabilization, but that other options can be explored on an outpatient basis once his symptoms are improved. - Pt did have improved sleep last evening - continue to monitor, adjust medication regimen as needed to target sleep 03/02 total of 6mg rispderal today (2mgAM and 4mg at hs), will move to 7mg tomorrow 03/03 with goal for 8mg on Saturday 03/04 if tolerated; for now monitor the "drunken feeling" as I beleive that is the cumulative poor sleep and increasing risperdal culminating on patinet, but could be a SE of tegretol. He is not showing s/sx of fall risk or dysequilibrium 03/03 - I am concerned that tegretol may be causing the "drunken feeling" as patient notes this is new. He is still manic with poor sleep and hyperverbal, more likely to be intrusive/inappropriate/irritable at night. Will stop the tegretol and continue to advance the risperdal 03/03 will get 7mg, and 03/04 8mg divided 4mg bid (he would like to consider 8mg/hs once up to full dosing as that is how he took it outpatient). He declines change from valium to klonopin wt provider contemplating increased dose to facilitate sleep. TO increase valium I beleive could risk daytime somnolence and impairment in cognition and coordination given how long acting it is. Although provocative I will return patient to his trazodone 150mg/hs tonight watching for orthostasis alongside of risperdal and 300mg 03/04/20. Pt agrees to slow positional changes but will ask staff to monitor for instability given he is at risk for bleeding on blood thinners if he falls. With goal to show collaboration will inquire about nail clipping and compression stockings for aptient as these are reasonable requests as staffing /supplies are available. 03/04 - Continue current medication regimen - patient continues to be manic with tangential thoughts and flight of idea. He remains inappropriately fixated on a peripheral member of his outpatient treatment team. - Pt continues to refuse valproic acid due to concern for weight gain - attempted to discuss alternative agents, however, patient's ability to participate in this conversation remains limited - Trazodone will increase to 300mg tonight per ordered titration - continue to monitor sleep. - Will defer toe nail clipping at this time, as patient is an insulin-dependent diabetic who follows with a chalk molding machine operator on an outpatient basis for routine diabetic foot care. Toenails inspected today and are long, but not debilitating. If indicated, will consider podiatry consultation to address. 03/05 -Patient increasingly agitated, disruptive, and now threatening staff and other patients. Continue risperidone 4 mg twice daily, add chlorpromazine 50 mg p.o. or IM as needed for agitation/psychosis, can be used in conjunction with lorazepam. -Sleep remains extremely poor, and out of the past 8 nights in the hospital, he has only slept over 1 hour on 2 occasions. He has failed several medication trials to improve sleep, including olanzapine, increasing his diazepam dose, and trazodone was restarted 2 nights ago with limited response. I will decrease his trazodone to 150 mg at bedtime, decrease diazepam to 5 mg at bedtime, and order chlorpromazine 100 mg at bedtime for tonight, as he did have some sedation after the dose he received this morning for agitation. -Patient continues to be agitated, disruptive, and poorly cooperative, requiring frequent redirection from staff. He has been repeatedly reminded of interpersonal boundaries and appropriate behavior. Continue private room and excuse from groups. -Patient continues to refuse trials of Depakote or lithium, failed Tegretol. ECT is an option, but and not available here, and he is not voluntary. Given the severity of his symptoms, lack of improvement since admission, and the fact that he required very lengthy inpatient hospitalizations in the past for stabilization, I am recommending a 304 involuntary commitment with referral to [facility] for long-term inpatient treatment. Patient informed, provided with 304 paperwork, which he promptly ripped up. (2) Deep venous thrombosis: 02/25 - Patient non-compliant with Eliquis and was transitioned to Coumadin in the ED with Lovenox bridge. The combo should be continued for at least 2 more days and an INR >2. Pharmacist recommends daily PT/INR if he'll allow (every other acceptable if issue) and taking 10 mg Coumadin for the next 2 nights. 02/26 -INR 1.2 today. Continue Lovenox until Coumadin is therapeutic, with daily INR. 02/27 - INR 2.0 today - will discontinue Lovenox - patient thus far has been compliant with daily PT/INR. 02/28 - INR continues to be at 2.0 today with discontinuation of Lovenox 03/01--INR = 2.1 03/02 and 03/03 - 03/02 INR 1.9 which is slightly below goal will continue 10mg with daily PT/INR. Request pharmacy input with next PT/INR on 03/04/20 if that remains <2 03/04- INR returned to 2.0 today - continue serial PT/INR - physical examination of upper and lower extremities. Fingers are a bit cold to the touch, no obvious discoloration, sensation intact in all digits. Lower extremities visualized, no discoloration, warm to touch, no overt pitting edema so far this morning. No ulcers/wounds observed on feet, though skin is dry and calloused in places. Pedal pulses 3+ bilaterally, sensation intact in all digits. Pt reports "tingling" from toes to metatarsal area bilaterally. 03/05 -patient agitated and uncooperative, unable to examine lower extremities. (3) Diabetes mellitus: 02/25 - diabetic pharmacy consult 02/26 -patient getting insulin here, glucose well controlled. (4) Chronic back pain: 03/05 -on admission, patient was continued on his home pain medication regimen, including nabumetone 500 mg 4 times daily, gabapentin 400 mg 4 times daily, duloxetine, diclofenac, and baclofen 20 mg twice daily. He is now demanding multiple medication changes to target pain, including increasing all 3 of those medications to 5 times a day. Attempted to explain to him that this is above the FDA maximum dose and that it would not be appropriate to order higher doses of NSAIDs, but he was unable to tolerate the discussion, interrupting becoming agitated. Risk Factors Assessment Male: Yes : Yes Do You Have Access To A Gun?: No Health Problems: Yes Mental Health Diagnoses: Yes Substance Use Disorders: No Family History of Suicide: Yes Previous Psychiatric Hospitalization: Yes Protective Factors Assessment : No Responsible for Young Children: No Employed: No Stable Relationships: No Interval History Identifying Information MNADI BOSS is a 54-year-old M who currently lives in alone in [place], has a history of schizoaffective disorder, and was admitted on 02/26/20 12:02 on a 302 involuntary commitment for disorganized psychosis. It should be noted that he initially presented on 02/21 and was in the ED awaiting bed placement for >3 days. Chief Complaint "Who are you?" Review of Systems Sleep Information Total Hours of Sleep: 0.5 Sleep Comments: pt pacing and walking sideways at times during the night. Very poor sleep. pt appeared to try to stay awake. pt irritable at times, needed redirection. pt on q-15 minute checks Meal Information Percent Meal Consumed - Breakfast: 100 Percent Meal Consumed - Lunch: 100 Percent Meal Consumed - Dinner: 100 Nutrition Comment: per meal record Subjective Subjective Patient was seen & assessed and interval progress reviewed with nursing and social work. Staff report he has been agitated, disruptive, threatening staff and other patients. He is demanding and has been attending groups but with inappropriate behavior. He has been agitated and swearing at staff. This morning he was in the dayroom, ranting angrily, swearing, demanding he be given his breakfast immediately, unresponsive to multiple staff attempts to de-escalate him. Ranting angrily about people going into his room and messing with his things, saying a female peer went in his room and threatening to punch her. He was watching a television show with inappropriate content, and when staff attempted to explain to him why the channel needed to be changed, he tried to grab the remote out of staff's hands, and was not responding to verbal redirection. He received trazodone 300 mg at bedtime but was up all night, sleeping only approximately 30 minutes. He appeared to be fighting sleep, refused to cooperate with staff when encouraged to lie down and rest. He made numerous demands of staff, including a Bluetooth speaker for his room, singing karaoke on the TV, using his phone to play music, and to be told how to apply to become a hospital server security administrator. He continues to refuse to take Depakote or lithium, and has refused several doses of insulin in the past 3 days. He was seen several times today, as responded to multiple episodes of agitation where he was yelling, swearing, stomping loudly on the floor, was hyperverbal and argumentative. Security responded to the unit and he excepted IMs (chlorpromazine 50 mg and lorazepam 2 mg) without difficulty. He was seen again shortly afterwards, brought a list of things he requested, including a continuing glucose monitor, all of his pain medications to be increased to 5 times a day, and a different formulation of magnesium. He also requested to be able to use Bluetooth headphones and chargers, although he had already been informed by staff he could not use this. "Well how am I supposed to listen to music then?" Reminded him that he has a radio in his room that he can use, but he is angry because he cannot take it out and carry it around the unit with him. Again reminded him of the need to be aware and respectful of of the needs of other patients, and he was agitated and dismissive, insisting his behavior is fine. He says he is not going to order from the menu anymore, and wants "something special, something hot and fresh" for each meal. He continues to argue about the rules of the unit, stating they are "stupid." Expressed concerns about his lack of sleep and ongoing manic and psychotic symptoms, including that out of 8 nights in the hospital, he has only slept > 1 hour twice), and that he is refusing mood stabilizers, such as lithium or Depakote, with ongoing manic symptoms. He stated angrily that he would not take those medications, and if I would just give him more pain medication, he would be fine. Advised him that I was filing for 304 involuntary commitment with hearing to be held in the next few days, and that we will need to consider long-term treatment at the [facility] given his unwillingness to consider other medication options and lack of improvement in his symptoms. He became increasingly agitated, stating that I was lying, and that he was sleeping "fine." Advised that staff check him every 15 minutes overnight and track his sleep, and he then accused staff of lying, grabbed a Bible and repeatedly stated "swear on the Bible!" He continued to approach and thrust the Bible at me, despite being reminded repeatedly about the need to maintain a 6 foot interpersonal distance, and ultimately I was forced to exit his room. He then came to the nurses station in an agitated manner, demanding to call "my seasonal retail merchandiser!" Staff advised that they would give him the phone number for the public administration teacher for his hearing, and he stated he did not want a public administration teacher but wanted a private seasonal retail merchandiser. Staff stated he was welcome to call his private seasonal retail merchandiser, but he continued to demand that staff provide him with a private seasonal retail merchandiser. When he was given the 304 paperwork, he ripped it up, said that his payroll human resources assistant was a truck, and that he needed "a real payroll human resources assistant." Physical Exam Vital Signs (Past 24 Hours) Last Vital Signs Temp 36.5 C 03/05/20 06:48 Pulse 86 03/05/20 06:49 Resp 18 03/05/20 06:48 BP 127/81 03/05/20 06:49 Pulse Ox 98 02/26/20 12:12 Results & Data ([facility]) Laboratory Results Laboratory Results - last 24 hr 03/04/20 03/04/20 03/04/20 08:14 12:48 14:41 Sodium 141 Potassium 4.3 Chloride 105 Carbon Dioxide 34 H Anion Gap 2.0 L BUN 13 Creatinine 0.94 Est Cr Clr Drug Dosing 114.3 Est GFR ( Amer) 106.9 Est GFR (Non-Af Amer) 92.2 BUN/Creatinine Ratio 13.9 Glucose 73 POC Glucose 119 H 93 Calcium 9.5 Current Inpatient Medications Current Inpatient Medications: Current Inpatient Medications Acetaminophen (Acetaminophen 325 Mg Tab) 650 mg PO Q4H PRN PRN Reason: Headache or Minor Fever Stop: 03/27/20 12:01 Last Admin: 03/05/20 06:56 Dose: 650 mg Documented by: Al Hydrox/Mg Hydrox/Simethicone (Aluminum/Magnesium Susp 30 Ml Udc) 30 ml PO Q4H PRN PRN Reason: GI Upset Stop: 03/27/20 12:01 Atorvastatin Calcium (Atorvastatin 20 Mg Tab) 20 mg PO QAM [facility] Stop: 03/28/20 08:59 Last Admin: 03/04/20 08:30 Dose: 20 mg Documented by: Baclofen (Baclofen 20 Mg Tab) 20 mg PO BID [facility] Stop: 03/27/20 20:59 Last Admin: 03/04/20 21:51 Dose: 20 mg Documented by: Bismuth Subsalicylate (Bismuth Subsalicylate Liqd 236 Ml) 15 ml PO PRN PRN PRN Reason: Loose Stool Stop: 03/27/20 12:01 Diazepam (Diazepam 5 Mg Tablet) 10 mg PO HS [facility] Stop: 03/29/20 21:59 Last Admin: 03/04/20 21:51 Dose: 10 mg Documented by: Diclofenac Sodium (Diclofenac Sod 1% Gel 100 Gm Tube) 2 gm EXT BID [facility] Stop: 03/27/20 20:59 Last Admin: 03/04/20 21:53 Dose: 2 gm Documented by: Furosemide (Furosemide 20 Mg Tab) 20 mg PO QAM PRN PRN Reason: swelling Stop: 03/28/20 08:59 Last Admin: 03/05/20 06:55 Dose: 20 mg Documented by: Gabapentin (Gabapentin 400 Mg Cap) 400 mg PO QID [facility] Stop: 03/27/20 12:59 Last Admin: 03/04/20 21:51 Dose: 400 mg Documented by: Insulin Aspart (Insulin Aspart 100 Units/Ml 3 Ml Pen) 0 units SC ACHS [facility] Stop: 03/27/20 17:14 Last Admin: 03/04/20 21:16 Dose: Not Given Documented by: Levothyroxine Sodium (Levothyroxine Sodium 50 Mcg Tablet) 50 mcg PO 0700 [facility] Stop: 04/01/20 06:59 Last Admin: 03/05/20 06:55 Dose: 50 mcg Documented by: Loratadine (Loratadine 10 Mg Tab) 10 mg PO QAM [facility] Stop: 03/28/20 08:59 Last Admin: 03/04/20 08:30 Dose: 10 mg Documented by: Lorazepam (Lorazepam 2 Mg/Ml Vial (Im Use)) 2 mg IM Q6 PRN PRN Reason: Agitation Stop: 03/27/20 12:39 Magnesium Hydroxide (Magnesium Hydroxide Susp 30 Ml Udc) 30 ml PO DAILY PRN PRN Reason: Constipation Stop: 03/27/20 12:01 Magnesium Oxide (Magnesium Oxide 400 Mg Tab) 400 mg PO BID [facility] Stop: 03/27/20 20:59 Last Admin: 03/04/20 21:52 Dose: 400 mg Documented by: Montelukast Sodium (Montelukast Sodium 10 Mg Tablet) 10 mg PO DAILY [facility] Stop: 03/28/20 08:59 Last Admin: 03/04/20 08:30 Dose: 10 mg Documented by: Multivitamins/Minerals (Calcium 600mg + Vit D 400 Iu Tab) 1 tab PO DAILY [facility] Stop: 03/29/20 08:59 Last Admin: 03/04/20 08:29 Dose: 1 tab Documented by: Nabumetone (Nabumetone 500 Mg Tablet) 500 mg PO QID [facility] Stop: 03/27/20 12:59 Last Admin: 03/04/20 21:51 Dose: 500 mg Documented by: Trulicity 0.75 Mg- Non-Formulary Patient's Own Med 1 ea SC Garcia@0800 [facility] Stop: 04/02/20 07:59 Last Admin: 03/03/20 07:57 Dose: 1 ea Documented by: Pantoprazole Sodium (Pantoprazole 40 Mg Tab) 40 mg PO DAILY [facility] Stop: 03/29/20 08:59 Last Admin: 03/04/20 08:30 Dose: 40 mg Documented by: Risperidone (Risperidone 2 Mg Tablet) 4 mg PO HS [facility] Stop: 03/31/20 21:59 Last Admin: 03/04/20 21:52 Dose: 4 mg Documented by: Risperidone (Risperidone Odt 0.5 Mg Soltab) 0.5 mg PO BID PRN PRN Reason: Agitation Stop: 04/01/20 11:18 Risperidone (Risperidone 2 Mg Tablet) 4 mg PO QAM TOSIN Stop: 04/03/20 08:59 Last Admin: 03/04/20 08:30 Dose: 4 mg Documented by: Sodium Chloride (Sodium Chloride 0.65% Na Soln 45 Ml ([place])) 1 - 2 sprays NA PRN PRN PRN Reason: Nasal Dryness/Congestion Stop: 03/27/20 12:01 Last Admin: 03/04/20 18:44 Dose: 2 sprays Documented by: Trazodone HCl (Trazodone Hcl 100 Mg Tab) 300 mg PO HS TOSIN; Taper Stop: 04/02/20 21:59 Last Admin: 03/04/20 21:51 Dose: 300 mg Documented by: Warfarin Sodium (Warfarin Sod 10 Mg Tab) 10 mg PO HS TOSIN Stop: 03/27/20 21:59 Last Admin: 03/04/20 21:52 Dose: 10 mg Documented by: Mental Health & Subst Abuse Tx Psychiatrist Name of Psychiatrist: Eric Osuna [facility] Psychiatrist's Date of Appointment with Psychiatrist: 03/18/20 Time of Appointment with Psychiatrist: 1:15pm Therapist Name of Therapist: Lesa eli Early Childhood Education Instructor Name of Early Childhood Education Instructor: Kvng Phone Number for Early Childhood Education Instructor: [phone] Post Discharge Appointments Primary Care Physician Name Of Family Doctor: Dr. Baltazar [facility] Contact Information Discharge Discharge Address: [address] [place] [address], [place] [address] (1) Diabetes mellitus Diabetes mellitus complication status: without complication Diabetes mellitus jail insulin use: with jail use Diabetes mellitus type: type 2 Qualified Code(s): E11.9 - Type 2 diabetes mellitus without complications; Z79.4 - snf (current) use of insulin (2) Schizoaffective disorder Schizoaffective disorder type: bipolar Qualified Code(s): F25.0 - Schizoaffective disorder, bipolar type
[2020-03-05] MEDS ORDERED: chlorproMAZINE HCL 25 MG/ML AMP IM PRN ×2 (08:41→08:44)
[2020-03-05] MEDS ORDERED: chlorproMAZINE HCL 25 MG TAB PO PRN (08:44)
[2020-03-05] MEDS: CALCIUM 600MG + VIT D 400 IU TAB PO SCH (08:48)
[2020-03-05] MEDS: ATORVASTATIN 20 MG TAB PO SCH (08:48)
[2020-03-05] MEDS: PANTOprazole 40 MG TAB PO SCH (08:49)
[2020-03-05] MEDS: LORATADINE 10 MG TAB PO SCH ×2 (08:49→10:49)
[2020-03-05] MEDS: BACLOFEN 20 MG TAB PO SCH ×2 (08:49→21:03)
[2020-03-05] MEDS: GABAPENTIN 400 MG CAP PO SCH ×4 (08:49→21:05)
[2020-03-05] MEDS: MAGNESIUM OXIDE 400 MG TAB PO SCH ×2 (08:49→21:03)
[2020-03-05] MEDS: NABUMETONE 500 MG TABLET PO SCH ×4 (08:50→21:05)
[2020-03-05] MEDS: MONTELUKAST SODIUM 10 MG TABLET PO SCH (08:50)
[2020-03-05] MEDS: risperiDONE 2 MG TABLET PO SCH ×2 (08:55→21:06)
[2020-03-05] MEDS ORDERED: chlorproMAZINE HCL 25 MG/ML AMP ONE (08:58)
[2020-03-05] MEDS: LORazepam 2 MG/ML VIAL (IM USE) IM PRN (09:16)
[2020-03-05] MEDS: INSULIN ASPART 100 UNITS/ML 3 ML PEN SC SCH ×4 (09:44→20:52)
[2020-03-05] MEDS: DICLOFENAC SOD 1% GEL 100 GM TUBE EXT SCH ×3 (10:49→21:03)
[2020-03-05] MEDS: chlorproMAZINE HCL 25 MG TAB PO PRN (13:24)
[2020-03-05] MEDS: WARFARIN SOD 10 MG TAB PO SCH (21:05)
[2020-03-05] MEDS: traZODone HCL 50 MG TAB PO SCH (21:06)
[2020-03-05] MEDS: diazePAM 5 MG TABLET PO SCH (21:07)
[2020-03-06] MEDS: ACETAMINOPHEN 325 MG TAB PO PRN (04:01)
[2020-03-06] MEDS: LEVOTHYROXINE SODIUM 50 MCG TABLET PO SCH (06:36)
[2020-03-06] MEDS: FUROSEMIDE 20 MG TAB PO PRN (06:36)
[2020-03-06 08:16] LABS: INR 1.8 (0.9-1.1); Prothrombin Time 18.3 Seconds (9.0-12.0)
--- NOTE | 2020-03-06 08:29 | Psychiatric Progress Note ---
Date of Service March 06, 2020 Impression / Recommendations Impression 54 y/o male with extended ED stay on 302; on a 304 as of 03/06/2020. We are recommending referral to [facility] for long-term inpatient treatment, awaiting approval from [facility]. Chronic and persistent mental illness, diagnosed with schizoaffective disorder bipolar type, presented with at least several months of worsening manic and psychotic symptoms in the context of medication noncompliance and multiple recent hospitalizations for medical problems. He was agitated and uncooperative in the ED, remains poorly compliant and unable to care for his basic needs outside of the hospital. Symptoms of kylee are persisting including very poor sleep, hyperverbal language, mood lability, grandiosity, and tangential/disorganized thought process. He also continues to have episodes of significant irritability and agitation, has threatened to physically harm staff and a female patient, and continues to present and acute risk of harm to him self and to others if discharged prematurely. (1) Schizoaffective disorder: 02/25 - The patient was admitted to the [facility] ([facility] inpatient mental health unit) on q15 min checks (behavioral with suicide precautions) for safety. The patient will participate in group, recreational, and milieu therapies and will be offered additional individual and family sessions as clinically appropriate. He clearly meets criteria for extended involuntary commitment and a 303 was filed, Dr. Lopez updated as will be testifying psychiatrist. Regarding meds, trazodone and Cymbalta were held in ED due to paradoxical reaction and kylee. Zyprexa was given standing order there, as calmer will change to prn here. His Tegretol was also restarted there at low dose as longstanding previously effective med. May impact his anticoagulation. 02/26 -303 hearing held and commitment granted. Contact Su MORATAYA at [place] to coordinate care - left message. -Continue olanzapine 10 mg at bedtime, risperidone 2 mg at bedtime (contact outpatient clinician regarding previous response to these medications and preferred plan moving forward), carbamazepine 250 mg twice daily, and diazepam 5 mg at bedtime. Zolpidem 10 mg at bedtime as needed has been added, and although he received a dose last night, he still slept only 1 hour. Consider trial of atypical antipsychotic with sedating properties, such as chlorpromazine, in place of one of his atypicals if sleep does not improve. -Monitoring on an atypical antipsychotic: Hgb A1C 5.5%, est ave glucose 111 on 02/27/20, FLP ordered for tomorrow. -Per records, patient has assault charges. Attempt to clarify with his outpatient case work aide. 02/27 - Medication adjustments suggested this morning after treatment team and review of collateral obtained from patient's outpatient psychiatric prescriber. - Titrating risperidone to 1mg qAM and 2mg qHS - further titration as tolerated (previous dosing of 8mg daily total). - Diazepam titrated to 10mg qHS to promote sleep, as this continues to be a problem. Scheduled HS olanzapine was discontinued, but remains a prn option for sleep/agitation if necessary. - Consider chlorpromazine for mood stabilization/sleep if sleep continues to be an issue. 02/28 - Continue medication adjustments as previously discussed - pt received 3mg total of risperidone yesterday, scheduled to receive 4mg total today. Continue titration as tolerated - Pt continues to sleep poorly, though has been taking brief and intermittent naps during the day which is a small improvement. Continue diazepam at this time. 03/01 - Risperidone being titrated to 4mg this evening (total of 5mg today), and AM dose being titrated to 2mg tomorrow (will get total of 6mg). Continue risperidone titration as indicated/tolerated. - Pt was counseled on the fact that medications used to stabilize his symptoms can eventually be cross-tapered to medications that may be more ideal for long- term use. Pt has continued to take risperidone as scheduled, but does verbalize concerns about long-term side effects he has experienced in the past. He did seem to understand that risperidone is being used for acute stabilization, but that other options can be explored on an outpatient basis once his symptoms are improved. - Pt did have improved sleep last evening - continue to monitor, adjust medication regimen as needed to target sleep 03/02 total of 6mg Risperdal today (2mgAM and 4mg at hs), will move to 7mg tomorrow 03/03 with goal for 8mg on Saturday 03/04 if tolerated; for now monitor the "drunken feeling" as I believe that is the cumulative poor sleep and increasing Risperdal culminating on patient, but could be a SE of Tegretol. He is not showing s/sx of fall risk or dysequilibrium 03/03 - I am concerned that Tegretol may be causing the "drunken feeling" as patient notes this is new. He is still manic with poor sleep and hyperverbal, more likely to be intrusive/inappropriate/irritable at night. Will stop the Tegretol and continue to advance the Risperdal 03/03 will get 7mg, and 03/04 8mg divided 4mg bid (he would like to consider 8mg/hs once up to full dosing as that is how he took it outpatient). He declines change from Valium to Klonopin with enid causey contemplating increased dose to facilitate sleep. TO increase Valium I believe could risk daytime somnolence and impairment in cognition and coordination given how long acting it is. Although provocative I will return patient to his trazodone 150mg/hs tonight watching for orthostasis alongside of Risperdal and 300mg 03/04/20. Pt agrees to slow positional changes but will ask staff to monitor for instability given he is at risk for bleeding on blood thinners if he falls. With goal to show collaboration will inquire about nail clipping and compression stockings for patient as these are reasonable requests as staffing /supplies are available. 03/04 - Continue current medication regimen - patient continues to be manic with tangential thoughts and flight of idea. He remains inappropriately fixated on a peripheral member of his outpatient treatment team. - Pt continues to refuse valproic acid due to concern for weight gain - attempted to discuss alternative agents, however, patient's ability to participate in this conversation remains limited - Trazodone will increase to 300mg tonight per ordered titration - continue to monitor sleep. - Will defer toe nail clipping at this time, as patient is an insulin-dependent diabetic who follows with a unit aide tech on an outpatient basis for routine diabetic foot care. Toenails inspected today and are long, but not debilitating. If indicated, will consider podiatry consultation to address. 03/05 -Patient increasingly agitated, disruptive, and now threatening staff and other patients. Continue risperidone 4 mg twice daily, add chlorpromazine 50 mg p.o. or IM as needed for agitation/psychosis, can be used in conjunction with lorazepam. -Sleep remains extremely poor, and out of the past 8 nights in the hospital, he has only slept over 1 hour on 2 occasions. He has failed several medication trials to improve sleep, including olanzapine, increasing his diazepam dose, and trazodone was restarted 2 nights ago with limited response. I will decrease his trazodone to 150 mg at bedtime, decrease diazepam to 5 mg at bedtime, and order chlorpromazine 100 mg at bedtime for tonight, as he did have some sedation after the dose he received this morning for agitation. -Patient continues to be agitated, disruptive, and poorly cooperative, requiring frequent redirection from staff. He has been repeatedly reminded of interpersonal boundaries and appropriate behavior. Continue private room and excuse from groups. -Patient continues to refuse trials of Depakote or lithium, failed Tegretol. ECT is an option, but and not available here, and he is not voluntary. Given the severity of his symptoms, lack of improvement since admission, and the fact that he required very lengthy inpatient hospitalizations in the past for stabi lization, I am recommending a 304 involuntary commitment with referral to [facility] for long-term inpatient treatment. Patient informed, provided with 304 paperwork, which he promptly ripped up. 03/06 - 304 hearing held and commitment granted. Refer to [facility] and order EKG and CXR for medical clearance. - Continue diazepam 5 mg and trazodone 150 mg at bedtime. Patient remains unhappy about being on risperidone, as he gained weight on it in the past, and as it has not been usually effective, I will decrease his dose to 2 mg every morning and 4 mg at bedtime, while increasing chlorpromazine to 50 mg every morning and 100 mg at bedtime. Continue chlorpromazine 50 mg every 2 hours as needed for psychosis/agitation. Patient agreed to a trial of Depakote, reviewed the need to monitor blood work including CBC and liver function, as well as blood levels. Start 500 mg at bedtime, and check a trough level after 5 doses (ordered for 03/11/2020). (2) Deep venous thrombosis: 02/25 - Patient non-compliant with Eliquis and was transitioned to Coumadin in the ED with Lovenox bridge. The combo should be continued for at least 2 more days and an INR >2. Pharmacist recommends daily PT/INR if he'll allow (every other acceptable if issue) and taking 10 mg Coumadin for the next 2 nights. 02/26 -INR 1.2 today. Continue Lovenox until Coumadin is therapeutic, with daily INR. 02/27 - INR 2.0 today - will discontinue Lovenox - patient thus far has been compliant with daily PT/INR. 02/28 - INR continues to be at 2.0 today with discontinuation of Lovenox 03/01--INR = 2.1 03/02 and 03/03 - 03/02 INR 1.9 which is slightly below goal will continue 10mg with daily PT/INR. Request pharmacy input with next PT/INR on 03/04/20 if that remains <2 03/04- INR returned to 2.0 today - continue serial PT/INR - physical examination of upper and lower extremities. Fingers are a bit cold to the touch, no obvious discoloration, sensation intact in all digits. Lower extremities visualized, no discoloration, warm to touch, no overt pitting edema so far this morning. No ulcers/wounds observed on feet, though skin is dry and calloused in places. Pedal pulses 3+ bilaterally, sensation intact in all digits. Pt reports "tingling" from toes to metatarsal area bilaterally. 03/05 -patient agitated and uncooperative, unable to examine lower extremities. (3) Diabetes mellitus: 02/25 - diabetic pharmacy consult 02/26 -patient getting insulin here, glucose well controlled. 03/06 -patient for a large callus off of the ball of his left foot, with a flap of skin still attached. He is able to ambulate and there are no current signs of infection, but given his diabetes and risk of infection, we will consult the wound care team for assistance. (4) Chronic back pain: 03/05 -on admission, patient was continued on his home pain medication regimen, including nabumetone 500 mg 4 times daily, gabapentin 400 mg 4 times daily, duloxetine, diclofenac, and baclofen 20 mg twice daily. He is now demanding multiple medication changes to target pain, including increasing all 3 of those medications to 5 times a day. Attempted to explain to him that this is above the FDA maximum dose and that it would not be appropriate to order higher doses of NSAIDs, but he was unable to tolerate the discussion, interrupting becoming agitated. Risk Factors Assessment Male: Yes : Yes Do You Have Access To A Gun?: No Health Problems: Yes Mental Health Diagnoses: Yes Substance Use Disorders: No Family History of Suicide: Yes Previous Psychiatric Hospitalization: Yes Protective Factors Assessment : No Responsible for Young Children: No Employed: No Stable Relationships: No Interval History Identifying Information MANDI BOSS is a 54-year-old M who currently lives in alone in [place], has a history of schizoaffective disorder, and was admitted on 02/26/20 12:02 on a 302 involuntary commitment for disorganized psychosis. It should be noted that he initially presented on 02/21 and was in the ED awaiting bed placement for >3 days. Chief Complaint "I don't know, I'm getting to a good girl". Review of Systems Sleep Information Total Hours of Sleep: 3.5 Sleep Comments: pt pacing and walking sideways at times during the night. Very poor sleep. pt appeared to try to stay awake. pt irritable at times, needed redirection. pt on q-15 minute checks Meal Information Percent Meal Consumed - Breakfast: 100 Percent Meal Consumed - Lunch: 100 Percent Meal Consumed - Dinner: 100 Nutrition Comment: per meal record Subjective Subjective Patient was seen & assessed and interval progress reviewed with treatment team. Staff report he was agitated and received IM medications yesterday am. He is often pacing the halls, talking and singing. He got additional prns of chlorpromazine in the afternoon. He remains focused on a mobile Skills garbage collector supervisor, saying they are going to get , and said he needed a recording studio and rastafarian with a muslim. He was argumentative and uncooperative with staff, and ripped up the 304 paperwork when it was given to him. He continues to fight sleep, resists going to bed, and is up and hyperactive multiple times a night. On my assessment, he is extremely disorganized, jumping from topic to topic, mumbling and talking nonstop, frequently interrupting. "I like to keep busy, I'd like to get this hernia taken care of, I tore a chunk of skin off my foot..." When asked about his mood, he says "I'm getting to a good girl, best girl in the world, Norman, I don't really know her last name, she's to a Norah, she's or , I think she was abused... I know Smith Ortiz a psychiatrist." He laughs when reminded that he has a professional relationship with his outpatient clinicians/caregivers, and then says he thinks he should get a job working at the hospital. He says sleep was "better last night," and reviewed his ongoing manic symptoms and reiterated recommendations for a mood stabilizer, such as Depakote or lithium. He repeatedly interrupts, saying he only wanted higher doses of gabapentin, but after continued discussion of the need for a mood stabilizer with a different mechanism of action than the medication he is already on, he ultimately agreed to a trial of Depakote, which he thinks he has taken before. He said he does not want lithium because it caused a metallic taste in his mouth. Attempted to review treatment plan/recommendations, including ongoing inpatient treatment, with referral to the [facility] given the potential need for long-term inpatient treatment. He said "I need as much counseling, marriage counseling, as I can get. I need to take care of things on the outside, need compression stockings, I don't think these glasses are where they need to be..." I was unable to redirect him or clarify if he agreed or not with the current treatment recommendations. He again talked about working at the hospital, saying he thinks he should be given a job here. He then said "if Jonathan Almazan does anything to hurt my kids or her kids, I'm going to get him." When asked who Jonathan Almazan is, he says "I don't know, maybe he doesn't even exist." The patient attended his 304 hearing by phone and testified that he needed his criminal charges to be expunged, needed a vacation, then talked about various OP services he might have. Physical Exam Psychiatric Orientation: alert and cooperative (partially, argumentative) Apperance: appropriately dressed Appears older than stated Eye Contact: good eye contact Motor Behavior: steady gait and station and + psychomotor agitation (pacing) hyperverbal, talking nonstop, interrupts frequently, mumbling and difficult to hear at times Affect: + labile affect shifts rapidly from expansive to irritable "Well I'm getting " Thought Process: + tangential thought process, + flight of ideas, + looseness of associations and + incoherent thought process; + thought process not linear or logical and + thought process not clear or coherent Thought Content: + delusions (grandiose, erotomanic) Suicidal Thoughts: denies suicidal thoughts Homicidal Thoughts: denies homicidal thoughts patient answers with unrelated information Cognition: + recent memory not intact and + attention not intact Insight: + impaired insight Judgement: + impaired judgement Vital Signs (Past 24 Hours) Last Vital Signs Temp 36.4 C L 03/06/20 06:39 Pulse 100 H 03/06/20 06:40 Resp 18 03/06/20 06:39 BP 103/71 03/06/20 06:40 Pulse Ox 98 02/26/20 12:12 Examined bottom of left foot, where patient has torn a large callus off of the anterior lateral eminence. Approximately 1 cm x 2 cm, skin flap still attached. Not actively bleeding, dried blood on Band-Aid. No swelling, erythema, or pus. Results & Data ([facility]) Laboratory Results Laboratory Results - last 24 hr 03/04/20 03/04/20 03/06/20 17:15 21:10 07:46 PT 18.3 H INR 1.8 H POC Glucose 95 76 Current Inpatient Medications Current Inpatient Medications: Current Inpatient Medications Acetaminophen (Acetaminophen 325 Mg Tab) 650 mg PO Q4H PRN PRN Reason: Headache or Minor Fever Stop: 03/27/20 12:01 Last Admin: 03/06/20 04:01 Dose: 650 mg Documented by: Al Hydrox/Mg Hydrox/Simethicone (Aluminum/Magnesium Susp 30 Ml Udc) 30 ml PO Q4H PRN PRN Reason: GI Upset Stop: 03/27/20 12:01 Atorvastatin Calcium (Atorvastatin 20 Mg Tab) 20 mg PO QAM [facility] Stop: 03/28/20 08:59 Last Admin: 03/05/20 08:48 Dose: 20 mg Documented by: Baclofen (Baclofen 20 Mg Tab) 20 mg PO BID TOSIN Stop: 03/27/20 20:59 Last Admin: 03/05/20 21:03 Dose: 20 mg Documented by: Bismuth Subsalicylate (Bismuth Subsalicylate Liqd 236 Ml) 15 ml PO PRN PRN PRN Reason: Loose Stool Stop: 03/27/20 12:01 Chlorpromazine HCl (Chlorpromazine Hcl 25 Mg Tab) 50 mg PO Q2H PRN PRN Reason: psychosis Stop: 04/04/20 08:43 Last Admin: 03/05/20 13:24 Dose: 50 mg Documented by: Chlorpromazine HCl (Chlorpromazine Hcl 25 Mg/Ml Amp) 50 mg IM Q2H PRN PRN Reason: psychosis or agitation Stop: 04/04/20 08:40 Chlorpromazine HCl (Chlorpromazine Hcl 100 Mg Tab) 100 mg PO [facility] Stop: 04/04/20 21:59 Last Admin: 03/05/20 21:08 Dose: 100 mg Documented by: Diazepam (Diazepam 5 Mg Tablet) 5 mg PO [facility] Stop: 04/04/20 21:59 Last Admin: 03/05/20 21:07 Dose: 5 mg Documented by: Diclofenac Sodium (Diclofenac Sod 1% Gel 100 Gm Tube) 2 gm EXT BID [facility] Stop: 03/27/20 20:59 Last Admin: 03/05/20 21:03 Dose: 2 gm Documented by: Furosemide (Furosemide 20 Mg Tab) 20 mg PO QAM PRN PRN Reason: swelling Stop: 03/28/20 08:59 Last Admin: 03/06/20 06:36 Dose: 20 mg Documented by: Gabapentin (Gabapentin 400 Mg Cap) 400 mg PO QID [facility] Stop: 03/27/20 12:59 Last Admin: 03/05/20 21:05 Dose: 400 mg Documented by: Insulin Aspart (Insulin Aspart 100 Units/Ml 3 Ml Pen) 0 units SC ACHS [facility] Stop: 03/27/20 17:14 Last Admin: 03/05/20 20:52 Dose: 1 units Documented by: Levothyroxine Sodium (Levothyroxine Sodium 50 Mcg Tablet) 50 mcg PO 0700 [facility] Stop: 04/01/20 06:59 Last Admin: 03/06/20 06:36 Dose: 50 mcg Documented by: Loratadine (Loratadine 10 Mg Tab) 10 mg PO QAM [facility] Stop: 03/28/20 08:59 Last Admin: 03/05/20 10:49 Dose: Not Given Documented by: Lorazepam (Lorazepam 2 Mg/Ml Vial (Im Use)) 2 mg IM Q6 PRN PRN Reason: Agitation Stop: 03/27/20 12:39 Last Admin: 03/05/20 09:16 Dose: 2 mg Documented by: Magnesium Hydroxide (Magnesium Hydroxide Susp 30 Ml Udc) 30 ml PO DAILY PRN PRN Reason: Constipation Stop: 03/27/20 12:01 Magnesium Oxide (Magnesium Oxide 400 Mg Tab) 400 mg PO BID [facility] Stop: 03/27/20 20:59 Last Admin: 03/05/20 21:03 Dose: 400 mg Documented by: Montelukast Sodium (Montelukast Sodium 10 Mg Tablet) 10 mg PO DAILY [facility] Stop: 03/28/20 08:59 Last Admin: 03/05/20 08:50 Dose: 10 mg Documented by: Multivitamins/Minerals (Calcium 600mg + Vit D 400 Iu Tab) 1 tab PO DAILY [facility] Stop: 03/29/20 08:59 Last Admin: 03/05/20 08:48 Dose: 1 tab Documented by: Nabumetone (Nabumetone 500 Mg Tablet) 500 mg PO QID [facility] Stop: 03/27/20 12:59 Last Admin: 03/05/20 21:05 Dose: 500 mg Documented by: Trulicity 0.75 Mg- Non-Formulary Patient's Own Med 1 ea SC Garcia@0800 [facility] Stop: 04/02/20 07:59 Last Admin: 03/03/20 07:57 Dose: 1 ea Documented by: Pantoprazole Sodium (Pantoprazole 40 Mg Tab) 40 mg PO DAILY [facility] Stop: 03/29/20 08:59 Last Admin: 03/05/20 08:49 Dose: 40 mg Documented by: Risperidone (Risperidone 2 Mg Tablet) 4 mg PO HS [facility] Stop: 03/31/20 21:59 Last Admin: 03/05/20 21:06 Dose: 4 mg Documented by: Risperidone (Risperidone Odt 0.5 Mg Soltab) 0.5 mg PO BID PRN PRN Reason: Agitation Stop: 04/01/20 11:18 Risperidone (Risperidone 2 Mg Tablet) 4 mg PO QAM [facility] Stop: 04/03/20 08:59 Last Admin: 03/05/20 08:55 Dose: Not Given Documented by: Sodium Chloride (Sodium Chloride 0.65% Na Soln 45 Ml ([place])) 1 - 2 sprays NA PRN PRN PRN Reason: Nasal Dryness/Congestion Stop: 03/27/20 12:01 Last Admin: 03/04/20 18:44 Dose: 2 sprays Documented by: Trazodone HCl (Trazodone Hcl 50 Mg Tab) 150 mg PO HS TOSIN Stop: 04/04/20 21:59 Last Admin: 03/05/20 21:06 Dose: 150 mg Documented by: Warfarin Sodium (Warfarin Sod 10 Mg Tab) 10 mg PO HS TOSIN Stop: 03/27/20 21:59 Last Admin: 03/05/20 21:05 Dose: 10 mg Documented by: Mental Health & Subst Abuse Tx Psychiatrist Name of Psychiatrist: Eric Osuna [facility] Psychiatrist's Date of Appointment with Psychiatrist: 03/18/20 Time of Appointment with Psychiatrist: 1:15pm Therapist Name of Therapist: Luis Fernando eli/Norman Television Engineer Name of Television Engineer: Kvng Phone Number for Television Engineer: [phone] Post Discharge Appointments Primary Care Physician Name Of Family Doctor: Dr. Baltazar Little [facility] Contact Information Discharge Discharge Address: [address] [place] [address], [place] [address] (1) Diabetes mellitus Diabetes mellitus complication status: without complication Diabetes mellitus senior living insulin use: with senior living use Diabetes mellitus type: type 2 Qualified Code(s): E11.9 - Type 2 diabetes mellitus without complications; Z79.4 - emt intermediate (current) use of insulin (2) Schizoaffective disorder Schizoaffective disorder type: bipolar Qualified Code(s): F25.0 - Schizoaffective disorder, bipolar type
[2020-03-06] MEDS: INSULIN ASPART 100 UNITS/ML 3 ML PEN SC SCH ×4 (09:09→21:35)
[2020-03-06] MEDS: CALCIUM 600MG + VIT D 400 IU TAB PO SCH (09:14)
[2020-03-06] MEDS: MAGNESIUM OXIDE 400 MG TAB PO SCH ×2 (09:15→21:39)
[2020-03-06] MEDS: BACLOFEN 20 MG TAB PO SCH ×2 (09:15→21:39)
[2020-03-06] MEDS: GABAPENTIN 400 MG CAP PO SCH ×4 (09:15→21:39)
[2020-03-06] MEDS: ATORVASTATIN 20 MG TAB PO SCH (09:15)
[2020-03-06] MEDS: LORATADINE 10 MG TAB PO SCH (09:15)
[2020-03-06] MEDS: PANTOprazole 40 MG TAB PO SCH (09:16)
[2020-03-06] MEDS: NABUMETONE 500 MG TABLET PO SCH ×4 (09:16→21:37)
[2020-03-06] MEDS: risperiDONE 2 MG TABLET PO SCH ×2 (09:16→21:39)
[2020-03-06] MEDS: MONTELUKAST SODIUM 10 MG TABLET PO SCH (09:17)
[2020-03-06] MEDS: DICLOFENAC SOD 1% GEL 100 GM TUBE EXT SCH ×2 (09:37→21:42)
[2020-03-06] MEDS: chlorproMAZINE HCL 25 MG TAB PO PRN ×3 (10:00→18:04)
--- NOTE | 2020-03-06 11:28 | XRay Report ---
XR chest 1V portable HISTORY: 54 years-old Male [facility] hospital referral acute shortness of breath with chest pain COMPARISON: Chest radiograph 01/20/2020, chest radiograph 12/26/2019. TECHNIQUE: Portable AP view of the chest FINDINGS: Cardiac silhouette is upper limits of normal in size. Mild interstitial coarsening with improved aera tion of the lungs compared to the prior studies. No pneumothorax, pleural effusion or new lobar airsp dionicio consolidation. Degenerative changes of the shoulders and spine. IMPRESSION: Mild chronic interstitial coarsening with improved aeration of the lungs from comparison suggestive of a resolved viral pneumonia. ACT 112: Negative or not required by law. The above report was generated using voice recognition software. It may contain grammatical, syntax o r spelling errors. Electronically signed by: Meño Ch M.D. 03/06/2020 11:27 AM
[2020-03-06] MEDS: LORazepam 2 MG/ML VIAL (IM USE) IM PRN (18:54)
[2020-03-06] MEDS: WARFARIN SOD 6 MG TAB PO SCH (21:37)
[2020-03-06] MEDS: DIVALPROEX DELAY RELEASE 500 MG TAB PO SCH (21:38)
[2020-03-06] MEDS: traZODone HCL 50 MG TAB PO SCH (21:38)
[2020-03-06] MEDS: diazePAM 5 MG TABLET PO SCH (21:39)
[2020-03-07] MEDS: ACETAMINOPHEN 325 MG TAB PO PRN ×2 (04:01→17:28)
[2020-03-07] MEDS: LEVOTHYROXINE SODIUM 50 MCG TABLET PO SCH (06:08)
[2020-03-07] MEDS: GABAPENTIN 400 MG CAP PO SCH ×3 (08:05→14:45)
[2020-03-07] MEDS: FUROSEMIDE 20 MG TAB PO PRN (08:05)
[2020-03-07] MEDS: LORATADINE 10 MG TAB PO SCH (08:05)
[2020-03-07] MEDS: NABUMETONE 500 MG TABLET PO SCH ×4 (08:06→21:54)
[2020-03-07] MEDS: BACLOFEN 20 MG TAB PO SCH ×2 (08:06→21:55)
[2020-03-07] MEDS: ATORVASTATIN 20 MG TAB PO SCH (08:06)
[2020-03-07] MEDS: risperiDONE 2 MG TABLET PO SCH ×2 (08:06→21:55)
[2020-03-07] MEDS: CALCIUM 600MG + VIT D 400 IU TAB PO SCH (08:06)
[2020-03-07] MEDS: PANTOprazole 40 MG TAB PO SCH (08:07)
[2020-03-07] MEDS: MAGNESIUM OXIDE 400 MG TAB PO SCH ×2 (08:07→21:55)
[2020-03-07] MEDS: DICLOFENAC SOD 1% GEL 100 GM TUBE EXT SCH ×2 (08:07→21:56)
[2020-03-07] MEDS: MONTELUKAST SODIUM 10 MG TABLET PO SCH (08:07)
[2020-03-07] MEDS ORDERED: chlorproMAZINE HCL 25 MG TAB PO SCH (09:00)
[2020-03-07] MEDS: INSULIN ASPART 100 UNITS/ML 3 ML PEN SC SCH ×5 (09:05→22:02)
--- NOTE | 2020-03-07 10:28 | Psychiatric Progress Note ---
Date of Service March 07, 2020 Impression / Recommendations Impression 54 y/o male with extended ED stay on 302; on a 304 as of 03/06/2020, and has been referred to [facility] for long-term inpatient treatment. Chronic and persistent mental illness, diagnosed with schizoaffective disorder bipolar type, presented with at least several months of worsening manic and psychotic symptoms in the context of medication noncompliance and multiple recent hospitalizations for medical problems. He was agitated and uncooperative in the ED, remains poorly compliant and unable to care for his basic needs outside of the hospital. Symptoms of kylee are persisting including very poor sleep, hyperverbal with pressured speech, mood lability, grandiosity, and tangential/disorganized thought process. He also continues to have episodes of significant irritability and agitation, has threatened to physically harm staff and a female patient, and continues to present and acute risk of harm to him self and to others if discharged prematurely. (1) Schizoaffective disorder: 02/25 - The patient was admitted to the [facility]) on q15 min checks (behavioral with suicide precautions) for safety. The patient will participate in group, recreational, and milieu therapies and will be offered additional individual and family sessions as clinically appropriate. He clearly meets criteria for extended involuntary commitment and a 303 was filed, Dr. Lopez updated as will be testifying psychiatrist. Regarding meds, trazodone and Cymbalta were held in ED due to paradoxical reaction and kylee. Zyprexa was given standing order there, as calmer will change to prn here. His Tegretol was also restarted there at low dose as longstanding previously effective med. May impact his anticoagulation. 02/26 -303 hearing held and commitment granted. Contact Su MORATAYA at [place] to coordinate care - left message. -Continue olanzapine 10 mg at bedtime, risperidone 2 mg at bedtime (contact outpatient clinician regarding previous response to these medications and preferred plan moving forward), carbamazepine 250 mg twice daily, and diazepam 5 mg at bedtime. Zolpidem 10 mg at bedtime as needed has been added, and although he received a dose last night, he still slept only 1 hour. Consider trial of atypical antipsychotic with sedating properties, such as chlorpromazine, in place of one of his atypicals if sleep does not improve. -Monitoring on an atypical antipsychotic: Hgb A1C 5.5%, est ave glucose 111 on 02/27/20, FLP ordered for tomorrow. -Per records, patient has assault charges. Attempt to clarify with his outpatient child support case officer. 02/27 - Medication adjustments suggested this morning after treatment team and review of collateral obtained from patient's outpatient psychiatric prescriber. - Titrating risperidone to 1mg qAM and 2mg qHS - further titration as tolerated (previous dosing of 8mg daily total). - Diazepam titrated to 10mg qHS to promote sleep, as this continues to be a problem. Scheduled HS olanzapine was discontinued, but remains a prn option for sleep/agitation if necessary. - Consider chlorpromazine for mood stabilization/sleep if sleep continues to be an issue. 02/28 - Continue medication adjustments as previously discussed - pt received 3mg total of risperidone yesterday, scheduled to receive 4mg total today. Continue titration as tolerated - Pt continues to sleep poorly, though has been taking brief and intermittent naps during the day which is a small improvement. Continue diazepam at this time. 03/01 - Risperidone being titrated to 4mg this evening (total of 5mg today), and AM dose being titrated to 2mg tomorrow (will get total of 6mg). Continue risperidone titration as indicated/tolerated. - Pt was counseled on the fact that medications used to stabilize his symptoms can eventually be cross-tapered to medications that may be more ideal for long- term use. Pt has continued to take risperidone as scheduled, but does verbalize concerns about long-term side effects he has experienced in the past. He did seem to understand that risperidone is being used for acute stabilization, but that other options can be explored on an outpatient basis once his symptoms are improved. - Pt did have improved sleep last evening - continue to monitor, adjust medication regimen as needed to target sleep 03/02 total of 6mg Risperdal today (2mgAM and 4mg at hs), will move to 7mg tomorrow 03/03 with goal for 8mg on Saturday 03/04 if tolerated; for now monitor the "drunken feeling" as I believe that is the cumulative poor sleep and increasing Risperdal culminating on patient, but could be a SE of Tegretol. He is not showing s/sx of fall risk or dysequilibrium 03/03 - I am concerned that Tegretol may be causing the "drunken feeling" as patient notes this is new. He is still manic with poor sleep and hyperverbal, more likely to be intrusive/inappropriate/irritable at night. Will stop the Tegretol and continue to advance the Risperdal 03/03 will get 7mg, and 03/04 8mg divided 4mg bid (he would like to consider 8mg/hs once up to full dosing as that is how he took it outpatient). He declines change from Valium to Klonopin with provider contemplating increased dose to facilitate sleep. TO increase Valium I believe could risk daytime somnolence and impairment in cognition and coordination given how long acting it is. Although provocative I will return patient to his trazodone 150mg/hs tonight watching for orthostasis alongside of Risperdal and 300mg 03/04/20. Pt agrees to slow positional changes but will ask staff to monitor for instability given he is at risk for bleeding on blood thinners if he falls. With goal to show collaboration will inquire about nail clipping and compression stockings for patient as these are reasonable requests as staffing /supplies are available. 03/04 - Continue current medication regimen - patient continues to be manic with tangential thoughts and flight of idea. He remains inappropriately fixated on a peripheral member of his outpatient treatment team. - Pt continues to refuse valproic acid due to concern for weight gain - attempted to discuss alternative agents, however, patient's ability to participate in this conversation remains limited - Trazodone will increase to 300mg tonight per ordered titration - continue to monitor sleep. - Will defer toe nail clipping at this time, as patient is an insulin-dependent diabetic who follows with a graining operator on an outpatient basis for routine diabetic foot care. Toenails inspected today and are long, but not debilitating. If indicated, will consider podiatry consultation to address. 03/05 -Patient increasingly agitated, disruptive, and now threatening staff and other patients. Continue risperidone 4 mg twice daily, add chlorpromazine 50 mg p.o. or IM as needed for agitation/psychosis, can be used in conjunction with lorazepam. -Sleep remains extremely poor, and out of the past 8 nights in the hospital, he has only slept over 1 hour on 2 occasions. He has failed several medication trials to improve sleep, including olanzapine, increasing his diazepam dose, and trazodone was restarted 2 nights ago with limited response. I will decrease his trazodone to 150 mg at bedtime, decrease diazepam to 5 mg at bedtime, and order chlorpromazine 100 mg at bedtime for tonight, as he did have some sedation after the dose he received this morning for agitation. -Patient continues to be agitated, disruptive, and poorly cooperative, requiring frequent redirection from staff. He has been repeatedly reminded of interpersonal boundaries and appropriate behavior. Continue private room and excuse from groups. -Patient continues to refuse trials of Depakote or lithium, failed Tegretol. ECT is an option, but and not available here, and he is not voluntary. Given the severity of his symptoms, lack of improvement since admission, and the fact that he required very lengthy inpatient hospitalizations in the past for stabilization, I am recommending a 304 involuntary commitment with referral to [facility] for long-term inpatient treatment. Patient informed, provided with 304 paperwork, which he promptly ripped up. 03/06 - 304 hearing held and commitment granted. Refer to [facility], and order EKG and CXR for medical clearance. - Continue diazepam 5 mg and trazodone 150 mg at bedtime. Patient remains unhappy about being on risperidone, as he gained weight on it in the past, and as it has not been usually effective, I will decrease his dose to 2 mg every morning and 4 mg at bedtime, while increasing chlorpromazine to 50 mg every morning and 100 mg at bedtime. Continue chlorpromazine 50 mg every 2 hours as needed for psychosis/agitation. Patient agreed to a trial of Depakote, reviewed the need to monitor blood work including CBC and liver function, as well as blood levels. Start 500 mg at bedtime, and check a trough level after 5 doses (ordered for 03/11/2020). 03/07 -Increase chlorpromazine to 50 mg 3 times daily and 100 mg at bedtime, continue as needed's. (2) Deep venous thrombosis: 02/25 - Patient non-compliant with Eliquis and was transitioned to Coumadin in the ED with Lovenox bridge. The combo should be continued for at least 2 more days and an INR >2. Pharmacist recommends daily PT/INR if he'll allow (every other acceptable if issue) and taking 10 mg Coumadin for the next 2 nights. 02/26 -INR 1.2 today. Continue Lovenox until Coumadin is therapeutic, with daily INR. 02/27 - INR 2.0 today - will discontinue Lovenox - patient thus far has been compliant with daily PT/INR. 02/28 - INR continues to be at 2.0 today with discontinuation of Lovenox 03/01--INR = 2.1 03/02 and 03/03 - 03/02 INR 1.9 which is slightly below goal will continue 10mg with daily PT/INR. Request pharmacy input with next PT/INR on 03/04/20 if that remains <2 03/04- INR returned to 2.0 today - continue serial PT/INR - physical examination of upper and lower extremities. Fingers are a bit cold to the touch, no obvious discoloration, sensation intact in all digits. Lower extremities visualized, no discoloration, warm to touch, no overt pitting edema so far this morning. No ulcers/wounds observed on feet, though skin is dry and calloused in places. Pedal pulses 3+ bilaterally, sensation intact in all digits. Pt reports "tingling" from toes to metatarsal area bilaterally. 03/05 -patient agitated and uncooperative, unable to examine lower extremities. 03/07-INR 1.8 yesterday; Coumadin increased to 12 mg daily, continue every 2 day PT/INR. (3) Diabetes mellitus: 02/25 - diabetic pharmacy consult 02/26 -patient getting insulin here, glucose well controlled. 03/06 -patient for a large callus off of the ball of his left foot, with a flap of skin still attached. He is able to ambulate and there are no current signs of infection, but given his diabetes and risk of infection, we will consult the wound care team for assistance. 03/07 -appreciate wound care nurse assistance, they are consulting the graining operator. (4) Chronic back pain: 03/05 -on admission, patient was continued on his home pain medication regimen, including nabumetone 500 mg 4 times daily, gabapentin 400 mg 4 times daily, duloxetine, diclofenac, and baclofen 20 mg twice daily. He is now demanding multiple medication changes to target pain, including increasing all 3 of those medications to 5 times a day. Attempted to explain to him that this is above the FDA maximum dose and that it would not be appropriate to order higher doses of NSAIDs, but he was unable to tolerate the discussion, interrupting becoming agitated. Risk Factors Assessment Male: Yes : Yes Do You Have Access To A Gun?: No Health Problems: Yes Mental Health Diagnoses: Yes Substance Use Disorders: No Family History of Suicide: Yes Previous Psychiatric Hospitalization: Yes Protective Factors Assessment : No Responsible for Young Children: No Employed: No Stable Relationships: No Interval History Identifying Information MANDI BOSS is a 54-year-old M who currently lives in alone in [place], has a history of schizoaffective disorder, and was admitted on 02/26/20 12:02 on a 302 involuntary commitment for disorganized psychosis. It should be noted that he initially presented on 02/21 and was in the ED awaiting bed placement for >3 days. Chief Complaint "I want to talk to you, there's a lot I need to do...". Review of Systems Sleep Information Total Hours of Sleep: 3 Meal Information Percent Meal Consumed - Breakfast: 100 Percent Meal Consumed - Lunch: 100 Percent Meal Consumed - Dinner: 100 Nutrition Comment: per meal record Subjective Subjective Patient was seen & assessed and interval progress reviewed with nursing and social work. Staff report he continues to engage in inappropriate, hypersexual behavior, him out of his room shirtless and was rubbing his breasts at a female peer, then came out in his underwear yelling and wearing a cape. He requires frequent redirection, talks nonstop, often making inappropriate statements, and with numerous irrational demands. Security had to be called multiple times to assist in de-escalation, and he received Ativan 2 mg and Thorazine 50 mg IM. He also received several doses of 50 mg p.o. he continues to resist sleep, is up numerous times overnight, requiring frequent redirection. He was seen by the wound care nurse this morning, who recommended a podiatry consult. On my assessment today, he watches into a long list of things he needs, including various vitamins and supplements. He asks to double the dose of his Neurontin and various other medications. Advised that we can increase the gabapentin from 4 times to 5 times a day, but that is the maximum FDA approved dose. 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..." And asked if he feels his thoughts are racing, he says "these have been my dreams since I was a young kid." Physical Exam Psychiatric Orientation: alert and cooperative (Partially, limited historian due to loose associations) Apperance: appropriately dressed and appeared stated age Overweight, full white flynn, wearing glasses Eye Contact: + fair eye contact Motor Behavior: + psychomotor agitation Restless, pacing Hyperverbal, pressured, talks nonstop, mutters incoherently at times Expansive Thought Process: + flight of ideas Grandiose Suicidal Thoughts: denies suicidal thoughts Homicidal Thoughts: denies homicidal thoughts Hallucinations: no auditory hallucinations and no visual hallucinations Cognition: + recent memory not intact and + attention not intact Insight: + impaired insight Judgement: + impaired judgement Vital Signs (Past 24 Hours) Last Vital Signs Temp 36 C L 03/07/20 06:32 Pulse 101 H 03/07/20 06:32 Resp 17 03/07/20 06:32 BP 130/85 03/07/20 06:32 Pulse Ox 98 02/26/20 12:12 Results & Data ([facility] [[email or web address] Laboratory Results Laboratory Results - last 24 hr 03/05/20 03/06/20 03/06/20 20:56 07:49 12:29 POC Glucose 116 H 105 H 84 03/07/20 07:59 POC Glucose 101 H Current Inpatient Medications Current Inpatient Medications: Current Inpatient Medications Acetaminophen (Acetaminophen 325 Mg Tab) 650 mg PO Q4H PRN PRN Reason: Headache or Minor Fever Stop: 03/27/20 12:01 Last Admin: 03/07/20 04:01 Dose: 650 mg Documented by: Al Hydrox/Mg Hydrox/Simethicone (Aluminum/Magnesium Susp 30 Ml Udc) 30 ml PO Q4H PRN PRN Reason: GI Upset Stop: 03/27/20 12:01 Atorvastatin Calcium (Atorvastatin 20 Mg Tab) [facility] [place] Stop: 03/28/20 08:59 Last Admin: 03/07/20 08:06 Dose: 20 mg Documented by: Baclofen (Baclofen 20 Mg Tab) 20 mg PO BID [facility] Stop: 03/27/20 20:59 Last Admin: 03/07/20 08:06 Dose: 20 mg Documented by: Bismuth Subsalicylate (Bismuth Subsalicylate Liqd 236 Ml) 15 ml PO PRN PRN PRN Reason: Loose Stool Stop: 03/27/20 12:01 Chlorpromazine HCl (Chlorpromazine Hcl 25 Mg Tab) 50 mg PO Q2H PRN PRN Reason: psychosis Stop: 04/04/20 08:43 Last Admin: 03/06/20 18:04 Dose: 50 mg Documented by: Chlorpromazine HCl (Chlorpromazine Hcl 25 Mg/Ml Amp) 50 mg IM Q2H PRN PRN Reason: psychosis or agitation Stop: 04/04/20 08:40 Last Admin: 03/06/20 18:53 Dose: 50 mg Documented by: Chlorpromazine HCl (Chlorpromazine Hcl 100 Mg Tab) 100 mg PO [facility] Stop: 04/04/20 21:59 Last Admin: 03/06/20 21:39 Dose: 100 mg Documented by: Chlorpromazine HCl (Chlorpromazine Hcl 25 Mg Tab) 50 mg PO [facility] Stop: 04/06/20 08:59 Last Admin: 03/07/20 08:06 Dose: 50 mg Documented by: Diazepam (Diazepam 5 Mg Tablet) 5 mg PO [facility] Stop: 04/04/20 21:59 Last Admin: 03/06/20 21:39 Dose: 5 mg Documented by: Diclofenac Sodium (Diclofenac Sod 1% Gel 100 Gm Tube) 2 gm EXT BID [facility] Stop: 03/27/20 20:59 Last Admin: 03/07/20 08:07 Dose: 2 gm Documented by: Divalproex Sodium (Divalproex Delay Release 500 Mg Tab) 500 mg PO [facility] Stop: 04/05/20 21:59 Last Admin: 03/06/20 21:38 Dose: 500 mg Documented by: Furosemide (Furosemide 20 Mg Tab) 20 mg PO QAM PRN PRN Reason: swelling Stop: 03/28/20 08:59 Last Admin: 03/07/20 08:05 Dose: 20 mg Documented by: Gabapentin (Gabapentin 400 Mg Cap) 400 mg PO QID [facility] Stop: 03/27/20 12:59 Last Admin: 03/07/20 08:05 Dose: 400 mg Documented by: Insulin Aspart (Insulin Aspart 100 Units/Ml 3 Ml Pen) 0 units SC ACHS [facility] Stop: 03/27/20 17:14 Last Admin: 03/07/20 09:05 Dose: 10 units Documented by: Levothyroxine Sodium (Levothyroxine Sodium 50 Mcg Tablet) 50 mcg PO 0700 [facility] Stop: 04/01/20 06:59 Last Admin: 03/07/20 06:08 Dose: 50 mcg Documented by: Loratadine (Loratadine 10 Mg Tab) 10 mg PO QAM [facility] Stop: 03/28/20 08:59 Last Admin: 03/07/20 08:05 Dose: 10 mg Documented by: Lorazepam (Lorazepam 2 Mg/Ml Vial (Im Use)) 2 mg IM Q6 PRN PRN Reason: Agitation Stop: 03/27/20 12:39 Last Admin: 03/06/20 18:54 Dose: 2 mg Documented by: Magnesium Hydroxide (Magnesium Hydroxide Susp 30 Ml Udc) 30 ml PO DAILY PRN PRN Reason: Constipation Stop: 03/27/20 12:01 Magnesium Oxide (Magnesium Oxide 400 Mg Tab) 400 mg PO BID [facility] Stop: 03/27/20 20:59 Last Admin: 03/07/20 08:07 Dose: 400 mg Documented by: Montelukast Sodium (Montelukast Sodium 10 Mg Tablet) 10 mg PO DAILY [facility] Stop: 03/28/20 08:59 Last Admin: 03/07/20 08:07 Dose: 10 mg Documented by: Multivitamins/Minerals (Calcium 600mg + Vit D 400 Iu Tab) 1 tab PO DAILY [facility] Stop: 03/29/20 08:59 Last Admin: 03/07/20 08:06 Dose: 1 tab Documented by: Nabumetone (Nabumetone 500 Mg Tablet) 500 mg PO QID [facility] Stop: 03/27/20 12:59 Last Admin: 03/07/20 08:06 Dose: 500 mg Documented by: Trulicity 0.75 Mg- Non-Formulary Patient's Own Med 1 ea SC Garcia@0800 [facility] Stop: 04/02/20 07:59 Last Admin: 03/03/20 07:57 Dose: 1 ea Documented by: Pantoprazole Sodium (Pantoprazole 40 Mg Tab) 40 mg PO DAILY [facility] Stop: 03/29/20 08:59 Last Admin: 03/07/20 08:07 Dose: 40 mg Documented by: Risperidone (Risperidone 2 Mg Tablet) 4 mg PO [facility] Stop: 03/31/20 21:59 Last Admin: 03/06/20 21:39 Dose: 4 mg Documented by: Risperidone (Risperidone Odt 0.5 Mg Soltab) 0.5 mg PO BID PRN PRN Reason: Agitation Stop: 04/01/20 11:18 Risperidone (Risperidone 2 Mg Tablet) 2 mg PO QAM [facility] Stop: 04/06/20 08:59 Last Admin: 03/07/20 08:06 Dose: 2 mg Documented by: Sodium Chloride (Sodium Chloride 0.65% Na Soln 45 Ml ([place])) 1 - 2 sprays NA PRN PRN PRN Reason: Nasal Dryness/Congestion Stop: 03/27/20 12:01 Last Admin: 03/04/20 18:44 Dose: 2 sprays Documented by: Trazodone HCl (Trazodone Hcl 50 Mg Tab) 150 mg PO [facility] Stop: 04/04/20 21:59 Last Admin: 03/06/20 21:38 Dose: 150 mg Documented by: Warfarin Sodium (Warfarin Sod 6 Mg Tab) 12 mg PO [facility] Stop: 04/05/20 21:59 Last Admin: 03/06/20 21:37 Dose: 12 mg Documented by: Mental Health & Subst Abuse Tx Psychiatrist Name of Psychiatrist: Eric Osuna [facility] Psychiatrist's Date of Appointment with Psychiatrist: 03/18/20 Time of Appointment with Psychiatrist: 1:15pm Therapist Name of Therapist: Luis Fernando eli/Norman Disassembler Name of Disassembler: Kvng Phone Number for Disassembler: [phone] Post Discharge Appointments Primary Care Physician Name Of Family Doctor: Dr. Baltazar [facility] Contact Information Discharge Discharge Address: [address] [place] [address], [address] [phone] (1) Diabetes mellitus Diabetes mellitus complication status: without complication Diabetes mellitus intermodal dispatcher insulin use: with intermodal dispatcher use Diabetes mellitus type: type 2 Qualified Code(s): E11.9 - Type 2 diabetes mellitus without complications; Z79.4 - group home (current) use of insulin (2) Schizoaffective disorder Schizoaffective disorder type: bipolar Qualified Code(s): F25.0 - Schizoaffective disorder, bipolar type
[2020-03-07] MEDS: chlorproMAZINE HCL 25 MG TAB PO PRN (12:53)
[2020-03-07] MEDS: chlorproMAZINE HCL 25 MG TAB PO SCH ×2 (14:45→21:52)
--- NOTE | 2020-03-07 21:25 | Orthopedic Progress Note ---
Date of Service March 07, 2020 Assessment & Plan (1) Ulcer of left foot, limited to breakdown of skin: Patient seen, evaluated, and treated approximately. Significant time was spent in [id number] discussion reviewing symptoms, diagnosis, and treatment both conservative and nonconservative and application treatment. Rx signed for men's designer to dispense diabetic shoes and custom molded diabetic foot accommodative, functional, off loading inserts. Excisional debridement utilizing a sharp sterile number 15 blade removing hyperkeratotic tissue to partial thickness sub met one ulcer of left foot. patient tolerated procedure well. Conservative wound care was rendered. We discussed the pertinent risks, benefits, and an alternative to the patients considered procedure, as well as the patients expectations. Thank you for allowing me to participate in this Patient's care. (2) Type 2 diabetes mellitus with diabetic polyneuropathy: (3) Foot callus: Admission and Anticipated Discharge Date Admission Date: February 26, 2020 Subjective Patient is a type II diabetic 54 year old male seen at bedside. Patient reports history of previous diabetic foot ulcers. He notes he has utilized diabetic shoes with custom molded orthotics in past. He is concerned about left foot pre ulcerative callus. Review of Systems Review of Systems: All systems reviewed & are unremarkable except as noted in HPI & below Physical Exam Physical Exam: INTEGUMENT: Left sub met 1 partial thickness wound. Intradermal and subdermal hemorrhaging. VASCULAR: Dorsalis pedis and posterior tibial pulses palpable bilateral. Capillary refill time within normal limits. Proximal distal cooling within normal limits. MUSCULOSKELETAL: Manual muscle test elicits 5 out of 5. NEUROLOGIC: Epicritic sensation intact CONSTITUTIONAL: Patient denies constitutional symptoms\\ Focused Exam: Wound location: Left foot sub met 1 Wound base color and depth: partial thickness Wound size (cm): 0.5 x 0.5 x0.1cm Odor: none Drainage: none Undermining: none Borders: hyperkeratotic Constitutional: well developed and well nourished Eyes: PERRL, conjunctivae normal, anicteric sclerae Neck: normal visual inspection Respiratory: symmetric chest movement Cardiovascular: Rate/Rhythm: regular rate Musculoskeletal: no cyanosis or clubbing, extremities motor strength 5/5 Skin: + ulcer (sub met 1 left foot) Neurologic: normal touch/pain/proprioception Psychiatric: Orientation: alert, oriented x 3 and oriented to person Results & Data ([facility]) Vital Signs (Past 12 Hours) Vital Signs Temp 03/07/20 20:54 36.6 C (1) Type 2 diabetes mellitus with diabetic polyneuropathy Diabetes mellitus half-way insulin use: unspecified termination clerk insulin use status Qualified Code(s): E11.42 - Type 2 diabetes mellitus with diabetic polyneuropathy
[2020-03-07] MEDS: diazePAM 5 MG TABLET PO SCH (21:52)
[2020-03-07] MEDS: DIVALPROEX DELAY RELEASE 500 MG TAB PO SCH (21:53)
[2020-03-07] MEDS: traZODone HCL 50 MG TAB PO SCH (21:53)
[2020-03-07] MEDS: WARFARIN SOD 6 MG TAB PO SCH (21:53)
[2020-03-08] MEDS: ACETAMINOPHEN 325 MG TAB PO PRN (01:52)
[2020-03-08] MEDS: chlorproMAZINE HCL 25 MG TAB PO PRN ×3 (03:32→11:56)
[2020-03-08] MEDS: LEVOTHYROXINE SODIUM 50 MCG TABLET PO SCH (07:30)
[2020-03-08] MEDS: GABAPENTIN 400 MG CAP PO SCH ×5 (07:32→15:12)
[2020-03-08] MEDS: NABUMETONE 500 MG TABLET PO SCH ×4 (07:33→20:56)
[2020-03-08] MEDS: BACLOFEN 20 MG TAB PO SCH ×2 (07:33→21:00)
[2020-03-08] MEDS: MAGNESIUM OXIDE 400 MG TAB PO SCH ×2 (07:33→20:56)
[2020-03-08] MEDS: PANTOprazole 40 MG TAB PO SCH (07:33)
[2020-03-08] MEDS: MONTELUKAST SODIUM 10 MG TABLET PO SCH (07:40)
[2020-03-08] MEDS: risperiDONE 2 MG TABLET PO SCH ×2 (07:40→20:59)
[2020-03-08] MEDS: LORATADINE 10 MG TAB PO SCH (07:40)
[2020-03-08] MEDS: CALCIUM 600MG + VIT D 400 IU TAB PO SCH (07:41)
[2020-03-08] MEDS: ATORVASTATIN 20 MG TAB PO SCH (07:41)
[2020-03-08] MEDS: FUROSEMIDE 20 MG TAB PO PRN (07:42)
[2020-03-08 08:09] LABS: INR 2.3 (0.9-1.1); Prothrombin Time 23.6 Seconds (9.0-12.0)
[2020-03-08] MEDS: INSULIN ASPART 100 UNITS/ML 3 ML PEN SC SCH ×4 (09:03→20:52)
[2020-03-08] MEDS: chlorproMAZINE HCL 25 MG TAB PO SCH (09:05)
[2020-03-08] MEDS: DICLOFENAC SOD 1% GEL 100 GM TUBE EXT SCH ×2 (10:23→21:09)
[2020-03-08] MEDS ORDERED: chlorproMAZINE HCL 25 MG/ML AMP IM STA (12:24)
[2020-03-08] MEDS ORDERED: diphenhydrAMINE 50 MG/ML VIAL IM STA ×2 (12:26→15:19)
--- NOTE | 2020-03-08 13:50 | Psychiatric Progress Note ---
Date of Service March 08, 2020 Impression / Recommendations Impression 54 y/o male with extended ED stay on 302; on a 304 as of 03/06/2020, and has been referred to [facility] for long-term inpatient treatment. Chronic and persistent mental illness, diagnosed with schizoaffective disorder bipolar type, presented with at least several months of worsening manic and psychotic symptoms in the context of medication noncompliance and multiple recent hospitalizations for medical problems. He was agitated and uncooperative in the ED, remains poorly compliant and unable to care for his basic needs outside of the hospital. Symptoms of kylee are persisting including very poor sleep, hyperverbal with pressured speech, mood lability, grandiosity, and tangential/disorganized thought process. He also continues to have episodes of significant irritability and agitation, has threatened to physically harm staff and a female patient, and continues to present and acute risk of harm to him self and to others if discharged prematurely. As of 03/08/2020 the patient remains floridly psychotic and appears manic. Present symptoms include flight of ideas, pressured speech, and poor impulse control. For example, when asked about whether he would be willing to accept an intramuscular injection of medication if we were to offer him 1 he replied, "I got no ass! See?" And proceeded to pull his pants down in a semipublic setting. (1) Schizoaffective disorder: 02/25 - The patient was admitted to the [facility] ([facility] unit) on q15 min checks (behavioral with suicide precautions) for safety. The patient will participate in group, recreational, and milieu therapies and will be offered additional individual and family sessions as clinically appropriate. He clearly meets criteria for extended involuntary commitment and a 303 was filed, Dr. Lopez updated as will be testifying psychiatrist. Regarding meds, trazodone and Cymbalta were held in ED due to paradoxical reaction and kylee. Zyprexa was given standing order there, as calmer will change to prn here. His Tegretol was also restarted there at low dose as longstanding previously effective med. May impact his anticoagulation. 02/26 -303 hearing held and commitment granted. Contact Su MORATAYA at [facility] to coordinate care - left message. -Continue olanzapine 10 mg at bedtime, risperidone 2 mg at bedtime (contact outpatient clinician regarding previous response to these medications and preferred plan moving forward), carbamazepine 250 mg twice daily, and diazepam 5 mg at bedtime. Zolpidem 10 mg at bedtime as needed has been added, and although he received a dose last night, he still slept only 1 hour. Consider trial of atypical antipsychotic with sedating properties, such as chlorpromazine, in place of one of his atypicals if sleep does not improve. -Monitoring on an atypical antipsychotic: Hgb A1C 5.5%, est ave glucose 111 on 02/27/20, FLP ordered for tomorrow. -Per records, patient has assault charges. [facility] to [facility]. 02/27 - Medication adjustments suggested this morning after treatment team and review of collateral obtained from patient's outpatient psychiatric prescriber. - Titrating risperidone to 1mg qAM and 2mg qHS - further titration as tolerated (previous dosing of 8mg daily total). - Diazepam titrated to 10mg qHS to promote sleep, as this continues to be a problem. Scheduled HS olanzapine was discontinued, but remains a prn option for sleep/agitation if necessary. - Consider chlorpromazine for mood stabilization/sleep if sleep continues to be an issue. 02/28 - Continue medication adjustments as previously discussed - pt received 3mg total of risperidone yesterday, scheduled to receive 4mg total today. Continue titration as tolerated - Pt continues to sleep poorly, though has been taking brief and intermittent naps during the day which is a small improvement. Continue diazepam at this time. 03/01 - Risperidone being titrated to 4mg this evening (total of 5mg today), and AM dose being titrated to 2mg tomorrow (will get total of 6mg). Continue risperidone titration as indicated/tolerated. - Pt was counseled on the fact that medications used to stabilize his symptoms can eventually be cross-tapered to medications that may be more ideal for long- term use. Pt has continued to take risperidone as scheduled, but does verbalize concerns about long-term side effects he has experienced in the past. He did seem to understand that risperidone is being used for acute stabilization, but that other options can be explored on an outpatient basis once his symptoms are improved. - Pt did have improved sleep last evening - continue to monitor, adjust medication regimen as needed to target sleep 03/02 total of 6mg Risperdal today (2mgAM and 4mg at hs), will move to 7mg tomorrow 03/03 with goal for 8mg on Saturday 03/04 if tolerated; for now monitor the "drunken feeling" as I believe that is the cumulative poor sleep and increasing Risperdal culminating on patient, but could be a SE of Tegretol. He is not showing s/sx of fall risk or dysequilibrium 03/03 - I am concerned that Tegretol may be causing the "drunken feeling" as patient notes this is new. He is still manic with poor sleep and hyperverbal, more likely to be intrusive/inappropriate/irritable at night. Will stop the Tegretol and continue to advance the Risperdal 03/03 will get 7mg, and 03/04 8mg divided 4mg bid (he would like to consider 8mg/hs once up to full dosing as that is how he took it outpatient). He declines change from Valium to Klonopin with provider contemplating increased dose to facilitate sleep. TO increase Valium I believe could risk daytime somnolence and impairment in cognition and coordination given how long acting it is. Although provocative I will return patient to his trazodone 150mg/hs tonight watching for orthostasis alongside of Risperdal and 300mg 03/04/20. Pt agrees to slow positional changes but will ask staff to monitor for instability given he is at risk for bleeding on blood thinners if he falls. With goal to show collaboration will inquire about nail clipping and compression stockings for patient as these are reasonable requests as staffing /supplies are available. 03/04 - Continue current medication regimen - patient continues to be manic with tangential thoughts and flight of idea. He remains inappropriately fixated on a peripheral member of his outpatient treatment team. - Pt continues to refuse valproic acid due to concern for weight gain - attempted to discuss alternative agents, however, patient's ability to participate in this conversation remains limited - Trazodone will increase to 300mg tonight per ordered titration - continue to monitor sleep. - Will defer toe nail clipping at this time, as patient is an insulin-dependent diabetic who follows with a forestry and wildlife manager on an outpatient basis for routine diabetic foot care. Toenails inspected today and are long, but not debilitating. If indicated, will consider podiatry consultation to address. 03/05 -Patient increasingly agitated, disruptive, and now threatening staff and other patients. Continue risperidone 4 mg twice daily, add chlorpromazine 50 mg p.o. or IM as needed for agitation/psychosis, can be used in conjunction with lorazepam. -Sleep remains extremely poor, and out of the past 8 nights in the hospital, he has only slept over 1 hour on 2 occasions. He has failed several medication trials to improve sleep, including olanzapine, increasing his diazepam dose, and trazodone was restarted 2 nights ago with limited response. I will decrease his trazodone to 150 mg at bedtime, decrease diazepam to 5 mg at bedtime, and order chlorpromazine 100 mg at bedtime for tonight, as he did have some sedation after the dose he received this morning for agitation. -Patient continues to be agitated, disruptive, and poorly cooperative, requiring frequent redirection from staff. He has been repeatedly reminded of interpersonal boundaries and appropriate behavior. Continue private room and excuse from groups. -Patient continues to refuse trials of Depakote or lithium, failed Tegretol. ECT is an option, but and not available here, and he is not voluntary. Given the severity of his symptoms, lack of improvement since admission, and the fact that he required very lengthy inpatient hospitalizations in the past for stabilization, I am recommending a 304 involuntary commitment with referral to [facility] for long-term inpatient treatment. Patient informed, provided with 304 paperwork, which he promptly ripped up. 03/06 - 304 hearing held and commitment granted. Refer to [facility], and order EKG and CXR for medical clearance. - Continue diazepam 5 mg and trazodone 150 mg at bedtime. Patient remains unhappy about being on risperidone, as he gained weight on it in the past, and as it has not been usually effective, I will decrease his dose to 2 mg every morning and 4 mg at bedtime, while increasing chlorpromazine to 50 mg every morning and 100 mg at bedtime. Continue chlorpromazine 50 mg every 2 hours as needed for psychosis/agitation. Patient agreed to a trial of Depakote, reviewed the need to monitor blood work including CBC and liver function, as well as blood levels. Start 500 mg at bedtime, and check a trough level after 5 doses (ordered for 03/11/2020). 03/07 -Increase chlorpromazine to 50 mg 3 times daily and 100 mg at bedtime, continue as needed's. 03/08 -The concern is that the patient is not sleeping. He is motorically hyperactive, irritable, and easily agitated. He tells us that chlorpromazine has always been helpful to him in the past. -Given the patient's psychomotor agitation, her hyperkinesis, and apparent inability to sleep we discussed with him the option of an intramuscular injection of chlorpromazine and diphenhydramine, coupled with the availability of a darkened and quiet room. The patient acknowledged with a smile that he was eager to fall asleep. Chlorpromazine 100 mg IM with diphenhydramine 50 mg IM given with patient's consent after the names of the medications and the purposes were reviewed with him. So far, this has allowed him to fall asleep and rest comfortably. - Increase Chlorpromazine to 100 mg TID and 200 mg HS. Hold until HS dose. (2) Deep venous thrombosis: 02/25 - Patient non-compliant with Eliquis and was transitioned to Coumadin in the ED with Lovenox bridge. The combo should be continued for at least 2 more days and an INR >2. Pharmacist recommends daily PT/INR if he'll allow (every other acceptable if issue) and taking 10 mg Coumadin for the next 2 nights. 02/26 -INR 1.2 today. Continue Lovenox until Coumadin is therapeutic, with daily INR. 02/27 - INR 2.0 today - will discontinue Lovenox - patient thus far has been compliant with daily PT/INR. 02/28 - INR continues to be at 2.0 today with discontinuation of Lovenox 03/01--INR = 2.1 03/02 and 03/03 - 03/02 INR 1.9 which is slightly below goal will continue 10mg with daily PT/INR. Request pharmacy input with next PT/INR on 03/04/20 if that remains <2 03/04- INR returned to 2.0 today - continue serial PT/INR - physical examination of upper and lower extremities. Fingers are a bit cold to the touch, no obvious discoloration, sensation intact in all digits. Lower extremities visualized, no discoloration, warm to touch, no overt pitting edema so far this morning. No ulcers/wounds observed on feet, though skin is dry and calloused in places. Pedal pulses 3+ bilaterally, sensation intact in all digits. Pt reports "tingling" from toes to metatarsal area bilaterally. 03/05 -patient agitated and uncooperative, unable to examine lower extremities. 03/07-INR 1.8 yesterday; Coumadin increased to 12 mg daily, continue every 2 day PT/INR. 03/08 -INR today is 2.3, within therapeutic range for coagulation therapy. (3) Diabetes mellitus: 02/25 - diabetic pharmacy consult 02/26 -patient getting insulin here, glucose well controlled. 03/06 -patient for a large callus off of the ball of his left foot, with a flap of skin still attached. He is able to ambulate and there are no current signs of infection, but given his diabetes and risk of infection, we will consult the wound care team for assistance. 03/07 -appreciate wound care nurse assistance, they are consulting the forestry and wildlife manager. 03/08 -patient remains cooperative with dietary restrictions, blood checks, and medications. (4) Chronic back pain: 03/05 -on admission, patient was continued on his home pain medication regimen, including nabumetone 500 mg 4 times daily, gabapentin 400 mg 4 times daily, duloxetine, diclofenac, and baclofen 20 mg twice daily. He is now demanding multiple medication changes to target pain, including increasing all 3 of those medications to 5 times a day. Attempted to explain to him that this is above the FDA maximum dose and that it would not be appropriate to order higher doses of NSAIDs, but he was unable to tolerate the discussion, interrupting becoming agitated. Risk Factors Assessment Male: Yes : Yes Do You Have Access To A Gun?: No Health Problems: Yes Mental Health Diagnoses: Yes Substance Use Disorders: No Family History of Suicide: Yes Previous Psychiatric Hospitalization: Yes Protective Factors Assessment : No Responsible for Young Children: No Employed: No Stable Relationships: No Interval History Identifying Information MANDI BOSS is a 54-year-old M who currently lives in alone in [place], has a history of schizoaffective disorder, and was admitted on 02/26/20 12:02 on a 302 involuntary commitment for disorganized psychosis. It should be noted that he initially presented on 02/21 and was in the ED awaiting bed placement for >3 days. Chief Complaint "You're all impostors!" Review of Systems Sleep Information Total Hours of Sleep: 1 Sleep Comments: Patient only slept 1 hour. Meal Information Percent Meal Consumed - Breakfast: 100 Percent Meal Consumed - Lunch: 100 Percent Meal Consumed - Dinner: 100 Nutrition Comment: per meal record Subjective Subjective Patient was seen & assessed and interval progress reviewed with treatment team. I met individually with the patient in order to assess his current mental status, evaluate his response to treatment, make any necessary changes in the patient's treatment regimen, and address issues, questions and concerns that may arise. I found the patient sitting in a chair, but an almost constant motion with his arms and legs moving. He was throwing a ball in the air and catching it while talking almost nonstop, as if to an unseen person. When I introduced myself he accused me of being an impostor, and then commented that everyone on the unit is an impostor. I was able to redirect him by assuring him that I was a physician and that I was here to help him. Once that was established, the patient said that he wanted help and ask for my advice. I told him that my biggest concern is that I have been hearing that he is not sleeping and his response was, "why should I sleep: Who needs sleep? There is no reason to sleep!" I attempted to explain the risks of not sleeping, and, somewhat to my surprise, the patient seemed to accept my explanation. He was able to discuss with me options for treatment, and he told me that the medication that helps him sleep the most is "either chloral hydrate or Thorazine or Ativan or OxyContin." I explained that I would not recommend chloral hydrate, no what I recommend OxyContin, but that I have often found a combination of Thorazine and diphenhydramine ("Benadryl") to help people "settle down" and get some "much- needed sleep." The patient seemed acknowledged that he was experiencing auditory hallucinations. He would periodically turn as if responding to a voice that was coming from another direction, and he would engage in what appeared like a conversation. But when I ask him to identify the person whom he was talking he said "anyone and everyone!" He told me that his mood is "great," and asked me if I would like to play "catch" with him and the ball that he was holding. He did respond to targeted questions, but often the questions had to be repeated several times in several different ways in order to gather his attention. Physical Exam Psychiatric Orientation: oriented to person and cooperative; + not oriented to place and + not oriented to time Eye Contact: + fair eye contact Motor Behavior: + psychomotor agitation Speech: + pressured speech Affect: + labile affect "Great!" Thought Process: + flight of ideas Thought Content: + delusions Believes staff are impostors Suicidal Thoughts: denies suicidal thoughts Homicidal Thoughts: denies homicidal thoughts Hallucinations: + auditory hallucinations The patient is unable to respond to questions regarding visual, tactile and gustatory hallucinations. Testing of the patient current cognitive abilities was rendered not possible because of his disorganized thinking and behavior. Estimated Intelligence: average estimated intelligence Insight: + severely impaired insight Judgement: + impaired judgement Vital Signs (Past 24 Hours) Last Vital Signs Temp 37 C 03/08/20 06:48 Pulse 98 H 03/08/20 06:48 Resp 18 03/08/20 06:48 BP 132/92 03/08/20 06:48 Pulse Ox 98 02/26/20 12:12 Results & Data (U) Laboratory Results Laboratory Results - last 24 hr 03/01/20 03/01/20 03/01/20 08:02 17:28 21:06 PT INR POC Glucose 122 H 106 H 122 H 03/02/20 03/02/20 03/02/20 07:26 11:13 17:06 PT INR POC Glucose 105 H 115 H 80 03/02/20 03/03/20 03/03/20 21:10 07:40 11:23 PT INR POC Glucose 72 72 104 H 03/03/20 03/03/20 03/05/20 16:38 21:16 11:57 PT INR POC Glucose 90 81 118 H 03/05/20 03/05/20 03/06/20 17:00 20:45 07:45 PT INR POC Glucose 132 H 116 H 105 H 03/06/20 03/06/20 03/08/20 12:29 16:55 07:29 PT 23.6 H INR 2.3 H POC Glucose 84 95 Current Inpatient Medications Current Inpatient Medications: Current Inpatient Medications Acetaminophen (Acetaminophen 325 Mg Tab) 650 mg PO Q4H PRN PRN Reason: Headache or Minor Fever Stop: 03/27/20 12:01 Last Admin: 03/08/20 01:52 Dose: 650 mg Documented by: Al Hydrox/Mg Hydrox/Simethicone (Aluminum/Magnesium Susp 30 Ml Udc) 30 ml PO Q4H PRN PRN Reason: GI Upset Stop: 03/27/20 12:01 Atorvastatin Calcium (Atorvastatin 20 Mg Tab) 20 mg PO QAM [facility] Stop: 03/28/20 08:59 Last Admin: 03/08/20 07:41 Dose: 20 mg Documented by: Baclofen (Baclofen 20 Mg Tab) 20 mg PO BID [facility] Stop: 03/27/20 20:59 Last Admin: 03/08/20 07:33 Dose: 20 mg Documented by: Bismuth Subsalicylate (Bismuth Subsalicylate Liqd 236 Ml) 15 ml PO PRN PRN PRN Reason: Loose Stool Stop: 03/27/20 12:01 Chlorpromazine HCl (Chlorpromazine Hcl 25 Mg Tab) 50 mg PO Q2H PRN PRN Reason: psychosis Stop: 04/04/20 08:43 Last Admin: 03/08/20 11:56 Dose: 50 mg Documented by: Chlorpromazine HCl (Chlorpromazine Hcl 100 Mg Tab) 100 mg PO [facility] Stop: 04/04/20 21:59 Last Admin: 03/07/20 21:58 Dose: 100 mg Documented by: Chlorpromazine HCl (Chlorpromazine Hcl 25 Mg Tab) 50 mg PO TID [facility] Stop: 04/06/20 13:59 Last Admin: 03/08/20 09:05 Dose: 50 mg Documented by: Diazepam (Diazepam 5 Mg Tablet) 5 mg PO [facility] Stop: 04/04/20 21:59 Last Admin: 03/07/20 21:52 Dose: 5 mg Documented by: Diclofenac Sodium (Diclofenac Sod 1% Gel 100 Gm Tube) 2 gm EXT BID [facility] Stop: 03/27/20 20:59 Last Admin: 03/08/20 10:23 Dose: 2 gm Documented by: Divalproex Sodium (Divalproex Delay Release 500 Mg Tab) 500 mg PO [facility] Stop: 04/05/20 21:59 Last Admin: 03/07/20 21:53 Dose: 500 mg Documented by: Furosemide (Furosemide 20 Mg Tab) 20 mg PO QAM PRN PRN Reason: swelling Stop: 03/28/20 08:59 Last Admin: 03/08/20 07:42 Dose: 20 mg Documented by: Gabapentin (Gabapentin 400 Mg Cap) 400 mg PO [id number] [facility] Stop: 04/06/20 12:59 Last Admin: 03/08/20 11:23 Dose: 400 mg Documented by: Insulin Aspart (Insulin Aspart 100 Units/Ml 3 Ml Pen) 0 units SC ACHS [facility] Stop: 03/27/20 17:14 Last Admin: 03/08/20 12:49 Dose: 8 units Documented by: Levothyroxine Sodium (Levothyroxine Sodium 50 Mcg Tablet) 50 mcg PO 0700 [facility] Stop: 04/01/20 06:59 Last Admin: 03/08/20 07:30 Dose: 50 mcg Documented by: Loratadine (Loratadine 10 Mg Tab) 10 mg PO QAM [facility] Stop: 03/28/20 08:59 Last Admin: 03/08/20 07:40 Dose: 10 mg Documented by: Lorazepam (Lorazepam 2 Mg/Ml Vial (Im Use)) 2 mg IM Q6 PRN PRN Reason: Agitation Stop: 03/27/20 12:39 Last Admin: 03/06/20 18:54 Dose: 2 mg Documented by: Magnesium Hydroxide (Magnesium Hydroxide Susp 30 Ml Udc) 30 ml PO DAILY PRN PRN Reason: Constipation Stop: 03/27/20 12:01 Magnesium Oxide (Magnesium Oxide 400 Mg Tab) 400 mg PO BID [facility] Stop: 03/27/20 20:59 Last Admin: 03/08/20 07:33 Dose: 400 mg Documented by: Montelukast Sodium (Montelukast Sodium 10 Mg Tablet) 10 mg PO DAILY [facility] Stop: 03/28/20 08:59 Last Admin: 03/08/20 07:40 Dose: 10 mg Documented by: Multivitamins/Minerals (Calcium 600mg + Vit D 400 Iu Tab) 1 tab PO DAILY [facility] Stop: 03/29/20 08:59 Last Admin: 03/08/20 07:41 Dose: 1 tab Documented by: Nabumetone (Nabumetone 500 Mg Tablet) 500 mg PO QID [facility] Stop: 03/27/20 12:59 Last Admin: 03/08/20 07:33 Dose: 500 mg Documented by: Trulicity 0.75 Mg- Non-Formulary Patient's Own Med 1 ea SC Garcia@[id number] [facility] Stop: 04/02/20 07:59 Last Admin: 03/03/20 07:57 Dose: 1 ea Documented by: Pantoprazole Sodium (Pantoprazole 40 Mg Tab) 40 mg PO DAILY [facility] Stop: 03/29/20 08:59 Last Admin: 03/08/20 07:33 Dose: 40 mg Documented by: Risperidone (Risperidone 2 Mg Tablet) 4 mg PO [facility] Stop: 03/31/20 21:59 Last Admin: 03/07/20 21:55 Dose: 4 mg Documented by: Risperidone (Risperidone Odt 0.5 Mg Soltab) 0.5 mg PO BID PRN PRN Reason: Agitation Stop: 04/01/20 11:18 Risperidone (Risperidone 2 Mg Tablet) 2 mg PO QAM [facility] Stop: 04/06/20 08:59 Last Admin: 03/08/20 07:40 Dose: 2 mg Documented by: Sodium Chloride (Sodium Chloride 0.65% Na Soln 45 Ml (Manuelito)) 1 - 2 sprays NA PRN PRN PRN Reason: Nasal Dryness/Congestion Stop: 03/27/20 12:01 Last Admin: 03/04/20 18:44 Dose: 2 sprays Documented by: Trazodone HCl (Trazodone Hcl 50 Mg Tab) 150 mg PO [facility] Stop: 04/04/20 21:59 Last Admin: 03/07/20 21:53 Dose: 150 mg Documented by: Warfarin Sodium (Warfarin Sod 6 Mg Tab) 12 mg PO [facility] Stop: 04/05/20 21:59 Last Admin: 03/07/20 21:53 Dose: 12 mg Documented by: Mental Health & Subst Abuse Tx Psychiatrist Name of Psychiatrist: Eric Osuna [facility] Psychiatrist's Date of Appointment with Psychiatrist: 03/18/20 Time of Appointment with Psychiatrist: 1:15pm Therapist Name of Therapist: LuisF ernando eli/[place] Rn Clinical Quality Name of Rn Clinical Quality: Kvng Phone Number for Rn Clinical Quality: [phone] Post Discharge Appointments Primary Care Physician Name Of Family Doctor: Dr. 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
[2020-03-08] MEDS ORDERED: HALOPERIDOL LACTATE 5 MG/ML 1 ML VIAL IM STA (14:44)
[2020-03-08] MEDS ORDERED: LORazepam 2 MG/ML VIAL (IM USE) IM STA (14:44)
[2020-03-08] MEDS ORDERED: HALOPERIDOL LACTATE 5 MG/ML 1 ML VIAL ONE (14:52)
--- NOTE | 2020-03-08 15:33 | Electrocardiogram Report ---
Test Reason : Blood Pressure : / mmHG Vent. Rate : 074 BPM Atrial Rate : 074 BPM P-R Int : 196 ms QRS Dur : 092 ms QT Int : 374 ms P-R-T Axes : 017 001 -10 degrees QTc Int : 415 ms Normal sinus rhythm with sinus arrhythmia When compared with ECG of 23-FEB-2020 19:01, Borderline criteria for Anterior infarct are no longer Present ST now depressed in Inferior leads Confirmed by Tomer Molina ([id number]) on 03/08/2020 3:33:22 PM Referred By: REFERRED SELF Confirmed By:Yamil Molina
--- NOTE | 2020-03-08 16:16 | Communication Note ---
Date of Service: March 08, 2020 After receiving chlorpromazine 100 mg IM with diphenhydramine 50 mg IM the patient settled down and appeared to be sleeping for about 60 to 90 minutes. However, he awoke and quickly returned to his previous condition which included pressured speech, flight of ideas, psychomotor agitation, and delusional persecutory statements. During several acute bursts of agitation he pounded his fist against the wall and the [place] windows of the nursing station while staff were attempting to verbally calm him and redirect him. Security was called and he received and he received 10 mg of haloperidol IM with lorazepam 2 mg IM. The patient's history of a dystonic reaction is noted. Because he had recently been given a dose of diphenhydramine 50 mg IM, and in view of the fact that he has a recent history of responding favorably to haloperidol, the risk of a possible dystonic reaction was found to be outweighed by the anticipated benefit. The patient calm somewhat, but continued to loudly curse and make threatening statements directed towards staff. After a reasonable period of time he was given another 100 mg of diphenhydramine IM. The patient voluntarily submitted to all medications and although security was present, no seclusion or restraint (mechanical or manual) was necessary. The patient may have been disinhibited by the lorazepam, but was able to calm down, stop shouting, agreed to lay down, and eventually went to sleep about 15 minutes after receiving the second IM diphenhydramine dose.
[2020-03-08] MEDS: WARFARIN SOD 6 MG TAB PO SCH (20:57)
[2020-03-08] MEDS: DIVALPROEX EXTENDED RELEASE 500 MG TAB PO SCH (20:57)
[2020-03-08] MEDS: diazePAM 5 MG TABLET PO SCH (20:58)
[2020-03-08] MEDS: traZODone HCL 50 MG TAB PO SCH (20:58)
[2020-03-09] MEDS: ACETAMINOPHEN 325 MG TAB PO PRN ×2 (02:37→14:47)
[2020-03-09] MEDS: LEVOTHYROXINE SODIUM 50 MCG TABLET PO SCH (05:56)
[2020-03-09] MEDS: GABAPENTIN 400 MG CAP PO SCH ×5 (05:56→14:48)
[2020-03-09] MEDS: FUROSEMIDE 20 MG TAB PO PRN (06:53)
[2020-03-09] MEDS: ATORVASTATIN 20 MG TAB PO SCH (07:22)
[2020-03-09] MEDS: MAGNESIUM OXIDE 400 MG TAB PO SCH ×2 (07:23→22:23)
[2020-03-09] MEDS: risperiDONE 2 MG TABLET PO SCH ×2 (07:23→22:26)
[2020-03-09] MEDS: LORATADINE 10 MG TAB PO SCH (07:23)
[2020-03-09] MEDS: PANTOprazole 40 MG TAB PO SCH (07:23)
[2020-03-09] MEDS: NABUMETONE 500 MG TABLET PO SCH ×3 (07:23→22:25)
[2020-03-09] MEDS: MONTELUKAST SODIUM 10 MG TABLET PO SCH (07:24)
[2020-03-09] MEDS: BACLOFEN 20 MG TAB PO SCH ×2 (07:35→22:23)
[2020-03-09] MEDS: CALCIUM 600MG + VIT D 400 IU TAB PO SCH (08:46)
[2020-03-09] MEDS: INSULIN ASPART 100 UNITS/ML 3 ML PEN SC SCH ×4 (08:49→22:35)
[2020-03-09] MEDS ORDERED: clonazePAM 1 MG TAB PO ONE ×2 (10:26→12:23)
[2020-03-09] MEDS ORDERED: haloperidoL 5 MG TAB PO ONE (10:27)
[2020-03-09] MEDS: DICLOFENAC SOD 1% GEL 100 GM TUBE EXT SCH ×2 (10:28→22:37)
[2020-03-09] MEDS: BENZTROPINE MESYLATE 1 MG TAB PO SCH ×3 (10:35→22:22)
--- NOTE | 2020-03-09 11:42 | Psychiatric Progress Note ---
Date of Service March 09, 2020 Impression / Recommendations Impression 54 y/o male with extended ED stay on 302; on a 304 as of 03/06/2020, and has been referred to [facility] for long-term inpatient treatment. Chronic and persistent mental illness, diagnosed with schizoaffective disorder bipolar type, presented with at least several months of worsening manic and psychotic symptoms in the context of medication noncompliance and multiple recent hospitalizations for medical problems. He was agitated and uncooperative in the ED, remains poorly compliant and unable to care for his basic needs outside of the hospital. Symptoms of kylee are persisting including very poor sleep, hyperverbal with pressured speech, mood lability, grandiosity, and tangential/disorganized thought process. He also continues to have episodes of significant irritability and agitation, has threatened to physically harm staff and a female patient, and continues to present and acute risk of harm to him self and to others if discharged prematurely. As of 03/08/2020 the patient remains floridly psychotic and appears manic. (1) Schizoaffective disorder: 02/25 - The patient was admitted to the [facility] on q15 min checks (behavioral with suicide precautions) for safety. The patient will participate in group, recreational, and milieu therapies and will be offered additional individual and family sessions as clinically appropriate. He clearly meets criteria for extended involuntary commitment and a 303 was filed, Dr. Lopez updated as will be testifying psychiatrist. Regarding meds, trazodone and Cymbalta were held in ED due to paradoxical reaction and kylee. Zyprexa was given standing order there, as calmer will change to prn here. His Tegretol was also restarted there at low dose as longstanding previously effective med. May impact his anticoagulation. 02/26 -303 hearing held and commitment granted. Contact Su MORATAYA at [place] to coordinate care - left message. -Continue olanzapine 10 mg at bedtime, risperidone 2 mg at bedtime (contact outpatient clinician regarding previous response to these medications and preferred plan moving forward), carbamazepine 250 mg twice daily, and diazepam 5 mg at bedtime. Zolpidem 10 mg at bedtime as needed has been added, and although he received a dose last night, he still slept only 1 hour. Consider trial of atypical antipsychotic with sedating properties, such as chlorpromazine, in place of one of his atypicals if sleep does not improve. -Monitoring on an atypical antipsychotic: Hgb A1C 5.5%, est ave glucose 111 on 02/27/20, FLP ordered for tomorrow. -Per records, patient has assault charges. Attempt to clarify with his outpatient case maker. 02/27 - Medication adjustments suggested this morning after treatment team and review of collateral obtained from patient's outpatient psychiatric prescriber. - Titrating risperidone to 1mg qAM and 2mg qHS - further titration as tolerated (previous dosing of 8mg daily total). - Diazepam titrated to 10mg qHS to promote sleep, as this continues to be a problem. Scheduled HS olanzapine was discontinued, but remains a prn option for sleep/agitation if necessary. - Consider chlorpromazine for mood stabilization/sleep if sleep continues to be an issue. 02/28 - Continue medication adjustments as previously discussed - pt received 3mg total of risperidone yesterday, scheduled to receive 4mg total today. Continue titration as tolerated - Pt continues to sleep poorly, though has been taking brief and intermittent naps during the day which is a small improvement. Continue diazepam at this t juan f. 03/01 - Risperidone being titrated to 4mg this evening (total of 5mg today), and AM dose being titrated to 2mg tomorrow (will get total of 6mg). Continue risperidone titration as indicated/tolerated. - Pt was counseled on the fact that medications used to stabilize his symptoms can eventually be cross-tapered to medications that may be more ideal for long- term use. Pt has continued to take risperidone as scheduled, but does verbalize concerns about long-term side effects he has experienced in the past. He did seem to understand that risperidone is being used for acute stabilization, but that other options can be explored on an outpatient basis once his symptoms are improved. - Pt did have improved sleep last evening - continue to monitor, adjust medication regimen as needed to target sleep 03/02 total of 6mg Risperdal today (2mgAM and 4mg at hs), will move to 7mg tomorrow 03/03 with goal for 8mg on Saturday 03/04 if tolerated; for now monitor the "drunken feeling" as I believe that is the cumulative poor sleep and increasing Risperdal culminating on patient, but could be a SE of Tegretol. He is not showing s/sx of fall risk or dysequilibrium 03/03 - I am concerned that Tegretol may be causing the "drunken feeling" as patient notes this is new. He is still manic with poor sleep and hyperverbal, more likely to be intrusive/inappropriate/irritable at night. Will stop the Tegretol and continue to advance the Risperdal 03/03 will get 7mg, and 03/04 8mg divided 4mg bid (he would like to consider 8mg/hs once up to full dosing as that is how he took it outpatient). He declines change from Valium to Klonopin with provider contemplating increased dose to facilitate sleep. TO increase Valium I believe could risk daytime somnolence and impairment in cognition and coordination given how long acting it is. Although provocative I will return patient to his trazodone 150mg/hs tonight watching for orthostasis alongside of Risperdal and 300mg 03/04/20. Pt agrees to slow positional changes but will ask staff to monitor for instability given he is at risk for bleeding on blood thinners if he falls. With goal to show collaboration will inquire about nail clipping and compression stockings for patient as these are reasonable requests as staffing /supplies are available. 03/04 - Continue current medication regimen - patient continues to be manic with tangential thoughts and flight of idea. He remains inappropriately fixated on a peripheral member of his outpatient treatment team. - Pt continues to refuse valproic acid due to concern for weight gain - attempted to discuss alternative agents, however, patient's ability to participate in this conversation remains limited - Trazodone will increase to 300mg tonight per ordered titration - continue to monitor sleep. - Will defer toe nail clipping at this time, as patient is an insulin-dependent diabetic who follows with a sheet hanger on an outpatient basis for routine diabetic foot care. Toenails inspected today and are long, but not debilitating. If indicated, will consider podiatry consultation to address. 03/05 -Patient increasingly agitated, disruptive, and now threatening staff and other patients. Continue risperidone 4 mg twice daily, add chlorpromazine 50 mg p.o. or IM as needed for agitation/psychosis, can be used in conjunction with lorazepam. -Sleep remains extremely poor, and out of the past 8 nights in the hospital, he has only slept over 1 hour on 2 occasions. He has failed several medication trials to improve sleep, including olanzapine, increasing his diazepam dose, and trazodone was restarted 2 nights ago with limited response. I will decrease his trazodone to 150 mg at bedtime, decrease diazepam to 5 mg at bedtime, and order chlorpromazine 100 mg at bedtime for tonight, as he did have some sedation after the dose he received this morning for agitation. -Patient continues to be agitated, disruptive, and poorly cooperative, requiring frequent redirection from staff. He has been repeatedly reminded of interpersonal boundaries and appropriate behavior. Continue private room and excuse from groups. -Patient continues to refuse trials of Depakote or lithium, failed Tegretol. ECT is an option, but and not available here, and he is not voluntary. Given the severity of his symptoms, lack of improvement since admission, and the fact that he required very lengthy inpatient hospitalizations in the past for stabilization, I am recommending a 304 involuntary commitment with referral to [facility] for long-term inpatient treatment. Patient informed, provided with 304 paperwork, which he promptly ripped up. 03/06 - 304 hearing held and commitment granted. Refer to [facility], and order EKG and CXR for medical clearance. - Continue diazepam 5 mg and trazodone 150 mg at bedtime. Patient remains unhappy about being on risperidone, as he gained weight on it in the past, and as it has not been usually effective, I will decrease his dose to 2 mg every morning and 4 mg at bedtime, while increasing chlorpromazine to 50 mg every morning and 100 mg at bedtime. Continue chlorpromazine 50 mg every 2 hours as needed for psychosis/agitation. Patient agreed to a trial of Depakote, reviewed the need to monitor blood work including CBC and liver function, as well as blood levels. Start 500 mg at bedtime, and check a trough level after 5 doses (ordered for 03/11/2020). 03/07 -Increase chlorpromazine to 50 mg 3 times daily and 100 mg at bedtime, continue as needed's. 03/08 -The concern is that the patient is not sleeping. He is motorically hyperactive, irritable, and easily agitated. He tells us that chlorpromazine has always been helpful to him in the past. -Given the patient's psychomotor agitation, her hyperkinesis, and apparent inability to sleep we discussed with him the option of an intramuscular injection of chlorpromazine and diphenhydramine, coupled with the availability of a darkened and quiet room. The patient acknowledged with a smile that he was eager to fall asleep. Chlorpromazine 100 mg IM with diphenhydramine 50 mg IM given with patient's consent after the names of the medications and the purposes were reviewed with him. So far, this has allowed him to fall asleep and rest comfortably. - Increase Chlorpromazine to 100 mg TID and 200 mg HS. Hold until HS dose. 03/09 -Efforts at sedation have been largely ineffective and now on a fair degree of polypharmacy and will attempt to simplify -Due to inadequate effect of Thorazine (remains agitated and insomnic) and patient's complaint of feeling cognitively slowed and secondarily angered by it, will discontinue the Thorazine and substitute Haldol 5 mg 3 times daily with Cogentin 2 mg 3 times daily to start. We will also begin Klonopin 1 mg 3 times daily with plan to back off once sleeping and kylee breaks. congentin started at high dose due to h/o dystonia reported w/ haldol. -Discontinue the low-dose as needed's of Risperdal and Thorazine due to lack of efficacy and to reduce complexity and polypharmacy of current med regimen -start seroquel 200mg po q6h prn for agitation of insomnia as alternative to thorazine (2) Deep venous thrombosis: 02/25 - Patient non-compliant with Eliquis and was transitioned to Coumadin in the ED with Lovenox bridge. The combo should be continued for at least 2 more days and an INR >2. Pharmacist recommends daily PT/INR if he'll allow (every other acceptable if issue) and taking 10 mg Coumadin for the next 2 nights. 02/26 -INR 1.2 today. Continue Lovenox until Coumadin is therapeutic, with daily INR. 02/27 - INR 2.0 today - will discontinue Lovenox - patient thus far has been compliant with daily PT/INR. 02/28 - INR continues to be at 2.0 today with discontinuation of Lovenox 03/01--INR = 2.1 03/02 and 03/03 - 03/02 INR 1.9 which is slightly below goal will continue 10mg with daily PT/INR. Request pharmacy input with next PT/INR on 03/04/20 if that remains <2 03/04- INR returned to 2.0 today - continue serial PT/INR - physical examination of upper and lower extremities. Fingers are a bit cold to the touch, no obvious discoloration, sensation intact in all digits. Lower extremities visualized, no discoloration, warm to touch, no overt pitting edema so far this morning. No ulcers/wounds observed on feet, though skin is dry and calloused in places. Pedal pulses 3+ bilaterally, sensation intact in all digits. Pt reports "tingling" from toes to metatarsal area bilaterally. 03/05 -patient agitated and uncooperative, unable to examine lower extremities. 03/07-INR 1.8 yesterday; Coumadin increased to 12 mg daily, continue every 2 day PT/INR. 03/08 -INR today is 2.3, within therapeutic range for coagulation therapy. (3) Diabetes mellitus: 02/25 - diabetic pharmacy consult 02/26 -patient getting insulin here, glucose well controlled. 03/06 -patient for a large callus off of the ball of his left foot, with a flap of skin still attached. He is able to ambulate and there are no current signs of infection, but given his diabetes and risk of infection, we will consult the wound care team for assistance. 03/07 -appreciate wound care nurse assistance, they are consulting the sheet hanger. 03/08 -patient remains cooperative with dietary restrictions, blood checks, and medications. 03/09- -Reviewed glycemic control and his sugars have been between 84 and 108 since the (4) Chronic back pain: 03/05 -on admission, patient was continued on his home pain medication regimen, including nabumetone 500 mg 4 times daily, gabapentin 400 mg 4 times daily, duloxetine, diclofenac, and baclofen 20 mg twice daily. He is now demanding multiple medication changes to target pain, including increasing all 3 of those medications to 5 times a day. Attempted to explain to him that this is above the FDA maximum dose and that it would not be appropriate to order higher doses of NSAIDs, but he was unable to tolerate the discussion, interrupting becoming agitated. 03/09 -will consolidate neurontin to 800mg TID (slight dose escalation) and relafen to 1000mg bid to reduce frequency of medicaid business analyst Risk Factors Assessment Male: Yes : Yes Do You Have Access To A Gun?: No Health Problems: Yes Mental Health Diagnoses: Yes Substance Use Disorders: No Family History of Suicide: Yes Previous Psychiatric Hospitalization: Yes Protective Factors Assessment : No Responsible for Young Children: No Employed: No Stable Relationships: No Interval History Identifying Information MANDI BOSS is a 54-year-old M who currently lives in alone in [place], has a history of schizoaffective disorder, and was admitted on 02/26/20 12:02 on a 302 involuntary commitment for disorganized psychosis. It should be noted that he initially presented on 02/21 and was in the ED awaiting bed placement for >3 days. Chief Complaint "I need geodon and that's it!". 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 Patient had a difficult day yesterday with significant agitation appearing floridly manic and psychotic. Multiple sedating as needed's given yesterday for acute agitation. He was given chlorpromazine 100 mg IM with diphenhydramine 50 mg IM and slept for a little over an hour and woke up extremely agitated with pressured speech flight of ideas paranoia and was given Haldol 10 mg and lorazepam 2 mg IM which was felt to be insufficiently sedating and then he got a follow-up dose of diphenhydramine 100 mg IM and ultimately slept briefly however staff report no good consolidated sleep in the past 24 hours. Recorded as approximately 4 hours +2 hours of intermittent sleep. Security has been up to assist multiple times because of his behavior. He is on high dose Risperdal, h igh dose standing Thorazine, in addition to Depakote and multiple other sedating medicines. Patient is difficult interview this morning demonstrating some psychomotor agitation standing and walking through the hallways while talking, banging on the peace at times. Speech is mildly dysarthric but still rapid and interruptive. He is displeased with the Thorazine and does not like the way that it makes him feel. He is also preoccupied with glucose control and demanding medication for pain. After discussion he was willing to retrial Haldol with Cogentin which will be given at higher dose at least temporarily due to his history of dystonia on Haldol. Physical Exam Psychiatric Orientation: alert and + guarded Apperance: + disheveled Eye Contact: + fair eye contact Motor Behavior: + psychomotor agitation; n EPS Speech: + pressured speech Affect: + labile affect and + irritable affect Mood: + irritable mood Thought Process: + flight of ideas Thought Content: + preoccupation Suicidal Thoughts: + reports suicidal thoughts Homicidal Thoughts: + reports homicidal thoughts Hallucinations: + auditory hallucinations Insight: + severely impaired insight Judgement: + severely impaired judgement Vital Signs (Past 24 Hours) Last Vital Signs Temp 36.4 C L 03/09/20 06:36 Pulse 98 H 03/09/20 06:37 Resp 18 03/09/20 06:36 BP 103/70 03/09/20 06:37 Pulse Ox 98 02/26/20 12:12 Results & Data ([facility]) Laboratory Results Laboratory Results - last 24 hr 03/07/20 03/07/20 03/08/20 17:25 21:43 07:41 POC Glucose 98 94 108 H 03/08/20 12:00 POC Glucose 90 Current Inpatient Medications Current Inpatient Medications: Current Inpatient Medications Acetaminophen (Acetaminophen 325 Mg Tab) 650 mg PO Q4H PRN PRN Reason: Headache or Minor Fever Stop: 03/27/20 12:01 Last Admin: 03/09/20 02:37 Dose: 650 mg Documented by: Al Hydrox/Mg Hydrox/Simethicone (Aluminum/Magnesium Susp 30 Ml Udc) 30 ml PO Q4H PRN PRN Reason: GI Upset Stop: 03/27/20 12:01 Atorvastatin Calcium (Atorvastatin 20 Mg Tab) 20 mg PO QAM [facility] Stop: 03/28/20 08:59 Last Admin: 03/09/20 07:22 Dose: 20 mg Documented by: Baclofen (Baclofen 20 Mg Tab) 20 mg PO BID [facility] Stop: 03/27/20 20:59 Last Admin: 03/09/20 07:35 Dose: 20 mg Documented by: Benztropine Mesylate (Benztropine Mesylate 1 Mg Tab) 2 mg PO TID [facility] Stop: 04/08/20 13:59 Last Admin: 03/09/20 10:35 Dose: 2 mg Documented by: Bismuth Subsalicylate (Bismuth Subsalicylate Liqd 236 Ml) 15 ml PO PRN PRN PRN Reason: Loose Stool Stop: 03/27/20 12:01 Chlorpromazine HCl (Chlorpromazine Hcl 100 Mg Tab) 200 mg PO HS [facility] Stop: 04/07/20 21:59 Last Admin: 03/08/20 20:59 Dose: 200 mg Documented by: Clonazepam (Clonazepam 1 Mg Tab) 1 mg PO TID [facility] Stop: 04/08/20 13:59 Diclofenac Sodium (Diclofenac Sod 1% Gel 100 Gm Tube) 2 gm EXT BID TOSIN Stop: 03/27/20 20:59 Last Admin: 03/09/20 10:28 Dose: 2 gm Documented by: Divalproex Sodium (Divalproex Extended Release 500 Mg Tab) 1,000 mg PO HS [facility] Stop: 04/07/20 21:59 Last Admin: 03/08/20 20:57 Dose: 1,000 mg Documented by: Furosemide (Furosemide 20 Mg Tab) 20 mg PO QAM PRN PRN Reason: swelling Stop: 03/28/20 08:59 Last Admin: 03/09/20 06:53 Dose: 20 mg Documented by: Gabapentin (Gabapentin 400 Mg Cap) 400 mg PO [id number] [facility] Stop: 04/06/20 12:59 Last Admin: 03/09/20 11:06 Dose: 400 mg Documented by: Haloperidol (Haloperidol 5 Mg Tab) 5 mg PO TID [facility] Stop: 04/08/20 13:59 Insulin Aspart (Insulin Aspart 100 Units/Ml 3 Ml Pen) 0 units SC ACHS [facility] Stop: 03/27/20 17:14 Last Admin: 03/09/20 08:49 Dose: 12 units Documented by: Levothyroxine Sodium (Levothyroxine Sodium 50 Mcg Tablet) 50 mcg PO 0700 TOSIN Stop: 04/01/20 06:59 Last Admin: 03/09/20 05:56 Dose: 50 mcg Documented by: Loratadine (Loratadine 10 Mg Tab) 10 mg PO QAM [facility] Stop: 03/28/20 08:59 Last Admin: 03/09/20 07:23 Dose: 10 mg Documented by: Lorazepam (Lorazepam 2 Mg/Ml Vial (Im Use)) 2 mg IM Q6 PRN PRN Reason: Agitation Stop: 03/27/20 12:39 Last Admin: 03/06/20 18:54 Dose: 2 mg Documented by: Magnesium Hydroxide (Magnesium Hydroxide Susp 30 Ml Udc) 30 ml PO DAILY PRN PRN Reason: Constipation Stop: 03/27/20 12:01 Magnesium Oxide (Magnesium Oxide 400 Mg Tab) 400 mg PO BID TOSIN Stop: 03/27/20 20:59 Last Admin: 03/09/20 07:23 Dose: 400 mg Documented by: Montelukast Sodium (Montelukast Sodium 10 Mg Tablet) 10 mg PO DAILY TOSIN Stop: 03/28/20 08:59 Last Admin: 03/09/20 07:24 Dose: 10 mg Documented by: Multivitamins/Minerals (Calcium 600mg + Vit D 400 Iu Tab) 1 tab PO DAILY TOSIN Stop: 03/29/20 08:59 Last Admin: 03/09/20 08:46 Dose: 1 tab Documented by: Nabumetone (Nabumetone 500 Mg Tablet) 500 mg PO QID [facility] Stop: 03/27/20 12:59 Last Admin: 03/09/20 07:23 Dose: 500 mg Documented by: Trulicity 0.75 Mg- Non-Formulary Patient's Own Med 1 ea SC Garcia@[id number] [facility] Stop: 04/02/20 07:59 Last Admin: 03/03/20 07:57 Dose: 1 ea Documented by: Pantoprazole Sodium (Pantoprazole 40 Mg Tab) 40 mg PO DAILY [facility] Stop: 03/29/20 08:59 Last Admin: 03/09/20 07:23 Dose: 40 mg Documented by: Risperidone (Risperidone 2 Mg Tablet) 4 mg PO HS [facility] Stop: 03/31/20 21:59 Last Admin: 03/08/20 20:59 Dose: 4 mg Documented by: Risperidone (Risperidone 2 Mg Tablet) 2 mg PO QAM [facility] Stop: 04/06/20 08:59 Last Admin: 03/09/20 07:23 Dose: 2 mg Documented by: Sodium Chloride (Sodium Chloride 0.65% Na Soln 45 Ml ([place])) 1 - 2 sprays NA PRN PRN PRN Reason: Nasal Dryness/Congestion Stop: 03/27/20 12:01 Last Admin: 03/04/20 18:44 Dose: 2 sprays Documented by: Trazodone HCl (Trazodone Hcl 50 Mg Tab) 150 mg PO HS TOSIN Stop: 04/04/20 21:59 Last Admin: 03/08/20 20:58 Dose: 150 mg Documented by: Warfarin Sodium (Warfarin Sod 6 Mg Tab) 12 mg PO HS TOSIN Stop: 04/05/20 21:59 Last Admin: 03/08/20 20:57 Dose: 12 mg Documented by: Mental Health & Subst Abuse Tx Psychiatrist Name of Psychiatrist: Eric Joiner Psychiatrist's Date of Appointment with Psychiatrist: 03/18/20 Time of Appointment with Psychiatrist: 1:15 pm Therapist Name of Therapist: Luis Fernando eli/Norman Demolition Worker Name of Demolition Worker: Dayne Phone Number for Demolition Worker: [phone] Post Discharge Appointments Primary Care Physician Name Of Family Doctor: Jennifer Little Primary Care Partial or Psych Rehab Name of Partial or Psych Rehab: [facility] - Luis Fernando Contact Information Discharge Discharge [address]: [address] [place] [id number] (1) Diabetes mellitus Diabetes mellitus complication status: without complication 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
[2020-03-09] MEDS: clonazePAM 1 MG TAB PO SCH ×2 (12:30→22:23)
[2020-03-09] MEDS: haloperidoL 5 MG TAB PO SCH ×2 (12:30→22:23)
[2020-03-09] MEDS: QUEtiapine FUMARATE 200 MG TAB PO PRN (16:58)
[2020-03-09] MEDS: GABAPENTIN 800 MG TAB PO SCH (22:24)
[2020-03-09] MEDS: WARFARIN SOD 6 MG TAB PO SCH (22:25)
[2020-03-09] MEDS: DIVALPROEX EXTENDED RELEASE 500 MG TAB PO SCH (22:26)
[2020-03-09] MEDS: traZODone HCL 50 MG TAB PO SCH (22:26)
[2020-03-10] MEDS: ACETAMINOPHEN 325 MG TAB PO PRN ×2 (00:03→19:03)
[2020-03-10] MEDS: QUEtiapine FUMARATE 200 MG TAB PO PRN ×3 (02:24→20:51)
[2020-03-10] MEDS ORDERED: QUEtiapine FUMARATE 200 MG TAB PO STA (05:40)
[2020-03-10] MEDS: LEVOTHYROXINE SODIUM 50 MCG TABLET PO SCH (06:31)
[2020-03-10] MEDS: ATORVASTATIN 20 MG TAB PO SCH (08:04)
[2020-03-10] MEDS: NABUMETONE 500 MG TABLET PO SCH ×2 (08:05→20:02)
[2020-03-10] MEDS: clonazePAM 1 MG TAB PO SCH ×2 (08:06→14:11)
[2020-03-10] MEDS: BACLOFEN 20 MG TAB PO SCH ×2 (08:06→20:02)
[2020-03-10] MEDS: GABAPENTIN 800 MG TAB PO SCH ×3 (08:06→20:02)
[2020-03-10] MEDS: TRULICITY 0.75 MG SC SCH (08:06)
[2020-03-10] MEDS: CALCIUM 600MG + VIT D 400 IU TAB PO SCH (08:07)
[2020-03-10] MEDS: LORATADINE 10 MG TAB PO SCH (08:07)
[2020-03-10] MEDS: haloperidoL 5 MG TAB PO SCH ×3 (08:07→20:01)
[2020-03-10] MEDS: risperiDONE 2 MG TABLET PO SCH (08:08)
[2020-03-10] MEDS: PANTOprazole 40 MG TAB PO SCH (08:08)
[2020-03-10] MEDS: MAGNESIUM OXIDE 400 MG TAB PO SCH ×2 (08:08→20:02)
[2020-03-10] MEDS: MONTELUKAST SODIUM 10 MG TABLET PO SCH (08:08)
[2020-03-10] MEDS: BENZTROPINE MESYLATE 1 MG TAB PO SCH ×3 (08:09→20:01)
[2020-03-10] MEDS: INSULIN ASPART 100 UNITS/ML 3 ML PEN SC SCH ×4 (08:37→20:43)
[2020-03-10] MEDS ORDERED: risperiDONE 3 MG TABLET PO SCH (09:00)
[2020-03-10] MEDS ORDERED: LORazepam 2 MG/ML VIAL (IM USE) IM PRN (10:34)
[2020-03-10] MEDS ORDERED: HALOPERIDOL LACTATE 5 MG/ML 1 ML VIAL IM PRN (10:37)
--- NOTE | 2020-03-10 10:53 | Psychiatric Progress Note ---
Date of Service March 10, 2020 Impression / Recommendations Impression 54 y/o male with extended ED stay on 302; on a 304 as of 03/06/2020, and has been referred to [facility] for long-term inpatient treatment. Chronic and persistent mental illness, diagnosed with schizoaffective disorder bipolar type, presented with at least several months of worsening manic and psychotic symptoms in the context of medication noncompliance and multiple recent hospitalizations for medical problems. He was agitated and uncooperative in the ED, remains poorly compliant and unable to care for his basic needs outside of the hospital. Symptoms of kylee are persisting including very poor sleep, hyperverbal with pressured speech, mood lability, grandiosity, and tangential/disorganized thought process. He also continues to have episodes of significant irritability and agitation, has threatened to physically harm staff and a female patient, and continues to present and acute risk of harm to him self and to others if discharged prematurely. As of 03/08/2020 the patient remains floridly psychotic and appears manic. (1) Schizoaffective disorder: 02/25 - The patient was admitted to the [facility] ([facility]) on q15 min checks (behavioral with suicide precautions) for safety. The patient will participate in group, recreational, and milieu therapies and will be offered additional individual and family sessions as clinically appropriate. He clearly meets criteria for extended involuntary commitment and a 303 was filed, Dr. Lopez updated as will be testifying psychiatrist. Regarding meds, trazodone and Cymbalta were held in ED due to paradoxical reaction and kylee. Zyprexa was given standing order there, as calmer will change to prn here. His Tegretol was also restarted there at low dose as longstanding previously effective med. May impact his anticoagulation. 02/26 -303 hearing held and commitment granted. Contact Su MORATAYA at [place] to coordinate care - left message. -Continue olanzapine 10 mg at bedtime, risperidone 2 mg at bedtime (contact outpatient clinician regarding previous response to these medications and preferred plan moving forward), carbamazepine 250 mg twice daily, and diazepam 5 mg at bedtime. Zolpidem 10 mg at bedtime as needed has been added, and although he received a dose last night, he still slept only 1 hour. Consider trial of atypical antipsychotic with sedating properties, such as chlorpromazine, in place of one of his atypicals if sleep does not improve. -Monitoring on an atypical antipsychotic: Hgb A1C 5.5%, est ave glucose 111 on 02/27/20, FLP ordered for tomorrow. -Per records, patient has assault charges. Attempt to clarify with his outpatient mattress spring encaser. 02/27 - Medication adjustments suggested this morning after treatment team and review of collateral obtained from patient's outpatient psychiatric prescriber. - Titrating risperidone to 1mg qAM and 2mg qHS - further titration as tolerated (previous dosing of 8mg daily total). - Diazepam titrated to 10mg qHS to promote sleep, as this continues to be a problem. Scheduled HS olanzapine was discontinued, but remains a prn option for sleep/agitation if necessary. - Consider chlorpromazine for mood stabilization/sleep if sleep continues to be an issue. 02/28 - Continue medication adjustments as previously discussed - pt received 3mg total of risperidone yesterday, scheduled to receive 4mg total today. Continue titration as tolerated - Pt continues to sleep poorly, though has been taking brief and intermittent naps during the day which is a small improvement. Continue diazepam at this t juan f. 03/01 - Risperidone being titrated to 4mg this evening (total of 5mg today), and AM dose being titrated to 2mg tomorrow (will get total of 6mg). Continue risperidone titration as indicated/tolerated. - Pt was counseled on the fact that medications used to stabilize his symptoms can eventually be cross-tapered to medications that may be more ideal for long- term use. Pt has continued to take risperidone as scheduled, but does verbalize concerns about long-term side effects he has experienced in the past. He did seem to understand that risperidone is being used for acute stabilization, but that other options can be explored on an outpatient basis once his symptoms are improved. - Pt did have improved sleep last evening - continue to monitor, adjust medication regimen as needed to target sleep 03/02 total of 6mg Risperdal today (2mgAM and 4mg at hs), will move to 7mg tomorrow 03/03 with goal for 8mg on Saturday 03/04 if tolerated; for now monitor the "drunken feeling" as I believe that is the cumulative poor sleep and increasing Risperdal culminating on patient, but could be a SE of Tegretol. He is not showing s/sx of fall risk or dysequilibrium 03/03 - I am concerned that Tegretol may be causing the "drunken feeling" as patient notes this is new. He is still manic with poor sleep and hyperverbal, more likely to be intrusive/inappropriate/irritable at night. Will stop the Tegretol and continue to advance the Risperdal 03/03 will get 7mg, and 03/04 8mg divided 4mg bid (he would like to consider 8mg/hs once up to full dosing as that is how he took it outpatient). He declines change from Valium to Klonopin with provider contemplating increased dose to facilitate sleep. TO increase Valium I believe could risk daytime somnolence and impairment in cognition and coordination given how long acting it is. Although provocative I will return patient to his trazodone 150mg/hs tonight watching for orthostasis alongside of Risperdal and 300mg 03/04/20. Pt agrees to slow positional changes but will ask staff to monitor for instability given he is at risk for bleeding on blood thinners if he falls. With goal to show collaboration will inquire about nail clipping and compression stockings for patient as these are reasonable requests as staffing /supplies are available. 03/04 - Continue current medication regimen - patient continues to be manic with tangential thoughts and flight of idea. He remains inappropriately fixated on a peripheral member of his outpatient treatment team. - Pt continues to refuse valproic acid due to concern for weight gain - attempted to discuss alternative agents, however, patient's ability to participate in this conversation remains limited - Trazodone will increase to 300mg tonight per ordered titration - continue to monitor sleep. - Will defer toe nail clipping at this time, as patient is an insulin-dependent diabetic who follows with a psychologist clinical on an outpatient basis for routine diabetic foot care. Toenails inspected today and are long, but not debilitating. If indicated, will consider podiatry consultation to address. 03/05 -Patient increasingly agitated, disruptive, and now threatening staff and other patients. Continue risperidone 4 mg twice daily, add chlorpromazine 50 mg p.o. or IM as needed for agitation/psychosis, can be used in conjunction with lorazepam. -Sleep remains extremely poor, and out of the past 8 nights in the hospital, he has only slept over 1 hour on 2 occasions. He has failed several medication trials to improve sleep, including olanzapine, increasing his diazepam dose, and trazodone was restarted 2 nights ago with limited response. I will decrease his trazodone to 150 mg at bedtime, decrease diazepam to 5 mg at bedtime, and order chlorpromazine 100 mg at bedtime for tonight, as he did have some sedation after the dose he received this morning for agitation. -Patient continues to be agitated, disruptive, and poorly cooperative, requiring frequent redirection from staff. He has been repeatedly reminded of interpersonal boundaries and appropriate behavior. Continue private room and excuse from groups. -Patient continues to refuse trials of Depakote or lithium, failed Tegretol. ECT is an option, but and not available here, and he is not voluntary. Given the severity of his symptoms, lack of improvement since admission, and the fact that he required very lengthy inpatient hospitalizations in the past for stabilization, I am recommending a 304 involuntary commitment with referral to [facility] for long-term inpatient treatment. Patient informed, provided with 304 paperwork, which he promptly ripped up. 03/06 - 304 hearing held and commitment granted. Refer to [facility], and order EKG and CXR for medical clearance. - Continue diazepam 5 mg and trazodone 150 mg at bedtime. Patient remains unhappy about being on risperidone, as he gained weight on it in the past, and as it has not been usually effective, I will decrease his dose to 2 mg every morning and 4 mg at bedtime, while increasing chlorpromazine to 50 mg every morning and 100 mg at bedtime. Continue chlorpromazine 50 mg every 2 hours as needed for psychosis/agitation. Patient agreed to a trial of Depakote, reviewed the need to monitor blood work including CBC and liver function, as well as blood levels. Start 500 mg at bedtime, and check a trough level after 5 doses (ordered for 03/11/2020). 03/07 -Increase chlorpromazine to 50 mg 3 times daily and 100 mg at bedtime, continue as needed's. 03/08 -The concern is that the patient is not sleeping. He is motorically hyperactive, irritable, and easily agitated. He tells us that chlorpromazine has always been helpful to him in the past. -Given the patient's psychomotor agitation, her hyperkinesis, and apparent inability to sleep we discussed with him the option of an intramuscular injection of chlorpromazine and diphenhydramine, coupled with the availability of a darkened and quiet room. The patient acknowledged with a smile that he was eager to fall asleep. Chlorpromazine 100 mg IM with diphenhydramine 50 mg IM given with patient's consent after the names of the medications and the purposes were reviewed with him. So far, this has allowed him to fall asleep and rest comfortably. - Increase Chlorpromazine to 100 mg TID and 200 mg HS. Hold until HS dose. 03/09 -Efforts at sedation have been largely ineffective and now on a fair degree of polypharmacy and will attempt to simplify -Due to inadequate effect of Thorazine (remains agitated and insomnic) and patient's complaint of feeling cognitively slowed and secondarily angered by it, will discontinue the Thorazine and substitute Haldol 5 mg 3 times daily with Cogentin 2 mg 3 times daily to start. We will also begin Klonopin 1 mg 3 times daily with plan to back off once sleeping and kylee breaks. congentin started at high dose due to h/o dystonia reported w/ haldol. -Discontinue the low-dose as needed's of Risperdal and Thorazine due to lack of efficacy and to reduce complexity and polypharmacy of current med regimen -start seroquel 200mg po q6h prn for agitation of insomnia as alternative to thorazine 03/10 -Unfortunately he remains behaviorally unimproved however is sleeping for slightly longer durations, likely attributable to the benzodiazepine and quetiapine initiated yesterday. -In reviewing his recent treatment history and failed response to Risperdal titration previously, will discontinue which will allow for me to be more aggressive with the Haldol which we will increase to 10 mg p.o. 3 times daily continuing the Cogentin 2 mg 3 times daily due to history of dystonia. -We will also implement a Haldol 5 mg every 8 hours as needed and Ativan 2 mg every 6 hours as needed IM for emergency use if he refuses oral medication. Pt has been fairly compliant with PO meds but has required IM's since admission and his insight is clearly impaired by his psychosis and treatment over objection is felt to be warranted as he is unlikely to improve without adequate pharmacotherapy. -The Seroquel does seem to be helping and will continue 200 mg every 4 hours as needed for agitation (do not exceed 800 mg in 24 hours.) Considering scheduled dose which we can reassess after we see how he responds to increased Haldol -Trazodone discontinued due to lack of efficacy for sleep and possible contribution to activation from serotonergic activity -Increase clonazepam to 1 mg twice daily and 2 mg nightly in effort to help reconsolidate sleep to bedtime. Daytime clonazepam should be held for excessive sedation (2) Deep venous thrombosis: 02/25 - Patient non-compliant with Eliquis and was transitioned to Coumadin in the ED with Lovenox bridge. The combo should be continued for at least 2 more days and an INR >2. Pharmacist recommends daily PT/INR if he'll allow (every other acceptable if issue) and taking 10 mg Coumadin for the next 2 nights. 02/26 -INR 1.2 today. Continue Lovenox until Coumadin is therapeutic, with daily INR. 02/27 - INR 2.0 today - will discontinue Lovenox - patient thus far has been compliant with daily PT/INR. 02/28 - INR continues to be at 2.0 today with discontinuation of Lovenox 03/01--INR = 2.1 03/02 and 03/03 - 03/02 INR 1.9 which is slightly below goal will continue 10mg with daily PT/INR. Request pharmacy input with next PT/INR on 03/04/20 if that remains <2 03/04- INR returned to 2.0 today - continue serial PT/INR - physical examination of upper and lower extremities. Fingers are a bit cold to the touch, no obvious discoloration, sensation intact in all digits. Lower extremities visualized, no discoloration, warm to touch, no overt pitting edema so far this morning. No ulcers/wounds observed on feet, though skin is dry and calloused in places. Pedal pulses 3+ bilaterally, sensation intact in all digits. Pt reports "tingling" from toes to metatarsal area bilaterally. 03/05 -patient agitated and uncooperative, unable to examine lower extremities. 03/07-INR 1.8 yesterday; Coumadin increased to 12 mg daily, continue every 2 day PT/INR. 03/08 -INR today is 2.3, within therapeutic range for coagulation therapy. 03/10 -due for PT/INR today however was deferred today to minimize stimulation. reviewed INR was in range at 2.3 on 03/08/20. (3) Diabetes mellitus: 02/25 - diabetic pharmacy consult 02/26 -patient getting insulin here, glucose well controlled. 03/06 -patient for a large callus off of the ball of his left foot, with a flap of skin still attached. He is able to ambulate and there are no current signs of infection, but given his diabetes and risk of infection, we will consult the wound care team for assistance. 03/07 -appreciate wound care nurse assistance, they are consulting the psychologist clinical. 03/08 -patient remains cooperative with dietary restrictions, blood checks, and medications. 03/09- -Reviewed glycemic control and his sugars have been between 84 and 108 since the (4) Chronic back pain: 03/05 -on admission, patient was continued on his home pain medication regimen, including nabumetone 500 mg 4 times daily, gabapentin 400 mg 4 times daily, duloxetine, diclofenac, and baclofen 20 mg twice daily. He is now demanding multiple medication changes to target pain, including increasing all 3 of those medications to 5 times a day. Attempted to explain to him that this is above the FDA maximum dose and that it would not be appropriate to order higher doses of NSAIDs, but he was unable to tolerate the discussion, interrupting becoming agitated. 03/09 -will consolidate neurontin to 800mg TID (slight dose escalation) and relafen to 1000mg bid to reduce frequency of biomedical equipment support specialist Risk Factors Assessment Male: Yes : Yes Do You Have Access To A Gun?: No Health Problems: Yes Mental Health Diagnoses: Yes Substance Use Disorders: No Family History of Suicide: Yes Previous Psychiatric Hospitalization: Yes Protective Factors Assessment : No Responsible for Young Children: No Employed: No Stable Relationships: No Interval History Identifying Information MANDI BOSS is a 54-year-old M who currently lives in alone in [place], has a history of schizoaffective disorder, and was admitted on 02/26/20 12:02 on a 302 involuntary commitment for disorganized psychosis. It should be noted that he initially presented on 02/21 and was in the ED awaiting bed placement for >3 days. Chief Complaint "doctor... doctor!" Review of Systems Notes Continued intermittent agitation per staff Sleep Information Total Hours of Sleep: 7.75 Sleep Comments: pt difficulty remaining asleep. pt pacing, banging the door with his behind making noise and banging the door with his shoes. pt difficulty to redirect. pt walking the hallway with his eyes half closed. pt difficult to understand. pt given medications per rn. pt on q-15 minute checks Meal Information Percent Meal Consumed - Breakfast: 100 Percent Meal Consumed - Lunch: 100 Percent Meal Consumed - Dinner: 100 Nutrition Comment: in quiet room Subjective Subjective Patient was seen & assessed and interval progress reviewed with treatment team. Per staff the patient continues to demonstrate intermittent agitation, seemingly worse upon first waking. He is sleeping for longer intervals in the last 24 hours. Had some acute physical agitation overnight last night. Per nursing notes around 08 07 this morning patient pushed a staff member through to the other side of the nursing station and into the day room. Security called to assist. Patient was described as irritable and agitated and demanding a shower at that time. 3 staff members necessary to escort the patient back to quiet room. Patient was given 200 mg Seroquel as needed. He continued to knock on the windows and demanding attention from staff. He is observed yelling at the staff and this medical writer through the plexiglass window of the nurses station this morning. He appears drowsy but agitated. He later did spontaneously lay down and fall asleep. Physical Exam Psychiatric Orientation: + uncooperative Apperance: + disheveled Eye Contact: good eye contact Motor Behavior: + psychomotor agitation Speech: + loud speech (Decreased articulation) Affect: + labile affect and + irritable affect Unable to characterize Thought Process: + thought process not linear or logical Thought Content: + delusional Cognition: + attention not intact Insight: + poor insight Judgement: + poor judgement Vital Signs (Past 24 Hours) Last Vital Signs Temp 36.3 C L 03/10/20 06:55 Pulse 84 03/10/20 06:56 Resp 18 03/10/20 06:55 BP 116/77 03/10/20 06:56 Pulse Ox 98 02/26/20 12:12 Results & Data ([facility] [[email or web address]]) Current Inpatient Medications Current Inpatient Medications: Current Inpatient Medications Acetaminophen (Acetaminophen 325 Mg Tab) 650 mg PO Q4H PRN PRN Reason: Headache or Minor Fever Stop: 03/27/20 12:01 Last Admin: 03/10/20 00:03 Dose: 650 mg Documented by: Al Hydrox/Mg Hydrox/Simethicone (Aluminum/Magnesium Susp 30 Ml Udc) 30 ml PO Q4H PRN PRN Reason: GI Upset Stop: 03/27/20 12:01 Atorvastatin Calcium (Atorvastatin 20 Mg Tab) 20 mg PO QAM TOSIN Stop: 03/28/20 08:59 Last Admin: 03/10/20 08:04 Dose: 20 mg Documented by: Baclofen (Baclofen 20 Mg Tab) 20 mg PO BID [facility] Stop: 03/27/20 20:59 Last Admin: 03/10/20 08:06 Dose: 20 mg Documented by: Benztropine Mesylate (Benztropine Mesylate 1 Mg Tab) 2 mg PO TID [facility] Stop: 04/08/20 13:59 Last Admin: 03/10/20 08:09 Dose: 2 mg Documented by: Bismuth Subsalicylate (Bismuth Subsalicylate Liqd 236 Ml) 15 ml PO PRN PRN PRN Reason: Loose Stool Stop: 03/27/20 12:01 Clonazepam (Clonazepam 1 Mg Tab) 1 mg PO [id number] [facility] Stop: 04/09/20 13:59 Clonazepam (Clonazepam 1 Mg Tab) 2 mg PO HS [facility] Stop: 04/09/20 21:59 Diclofenac Sodium (Diclofenac Sod 1% Gel 100 Gm Tube) 2 gm EXT BID [facility] Stop: 03/27/20 20:59 Last Admin: 03/09/20 22:37 Dose: 2 gm Documented by: Divalproex Sodium (Divalproex Extended Release 500 Mg Tab) 1,000 mg PO HS [facility] Stop: 04/07/20 21:59 Last Admin: 03/09/20 22:26 Dose: 1,000 mg Documented by: Furosemide (Furosemide 20 Mg Tab) 20 mg PO QAM PRN PRN Reason: swelling Stop: 03/28/20 08:59 Last Admin: 03/09/20 06:53 Dose: 20 mg Documented by: Gabapentin (Gabapentin 800 Mg Tab) 800 mg PO TID [facility] Stop: 04/08/20 20:59 Last Admin: 03/10/20 08:06 Dose: 800 mg Documented by: Haloperidol (Haloperidol 5 Mg Tab) 10 mg PO TID [facility] Stop: 04/09/20 13:59 Haloperidol Lactate (Haloperidol Lactate 5 Mg/Ml 1 Ml Vial) 5 mg IM Q8H PRN PRN Reason: Agitation and refusal of po Stop: 04/09/20 10:44 Insulin Aspart (Insulin Aspart 100 Units/Ml 3 Ml Pen) 0 units SC ACHS [facility] Stop: 03/27/20 17:14 Last Admin: 03/10/20 08:37 Dose: 8 units Documented by: Levothyroxine Sodium (Levothyroxine Sodium 50 Mcg Tablet) 50 mcg PO 0700 [facility] Stop: 04/01/20 06:59 Last Admin: 03/10/20 06:31 Dose: 50 mcg Documented by: Loratadine (Loratadine 10 Mg Tab) 10 mg PO QAM [facility] Stop: 03/28/20 08:59 Last Admin: 03/10/20 08:07 Dose: 10 mg Documented by: Lorazepam (Lorazepam 2 Mg/Ml Vial (Im Use)) 2 mg IM Q6 PRN PRN Reason: Agitation Stop: 03/27/20 12:39 Last Admin: 03/06/20 18:54 Dose: 2 mg Documented by: Lorazepam (Lorazepam 2 Mg/Ml Vial (Im Use)) 2 mg IM Q6H PRN PRN Reason: agitation and refusal of po Stop: 04/09/20 10:33 Magnesium Hydroxide (Magnesium Hydroxide Susp 30 Ml Udc) 30 ml PO DAILY PRN PRN Reason: Constipation Stop: 03/27/20 12:01 Magnesium Oxide (Magnesium Oxide 400 Mg Tab) 400 mg PO BID [facility] Stop: 03/27/20 20:59 Last Admin: 03/10/20 08:08 Dose: 400 mg Documented by: Montelukast Sodium (Montelukast Sodium 10 Mg Tablet) 10 mg PO DAILY [facility] Stop: 03/28/20 08:59 Last Admin: 03/10/20 08:08 Dose: 10 mg Documented by: Multivitamins/Minerals (Calcium 600mg + Vit D 400 Iu Tab) 1 tab PO DAILY [facility] Stop: 03/29/20 08:59 Last Admin: 03/10/20 08:07 Dose: 1 tab Documented by: Nabumetone (Nabumetone 500 Mg Tablet) 1,000 mg PO BID [facility] Stop: 04/08/20 20:59 Last Admin: 03/10/20 08:05 Dose: 1,000 mg Documented by: Trulicity 0.75 Mg- Non-Formulary Patient's Own Med 1 ea SC [email or web address] [facility] Stop: 04/02/20 07:59 Last Admin: 03/10/20 08:06 Dose: 1 ea Documented by: Pantoprazole Sodium (Pantoprazole 40 Mg Tab) 40 mg PO DAILY [facility] Stop: 03/29/20 08:59 Last Admin: 03/10/20 08:08 Dose: 40 mg Documented by: Quetiapine Fumarate (Quetiapine Fumarate 200 Mg Tab) 200 mg PO Q4H PRN PRN Reason: Agitation or insomnia Stop: 04/08/20 15:30 Sodium Chloride (Sodium Chloride 0.65% Na Soln 45 Ml ([place])) 1 - 2 sprays NA PRN PRN PRN Reason: Nasal Dryness/Congestion Stop: 03/27/20 12:01 Last Admin: 03/04/20 18:44 Dose: 2 sprays Documented by: Warfarin Sodium (Warfarin Sod 6 Mg Tab) 12 mg PO HS [facility] Stop: 04/05/20 21:59 Last Admin: 03/09/20 22:25 Dose: 12 mg Documented by: Warfarin Sodium (Warfarin Sod 10 Mg Tab) 10 mg PO [facility] Stop: 03/10/20 22:01 Warfarin Sodium (Warfarin Sod 2 Mg Tab) 2 mg PO [facility] Stop: 03/10/20 22:01 Mental Health & Subst Abuse Tx Psychiatrist Name of Psychiatrist: Eric Joiner Psychiatrist's Date of Appointment with Psychiatrist: 03/18/20 Time of Appointment with Psychiatrist: 1:15 pm Therapist Name of Therapist: Luis Fernando eli/Norman Broke Beater Machine Operator Name of Broke Beater Machine Operator: Dayne Phone Number for Broke Beater Machine Operator: [phone] Post Discharge Appointments Primary Care Physician Name Of Family Doctor: Jennifer Little Primary Care Partial or Psych Rehab Name of Partial or Psych Rehab: [facility] - Luis Fernando Contact Information Discharge Discharge Address: [address] [place] [address], [address] [address] (1) Diabetes mellitus Diabetes mellitus complication status: without complication Diabetes mellitus terminal press operator insulin use: with assisted use Diabetes mellitus type: type 2 Qualified Code(s): E11.9 - Type 2 diabetes mellitus without complications; Z79.4 - intermediate card tender (current) use of insulin (2) Schizoaffective disorder Schizoaffective disorder type: bipolar Qualified Code(s): F25.0 - Schizoaffective disorder, bipolar type
[2020-03-10] MEDS ORDERED: Nursing to Pharmacy Communication SCH (12:30)
[2020-03-10] MEDS: DICLOFENAC SOD 1% GEL 100 GM TUBE EXT SCH ×2 (13:04→20:03)
[2020-03-10] MEDS: DIVALPROEX EXTENDED RELEASE 500 MG TAB PO SCH (20:03)
[2020-03-10] MEDS ORDERED: WARFARIN SOD 2 MG TAB PO SCH (22:00)
[2020-03-10] MEDS ORDERED: clonazePAM 1 MG TAB PO SCH (22:00)
[2020-03-10] MEDS ORDERED: WARFARIN SOD 10 MG TAB PO SCH (22:00)
[2020-03-11] MEDS: LEVOTHYROXINE SODIUM 50 MCG TABLET PO SCH (06:07)
[2020-03-11] MEDS: clonazePAM 1 MG TAB PO SCH (06:07)
[2020-03-11] MEDS: CALCIUM 600MG + VIT D 400 IU TAB PO SCH (07:20)
[2020-03-11] MEDS: haloperidoL 5 MG TAB PO SCH (07:20)
[2020-03-11] MEDS: BENZTROPINE MESYLATE 1 MG TAB PO SCH (07:21)
[2020-03-11] MEDS: BACLOFEN 20 MG TAB PO SCH (07:21)
[2020-03-11] MEDS: ATORVASTATIN 20 MG TAB PO SCH (07:21)
[2020-03-11] MEDS: NABUMETONE 500 MG TABLET PO SCH (07:21)
[2020-03-11] MEDS: MONTELUKAST SODIUM 10 MG TABLET PO SCH (07:21)
[2020-03-11] MEDS: LORATADINE 10 MG TAB PO SCH (07:21)
[2020-03-11] MEDS: PANTOprazole 40 MG TAB PO SCH (07:22)
[2020-03-11] MEDS: GABAPENTIN 800 MG TAB PO SCH (07:22)
[2020-03-11] MEDS: MAGNESIUM OXIDE 400 MG TAB PO SCH (07:22)
[2020-03-11] MEDS: ACETAMINOPHEN 325 MG TAB PO PRN (07:23)
[2020-03-11] MEDS: DICLOFENAC SOD 1% GEL 100 GM TUBE EXT SCH (07:33)
[2020-03-11] MEDS: FUROSEMIDE 20 MG TAB PO PRN (08:17)
--- NOTE | 2020-03-11 08:53 | Psychiatric Progress Note ---
Date of Service March 11, 2020 Impression / Recommendations Impression 54 y/o male with extended ED stay on 302; on a 304 as of 03/06/2020, and has been referred to [facility] for long-term inpatient treatment. Chronic and persistent mental illness, diagnosed with schizoaffective disorder bipolar type, presented with at least several months of worsening manic and psychotic symptoms in the context of medication noncompliance and multiple recent hospitalizations for medical problems. He was agitated and uncooperative in the ED, remains poorly compliant and unable to care for his basic needs outside of the hospital. Symptoms of kylee are persisting including very poor sleep, hyperverbal with pressured speech, mood lability, grandiosity, and tangential/disorganized thought process. He also continues to have episodes of significant irritability and agitation, has threatened to physically harm staff and a female patient, and continues to present and acute risk of harm to him self and to others. Awaiting confirmation from [place] on receipt of referral packet, sent 03/06/20. (1) Schizoaffective disorder: 02/25 - The patient was admitted to the [facility] ([facility] mental health unit) on q15 min checks (behavioral with suicide precautions) for safety. The patient will participate in group, recreational, and milieu therapies and will be offered additional individual and family sessions as clinically appro priate. He clearly meets criteria for extended involuntary commitment and a 303 was filed, Dr. Lopez updated as will be testifying psychiatrist. Regarding meds, trazodone and Cymbalta were held in ED due to paradoxical reaction and kylee. Zyprexa was given standing order there, as calmer will change to prn here. His Tegretol was also restarted there at low dose as longstanding previously effective med. May impact his anticoagulation. 02/26 -303 hearing held and commitment granted. Contact Su MORATAYA at [facility] to coordinate care - left message. -Continue olanzapine 10 mg at bedtime, risperidone 2 mg at bedtime (contact outpatient clinician regarding previous response to these medications and preferred plan moving forward), carbamazepine 250 mg twice daily, and diazepam 5 mg at bedtime. Zolpidem 10 mg at bedtime as needed has been added, and although he received a dose last night, he still slept only 1 hour. Consider trial of atypical antipsychotic with sedating properties, such as chlorpromazine, in place of one of his atypicals if sleep does not improve. -Monitoring on an atypical antipsychotic: Hgb A1C 5.5%, est ave glucose 111 on 02/27/20, FLP ordered for tomorrow. -Per records, patient has assault charges. Attempt to clarify with his outpatient director of casework services. 02/27 - Medication adjustments suggested this morning after treatment team and review of collateral obtained from patient's outpatient psychiatric prescriber. - Titrating risperidone to 1mg qAM and 2mg qHS - further titration as tolerated (previous dosing of 8mg daily total). - Diazepam titrated to 10mg qHS to promote sleep, as this continues to be a problem. Scheduled HS olanzapine was discontinued, but remains a prn option for sleep/agitation if necessary. - Consider chlorpromazine for mood stabilization/sleep if sleep continues to be an issue. 02/28 - Continue medication adjustments as previously discussed - pt received 3mg total of risperidone yesterday, scheduled to receive 4mg total today. Continue titration as tolerated - Pt continues to sleep poorly, though has been taking brief and intermittent naps during the day which is a small improvement. Continue diazepam at this time. 03/01 - Risperidone being titrated to 4mg this evening (total of 5mg today), and AM dose being titrated to 2mg tomorrow (will get total of 6mg). Continue risperidone titration as indicated/tolerated. - Pt was counseled on the fact that medications used to stabilize his symptoms can eventually be cross-tapered to medications that may be more ideal for long- term use. Pt has continued to take risperidone as scheduled, but does verbalize concerns about long-term side effects he has experienced in the past. He did seem to understand that risperidone is being used for acute stabilization, but that other options can be explored on an outpatient basis once his symptoms are improved. - Pt did have improved sleep last evening - continue to monitor, adjust medication regimen as needed to target sleep 03/02 total of 6mg Risperdal today (2mgAM and 4mg at hs), will move to 7mg tomorrow 03/03 with goal for 8mg on Saturday 03/04 if tolerated; for now monitor the "drunken feeling" as I believe that is the cumulative poor sleep and increasing Risperdal culminating on patient, but could be a SE of Tegretol. He is not showing s/sx of fall risk or dysequilibrium 03/03 - I am concerned that Tegretol may be causing the "drunken feeling" as patient notes this is new. He is still manic with poor sleep and hyperverbal, more likely to be intrusive/inappropriate/irritable at night. Will stop the Tegretol and continue to advance the Risperdal 03/03 will get 7mg, and 03/04 8mg divided 4mg bid (he would like to consider 8mg/hs once up to full dosing as that is how he took it outpatient). He declines change from Valium to Klonopin with provider contemplating increased dose to facilitate sleep. TO increase Valium I believe could risk daytime somnolence and impairment in cognition and coordination given how long acting it is. Although provocative I will return patient to his trazodone 150mg/hs tonight watching for orthostasis alongside of Risperdal and 300mg 03/04/20. Pt agrees to slow positional changes but will ask staff to monitor for instability given he is at risk for bleeding on blood thinners if he falls. With goal to show collaboration will inquire about nail clipping and compression stockings for patient as these are reasonable requests as staffing /supplies are available. 03/04 - Continue current medication regimen - patient continues to be manic with tangential thoughts and flight of idea. He remains inappropriately fixated on a peripheral member of his outpatient treatment team. - Pt continues to refuse valproic acid due to concern for weight gain - attempted to discuss alternative agents, however, patient's ability to participate in this conversation remains limited - Trazodone will increase to 300mg tonight per ordered titration - continue to monitor sleep. - Will defer toe nail clipping at this time, as patient is an insulin-dependent diabetic who follows with a lime trimmer on an outpatient basis for routine diabetic foot care. Toenails inspected today and are long, but not armand ilitating. If indicated, will consider podiatry consultation to address. 03/05 -Patient increasingly agitated, disruptive, and now threatening staff and other patients. Continue risperidone 4 mg twice daily, add chlorpromazine 50 mg p.o. or IM as needed for agitation/psychosis, can be used in conjunction with lorazepam. -Sleep remains extremely poor, and out of the past 8 nights in the hospital, he has only slept over 1 hour on 2 occasions. He has failed several medication trials to improve sleep, including olanzapine, increasing his diazepam dose, and trazodone was restarted 2 nights ago with limited response. I will decrease his trazodone to 150 mg at bedtime, decrease diazepam to 5 mg at bedtime, and order chlorpromazine 100 mg at bedtime for tonight, as he did have some sedation after the dose he received this morning for agitation. -Patient continues to be agitated, disruptive, and poorly cooperative, requiring frequent redirection from staff. He has been repeatedly reminded of interpersonal boundaries and appropriate behavior. Continue private room and excuse from groups. -Patient continues to refuse trials of Depakote or lithium, failed Tegretol. ECT is an option, but and not available here, and he is not voluntary. Given the severity of his symptoms, lack of improvement since admission, and the fact that he required very lengthy inpatient hospitalizations in the past for stabilization, I am recommending a 304 involuntary commitment with referral to [facility] for long-term inpatient treatment. Patient informed, provided with 304 paperwork, which he promptly ripped up. 03/06 - 304 hearing held and commitment granted. Refer to [facility], and order EKG and CXR for medical clearance. - Continue diazepam 5 mg and trazodone 150 mg at bedtime. Patient remains unhappy about being on risperidone, as he gained weight on it in the past, and as it has not been usually effective, I will decrease his dose to 2 mg every morning and 4 mg at bedtime, while increasing chlorpromazine to 50 mg every morning and 100 mg at bedtime. Continue chlorpromazine 50 mg every 2 hours as needed for psychosis/agitation. Patient agreed to a trial of Depakote, reviewed the need to monitor blood work including CBC and liver function, as well as blood levels. Start 500 mg at bedtime, and check a trough level after 5 doses (ordered for 03/11/2020). 03/07 -Increase chlorpromazine to 50 mg 3 times daily and 100 mg at bedtime, continue as needed's. 03/08 -The concern is that the patient is not sleeping. He is motorically hyperactive, irritable, and easily agitated. He tells us that chlorpromazine has always been helpful to him in the past. -Given the patient's psychomotor agitation, her hyperkinesis, and apparent inability to sleep we discussed with him the option of an intramuscular injection of chlorpromazine and diphenhydramine, coupled with the availability of a darkened and quiet room. The patient acknowledged with a smile that he was eager to fall asleep. Chlorpromazine 100 mg IM with diphenhydramine 50 mg IM given with patient's consent after the names of the medications and the purposes were reviewed with him. So far, this has allowed him to fall asleep and rest comfortably. - Increase Chlorpromazine to 100 mg TID and 200 mg HS. Hold until HS dose. 03/09 -Efforts at sedation have been largely ineffective and now on a fair degree of polypharmacy and will attempt to simplify -Due to inadequate effect of Thorazine (remains agitated and insomnic) and patient's complaint of feeling cognitively slowed and secondarily angered by it, will discontinue the Thorazine and substitute Haldol 5 mg 3 times daily with Cogentin 2 mg 3 times daily to start. We will also begin Klonopin 1 mg 3 times daily with plan to back off once sleeping and kylee breaks. congentin started at high dose due to h/o dystonia reported w/ haldol. -Discontinue the low-dose as needed's of Risperdal and Thorazine due to lack of efficacy and to reduce complexity and polypharmacy of current med regimen -start seroquel 200mg po q6h prn for agitation of insomnia as alternative to thorazine 03/10 -Unfortunately he remains behaviorally unimproved however is sleeping for slightly longer durations, likely attributable to the benzodiazepine and quetiapine initiated yesterday. -In reviewing his recent treatment history and failed response to Risperdal titration previously, will discontinue which will allow for me to be more aggressive with the Haldol which we will increase to 10 mg p.o. 3 times daily continuing the Cogentin 2 mg 3 times daily due to history of dystonia. -We will also implement a Haldol 5 mg every 8 hours as needed and Ativan 2 mg every 6 hours as needed IM for emergency use if he refuses oral medication. Pt has been fairly compliant with PO meds but has required IM's since admission and his insight is clearly impaired by his psychosis and treatment over objection is felt to be warranted as he is unlikely to improve without adequate pharmacotherapy. -The Seroquel does seem to be helping and will continue 200 mg every 4 hours as needed for agitation (do not exceed 800 mg in 24 hours.) Considering scheduled dose which we can reassess after we see how he responds to increased Haldol -Trazodone discontinued due to lack of efficacy for sleep and possible contribution to activation from serotonergic activity -Increase clonazepam to 1 mg twice daily and 2 mg nightly in effort to help reconsolidate sleep to bedtime. Daytime clonazepam should be held for excessive sedation 03/11 - Given significant medication adjustments made yesterday, will leave current medication regimen unchanged for today. Continue to observe mood/behaviors. - Pt continues to occupy our safe room/KENDRICK voluntarily, seems to be benefitting from reduced stimulation. Episodes of agitation/aggression continue to be a concern. - Follow-up with [facility] regarding referral progress. Packet sent on 03/06, no confirmation of receipt. (2) Deep venous thrombosis: 02/25 - Patient non-compliant with Eliquis and was transitioned to Coumadin in the ED with Lovenox bridge. The combo should be continued for at least 2 more days and an INR >2. Pharmacist recommends daily PT/INR if he'll allow (every other acceptable if issue) and taking 10 mg Coumadin for the next 2 nights. 02/26 -INR 1.2 today. Continue Lovenox until Coumadin is therapeutic, with daily INR. 02/27 - INR 2.0 today - will discontinue Lovenox - patient thus far has been compliant with daily PT/INR. 02/28 - INR continues to be at 2.0 today with discontinuation of Lovenox 03/01--INR = 2.1 03/02 and 03/03 - 03/02 INR 1.9 which is slightly below goal will continue 10mg with daily PT/INR. Request pharmacy input with next PT/INR on 03/04/20 if that remains <2 03/04- INR returned to 2.0 today - continue serial PT/INR - physical examination of upper and lower extremities. Fingers are a bit cold to the touch, no obvious discoloration, sensation intact in all digits. Lower extremities visualized, no discoloration, warm to touch, no overt pitting edema so far this morning. No ulcers/wounds observed on feet, though skin is dry and calloused in places. Pedal pulses 3+ bilaterally, sensation intact in all digits. Pt reports "tingling" from toes to metatarsal area bilaterally. 03/05 -patient agitated and uncooperative, unable to examine lower extremities. 03/07-INR 1.8 yesterday; Coumadin increased to 12 mg daily, continue every 2 day PT/INR. 03/08 -INR today is 2.3, within therapeutic range for coagulation therapy. 03/10 -due for PT/INR today however was deferred today to minimize stimulation. reviewed INR was in range at 2.3 on 03/08/20. 03/11 - Pt tolerate PT/INR today - (3) Diabetes mellitus: 02/25 - diabetic pharmacy consult 02/26 -patient getting insulin here, glucose well controlled. 03/06 -patient for a large callus off of the ball of his left foot, with a flap of skin still attached. He is able to ambulate and there are no current signs of infection, but given his diabetes and risk of infection, we will consult the wound care team for assistance. 03/07 -appreciate wound care nurse assistance, they are consulting the lime trimmer. 03/08 -patient remains cooperative with dietary restrictions, blood checks, and medications. 03/09- -Reviewed glycemic control and his sugars have been between 84 and 108 since the (4) Chronic back pain: 03/05 -on admission, patient was continued on his home pain medication re gimen, including nabumetone 500 mg 4 times daily, gabapentin 400 mg 4 times daily, duloxetine, diclofenac, and baclofen 20 mg twice daily. He is now demanding multiple medication changes to target pain, including increasing all 3 of those medications to 5 times a day. Attempted to explain to him that this is above the FDA maximum dose and that it would not be appropriate to order higher doses of NSAIDs, but he was unable to tolerate the discussion, interrupting becoming agitated. 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 office supervisor Risk Factors Assessment Male: Yes : Yes Do You Have Access To A Gun?: No Health Problems: Yes Mental Health Diagnoses: Yes Substance Use Disorders: No Family History of Suicide: Yes Previous Psychiatric Hospitalization: Yes Protective Factors Assessment : No Responsible for Young Children: No Employed: No Stable Relationships: No Interval History Identifying Information MANDI BOSS is a 54-year-old M who currently lives in alone in [place], has a history of schizoaffective disorder, and was admitted on 02/26/20 12:02 on a 302 involuntary commitment for disorganized psychosis. It should be noted that he initially presented on 02/21 and was in the ED awaiting bed placement for >3 days. Pt has required extended involuntary commitment and is on a 304 as of 03/06/20, referral sent to [facility] on Chief Complaint "The weekend...? Interesting..." Review of Systems Notes Constitutional: denied Cardiovascular: denied Respiratory: denied Gastrointestinal: reports constipation Neurological: denied Psychiatric: denies symptoms other than stated above Total of at least 10 systems reviewed, pertinent positives as above and in HPI. Sleep Information Total Hours of Sleep: 2.25 Sleep Comments: Patient's sleep was extremely broken through the night. 0.5 hours was on evening shift and 1.75 hours on mine shifter. Patient appears tired but often refuses to lay down in bed to rest. Meal Information Percent Meal Consumed - Breakfast: 100 Percent Meal Consumed - Lunch: 100 Percent Meal Consumed - Dinner: 100 Nutrition Comment: in quiet room Subjective Subjective Patient was seen & assessed and interval progress reviewed with treatment team. Staff report the patient continues to have disinhibited behavioral outbursts. He has been intermittently agitated and aggressive, frequently presenting with requests to the nurses station. Sleep remains poor. Significant medication adjustments were made over the weekend. Referral packet sent to [place] on 03/06/20 - no word at this time on acceptance or bed date. Pt was seen today to assess progress since admission. He was asked how the weekend went, and stated "the weekend...? Interesting..." Pt was asked what was interesting about the last few days, and he did not respond. This provider asked again, and he stated "why do you want to know?" He did later admit that he had several visits from security this weekend, but did not answer when this provider asked why they were needed on the unit. Pt continues to mumble, which makes communication difficult. He was also distracted with attempting to fill out his lunch/dinner menu. This provider attempted to discuss the medication changes made over the weekend, patient did not participate in this conversation either. He demanded his glasses, which were retrieved. He then stated that he would like "something to help me go to the bathroom." Pt reports feeling constipated. He denied other concerns today, and had limited attention for other conversations. He denied other needs at this time. Physical Exam Psychiatric Orientation: alert and + guarded (somewhat uncooperative) Apperance: appropriately dressed and + disheveled Obese-appearing male, looking fatigued this morning. Appropriately dressed in a t-shirt and khaki pants. Pt appear unkempt, has toothpaste covering his lips. Eye Contact: + poor eye contact (limited attention to conversation, limited direct eye contact) Motor Behavior: no abnormal motor movements (though claims he has a tremor of his left hand) and + psychomotor retardation (movements appear slowed this morning); n tremor observed patient holding out his left hand unsupported - no tremor observed despite reports by the patient to the contrary. Speech: + abnormal rate/rhythm/volume of speech decreased articulation, soft volume, unintelligible at times Affect: + blunted affect and + constricted affect Thought Process: + tangential thought process; + thought process not linear or logical Thought Content: + delusions Cognition: + recent memory not intact and + attention not intact Insight: + severely impaired insight Judgement: + severely impaired judgement Vital Signs (Past 24 Hours) Last Vital Signs Temp 36.4 C L 03/11/20 06:39 Pulse 93 H 03/11/20 06:39 Resp 18 03/11/20 06:39 BP 130/84 03/11/20 06:39 Pulse Ox 98 02/26/20 12:12 Results & Data ([facility]) Current Inpatient Medications Current Inpatient Medications: Current Inpatient Medications Acetaminophen (Acetaminophen 325 Mg Tab) 650 mg PO Q4H PRN PRN Reason: Headache or Minor Fever Stop: 03/27/20 12:01 Last Admin: 03/11/20 07:23 Dose: 650 mg Documented by: Al Hydrox/Mg Hydrox/Simethicone (Aluminum/Magnesium Susp 30 Ml Udc) 30 ml PO Q4H PRN PRN Reason: GI Upset Stop: 03/27/20 12:01 Atorvastatin Calcium (Atorvastatin 20 Mg Tab) 20 mg PO QAM TOSIN Stop: 03/28/20 08:59 Last Admin: 03/11/20 07:21 Dose: 20 mg Documented by: Baclofen (Baclofen 20 Mg Tab) 20 mg PO BID [facility] Stop: 03/27/20 20:59 Last Admin: 03/11/20 07:21 Dose: 20 mg Documented by: Benztropine Mesylate (Benztropine Mesylate 1 Mg Tab) 2 mg PO TID [facility] Stop: 04/08/20 13:59 Last Admin: 03/11/20 07:21 Dose: 2 mg Documented by: Bismuth Subsalicylate (Bismuth Subsalicylate Liqd 236 Ml) 15 ml PO PRN PRN PRN Reason: Loose Stool Stop: 03/27/20 12:01 Clonazepam (Clonazepam 1 Mg Tab) 1 mg PO [id number] [facility] Stop: 04/09/20 13:59 Last Admin: 03/11/20 06:07 Dose: 1 mg Documented by: Clonazepam (Clonazepam 1 Mg Tab) 2 mg PO [facility] Stop: 04/09/20 21:59 Last Admin: 03/10/20 20:04 Dose: 2 mg Documented by: Diclofenac Sodium (Diclofenac Sod 1% Gel 100 Gm Tube) 2 gm EXT BID [facility] Stop: 03/27/20 20:59 Last Admin: 03/11/20 07:33 Dose: 2 gm Documented by: Divalproex Sodium (Divalproex Extended Release 500 Mg Tab) 1,000 mg PO [facility] Stop: 04/07/20 21:59 Last Admin: 03/10/20 20:03 Dose: 1,000 mg Documented by: Furosemide (Furosemide 20 Mg Tab) 20 mg PO QAM PRN PRN Reason: swelling Stop: 03/28/20 08:59 Last Admin: 03/11/20 08:17 Dose: 20 mg Documented by: Gabapentin (Gabapentin 800 Mg Tab) 800 mg PO TID [facility] Stop: 04/08/20 20:59 Last Admin: 03/11/20 07:22 Dose: 800 mg Documented by: Haloperidol (Haloperidol 5 Mg Tab) 10 mg PO TID [facility] Stop: 04/09/20 13:59 Last Admin: 03/11/20 07:20 Dose: 10 mg Documented by: Haloperidol Lactate (Haloperidol Lactate 5 Mg/Ml 1 Ml Vial) 5 mg IM Q8H PRN PRN Reason: Agitation and refusal of po Stop: 04/09/20 10:44 Insulin Aspart (Insulin Aspart 100 Units/Ml 3 Ml Pen) 0 units SC ACHS [facility] Stop: 03/27/20 17:14 Last Admin: 03/10/20 20:43 Dose: Not Given Documented by: Levothyroxine Sodium (Levothyroxine Sodium 50 Mcg Tablet) 50 mcg PO 0700 TOSIN Stop: 04/01/20 06:59 Last Admin: 03/11/20 06:07 Dose: 50 mcg Documented by: Loratadine (Loratadine 10 Mg Tab) 10 mg PO QAM [facility] Stop: 03/28/20 08:59 Last Admin: 03/11/20 07:21 Dose: 10 mg Documented by: Lorazepam (Lorazepam 2 Mg/Ml Vial (Im Use)) 2 mg IM Q6H PRN PRN Reason: agitation and refusal of po Stop: 04/09/20 10:33 Magnesium Hydroxide (Magnesium Hydroxide Susp 30 Ml Udc) 30 ml PO DAILY PRN PRN Reason: Constipation Stop: 03/27/20 12:01 Magnesium Oxide (Magnesium Oxide 400 Mg Tab) 400 mg PO BID [facility] Stop: 03/27/20 20:59 Last Admin: 03/11/20 07:22 Dose: 400 mg Documented by: Montelukast Sodium (Montelukast Sodium 10 Mg Tablet) 10 mg PO DAILY [facility] Stop: 03/28/20 08:59 Last Admin: 03/11/20 07:21 Dose: 10 mg Documented by: Multivitamins/Minerals (Calcium 600mg + Vit D 400 Iu Tab) 1 tab PO DAILY [facility] Stop: 03/29/20 08:59 Last Admin: 03/11/20 07:20 Dose: 1 tab Documented by: Nabumetone (Nabumetone 500 Mg Tablet) 1,000 mg PO BID [facility] Stop: 04/08/20 20:59 Last Admin: 03/11/20 07:21 Dose: 1,000 mg Documented by: Trulicity 0.75 Mg- Non-Formulary Patient's Own Med 1 ea SC Garcia@[id number] [facility] Stop: 04/02/20 07:59 Last Admin: 03/10/20 08:06 Dose: 1 ea Documented by: Pantoprazole Sodium (Pantoprazole 40 Mg Tab) 40 mg PO DAILY [facility] Stop: 03/29/20 08:59 Last Admin: 03/11/20 07:22 Dose: 40 mg Documented by: Quetiapine Fumarate (Quetiapine Fumarate 200 Mg Tab) 200 mg PO Q4H PRN PRN Reason: Agitation or insomnia Stop: 04/08/20 15:30 Last Admin: 03/10/20 20:51 Dose: 200 mg Documented by: Sodium Chloride (Sodium Chloride 0.65% Na Soln 45 Ml ([place])) 1 - 2 sprays NA PRN PRN PRN Reason: Nasal Dryness/Congestion Stop: 03/27/20 12:01 Last Admin: 03/04/20 18:44 Dose: 2 sprays Documented by: Warfarin Sodium (Warfarin Sod 6 Mg Tab) 12 mg PO HS TOSIN Stop: 04/05/20 21:59 Last Admin: 03/09/20 22:25 Dose: 12 mg Documented by: Mental Health & Subst Abuse Tx Psychiatrist Name of Psychiatrist: Eric Joiner Psychiatrist's Date of Appointment with Psychiatrist: 03/18/20 Time of Appointment with Psychiatrist: 1:15 pm Therapist Name of Therapist: Luis Fernando eli/Norman Gantry Rigger Name of Gantry Rigger: Dayne Phone Number for Gantry Rigger: [phone] Post Discharge Appointments Primary Care Physician Name Of Family Doctor: Jennifer Little Primary Care Partial or Psych Rehab Name of Partial or Psych Rehab: [facility] - Luis Fernando Contact Information Discharge Discharge Address: [address] [place] [address], [address] [address] (1) Diabetes mellitus Diabetes mellitus complication status: without complication 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
[2020-03-11] MEDS: INSULIN ASPART 100 UNITS/ML 3 ML PEN SC SCH (08:59)
[2020-03-11] MEDS ORDERED: ADVANCED PROBIOTIC 1250 MG CAPSULE PO SCH (09:30)
[2020-03-11 09:43] LABS: INR 4.7 (0.9-1.1); Prothrombin Time 45.4 Seconds (9.0-12.0)
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
[2020-03-11] MEDS ORDERED: HALOPERIDOL LACTATE 5 MG/ML 1 ML VIAL IM STA (12:00)
--- NOTE | 2020-03-11 13:02 | Discharge Summary ---
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 Herbert Plt Count MPV Immature Gran % (Auto) Neut % (Auto) Lymph % (Auto) [place] % (Auto) Eos % (Auto) Baso % (Auto) Neut # (Auto) Lymph # (Auto) [place] # (Auto) Eos # (Auto) Baso # (Auto) Immature Gran # (Auto) PT INR APTT PTT Ratio Sodium Potassium Chloride Carbon Dioxide Anion Gap BUN Creatinine Est Cr Clr Drug Dosing Est GFR ( Amer) Est GFR (Non-Af Amer) BUN/Creatinine Ratio Glucose POC Glucose 88 88 111 H Estimat Average Glucose Hemoglobin A1c Calcium Total Bilirubin AST ALT Alkaline Phosphatase Total Protein Albumin Globulin Albumin/Globulin Ratio Triglycerides Cholesterol LDL Cholesterol, Calc VLDL Cholesterol, Calc HDL Cholesterol Cholesterol/HDL Ratio TSH Urine Color Urine Appearance Urine pH Ur Specific [place] Urine Protein Urine Glucose (UA) Urine Ketones Urine Blood Urine Nitrite Urine Bilirubin Urine Urobilinogen Ur Leukocyte Esterase Salicylates Urine Opiates Screen Ur Methadone, Qual Acetaminophen Urine Barbiturates Valproic Acid Ur Phencyclidine (PCP) U Amphetamin/Meth Scrn MDMA (Ecstasy) Screen U Benzodiazepines Scrn Ur Cocaine Metabolite U Marijuana (THC) Screen Ethyl Alcohol mg/dL SARS-CoV-2 Ag (Rapid) 02/28/20 02/28/20 02/28/20 06:30 06:30 08:06 WBC RBC Hgb Hct MCV MCH MCHC RDW Std Deviation RDW Coeff of Herbert Plt Count MPV Immature Gran % (Auto) Neut % (Auto) Lymph % (Auto) [place] % (Auto) Eos % (Auto) Baso % (Auto) Neut # (Auto) Lymph # (Auto) [place] # (Auto) Eos # (Auto) Baso # (Auto) Immature Gran # (Auto) PT 20.0 H INR 2.0 H APTT PTT Ratio Sodium Potassium Chloride Carbon Dioxide Anion Gap BUN Creatinine Est Cr Clr Drug Dosing Est GFR ( Amer) Est GFR (Non-Af Amer) BUN/Creatinine Ratio Glucose POC Glucose 111 H Estimat Average Glucose Hemoglobin A1c Calcium Total Bilirubin AST ALT Alkaline Phosphatase Total Protein Albumin Globulin Albumin/Globulin Ratio Triglycerides 205 H Cholesterol 140 LDL Cholesterol, Calc 56 VLDL Cholesterol, Calc 41 HDL Cholesterol 43 Cholesterol/HDL Ratio 3 TSH Urine Color Urine Appearance Urine pH Ur Specific [place] Urine Protein Urine Glucose (UA) Urine Ketones Urine Blood Urine Nitrite Urine Bilirubin Urine Urobilinogen Ur Leukocyte Esterase Salicylates Urine Opiates Screen Ur Methadone, Qual Acetaminophen Urine Barbiturates Valproic Acid Ur Phencyclidine (PCP) U Amphetamin/Meth Scrn MDMA (Ecstasy) Screen U Benzodiazepines Scrn Ur Cocaine Metabolite U Marijuana (THC) Screen Ethyl Alcohol mg/dL SARS-CoV-2 Ag (Rapid) 02/28/20 02/28/20 02/29/20 12:43 17:09 07:36 WBC RBC Hgb Hct MCV MCH MCHC RDW Std Deviation RDW Coeff of Herbert Plt Count MPV Immature Gran % (Auto) Neut % (Auto) Lymph % (Auto) [place] % (Auto) Eos % (Auto) Baso % (Auto) Neut # (Auto) Lymph # (Auto) [place] # (Auto) Eos # (Auto) Baso # (Auto) Immature Gran # (Auto) PT 20.8 H INR 2.0 H APTT PTT Ratio Sodium Potassium Chloride Carbon Dioxide Anion Gap BUN Creatinine Est Cr Clr Drug Dosing Est GFR ( Amer) Est GFR (Non-Af Amer) BUN/Creatinine Ratio Glucose POC Glucose 98 93 Estimat Average Glucose Hemoglobin A1c Calcium Total Bilirubin AST ALT Alkaline Phosphatase Total Protein Albumin Globulin Albumin/Globulin Ratio Triglycerides Cholesterol LDL Cholesterol, Calc VLDL Cholesterol, Calc HDL Cholesterol Cholesterol/HDL Ratio TSH Urine Color Urine Appearance Urine pH Ur Specific [place] Urine Protein Urine Glucose (UA) Urine Ketones Urine Blood Urine Nitrite Urine Bilirubin Urine Urobilinogen Ur Leukocyte Esterase Salicylates Urine Opiates Screen Ur Methadone, Qual Acetaminophen Urine Barbiturates Valproic Acid Ur Phencyclidine (PCP) U Amphetamin/Meth Scrn MDMA (Ecstasy) Screen U Benzodiazepines Scrn Ur Cocaine Metabolite U Marijuana (THC) Screen Ethyl Alcohol mg/dL SARS-CoV-2 Ag (Rapid) 02/29/20 02/29/20 02/29/20 07:55 12:30 17:12 WBC RBC Hgb Hct MCV MCH MCHC RDW Std Deviation RDW Coeff of Herbert Plt Count MPV Immature Gran % (Auto) Neut % (Auto) Lymph % (Auto) [place] % (Auto) Eos % (Auto) Baso % (Auto) Neut # (Auto) Lymph # (Auto) [place] # (Auto) Eos # (Auto) Baso # (Auto) Immature Gran # (Auto) PT INR APTT PTT Ratio Sodium Potassium Chloride Carbon Dioxide Anion Gap BUN Creatinine Est Cr Clr Drug Dosing Est GFR ( Amer) Est GFR (Non-Af Amer) BUN/Creatinine Ratio Glucose POC Glucose 104 H 121 H 109 H Estimat Average Glucose Hemoglobin A1c Calcium Total Bilirubin AST ALT Alkaline Phosphatase Total Protein Albumin Globulin Albumin/Globulin Ratio Triglycerides Cholesterol LDL Cholesterol, Calc VLDL Cholesterol, Calc HDL Cholesterol Cholesterol/HDL Ratio TSH Urine Color Urine Appearance Urine pH Ur Specific [place] Urine Protein Urine Glucose (UA) Urine Ketones Urine Blood Urine Nitrite Urine Bilirubin Urine Urobilinogen Ur Leukocyte Esterase Salicylates Urine Opiates Screen Ur Methadone, Qual Acetaminophen Urine Barbiturates Valproic Acid Ur Phencyclidine (PCP) U Amphetamin/Meth Scrn MDMA (Ecstasy) Screen U Benzodiazepines Scrn Ur Cocaine Metabolite U Marijuana (THC) Screen Ethyl Alcohol mg/dL SARS-CoV-2 Ag (Rapid) 02/29/20 03/01/20 03/01/20 20:33 07:17 08:02 WBC RBC Hgb Hct MCV MCH MCHC RDW Std Deviation RDW Coeff of Herbert Plt Count MPV Immature Gran % (Auto) Neut % (Auto) Lymph % (Auto) [place] % (Auto) Eos % (Auto) Baso % (Auto) Neut # (Auto) Lymph # (Auto) [place] # (Auto) Eos # (Auto) Baso # (Auto) Immature Gran # (Auto) PT 21.6 H INR 2.1 H APTT PTT Ratio Sodium Potassium Chloride Carbon Dioxide Anion Gap BUN Creatinine Est Cr Clr Drug Dosing Est GFR ( Amer) Est GFR (Non-Af Amer) BUN/Creatinine Ratio Glucose POC Glucose 112 H 122 H Estimat Average Glucose Hemoglobin A1c Calcium Total Bilirubin AST ALT Alkaline Phosphatase Total Protein Albumin Globulin Albumin/Globulin Ratio Triglycerides Cholesterol LDL Cholesterol, Calc VLDL Cholesterol, Calc HDL Cholesterol Cholesterol/HDL Ratio TSH Urine Color Urine Appearance Urine pH Ur Specific [place] Urine Protein Urine Glucose (UA) Urine Ketones Urine Blood Urine Nitrite Urine Bilirubin Urine Urobilinogen Ur Leukocyte Esterase Salicylates Urine Opiates Screen Ur Methadone, Qual Acetaminophen Urine Barbiturates Valproic Acid Ur Phencyclidine (PCP) U Amphetamin/Meth Scrn MDMA (Ecstasy) Screen U Benzodiazepines Scrn Ur Cocaine Metabolite U Marijuana (THC) Screen Ethyl Alcohol mg/dL SARS-CoV-2 Ag (Rapid) 03/01/20 03/01/20 03/02/20 17:28 21:06 06:16 WBC RBC Hgb Hct MCV MCH MCHC RDW Std Deviation RDW Coeff of Herbert Plt Count MPV Immature Gran % (Auto) Neut % (Auto) Lymph % (Auto) [place] % (Auto) Eos % (Auto) Baso % (Auto) Neut # (Auto) Lymph # (Auto) [place] # (Auto) Eos # (Auto) Baso # (Auto) Immature Gran # (Auto) PT 19.5 H INR 1.9 H APTT PTT Ratio Sodium Potassium Chloride Carbon Dioxide Anion Gap BUN Creatinine Est Cr Clr Drug Dosing Est GFR ( Amer) Est GFR (Non-Af Amer) BUN/Creatinine Ratio Glucose POC Glucose 106 H 122 H Estimat Average Glucose Hemoglobin A1c Calcium Total Bilirubin AST ALT Alkaline Phosphatase Total Protein Albumin Globulin Albumin/Globulin Ratio Triglycerides Cholesterol LDL Cholesterol, Calc VLDL Cholesterol, Calc HDL Cholesterol Cholesterol/HDL Ratio TSH Urine Color Urine Appearance Urine pH Ur Specific [place] Urine Protein Urine Glucose (UA) Urine Ketones Urine Blood Urine Nitrite Urine Bilirubin Urine Urobilinogen Ur Leukocyte Esterase Salicylates Urine Opiates Screen Ur Methadone, Qual Acetaminophen Urine Barbiturates Valproic Acid Ur Phencyclidine (PCP) U Amphetamin/Meth Scrn MDMA (Ecstasy) Screen U Benzodiazepines Scrn Ur Cocaine Metabolite U Marijuana (THC) Screen Ethyl Alcohol mg/dL SARS-CoV-2 Ag (Rapid) 03/02/20 03/02/20 03/02/20 07:26 11:13 17:06 WBC RBC Hgb Hct MCV MCH MCHC RDW Std Deviation RDW Coeff of Herbert Plt Count MPV Immature Gran % (Auto) Neut % (Auto) Lymph % (Auto) [place] % (Auto) Eos % (Auto) Baso % (Auto) Neut # (Auto) Lymph # (Auto) [place] # (Auto) Eos # (Auto) Baso # (Auto) Immature Gran # (Auto) PT INR APTT PTT Ratio Sodium Potassium Chloride Carbon Dioxide Anion Gap BUN Creatinine Est Cr Clr Drug Dosing Est GFR ( Amer) Est GFR (Non-Af Amer) BUN/Creatinine Ratio Glucose POC Glucose 105 H 115 H 80 Estimat Average Glucose Hemoglobin A1c Calcium Total Bilirubin AST ALT Alkaline Phosphatase Total Protein Albumin Globulin Albumin/Globulin Ratio Triglycerides Cholesterol LDL Cholesterol, Calc VLDL Cholesterol, Calc HDL Cholesterol Cholesterol/HDL Ratio TSH Urine Color Urine Appearance Urine pH Ur Specific [place] Urine Protein Urine Glucose (UA) Urine Ketones Urine Blood Urine Nitrite Urine Bilirubin Urine Urobilinogen Ur Leukocyte Esterase Salicylates Urine Opiates Screen Ur Methadone, Qual Acetaminophen Urine Barbiturates Valproic Acid Ur Phencyclidine (PCP) U Amphetamin/Meth Scrn MDMA (Ecstasy) Screen U Benzodiazepines Scrn Ur Cocaine Metabolite U Marijuana (THC) Screen Ethyl Alcohol mg/dL SARS-CoV-2 Ag (Rapid) 03/02/20 03/03/20 03/03/20 21:10 07:40 11:23 WBC RBC Hgb Hct MCV MCH MCHC RDW Std Deviation RDW Coeff of Herbert Plt Count MPV Immature Gran % (Auto) Neut % (Auto) Lymph % (Auto) [place] % (Auto) Eos % (Auto) Baso % (Auto) Neut # (Auto) Lymph # (Auto) [place] # (Auto) Eos # (Auto) Baso # (Auto) Immature Gran # (Auto) PT INR APTT PTT Ratio Sodium Potassium Chloride Carbon Dioxide Anion Gap BUN Creatinine Est Cr Clr Drug Dosing Est GFR ( Amer) Est GFR (Non-Af Amer) BUN/Creatinine Ratio Glucose POC Glucose 72 72 104 H Estimat Average Glucose Hemoglobin A1c Calcium Total Bilirubin AST ALT Alkaline Phosphatase Total Protein Albumin Globulin Albumin/Globulin Ratio Triglycerides Cholesterol LDL Cholesterol, Calc VLDL Cholesterol, Calc HDL Cholesterol Cholesterol/HDL Ratio TSH Urine Color Urine Appearance Urine pH Ur Specific [place] Urine Protein Urine Glucose (UA) Urine Ketones Urine Blood Urine Nitrite Urine Bilirubin Urine Urobilinogen Ur Leukocyte Esterase Salicylates Urine Opiates Screen Ur Methadone, Qual Acetaminophen Urine Barbiturates Valproic Acid Ur Phencyclidine (PCP) U Amphetamin/Meth Scrn MDMA (Ecstasy) Screen U Benzodiazepines Scrn Ur Cocaine Metabolite U Marijuana (THC) Screen Ethyl Alcohol mg/dL SARS-CoV-2 Ag (Rapid) 03/03/20 03/03/20 03/04/20 16:38 21:16 06:57 WBC RBC Hgb Hct MCV MCH MCHC RDW Std Deviation RDW Coeff of Herbert Plt Count MPV Immature Gran % (Auto) Neut % (Auto) Lymph % (Auto) [place] % (Auto) Eos % (Auto) Baso % (Auto) Neut # (Auto) Lymph # (Auto) [place] # (Auto) Eos # (Auto) Baso # (Auto) Immature Gran # (Auto) PT 20.6 H INR 2.0 H APTT PTT Ratio Sodium Potassium Chloride Carbon Dioxide Anion Gap BUN Creatinine Est Cr Clr Drug Dosing Est GFR ( Amer) Est GFR (Non-Af Amer) BUN/Creatinine Ratio Glucose POC Glucose 90 81 Estimat Average Glucose Hemoglobin A1c Calcium Total Bilirubin AST ALT Alkaline Phosphatase Total Protein Albumin Globulin Albumin/Globulin Ratio Triglycerides Cholesterol LDL Cholesterol, Calc VLDL Cholesterol, Calc HDL Cholesterol Cholesterol/HDL Ratio TSH Urine Color Urine Appearance Urine pH Ur Specific [place] Urine Protein Urine Glucose (UA) Urine Ketones Urine Blood Urine Nitrite Urine Bilirubin Urine Urobilinogen Ur Leukocyte Esterase Salicylates Urine Opiates Screen Ur Methadone, Qual Acetaminophen Urine Barbiturates Valproic Acid Ur Phencyclidine (PCP) U Amphetamin/Meth Scrn MDMA (Ecstasy) Screen U Benzodiazepines Scrn Ur Cocaine Metabolite U Marijuana (THC) Screen Ethyl Alcohol mg/dL SARS-CoV-2 Ag (Rapid) 03/04/20 03/04/20 03/04/20 08:14 12:48 14:41 WBC RBC Hgb Hct MCV MCH MCHC RDW Std Deviation RDW Coeff of Herbert Plt Count MPV Immature Gran % (Auto) Neut % (Auto) Lymph % (Auto) [place] % (Auto) Eos % (Auto) Baso % (Auto) Neut # (Auto) Lymph # (Auto) [place] # (Auto) Eos # (Auto) Baso # (Auto) Immature Gran # (Auto) PT INR APTT PTT Ratio Sodium 141 Potassium 4.3 Chloride 105 Carbon Dioxide 34 H Anion Gap 2.0 L BUN 13 Creatinine 0.94 Est Cr Clr Drug Dosing 114.3 Est GFR ( Amer) 106.9 Est GFR (Non-Af Amer) 92.2 BUN/Creatinine Ratio 13.9 Glucose 73 POC Glucose 119 H 93 Estimat Average Glucose Hemoglobin A1c Calcium 9.5 Total Bilirubin AST ALT Alkaline Phosphatase Total Protein Albumin Globulin Albumin/Globulin Ratio Triglycerides Cholesterol LDL Cholesterol, Calc VLDL Cholesterol, Calc HDL Cholesterol Cholesterol/HDL Ratio TSH Urine Color Urine Appearance Urine pH Ur Specific [place] Urine Protein Urine Glucose (UA) Urine Ketones Urine Blood Urine Nitrite Urine Bilirubin Urine Urobilinogen Ur Leukocyte Esterase Salicylates Urine Opiates Screen Ur Methadone, Qual Acetaminophen Urine Barbiturates Valproic Acid Ur Phencyclidine (PCP) U Amphetamin/Meth Scrn MDMA (Ecstasy) Screen U Benzodiazepines Scrn Ur Cocaine Metabolite U Marijuana (THC) Screen Ethyl Alcohol mg/dL SARS-CoV-2 Ag (Rapid) 03/04/20 03/04/20 03/05/20 17:15 21:10 11:57 WBC RBC Hgb Hct MCV MCH MCHC RDW Std Deviation RDW Coeff of Herbert Plt Count MPV Immature Gran % (Auto) Neut % (Auto) Lymph % (Auto) [place] % (Auto) Eos % (Auto) Baso % (Auto) Neut # (Auto) Lymph # (Auto) [place] # (Auto) Eos # (Auto) Baso # (Auto) Immature Gran # (Auto) PT INR APTT PTT Ratio Sodium Potassium Chloride Carbon Dioxide Anion Gap BUN Creatinine Est Cr Clr Drug Dosing Est GFR ( Amer) Est GFR (Non-Af Amer) BUN/Creatinine Ratio Glucose POC Glucose 95 76 118 H Estimat Average Glucose Hemoglobin A1c Calcium Total Bilirubin AST ALT Alkaline Phosphatase Total Protein Albumin Globulin Albumin/Globulin Ratio Triglycerides Cholesterol LDL Cholesterol, Calc VLDL Cholesterol, Calc HDL Cholesterol Cholesterol/HDL Ratio TSH Urine Color Urine Appearance Urine pH Ur Specific [place] Urine Protein Urine Glucose (UA) Urine Ketones Urine Blood Urine Nitrite Urine Bilirubin Urine Urobilinogen Ur Leukocyte Esterase Salicylates Urine Opiates Screen Ur Methadone, Qual Acetaminophen Urine Barbiturates Valproic Acid Ur Phencyclidine (PCP) U Amphetamin/Meth Scrn MDMA (Ecstasy) Screen U Benzodiazepines Scrn Ur Cocaine Metabolite U Marijuana (THC) Screen Ethyl Alcohol mg/dL SARS-CoV-2 Ag (Rapid) 03/05/20 03/05/20 03/05/20 17:00 20:45 20:56 WBC RBC Hgb Hct MCV MCH MCHC RDW Std Deviation RDW Coeff of Herbert Plt Count MPV Immature Gran % (Auto) Neut % (Auto) Lymph % (Auto) [place] % (Auto) Eos % (Auto) Baso % (Auto) Neut # (Auto) Lymph # (Auto) [place] # (Auto) Eos # (Auto) Baso # (Auto) Immature Gran # (Auto) PT INR APTT PTT Ratio Sodium Potassium Chloride Carbon Dioxide Anion Gap BUN Creatinine Est Cr Clr Drug Dosing Est GFR ( Amer) Est GFR (Non-Af Amer) BUN/Creatinine Ratio Glucose POC Glucose 132 H 116 H 116 H Estimat Average Glucose Hemoglobin A1c Calcium Total Bilirubin AST ALT Alkaline Phosphatase Total Protein Albumin Globulin Albumin/Globulin Ratio Triglycerides Cholesterol LDL Cholesterol, Calc VLDL Cholesterol, Calc HDL Cholesterol Cholesterol/HDL Ratio TSH Urine Color Urine Appearance Urine pH Ur Specific [place] Urine Protein Urine Glucose (UA) Urine Ketones Urine Blood Urine Nitrite Urine Bilirubin Urine Urobilinogen Ur Leukocyte Esterase Salicylates Urine Opiates Screen Ur Methadone, Qual Acetaminophen Urine Barbiturates Valproic Acid Ur Phencyclidine (PCP) U Amphetamin/Meth Scrn MDMA (Ecstasy) Screen U Benzodiazepines Scrn Ur Cocaine Metabolite U Marijuana (THC) Screen Ethyl Alcohol mg/dL SARS-CoV-2 Ag (Rapid) 03/06/20 03/06/20 03/06/20 07:45 07:46 07:49 WBC RBC Hgb Hct MCV MCH MCHC RDW Std Deviation RDW Coeff of Herbert Plt Count MPV Immature Gran % (Auto) Neut % (Auto) Lymph % (Auto) [place] % (Auto) Eos % (Auto) Baso % (Auto) Neut # (Auto) Lymph # (Auto) [place] # (Auto) Eos # (Auto) Baso # (Auto) Immature Gran # (Auto) PT 18.3 H INR 1.8 H APTT PTT Ratio Sodium Potassium Chloride Carbon Dioxide Anion Gap BUN Creatinine Est Cr Clr Drug Dosing Est GFR ( Amer) Est GFR (Non-Af Amer) BUN/Creatinine Ratio Glucose POC Glucose 105 H 105 H Estimat Average Glucose Hemoglobin A1c Calcium Total Bilirubin AST ALT Alkaline Phosphatase Total Protein Albumin Globulin Albumin/Globulin Ratio Triglycerides Cholesterol LDL Cholesterol, Calc VLDL Cholesterol, Calc HDL Cholesterol Cholesterol/HDL Ratio TSH Urine Color Urine Appearance Urine pH Ur Specific [place] Urine Protein Urine Glucose (UA) Urine Ketones Urine Blood Urine Nitrite Urine Bilirubin Urine Urobilinogen Ur Leukocyte Esterase Salicylates Urine Opiates Screen Ur Methadone, Qual Acetaminophen Urine Barbiturates Valproic Acid Ur Phencyclidine (PCP) U Amphetamin/Meth Scrn MDMA (Ecstasy) Screen U Benzodiazepines Scrn Ur Cocaine Metabolite U Marijuana (THC) Screen Ethyl Alcohol mg/dL SARS-CoV-2 Ag (Rapid) 03/06/20 03/06/20 03/06/20 12:29 12:29 16:55 WBC RBC Hgb Hct MCV MCH MCHC RDW Std Deviation RDW Coeff of Herbert Plt Count MPV Immature Gran % (Auto) Neut % (Auto) Lymph % (Auto) [place] % (Auto) Eos % (Auto) Baso % (Auto) Neut # (Auto) Lymph # (Auto) [place] # (Auto) Eos # (Auto) Baso # (Auto) Immature Gran # (Auto) PT INR APTT PTT Ratio Sodium Potassium Chloride Carbon Dioxide Anion Gap BUN Creatinine Est Cr Clr Drug Dosing Est GFR ( Amer) Est GFR (Non-Af Amer) BUN/Creatinine Ratio Glucose POC Glucose 84 84 95 Estimat Average Glucose Hemoglobin A1c Calcium Total Bilirubin AST ALT Alkaline Phosphatase Total Protein Albumin Globulin Albumin/Globulin Ratio Triglycerides Cholesterol LDL Cholesterol, Calc VLDL Cholesterol, Calc HDL Cholesterol Cholesterol/HDL Ratio TSH Urine Color Urine Appearance Urine pH Ur Specific [place] Urine Protein Urine Glucose (UA) Urine Ketones Urine Blood Urine Nitrite Urine Bilirubin Urine Urobilinogen Ur Leukocyte Esterase Salicylates Urine Opiates Screen Ur Methadone, Qual Acetaminophen Urine Barbiturates Valproic Acid Ur Phencyclidine (PCP) U Amphetamin/Meth Scrn MDMA (Ecstasy) Screen U Benzodiazepines Scrn Ur Cocaine Metabolite U Marijuana (THC) Screen Ethyl Alcohol mg/dL SARS-CoV-2 Ag (Rapid) 03/07/20 03/07/20 03/07/20 07:59 17:25 21:43 WBC RBC Hgb Hct MCV MCH MCHC RDW Std Deviation RDW Coeff of Herbert Plt Count MPV Immature Gran % (Auto) Neut % (Auto) Lymph % (Auto) [place] % (Auto) Eos % (Auto) Baso % (Auto) Neut # (Auto) Lymph # (Auto) [place] # (Auto) Eos # (Auto) Baso # (Auto) Immature Gran # (Auto) PT INR APTT PTT Ratio Sodium Potassium Chloride Carbon Dioxide Anion Gap BUN Creatinine Est Cr Clr Drug Dosing Est GFR ( Amer) Est GFR (Non-Af Amer) BUN/Creatinine Ratio Glucose POC Glucose 101 H 98 94 Estimat Average Glucose Hemoglobin A1c Calcium Total Bilirubin AST ALT Alkaline Phosphatase Total Protein Albumin Globulin Albumin/Globulin Ratio Triglycerides Cholesterol LDL Cholesterol, Calc VLDL Cholesterol, Calc HDL Cholesterol Cholesterol/HDL Ratio TSH Urine Color Urine Appearance Urine pH Ur Specific [place] Urine Protein Urine Glucose (UA) Urine Ketones Urine Blood Urine Nitrite Urine Bilirubin Urine Urobilinogen Ur Leukocyte Esterase Salicylates Urine Opiates Screen Ur Methadone, Qual Acetaminophen Urine Barbiturates Valproic Acid Ur Phencyclidine (PCP) U Amphetamin/Meth Scrn MDMA (Ecstasy) Screen U Benzodiazepines Scrn Ur Cocaine Metabolite U Marijuana (THC) Screen Ethyl Alcohol mg/dL SARS-CoV-2 Ag (Rapid) 03/08/20 03/08/20 03/08/20 07:29 07:41 12:00 WBC RBC Hgb Hct MCV MCH MCHC RDW Std Deviation RDW Coeff of Herbert Plt Count MPV Immature Gran % (Auto) Neut % (Auto) Lymph % (Auto) [place] % (Auto) Eos % (Auto) Baso % (Auto) Neut # (Auto) Lymph # (Auto) [place] # (Auto) Eos # (Auto) Baso # (Auto) Immature Gran # (Auto) PT 23.6 H INR 2.3 H APTT PTT Ratio Sodium Potassium Chloride Carbon Dioxide Anion Gap BUN Creatinine Est Cr Clr Drug Dosing Est GFR ( Amer) Est GFR (Non-Af Amer) BUN/Creatinine Ratio Glucose POC Glucose 108 H 90 Estimat Average Glucose Hemoglobin A1c Calcium Total Bilirubin AST ALT Alkaline Phosphatase Total Protein Albumin Globulin Albumin/Globulin Ratio Triglycerides Cholesterol LDL Cholesterol, Calc VLDL Cholesterol, Calc HDL Cholesterol Cholesterol/HDL Ratio TSH Urine Color Urine Appearance Urine pH Ur Specific [place] Urine Protein Urine Glucose (UA) Urine Ketones Urine Blood Urine Nitrite Urine Bilirubin Urine Urobilinogen Ur Leukocyte Esterase Salicylates Urine Opiates Screen Ur Methadone, Qual Acetaminophen Urine Barbiturates Valproic Acid Ur Phencyclidine (PCP) U Amphetamin/Meth Scrn MDMA (Ecstasy) Screen U Benzodiazepines Scrn Ur Cocaine Metabolite U Marijuana (THC) Screen Ethyl Alcohol mg/dL SARS-CoV-2 Ag (Rapid) 03/08/20 03/09/20 03/09/20 20:37 07:35 12:53 WBC RBC Hgb Hct MCV MCH MCHC RDW Std Deviation RDW Coeff of Herbert Plt Count MPV Immature Gran % (Auto) Neut % (Auto) Lymph % (Auto) [place] % (Auto) Eos % (Auto) Baso % (Auto) Neut # (Auto) Lymph # (Auto) [place] # (Auto) Eos # (Auto) Baso # (Auto) Immature Gran # (Auto) PT INR APTT PTT Ratio Sodium Potassium Chloride Carbon Dioxide Anion Gap BUN Creatinine Est Cr Clr Drug Dosing Est GFR ( Amer) Est GFR (Non-Af Amer) BUN/Creatinine Ratio Glucose POC Glucose 90 95 93 Estimat Average Glucose Hemoglobin A1c Calcium Total Bilirubin AST ALT Alkaline Phosphatase Total Protein Albumin Globulin Albumin/Globulin Ratio Triglycerides Cholesterol LDL Cholesterol, Calc VLDL Cholesterol, Calc HDL Cholesterol Cholesterol/HDL Ratio TSH Urine Color Urine Appearance Urine pH Ur Specific [place] Urine Protein Urine Glucose (UA) Urine Ketones Urine Blood Urine Nitrite Urine Bilirubin Urine Urobilinogen Ur Leukocyte Esterase Salicylates Urine Opiates Screen Ur Methadone, Qual Acetaminophen Urine Barbiturates Valproic Acid Ur Phencyclidine (PCP) U Amphetamin/Meth Scrn MDMA (Ecstasy) Screen U Benzodiazepines Scrn Ur Cocaine Metabolite U Marijuana (THC) Screen Ethyl Alcohol mg/dL SARS-CoV-2 Ag (Rapid) 03/09/20 03/10/20 03/10/20 16:53 08:02 17:50 WBC RBC Hgb Hct MCV MCH MCHC RDW Std Deviation RDW Coeff of Herbert Plt Count MPV Immature Gran % (Auto) Neut % (Auto) Lymph % (Auto) [place] % (Auto) Eos % (Auto) Baso % (Auto) Neut # (Auto) Lymph # (Auto) [place] # (Auto) Eos # (Auto) Baso # (Auto) Immature Gran # (Auto) PT INR APTT PTT Ratio Sodium Potassium Chloride Carbon Dioxide Anion Gap BUN Creatinine Est Cr Clr Drug Dosing Est GFR ( Amer) Est GFR (Non-Af Amer) BUN/Creatinine Ratio Glucose POC Glucose 83 93 168 H Estimat Average Glucose Hemoglobin A1c Calcium Total Bilirubin AST ALT Alkaline Phosphatase Total Protein Albumin Globulin Albumin/Globulin Ratio Triglycerides Cholesterol LDL Cholesterol, Calc VLDL Cholesterol, Calc HDL Cholesterol Cholesterol/HDL Ratio TSH Urine Color Urine Appearance Urine pH Ur Specific [place] Urine Protein Urine Glucose (UA) Urine Ketones Urine Blood Urine Nitrite Urine Bilirubin Urine Urobilinogen Ur Leukocyte Esterase Salicylates Urine Opiates Screen Ur Methadone, Qual Acetaminophen Urine Barbiturates Valproic Acid Ur Phencyclidine (PCP) U Amphetamin/Meth Scrn MDMA (Ecstasy) Screen U Benzodiazepines Scrn Ur Cocaine Metabolite U Marijuana (THC) Screen Ethyl Alcohol mg/dL SARS-CoV-2 Ag (Rapid) 03/11/20 03/11/20 03/11/20 07:23 09:07 09:07 WBC RBC Hgb Hct MCV MCH MCHC RDW Std Deviation RDW Coeff of Herbert Plt Count MPV Immature Gran % (Auto) Neut % (Auto) Lymph % (Auto) [place] % (Auto) Eos % (Auto) Baso % (Auto) Neut # (Auto) Lymph # (Auto) [place] # (Auto) Eos # (Auto) Baso # (Auto) Immature Gran # (Auto) PT 45.4 H INR 4.7 H APTT PTT Ratio Sodium Potassium Chloride Carbon Dioxide Anion Gap BUN Creatinine Est Cr Clr Drug Dosing Est GFR ( Amer) Est GFR (Non-Af Amer) BUN/Creatinine Ratio Glucose POC Glucose 96 Estimat Average Glucose Hemoglobin A1c Calcium Total Bilirubin AST ALT Alkaline Phosphatase Total Protein Albumin Globulin Albumin/Globulin Ratio Triglycerides Cholesterol LDL Cholesterol, Calc VLDL Cholesterol, Calc HDL Cholesterol Cholesterol/HDL Ratio TSH Urine Color Urine Appearance Urine pH Ur Specific [place] Urine Protein Urine Glucose (UA) Urine Ketones Urine Blood Urine Nitrite Urine Bilirubin Urine Urobilinogen Ur Leukocyte Esterase Salicylates Urine Opiates Screen Ur Methadone, Qual Acetaminophen Urine Barbiturates Valproic Acid 38 L Ur Phencyclidine (PCP) U Amphetamin/Meth Scrn MDMA (Ecstasy) Screen U Benzodiazepines Scrn Ur Cocaine Metabolite U Marijuana (THC) Screen Ethyl Alcohol mg/dL SARS-CoV-2 Ag (Rapid) Hospital Course (1) Schizoaffective disorder: 02/25 - The patient was admitted to the [facility] ([facility] inpatient mental health unit) on q15 min checks (behavioral with suicide precautions) for safety. The patient will participate in group, recreational, and milieu therapies and will be offered additional individual and family sessions as clinically appropriate. He clearly meets criteria for extended involuntary commitment and a 303 was filed, Dr. Lopez updated as will be testifying psychiatrist. Regarding meds, trazodone and Cymbalta were held in ED due to paradoxical reaction and kylee. Zyprexa was given standing order there, as calmer will change to prn here. His Tegretol was also restarted there at low dose as longstanding previously effective med. May impact his anticoagulation. 02/26 -303 hearing held and commitment granted. Contact Su MORATAYA at [place] to coordinate care - left message. -Continue olanzapine 10 mg at bedtime, risperidone 2 mg at bedtime (contact outpatient clinician regarding previous response to these medications and preferred plan moving forward), carbamazepine 250 mg twice daily, and diazepam 5 mg at bedtime. Zolpidem 10 mg at bedtime as needed has been added, and although he received a dose last night, he still slept only 1 hour. Consider trial of atypical antipsychotic with sedating properties, such as chlorpromazine, in place of one of his atypicals if sleep does not improve. -Monitoring on an atypical antipsychotic: Hgb A1C 5.5%, est ave glucose 111 on 02/27/20, FLP ordered for tomorrow. -Per records, patient has assault charges. Attempt to clarify with his outpatient manager rn case. 02/27 - Medication adjustments suggested this morning after treatment team and review of collateral obtained from patient's outpatient psychiatric prescriber. - Titrating risperidone to 1mg qAM and 2mg qHS - further titration as tolerated (previous dosing of 8mg daily total). - Diazepam titrated to 10mg qHS to promote sleep, as this continues to be a problem. Scheduled HS olanzapine was discontinued, but remains a prn option for sleep/agitation if necessary. - Consider chlorpromazine for mood stabilization/sleep if sleep continues to be an issue. 02/28 - Continue medication adjustments as previously discussed - pt received 3mg total of risperidone yesterday, scheduled to receive 4mg total today. Continue titration as tolerated - Pt continues to sleep poorly, though has been taking brief and intermittent naps during the day which is a small improvement. Continue diazepam at this time. 03/01 - Risperidone being titrated to 4mg this evening (total of 5mg today), and AM dose being titrated to 2mg tomorrow (will get total of 6mg). Continue risperidone titration as indicated/tolerated. - Pt was counseled on the fact that medications used to stabilize his symptoms can eventually be cross-tapered to medications that may be more ideal for long- term use. Pt has continued to take risperidone as scheduled, but does verbalize concerns about long-term side effects he has experienced in the past. He did seem to understand that risperidone is being used for acute stabilization, but that other options can be explored on an outpatient basis once his symptoms are improved. - Pt did have improved sleep last evening - continue to monitor, adjust medication regimen as needed to target sleep 03/02 total of 6mg Risperdal today (2mgAM and 4mg at hs), will move to 7mg tomorrow 03/03 with goal for 8mg on Saturday 03/04 if tolerated; for now monitor the "drunken feeling" as I believe that is the cumulative poor sleep and increasing Risperdal culminating on patient, but could be a SE of Tegretol. He is not showing s/sx of fall risk or dysequilibrium 03/03 - I am concerned that Tegretol may be causing the "drunken feeling" as patient notes this is new. He is still manic with poor sleep and hyperverbal, more likely to be intrusive/inappropriate/irritable at night. Will stop the Tegretol and continue to advance the Risperdal 03/03 will get 7mg, and 03/04 8mg divided 4mg bid (he would like to consider 8mg/hs once up to full dosing as that is how he took it outpatient). He declines change from Valium to Klonopin with provider contemplating increased dose to facilitate sleep. TO increase Valium I believe could risk daytime somnolence and impairment in cognition and coordination given how long acting it is. Although provocative I will return patient to his trazodone 150mg/hs tonight watching for orthostasis alongside of Risperdal and 300mg 03/04/20. Pt agrees to slow positional changes but will ask staff to monitor for instability given he is at risk for bleeding on blood thinners if he falls. With goal to show collaboration will inquire about nail clipping and compression stockings for patient as these are reasonable requests as staffing /supplies are available. 03/04 - Continue current medication regimen - patient continues to be manic with tangential thoughts and flight of idea. He remains inappropriately fixated on a peripheral member of his outpatient treatment team. - Pt continues to refuse valproic acid due to concern for weight gain - attempted to discuss alternative agents, however, patient's ability to pa rticipate in this conversation remains limited - Trazodone will increase to 300mg tonight per ordered titration - continue to monitor sleep. - Will defer toe nail clipping at this time, as patient is an insulin-dependent diabetic who follows with a hand tapper on an outpatient basis for routine diabetic foot care. Toenails inspected today and are long, but not debilitating. If indicated, will consider podiatry consultation to address. 03/05 -Patient increasingly agitated, disruptive, and now threatening staff and other patients. Continue risperidone 4 mg twice daily, add chlorpromazine 50 mg p.o. or IM as needed for agitation/psychosis, can be used in conjunction with lorazepam. -Sleep remains extremely poor, and out of the past 8 nights in the hospital, he has only slept over 1 hour on 2 occasions. He has failed several medication trials to improve sleep, including olanzapine, increasing his diazepam dose, and trazodone was restarted 2 nights ago with limited response. I will decrease his trazodone to 150 mg at bedtime, decrease diazepam to 5 mg at bedtime, and order chlorpromazine 100 mg at bedtime for tonight, as he did have some sedation after the dose he received this morning for agitation. -Patient continues to be agitated, disruptive, and poorly cooperative, requiring frequent redirection from staff. He has been repeatedly reminded of interpersonal boundaries and appropriate behavior. Continue private room and excuse from groups. -Patient continues to refuse trials of Depakote or lithium, failed Tegretol. ECT is an option, but and not available here, and he is not voluntary. Given the severity of his symptoms, lack of improvement since admission, and the fact that he required very lengthy inpatient hospitalizations in the past for stabilization, I am recommending a 304 involuntary commitment with referral to [facility] for long-term inpatient treatment. Patient informed, provided with 304 paperwork, which he promptly ripped up. 03/06 - 304 hearing held and commitment granted. Refer to [facility], and order EKG and CXR for medical clearance. - Continue diazepam 5 mg and trazodone 150 mg at bedtime. Patient remains unhappy about being on risperidone, as he gained weight on it in the past, and as it has not been usually effective, I will decrease his dose to 2 mg every morning and 4 mg at bedtime, while increasing chlorpromazine to 50 mg every morning and 100 mg at bedtime. Continue chlorpromazine 50 mg every 2 hours as needed for psychosis/agitation. Patient agreed to a trial of Depakote, reviewed the need to monitor blood work including CBC and liver function, as well as blood levels. Start 500 mg at bedtime, and check a trough level after 5 doses (ordered for 03/11/2020). 03/07 -Increase chlorpromazine to 50 mg 3 times daily and 100 mg at bedtime, continue as needed's. 1/29 -The concern is that the patient is not sleeping. He is motorically hyperactive, irritable, and easily agitated. He tells us that chlorpromazine has always been helpful to him in the past. -Given the patient's psychomotor agitation, her hyperkinesis, and apparent inability to sleep we discussed with him the option of an intramuscular injection of chlorpromazine and diphenhydramine, coupled with the availability of a darkened and quiet room. The patient acknowledged with a smile that he was eager to fall asleep. Chlorpromazine 100 mg IM with diphenhydramine 50 mg IM given with patient's consent after the names of the medications and the purposes were reviewed with him. So far, this has allowed him to fall asleep and rest comfortably. - Increase Chlorpromazine to 100 mg TID and 200 mg HS. Hold until HS dose. 03/09 -Efforts at sedation have been largely ineffective and now on a fair degree of polypharmacy and will attempt to simplify -Due to inadequate effect of Thorazine (remains agitated and insomnic) and patient's complaint of feeling cognitively slowed and secondarily angered by it, will discontinue the Thorazine and substitute Haldol 5 mg 3 times daily with Cogentin 2 mg 3 times daily to start. We will also begin Klonopin 1 mg 3 times daily with plan to back off once sleeping and kylee breaks. congentin started at high dose due to h/o dystonia reported w/ haldol. -Discontinue the low-dose as needed's of Risperdal and Thorazine due to lack of efficacy and to reduce complexity and polypharmacy of current med regimen -start seroquel 200mg po q6h prn for agitation of insomnia as alternative to thorazine 03/10 -Unfortunately he remains behaviorally unimproved however is sleeping for slightly longer durations, likely attributable to the benzodiazepine and quetiapine initiated yesterday. -In reviewing his recent treatment history and failed response to Risperdal titration previously, will discontinue which will allow for me to be more aggressive with the Haldol which we will increase to 10 mg p.o. 3 times daily continuing the Cogentin 2 mg 3 times daily due to history of dystonia. -We will also implement a Haldol 5 mg every 8 hours as needed and Ativan 2 mg every 6 hours as needed IM for emergency use if he refuses oral medication. Pt has been fairly compliant with PO meds but has required IM's since admission and his insight is clearly impaired by his psychosis and treatment over objection is felt to be warranted as he is unlikely to improve without adequate pharmacotherapy. -The Seroquel does seem to be helping and will continue 200 mg every 4 hours as needed for agitation (do not exceed 800 mg in 24 hours.) Considering scheduled dose which we can reassess after we see how he responds to increased Haldol -Trazodone discontinued due to lack of efficacy for sleep and possible contribution to activation from serotonergic activity -Increase clonazepam to 1 mg twice daily and 2 mg nightly in effort to help reconsolidate sleep to bedtime. Daytime clonazepam should be held for excessive sedation 03/11 - Given significant medication adjustments made yesterday, will leave current me dication regimen unchanged for today. Continue to observe mood/behaviors. - Pt continues to occupy our safe room/KENDRICK voluntarily, seems to be benefitting from reduced stimulation. Episodes of agitation/aggression continue to be a concern. - Follow-up with [facility] regarding referral progress. Packet sent on 03/06, no confirmation of receipt. (2) Deep venous thrombosis: 02/25 - Patient non-compliant with Eliquis and was transitioned to Coumadin in the ED with Lovenox bridge. The combo should be continued for at least 2 more days and an INR >2. Pharmacist recommends daily PT/INR if he'll allow (every other acceptable if issue) and taking 10 mg Coumadin for the next 2 nights. 02/26 -INR 1.2 today. Continue Lovenox until Coumadin is therapeutic, with daily INR. 02/27 - INR 2.0 today - will discontinue Lovenox - patient thus far has been compliant with daily PT/INR. 02/28 - INR continues to be at 2.0 today with discontinuation of Lovenox 03/01--INR = 2.1 03/02 and 03/03 - 03/02 INR 1.9 which is slightly below goal will continue 10mg with daily PT/INR. Request pharmacy input with next PT/INR on 03/04/20 if that remains <2 03/04- INR returned to 2.0 today - continue serial PT/INR - physical examination of upper and lower extremities. Fingers are a bit cold to the touch, no obvious discoloration, sensation intact in all digits. Lower extremities visualized, no discoloration, warm to touch, no overt pitting edema so far this morning. No ulcers/wounds observed on feet, though skin is dry and calloused in places. Pedal pulses 3+ bilaterally, sensation intact in all digits. Pt reports "tingling" from toes to metatarsal area bilaterally. 03/05 -patient agitated and uncooperative, unable to examine lower extremities. 03/07-INR 1.8 yesterday; Coumadin increased to 12 mg daily, continue every 2 day PT/INR. 03/08 -INR today is 2.3, within therapeutic range for coagulation therapy. 03/10 -due for PT/INR today however was deferred today to minimize stimulation. reviewed INR was in range at 2.3 on 03/08/20. 03/11 - Pt tolerate PT/INR today - (3) Diabetes mellitus: 02/25 - diabetic pharmacy consult 02/26 -patient getting insulin here, glucose well controlled. 03/06 -patient for a large callus off of the ball of his left foot, with a flap of skin still attached. He is able to ambulate and there are no current signs of infection, but given his diabetes and risk of infection, we will consult the wound care team for assistance. 03/07 -appreciate wound care nurse assistance, they are consulting the hand tapper. 03/08 -patient remains cooperative with dietary restrictions, blood checks, and medications. 03/09- -Reviewed glycemic control and his sugars have been between 84 and 108 since the (4) Chronic back pain: 03/05 -on admission, patient was continued on his home pain medication regimen, including nabumetone 500 mg 4 times daily, gabapentin 400 mg 4 times daily, duloxetine, diclofenac, and baclofen 20 mg twice daily. He is now demanding multiple medication changes to target pain, including increasing all 3 of those medications to 5 times a day. Attempted to explain to him that this is above the FDA maximum dose and that it would not be appropriate to order higher doses of NSAIDs, but he was unable to tolerate the discussion, interrupting becoming agitated. 03/09 -will consolidate neurontin to 800mg TID (slight dose escalation) and relafen to 1000mg bid to reduce frequency of natural remedy consultant Mental Health & Subst Abuse Tx Psychiatrist Name of Psychiatrist: Eric Joiner Psychiatrist's Time of Appointment with Psychiatrist: Therapist Name of Therapist: Luis Fernando eli/Norman Cookie Padder Name of Cookie Padder: Dayne Phone Number for Cookie Padder: [phone] Post Discharge Appointments Primary Care Physician Name Of Family Doctor: Jennifer Little Primary Care Partial or Psych Rehab Name of Partial or Psych Rehab: [facility] - Luis Fernando Smoking Cessation Counseling Tobacco Cessation Medication Prescribed at Discharge: Not Applicable/Non-Smoker Contact Information Discharge Discharge [address] [address] [place] [address], [address] [address] Discharge Plan Discharge Items [facility] Reason For Visit: SCHIZOAFFECTIVE DISORDER Discharge Diagnosis: - Schizoaffective disorder Health Concerns: Patient's PT/INR is prolonged at 4.7 on day of discharged - holding Coumadin until value returns to therapeutic range of 2.0-3.0. See specific medication instructions below. Activity: Resume your previous activity Non-emergency contact: Primary Care Provider, Psychiatrist, Therapist and Investigator Narcotics Call non-emergency contact if: you have any medication questions and your symptoms worsen Follow-up/Referrals: Baltazar Little, DO [Primary Care Provider] - Diet: Carb Consistent or DM2 Addtl Attending Provider Instructions: Hold Coumadin - PT/INR was 4.7 on day of discharge - goal range of 2.0-3.0 See medication instructions below with regard to resuming medication SPECIAL CARE INSTRUCTIONS: 1. Follow through with your scheduled aftercare appointments. If unable to keep an appointment, please call to reschedule. 2. Take your medication only as prescribed. Medication should not be changed or stopped without the approval of your doctor. In the event of worsening symptoms or concerns about side effects, contact your doctor immediately. 3. Utilize new healthy coping skills, anger management skills, and stress management skills learned during your hospitalization. Journal feelings and process them with a support person. Identify stressors or situations that may result in relapse, deterioration or inappropriate behaviors and develop a plan to deal with those issues. 4. If your coping skills are ineffective and you are in crisis, contact your outpatient providers for direction. If unable to reach your providers, please call the [facility] CRISIS LINE AT , go to the [facility] walk-in center at [address], [address], [place], or go to the closest Emergency Room. 5. Avoid alcohol and un-prescribed drugs. 6. You have been provided with the Mental Health Advance Directives Pamphlet for your review. AFTERCARE APPOINTMENTS: * Please call your insurance company prior to your scheduled appointment to confirm your aftercare providers are covered. Take your insurance information to your appointments. WHO TO CALL AND WHEN: Medical Emergencies: For questions or emergencies related to your hospital stay, please contact the Inpatient Behavioral Health Unit at [phone]. A psychiatric rn is on-call 31/08 for the Behavioral Health Unit for emergencies At any time you feel your situation is an emergency, you may also call 911 immediately. Pending Studies at Discharge: No Stand-Alone Forms: My [facility] Skilled Items Patient informed of condition?: No Discharge Level of Care: Other Communicable Disease: No Discharge Prognosis: Other Lines: None Urinary Catheter: No Medications and DC Order Prescriptions: New warfarin 5 mg tablet 5 mg PO UD Qty: 30 RF: 0 clonazepam 1 mg Tablet 2 mg PO HS 30 Days Qty: 60 RF: 0 benztropine 1 mg Tablet 2 mg PO TID 30 Days Qty: 180 RF: 0 clonazepam 1 mg Tablet 1 mg PO [id number] 30 Days Qty: 60 RF: 0 divalproex 500 mg Tablet Extended Release 24 Hr 1,000 mg PO HS Qty: 60 RF: 0 gabapentin 800 mg Tablet 800 mg PO TID Qty: 90 RF: 0 haloperidol 10 mg tablet 10 mg PO TID Qty: 90 RF: 0 nabumetone 500 mg Tablet 1,000 mg PO BID Qty: 120 RF: 0 quetiapine [Seroquel] 200 mg Tablet 200 mg PO Q4H PRN (Reason: agitation/anxiety) Qty: 30 RF: 0 furosemide 20 mg Tablet 20 mg PO QAM PRN (Reason: edema) Qty: 30 RF: 0 Advanced Probiotic 625 mg (10 billion cell) Capsule 2 cap PO QAM Qty: 30 RF: 0 Continued multivitamin tablet 1 tab PO QAM RF: 0 atorvastatin [Lipitor] 20 mg tablet 20 mg PO QAM RF: 0 montelukast [Singulair] 10 mg tablet 10 mg PO QAM RF: 0 baclofen 20 mg tablet 20 mg PO BID RF: 0 [place] 3-6-9 1,200 mg Capsule 1,200 cap PO TID RF: 0 levothyroxine 50 mcg Tablet 50 mcg PO DAILYBB RF: 0 loratadine [Claritin Liqui-Gel] 10 mg Capsule 10 mg PO DAILY RF: 0 diclofenac sodium 1 % gel 2 g TOPICAL BID RF: 0 pantoprazole 40 mg PO DAILY RF: 0 Vitamin D (with calcium) 1 ea PO DAILY RF: 0 Trulicity 0.75 mg subcut WK RF: 0 magnesium oxide 400 mg magnesium Tablet 400 mg PO BID RF: 0 dulaglutide 0.75 mg/0.5 mL Pen Injector 0.75 mg SUBCUT WK RF: 0 insulin asp prt-insulin aspart [Novolog Mix 70-30 U-100 Insuln] 100 unit/mL (70-30) Solution 40 unit SUBCUT BID RF: 0 clindamycin phosphate 1 % Solution 1 applic TOPICAL DAILY PRN (Reason: Pimples) RF: 0 Discontinued cyanocobalamin (vitamin B-12) [Vitamin B-12] 1,000 mcg tablet extended release 1,000 mcg PO DAILY RF: 0 gabapentin 400 mg capsule 400 mg PO QID RF: 0 trazodone 150 mg Tablet 300 mg PO HS RF: 0 duloxetine 60 mg capsule,delayed release(DR/EC) 60 mg PO DAILY RF: 0 ziprasidone HCl 20 mg Capsule 20 mg PO DAILY RF: 0 ziprasidone HCl 80 mg PO DAILY RF: 0 Tegretol 250 mg PO BID RF: 0 furosemide [Lasix] 20 mg tablet 20 mg PO DAILY PRN (Reason: edema) Qty: 10 RF: 0 diazepam 5 mg tablet 5 mg PO HS RF: 0 nabumetone 500 mg tablet 500 mg PO QID RF: 0 risperidone 2 mg Tablet 2 mg PO HS RF: 0 Discharge Orders: Discharge Order (Routine); Ordered 03/11/20 Ordered By: Niki Alvarez Admission Data Admit Date/Time: 02/26/20 12:02 Attending Provider: Taylor Lopez Admit Provider: Chica Collado Primary Care Provider: Baltazar Little Other Providers: Chica Collado ; Alcides Mcpherson Other Interventions: Discharge Summary Assessment (RN) Last Done: 03/11/20 12:54 PSY Interdisciplinary Discharge Planning Last Done: 03/09/20 10:11 Coding Level of Care Code 03478 D/C day mgmt > 30 min Diagnoses Schizoaffective disorder F25.0 Schizoaffective disorder type: bipolar Deep venous thrombosis I82.409 Diabetes mellitus E11.9; Z79.4 Diabetes mellitus complication status: without complication Diabetes mellitus chcf insulin use: with chcf use Diabetes mellitus type: type 2 Chronic back pain M54.9; G89.29
[2020-03-11] MEDS ORDERED: DESTROY THIS MEDICATION ONE (13:29)
--- NOTE | 2020-03-22 14:04 | Coding Query ---
DEBRIDEMENT DOCUMENTATION To promote full compliance with coding requirements relating to patient care, physician participation is requested in all cases of hospital cleaner uncertainty. Please assist us with the question(s) below: Please place an X in the parenthesis (x). If other, please document the finding: Depth of Debridement: ( ) Skin ( ) Skin and Subcutaneous Tissue ( ) Skin, Subcutaneous Tissue and Muscle ( ) Skin, Subcutaneous Tissue, Muscle and Bone ( ) Other (please specify): Thank you Roxanne Faria [facility]
== END 2020-03-11 13:10 | DRG 885 ==
LOC: ED 18:53 → 3S 20:00